=== PATIENT | female | born 1945 | race Caucasian/White ===

== ENCOUNTER 2019-06-01 10:08 | Emergency (ER) | payer MEDICARE ==
[~2019-06-01] VITALS: Ht 160 cm; Wt 81.8 kg
[2019-06-01] MEDS ORDERED: DULO20CA PO (10:36)
[2019-06-01] MEDS ORDERED: ATOR20TA66 PO (10:36)
[2019-06-01] MEDS ORDERED: LISI-552 PO (10:36)
--- NOTE | 2019-06-01 10:54 | ED Lower Extremity ---
General Chief Complaint: Trauma-Non Activation Stated Complaint: FALL - L KNEE PAIN Nursing Triage Note: PT TO RM 8 BY WHEELCHAIR WITH COMPLAINT OF LEFT KNEE AND ANKLE PAIN AFTER FALL. PT STATES SHE SLIPPED ON STEPS THIS MORNING. DENIES LOC. Nursing Sepsis Screen: No Definite Risk (DENISE COPELAND MEDICAL STUDENT) Source: patient Exam Limitations: no limitations (NIDHI HULL MD) History of Present Illness Initial Comments Patient is a 74- year old female presenting via private vehicle to the ED for a left ankle injury. Patient reports that she was walking down stairs when she missed a step and rolled her ankle. She believes she inverted her ankle but is unsure of the mechanism of injury because of how quickly it happened. She did not hear a pop with the fall. She fell onto her bottom and did not hit her head. After the fall she was unable to bear weight. She has 10/10 ankle and knee pain with weight bearing. (DENISE COPELAND) Date Seen by Provider: Jun 01, 2019 Time Seen by Provider: 10:30 (NIDHI HULL MD) Allergies and Home Medications Allergies Coded Allergies: Penicillins (Verified Allergy, Unknown, 06/01/19) Home Medications Hydrocodone Bit/Acetaminophen 1 Tab Tab, 1 EACH PO Q4-6HR PRN for PAIN-MODERATE Prescribed by: NIDHI IYER on 06/01/19 1158 Lisinopril 20 Mg Tablet, Unknown Dose PO DAILY, (Reported) Patient Home Medication List Home Medication List Reviewed: Yes (NIDHI HULL MD) Review of Systems Constitutional: no symptoms reported EENTM: no symptoms reported Respiratory: no symptoms reported Cardiovascular: no symptoms reported Gastrointestinal: no symptoms reported Genitourinary: no symptoms reported : No Musculoskeletal: see HPI Skin: no symptoms reported Psychiatric/Neurological: No Symptoms Reported (NIDHI HULL MD) Past Pxskuvu-Bktcku-Mdehiv Hx Patient Social History Alcohol Use: Occasionally Uses Alcohol Beverage of Choice: Wine Recreational Drug Use: No Smoking Status: Former Smoker Type Used: Cigarettes Recent Foreign Travel: No Contact w/Someone Who Travel: No Recent Infectious Disease Expo: No Recent Hopitalizations: No (DENISE COPELAND) Immunizations Up To Date Tetanus Booster (TDap): Unknown PED Vaccines UTD: Yes (COPELAND,DENISE MEDICAL STUDENT) Seasonal Allergies Seasonal Allergies: No (DENISE COPELAND MEDICAL STUDENT) Past Medical History Surgeries: Yes (RIGHT KNEE, LEFT SHOULDER) Adenoidectomy, Appendectomy, Hysterectomy, Orthopedic, Tonsillectomy, Tubal Ligation Respiratory: Yes Asthma, COPD Cardiac: Yes High Cholesterol, Hypertension 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 oz. kg; 31.00 BMI Method: General Appearance: mild distress HEENT: normal ENT inspection, pharynx normal Cardiovascular: regular rate, rhythm, no gallop Respiratory: lungs clear, normal breath sounds Knees: left knee pain, left knee soft tissue tenderness, left knee swelling, left knee other Ankles: left ankle bone tenderness (Severely tender along both medial and lateral malleoli. Non-tender at 5th metatarsal and non-tender at mid-foot), left ankle pain, left ankle soft tissue tenderness, left ankle swelling Feet: left foot other (Posterior tibial, dorsalis pedis pulses intact ) Neurologic/Tendon: normal sensation (DENISE COPELAND MEDICAL STUDENT) Progress/Results/Core Measures Results/Orders My Orders Orders - NIDHI HULL MD Ankle, Left, 3 Views (06/01/19 10:45) Knee, Left, 3 Views (06/01/19 10:57) Crutches (06/01/19 11:42) Steplite (06/01/19 11:42) (NIDHI HULL MD) Vital Signs/I&O 06/01/19 06/01/19 10:25 12:50 Temp 36.5 36.5 Pulse 90 90 Resp 20 20 B/P (MAP) 123/84 (97) 123/84 (97) Pulse Ox 97 97 O2 Delivery Room Air (NIDHI HULL MD) Blood Pressure Mean: 97 Diagnostic Imaging Diagonstic Imaging: Xray Plain Films/CT/US/NM/MRI: knee Comments Left knee x-ray viewed by me and report reviewed. See report below: NAME: JOSE SILVA [facility] REC#: [id number] PT STATUS: [facility] ER : 1945 PHYSICIAN: NIDHI HULL MD ADMIT DATE: 06/01/19/ER Signed Date of Exam:06/01/19 KNEE, LEFT, 3 VIEWS INDICATION: Knee pain post fall TECHNIQUE: 3 views of the left knee CORRELATION STUDY: None FINDINGS: The joint spaces are maintained. The articular surfaces are smooth and preserved. There is no acute bony abnormality. Soft tissues are unremarkable. IMPRESSION: 1. Negative for acute bony abnormality of the knee. Dictated by: Dictated on workstation # [id number] Dict: 06/01/19 1121 Trans: 06/01/19 1203 DO [id number] Interpreted by: DEE MÉNDEZ DO Electronically signed by: DEE MÉNDEZ DO 06/01/19 1203 Diagonstic Imaging: Xray Plain Films/CT/US/NM/MRI: ankle Comments Left ankle x-ray viewed by me and report reviewed. See report below: NAME: JOSE SILVA [facility] REC#: [id number] PT STATUS: [facility] ER : 1945 PHYSICIAN: NIDHI HULL MD ADMIT DATE: 06/01/19/ER Signed Date of Exam:06/01/19 ANKLE, LEFT, 3 VIEWS HISTORY: Fall, left ankle pain TECHNIQUE: Three views of the left ankle. COMPARISON: None FINDINGS: There is an oblique Rowan type B fracture of the lateral malleolus which is nondisplaced, but suspicious for an acute fracture. There appears to be a small avulsion fracture at the tip of the medial malleolus. There is a well-corticated ossification distal to the lateral malleolus which is likely from remote trauma. There is a moderate left tibiotalar joint effusion. A plantar calcaneal enthesophyte is seen. IMPRESSION: 1. Nondisplaced oblique fracture of the distal left fibula, suspected to be acute. 2. Minimally displaced avulsion fracture at the tip of the medial malleolus. 3. Moderate tibiotalar joint effusion. Dictated by: Dictated on workstation # [id number] Dict: 06/01/19 1105 Trans: 06/01/19 1706 [facility] [id number] Interpreted by: SOFYA THOMPSON MD Electronically signed by: SOFYA THOMPSON MD 06/01/19 170 (NIDHI HULL MD) Departure Impression Primary Impression: Fracture of distal end of left fibula Qualified Codes: S82.832A - Other fracture of upper and lower end of left fibula, initial encounter for closed fracture Additional Impression: Avulsion fracture of medial malleolus of left tibia Qualified Codes: S82.52XA - Displaced fracture of medial malleolus of left tibia, initial encounter for closed fracture Disposition: HOME, SELF-CARE Condition: Improved Departure-Patient Inst. Decision time for Depature: 11:56 (NIDHI HULL MD) Referrals: ASHLEY STALLINGS MD (PCP/Family) Primary Care Physician CAMERON LOCK MD, MICHAEL P MD Patient Instructions: Ankle Fracture, How to Use Crutches Add. Discharge Instructions: Use crutches to ambulate. Use the boot as much as possible. You may only toe- touch weight-bear while the boot is on. Do not weight-bear without the boot. Rest, elevation, and icing in 20 minute intervals should help reduce pain and swelling. You may also use a compressive Magdy wrap. Follow-up with an orthopedist as soon as possible. Some local orthopedist are listed below. Use Tylenol (acetaminophen) for more mild pain. You may use up to 1000 mg every 6 hours. Use hydrocodone as prescribed for more severe pain Return to care if you have worsening symptoms. All discharge instructions reviewed with patient and/or family. Voiced understanding. Scripts Hydrocodone Bit/Acetaminophen (Hydrocodone/Acetaminophen 5/325mg Tablet) 1 Tab Tab 1 EACH PO Q4-6HR PRN for PAIN-MODERATE MDD 10, #10 TAB Prov: NIDHI HULL MD 06/01/19 This patient was personally interviewed and examined by me along with Denise Copeland MS4. I agree with his history, physical, and assessments, and documentation with the following additions and changes. Exam: Gen.: Alert, oriented, no acute distress HEENT: Normocephalic and atraumatic Heart: Regular rate and rhythm without murmur Lungs: Clear to auscultation bilaterally with normal effort Extremities: There is tenderness to the medial malleolus into the distal lateral left lower leg. There is some swelling along the lateral aspect as well and a small abrasion on the anterior aspect of the ankle. Foot exam is unremarkable. Neuropsych: Alert and oriented, no focal deficits. Patient was found to have ankle fracture. She was fitted with a boot and crutches. She was advised follow-up with orthopedics next week. Hydrocodone was given for pain. (NIDHI HULL MD) Copy Copies To 1: ASHLEY STALLINGS MD, ALEX MEDICAL STUDENT Jun 01, 2019 10:54 NIDHI HULL MD Jun 01, 2019 11:59
--- NOTE | 2019-06-01 11:20 | Diagnostic Imaging Report ---
HISTORY: Fall, left ankle pain TECHNIQUE: Three views of the left ankle. COMPARISON: None FINDINGS: There is an oblique Rowan type B fracture of the lateral malleolus which is nondisplaced, but suspicious for an acute fracture. There appears to be a small avulsion fracture at the tip of the medial malleolus. There is a well-corticated ossification distal to the lateral malleolus which is likely from remote trauma. There is a moderate left tibiotalar joint effusion. A plantar calcaneal enthesophyte is seen. IMPRESSION: 1. Nondisplaced oblique fracture of the distal left fibula, suspected to be acute. 2. Minimally displaced avulsion fracture at the tip of the medial malleolus. 3. Moderate tibiotalar joint effusion. Dictated by: Dictated on workstation # [id number]
--- NOTE | 2019-06-01 11:23 | Diagnostic Imaging Report ---
INDICATION: Knee pain post fall TECHNIQUE: 3 views of the left knee CORRELATION STUDY: None FINDINGS: The joint spaces are maintained. The articular surfaces are smooth and preserved. There is no acute bony abnormality. Soft tissues are unremarkable. IMPRESSION: 1. Negative for acute bony abnormality of the knee. Dictated by: Dictated on workstation # [id number]
[2019-06-01] MEDS ORDERED: ACHD5005 PO (11:58)
[2019-06-01 12:50] VITALS: BP 123/84
== END 2019-06-01 12:50 | disposition home or self-care (01) ==
LOC: ER 10:10
DX: S82.832A Other fracture of upper and lower end of left fibula, initial encounter for closed fracture (principal); S82.52XA Displaced fracture of medial malleolus of left tibia, initial encounter for closed fracture; I10 Essential (primary) hypertension; Z90.89 Acquired absence of other organs; Z90.49 Acquired absence of other specified parts of digestive tract; Z90.710 Acquired absence of both cervix and uterus; Z98.51 Tubal ligation status; Z88.0 Allergy status to penicillin; Z87.891 Personal history of nicotine dependence; W10.9XXA Fall (on) (from) unspecified stairs and steps, initial encounter
CPT/HCPCS: 73562; 73610

== ENCOUNTER → 2019-06-07 | Outpatient (CLI) | payer MEDICARE ==
[~2019-06-07] MED LIST: ACHD5005 PO; ATOR20TA66 PO; DULO20CA PO; LISI-552 PO
--- NOTE | 2019-06-07 12:07 | Diagnostic Imaging Report ---
INDICATION: Fracture, follow up. TECHNIQUE: Three views of the left ankle. CORRELATION STUDY: 06/01/2019. FINDINGS: Obliquely oriented fracture of the distal fibula is again demonstrated. There is perhaps very slight increased offset along the fracture line. No appreciable interval healing. Some bone fragmentation at the tip of the fibula, likely owing to previous fracture. Relatively stable appearance about a small avulsion fracture off the tip of the medial malleolus. Small plantar calcaneal spur. Soft tissue swelling is again demonstrated. IMPRESSION: 1. Perhaps slight increased diastasis along the main obliquely oriented fracture of the distal left fibula. Alignment is otherwise nearly anatomic. 2. Stable appearance about minimally displaced avulsion fractured tip of the medial malleolus. Dictated by: Dictated on workstation # [id number]
== END ==
LOC: ORTHO 09:41
PROVIDERS: ATTEND Orthopaedic Surgery
DX: S82.832A Other fracture of upper and lower end of left fibula, initial encounter for closed fracture (principal); S82.52XA Displaced fracture of medial malleolus of left tibia, initial encounter for closed fracture; W10.9XXA Fall (on) (from) unspecified stairs and steps, initial encounter
CPT/HCPCS: 73610; 99203

== ENCOUNTER → 2019-06-20 | Outpatient (CLI) | payer MEDICARE ==
--- NOTE | 2019-06-20 11:30 | Diagnostic Imaging Report ---
EXAMINATION: Left foot at 11:13 a.m. INDICATION: Follow-up fracture of distal fibula. Three views were obtained. COMPARISON: There are no prior studies of the foot available for comparison. FINDINGS: The prior exam of the left ankle performed on 06/07/2019 did note a slightly displaced fracture of the distal fibula and a minimally displaced avulsion fracture of the tip of the medial malleolus. On this exam, the fracture of the distal fibula is again evident and does not seem to have changed significantly. The medial malleolar fracture is difficult to appreciate. There is no fracture or acute bony abnormality of the foot itself. There is at least moderate degenerative disease of the PIP and DIP joints. There is also a small calcaneal spur. The Lisfranc joint seems well maintained. IMPRESSION: The fractures of the distal fibula and tibia seen previously are again evident. There is no acute abnormality of the foot. Dictated by: Dictated on workstation # [id number]
--- NOTE | 2019-06-20 11:33 | Diagnostic Imaging Report ---
EXAMINATION: Left ankle at 11:15 a.m. INDICATION: Follow-up fracture. Three views were obtained. The prior exam of 06/01/2019 noted a nondisplaced oblique fracture of the distal fibula as well as a minimally displaced fracture of the tip of the medial malleolus. On this study the fibular fracture line is again evident and actually seems somewhat more conspicuous than on the previous exam. There may be minimal healing callus formation present. The fracture of the medial malleolus is unchanged. No other fracture or acute bony abnormality is appreciated. The ankle mortise is not widened and the talar dome is smooth. The soft tissues are unremarkable. IMPRESSION: 1. The fractures of the distal fibula and medial malleolus seen previously are again evident and not significantly changed. No new abnormality has developed. 2. A follow-up study would be recommended for continued evaluation. Dictated by: Dictated on workstation # [id number]
== END ==
LOC: ORTHO 10:52
PROVIDERS: ATTEND Orthopaedic Surgery
DX: S82.832A Other fracture of upper and lower end of left fibula, initial encounter for closed fracture (principal); S82.52XA Displaced fracture of medial malleolus of left tibia, initial encounter for closed fracture; W10.9XXA Fall (on) (from) unspecified stairs and steps, initial encounter
CPT/HCPCS: 73610; 73630

== ENCOUNTER → 2019-07-11 | Outpatient (CLI) | payer MEDICARE ==
--- NOTE | 2019-07-11 11:42 | Diagnostic Imaging Report ---
INDICATION: Follow-up left ankle fracture. TIME OF EXAM: 10:38 a.m. COMPARISON: Correlation is made with prior radiographs from 06/20/2019. FINDINGS: The obliquely oriented fracture of the distal fibula is again noted. Fracture line does remain partly visible. There is also lucency at the tip of the medial malleolus, similar to prior exam. Fracture lines remain visible. Alignment is anatomic. Ankle mortise is well maintained. Talar dome is smooth. There is a large plantar calcaneal spur. IMPRESSION: Overall, similar appearance to left ankle fractures when compared with examination from 06/20/2019. Fracture lines remain visible. Alignment is anatomic. Dictated by: Dictated on workstation # [id number]
== END ==
LOC: ORTHO 10:19
PROVIDERS: ATTEND Orthopaedic Surgery
DX: S82.65XD Nondisplaced fracture of lateral malleolus of left fibula, subsequent encounter for closed fracture with routine healing (principal); S82.832D Other fracture of upper and lower end of left fibula, subsequent encounter for closed fracture with routine healing; S93.622A Sprain of tarsometatarsal ligament of left foot, initial encounter
CPT/HCPCS: 73610

== ENCOUNTER → 2019-07-25 | Outpatient (CLI) | payer MEDICARE ==
[~2019-07-25] MED LIST changes: +CATHETER FLUSH 10 ML SYR IV PRN; +HOLD METFORMIN - RECEIVED CONTRAST 20 ML VIAL IV SCH; +IOHEXOL 350 MG/ML 100 ML (OMNIPAQUE 350) VIAL IV ONE; +NS 100 ML (IVPB) BAG IV ONE
[2019-07-25 10:26] LABS: BUN/CREATININE RATIO 14; CREATININE SERUM 0.76 MG/DL (0.60-1.30); GFR ESTIMATED > 60
--- NOTE | 2019-07-25 11:53 | Diagnostic Imaging Report ---
EXAMINATION: CT Chest with intravenous contrast. TECHNIQUE: Multiple contiguous axial images were obtained through the chest after the uneventful administration of intravenous contrast. All CT scans use one or more of the following dose optimizing techniques: automated exposure control, MA and/or KvP adjustment based on a patient size and exam type, or iterative reconstruction. INDICATION: Cough. COMPARISON: None available. FINDINGS: There is no edema or pneumonia. No pleural effusion. No pneumothorax. There is a 5 mm average diameter right lower lobe pulmonary nodule. A similar appearing adjacent nodule is also seen. These are best seen on series 3, image 66. Heart size is normal. There are mild coronary artery calcifications. No pericardial effusion. Aorta is normal in caliber. There is no axillary or supraclavicular lymphadenopathy. There is no mediastinal lymphadenopathy. Limited views of the upper abdomen are unremarkable. There are no suspicious osseus lesions. IMPRESSION: 1. Small right lower lobe pulmonary nodules are likely benign. According to the Fleischner Society guidelines: In a low risk patient, no routine follow up is recommended. In a high risk patient, consider optional CT at 12 months. Dictated by: Dictated on workstation # [id number]
== END ==
LOC: RAD 10:00
PROVIDERS: ATTEND Nurse Practitioner Family
DX: J44.9 Chronic obstructive pulmonary disease, unspecified (principal); G47.33 Obstructive sleep apnea (adult) (pediatric); G47.36 Sleep related hypoventilation in conditions classified elsewhere; R91.8 Other nonspecific abnormal finding of lung field
CPT/HCPCS: 36415; 71260; 82565; 84520

== ENCOUNTER → 2019-07-29 | Outpatient (CLI) | payer MEDICARE ==
[~2019-07-29] MED LIST changes: -CATHETER FLUSH 10 ML SYR IV PRN; -HOLD METFORMIN - RECEIVED CONTRAST 20 ML VIAL IV SCH; -IOHEXOL 350 MG/ML 100 ML (OMNIPAQUE 350) VIAL IV ONE; -NS 100 ML (IVPB) BAG IV ONE
--- NOTE | 2019-07-29 10:44 | Diagnostic Imaging Report ---
INDICATION: Fibular fracture. TECHNIQUE: AP, oblique, and lateral views of the left ankle were obtained. COMPARISON: 06/20/2019. FINDINGS: The oblique fracture through the distal shaft of the left fibula remains visible although there has been partial obscuration and development of bridging callus. The old fibular avulsion fracture at the tip of the malleolus is stable. There is no evidence of new fracture or malalignment. IMPRESSION: Partially healed oblique fracture of the distal left fibular shaft. Dictated by: Dictated on workstation # [id number]
== END ==
LOC: ORTHO 09:59
PROVIDERS: ATTEND Orthopaedic Surgery
DX: S82.65XD Nondisplaced fracture of lateral malleolus of left fibula, subsequent encounter for closed fracture with routine healing (principal)
CPT/HCPCS: 73610

== ENCOUNTER → 2019-10-08 | Outpatient (CLI) | payer MEDICARE | LOC: ORTHO 13:29 | PROVIDERS: ATTEND Orthopaedic Surgery | DX: M17.0 Bilateral primary osteoarthritis of knee (principal) ==

== ENCOUNTER → 2019-10-09 | Outpatient (CLI) | payer MEDICARE ==
[~2019-10-09] MED LIST changes: +RT-ALBUTEROL SULF 2.5 MG/3 ML PRE-MIX VIAL INH ONE; +RT-ALBUTEROL SULF 2.5 MG/3 ML PRE-MIX VIAL ONE
== END ==
LOC: RT 14:34
PROVIDERS: ATTEND Nurse Practitioner Family
DX: J44.9 Chronic obstructive pulmonary disease, unspecified (principal); G47.33 Obstructive sleep apnea (adult) (pediatric); J45.909 Unspecified asthma, uncomplicated; G47.36 Sleep related hypoventilation in conditions classified elsewhere; R91.8 Other nonspecific abnormal finding of lung field
CPT/HCPCS: 94060; 94726; 94729

== ENCOUNTER → 2019-10-29 | Outpatient (CLI) | payer MEDICARE ==
[~2019-10-29] MED LIST changes: -RT-ALBUTEROL SULF 2.5 MG/3 ML PRE-MIX VIAL INH ONE; -RT-ALBUTEROL SULF 2.5 MG/3 ML PRE-MIX VIAL ONE
--- NOTE | 2019-10-29 18:17 | Diagnostic Imaging Report ---
EXAMINATION: Shoulder radiographs, 3 views. COMPARISON: None. HISTORY: 74-year-old female, right shoulder pain. FINDINGS: The acromioclavicular joint is normally aligned. There are mild right acromioclavicular degenerative changes without large undersurface osteophyte. The humeral head is normally positioned relative to the glenoid. There is no pronounced glenohumeral joint space loss. There is no identified acute fracture. IMPRESSION: 1. Mild right acromioclavicular degenerative changes. 2. Unremarkable appearance of the glenohumeral joint. Dictated by: Dictated on workstation # [id number]
== END ==
LOC: ORTHO 13:43
PROVIDERS: ATTEND Orthopaedic Surgery
DX: M19.011 Primary osteoarthritis, right shoulder (principal); M75.81 Other shoulder lesions, right shoulder
CPT/HCPCS: 73030; G0463

== ENCOUNTER → 2019-11-20 | Outpatient (CLI) | payer MEDICARE | LOC: CARD 10:01 | PROVIDERS: ATTEND Internal Medicine Interventional Cardiology | DX: I34.0 Nonrheumatic mitral (valve) insufficiency (principal); I10 Essential (primary) hypertension; I51.89 Other ill-defined heart diseases; R07.2 Precordial pain | CPT/HCPCS: 93306 ==

== ENCOUNTER 2019-12-05 07:16 | Emergency (ER) | payer MEDICARE ==
[~2019-12-05] VITALS: Ht 157 cm; Wt 77.1 kg
--- OUTSIDE RECORDS SUMMARY | 2019-12-05 07:22 | XMS REPORT | Continuity of Care Document ---
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 Name Role Phone Zaire Martinez PP Unavailable Payers Payer name Insurance type Covered democrat ID Authorization(s ) Unknown Problems Condition Effective Dates (start - stop) Clinical Status Spinal stenosis of unspecified region - *C hronic Knee pain, right - *Acute Lumbago - *Chronic CHRONIC PAIN NEC - *Chronic Pneumonia, organism unspecified - *Acute Acute sinusitis, unspecified - *Acute Impacted cerumen - *Acute Edema - *Acute Therapeutic Drug Monitoring - *Chronic Spinal stenosis of unspecified region - *C hronic Multiple myeloma, without mention of remission - *Chronic Multiple myeloma, without mention of remission - Chronic Hypertension, Benign - *Chronic Mixed Hyperlipidemia - *Chronic Hypertension, Benign - Chronic Mixed Hyperlipidemia - Chronic Needs flu shot - *Routine Depression - *Chronic Depression - Chronic CHRONIC PAIN NEC - *Chronic Lumbago - *Chronic NEED FOR PROPHYLACTIC VACCINATION AND INOCULATION, INFLUENZA - *Routine Lumbago - *Chronic Mixed hyperlipidemia - *Chronic Benign essential hypertension - *Chronic Edema - *Chronic Depressive disorder, not elsewhere classified - *Chronic CHRONIC PAIN NEC - *Chronic Mixed hyperlipidemia - *Chronic Edema - *Chronic CHRONIC PAIN NEC - *Chronic Shoulder pain, left - *Acute Unspecified fall - Needs flu shot - *Routine Other and unspecified noninfectious gastroenteritis and coli tis - *Acute Osteoarthrosis, generalized, involving unspecified site - *Chronic Multiple myeloma, without mention of remission - *Chronic Benign essential hypertension - *Chronic Mixed hyperlipidemia - *Chronic Pain in joint involving shoulder region - *Acute CHRONIC PAIN NEC - *Chronic Hip pain, right - *Acute Acute sinusitis, unspecified - *Acute CHRONIC PAIN NEC - *Chronic Multiple myeloma, without mention of remission - *Chronic Edema - *Chronic CHRONIC PAIN NEC - *Chronic Chronic airway obstruction, not elsewhere classified 2009 - *Chronic Multiple myeloma, without mention of remission - *Chronic Osteoarthrosis, generalized, involving unspecified site - *Chronic Other specified circulatory system disorders - *Chronic Multiple myeloma, without mention of remission - *Chronic CHRONIC PAIN SYNDROME - *Chronic Disturbance of skin sensation - *Acute Unspecified hemorrhoids without mention of complication - *Chronic Unspecified hemorrhoids without mention of complication - *Chronic Multiple myeloma, without mention of remission - *Chronic Osteoarthrosis, generalized, involving unspecified site - *Chronic Depressive disorder, not elsewhere classified - *Chronic Benign essential hypertension - *Chronic Mixed hyperlipidemia - *Chronic Myalgia and myositis, unspecified - *Chron ic Multiple myeloma, without mention of remission - *Chronic Spinal stenosis of unspecified region - *C hronic OBSTRUCTIVE CHRONIC BRONCHITIS, WITH (ACUTE) EXACERBATION De - *Chronic Osteoarthrosis, generalized, involving unspecified site - *Chronic Depressive disorder, not elsewhere classified - *Chronic Other and unspecified hyperlipidemia - *Ch ronic NEED FOR PROPHYLACTIC VACCINATION AND INOCULATION, INFLUENZA - *Routine NEED FOR PROPHYLACTIC VACCINATION AND INOCULATION, INFLUENZA - *Routine Multiple myeloma, without mention of remission - *Chronic Lumbago - *Chronic CHRONIC PAIN NEC - *Chronic Osteoarthrosis, generalized, involving unspecified site - *Chronic NEED FOR PROPHYLACTIC VACCINATION AND INOCULATION, INFLUENZA - *Routine CHRONIC PAIN SYNDROME - *Chronic Disturbance of skin sensation - *Acute Multiple myeloma, without mention of remission - *Chronic Lumbago - *Chronic Cervicalgia - *Chronic Constipation, unspecified - *Acute Blood in stool - *Acute Other malaise and fatigue - *Acute Family History Family Member Diagnosis Age At Onset Status Father (Unknown) colon Yes Mother (Unknown) Parkinson's disease Yes Sister (Unknown) colon trouble Yes Family h/o (Unknown) Diabetes Yes Brother (Unknown) Colon polyps Yes Brother (Unknown) CAD Yes Family h/o (Unknown) Cardiomyopathy Yes Father (Unknown) CVA (Stroke) Yes Social History Social History Element Description Quantity alcohol 2 beers Allergies, Adverse Reactions, Alerts Substance Reaction Severity Status PENICILLINS Unknown Medications Medication Instructions Dosage Effective Dates (start - sto p) Status potassium chloride ER 20 mEq tablet,extended release(p art/cryst) take 1 tablet (20MEQ) by ORAL route every day as needed 20 MEQ - Active Flexeril 10 mg tablet take 1 tablet (10MG) by ORA L route 3 times every day as needed - Active Orlando 7.5 mg-325 mg tablet take 1 tablet by oral route every 6 hours as needed for pain 0 - Active ADVAIR DISKUS (unknown strength) inhale 1 puff by INHA LATION route 2 times every day morning and evening - Active ProAir HFA 90 mcg/actuation aerosol inhaler inhale 2 p uff by inhalation route every 4 hours as needed 0 - Active triamcinolone acetonide 0.1 % topical cream apply by t opical route 2 times every day a thin layer to the affected area(s) 0 - Active Inderal LA 120 mg capsule,extended release take 1 caps ule (120MG) by ORAL route every day - Active Fit patient for 1 pair of stockings. - Active metolazone 5 mg tablet take 1 tablet (5MG) by oral route every day 5 MG - Active felodipine ER 5 mg tablet,extended release 24 hr take 1 tablet (5MG) by oral route every day 5 MG - Active furosemide 40 mg tablet take 1 tablet (40MG) by oral route david 40 MG - Active simvastatin 40 mg tablet take 1 tablet (40MG) by ora l route every day in the evening 40 MG - Active Mobic 15 mg tablet take 1 tablet (15MG) by oral route every da y - Active Cymbalta 60 mg capsule,delayed release take 1 capsule (60MG) by oral route every day 60 MG - Active Immunizations Vaccine Date Status Comments Fluzone completed - Completed reas on: previously given flu (split) (3 yrs or older) completed - C ompleted reason: Previously given pneumo (2 yrs or older) (PPV23) completed - Completed reason: Previously Given Fluzone completed - Completed reas on: previously given flu (split) (3 yrs or older) completed - C ompleted reason: Previously given flu (split) (3 yrs or older) completed - C ompleted reason: Previously given flu (split) (3 yrs or older) completed - C ompleted reason: Previously given Influenza, H1N1, IM completed - Completed reason: Previously Given Results Test Name Date and Time Measure Units Reference Range Abnormal F lag Comments Unknown Vital Signs Date / Time: Height Weight Pulse Rate Blood Pressure Temperat ure /11:37:00 62.00 in 180.00 lbs 72 /min 122/62 mm[Hg] 9 8.5 F Procedures Procedure Date Unknown Encounters Encounter Location Date Patient Visit [facility] Patient Visit [facility] Patient Visit [facility] Patient Visit [facility] Patient Visit [facility] Advance Directives Directive Effective Date Unknown
--- OUTSIDE RECORDS SUMMARY | 2019-12-05 07:23 | XMS REPORT | Continuity of Care Document ---
Author Organization Unknown Address Unknown Phone Unavailable Allergies Active Description Code Type Severity Reaction Onset Reported/Identified Relationship to Patient Clinical Status Yes PENICILLINS 26 Drug Class N/A Hives 10/05/2018 10/05/2018 Yes Penicillins [id number] Drug Aller gy Unknown N/A 06/01/2019 Medications Medication Packaging Start Date St op Date Route Dosage Sig trimethoprim-sulfamethoxazol e, 160-800 mg / tab, (BACTRIM DS) tablet -- Take 1 tablet by mouth two times a day for 10 days tablet 11/13/2017 11/23/2017 Oral 2 TIME S A DAY 2 TIMES A DAY TRIAMCINOLONE ACETONIDE 40 MG/ML IJ SUSP 10/05/2018 Intramuscular 40 ONCE METHYLPREDNISOLONE ACETATE 80 MG/ML IJ TEREZA P 10/05/2018 Intramuscular 80 ONCE Problems Date Dx Coded Attending Type Code Diagnosis Diagnosed By 06/01/2019 NIDHI HULL MD, Ot I10 ESSENTIAL (PRIMARY) HYPERTENSION 06/01/2019 NIDHI HULL MD, Ot M25.562 PAIN IN LEFT KNEE 06/01/2019 NIDHI HULL MD, Ot S82.52XA DISP FX OF MEDIAL MALLEOLUS OF LEFT TIBI 06/01/2019 NIDHI HULL MD, Ot S82.832A OTH FRACTURE OF UPPER AND LOWER END OF L 06/01/2019 NIDHI HULL MD, Ot W10.9XXA FALL (ON) (FROM) UNSPECIFIED STAIRS AND 06/01/2019 NIDHI HULL MD, Ot Z87.891 PERSONAL HISTORY OF NICOTINE DEPENDENCE 06/01/2019 NIDHI HULL MD, Ot Z88.0 ALLERGY STATUS TO PENICILLIN 06/01/2019 NIDHI HULL MD, Ot Z90.49 ACQUIRED ABSENCE OF OTHER SPECIFIED PART 06/01/2019 NIDHI HULL MD, Ot Z90.710 ACQUIRED ABSENCE OF BOTH CERVIX AND UTER 06/01/2019 NIDHI HULL MD Ot Z90.89 ACQUIRED ABSENCE OF OTHER ORGANS 06/01/2019 NIDHI HULL MD Ot Z98.51 TUBAL LIGATION STATUS 06/20/2019 CAMERON LOCK MD Ot S82.52XA DISP FX OF MEDIAL MALLEOLUS OF LEFT TIBI 06/20/2019 CAMERON LOCK MD Ot S82.832A OTH FRACTURE OF UPPER AND LOWER END OF L 06/20/2019 CAMERON LOCK MD Ot W10.9XXA FALL (ON) (FROM) UNSPECIFIED STAIRS AND 06/21/2019 CAMERON LOCK MD, Ot S82.52XA DISP FX OF MEDIAL MALLEOLUS OF LEFT TIBI 06/21/2019 CAMERON LOCK MD, Ot S82.832A OTH FRACTURE OF UPPER AND LOWER END OF L 06/21/2019 CAMERON LOCK MD, Ot W10.9XXA FALL (ON) (FROM) UNSPECIFIED STAIRS AND 07/01/2019 CAMERON LOCK MD Ot S82.52XA DISP FX OF MEDIAL MALLEOLUS OF LEFT TIBI 07/01/2019 CAMERON LOCK MD, Ot S82.832A OTH FRACTURE OF UPPER AND LOWER END OF L 07/01/2019 CAMERON LOCK MD, Ot W10.9XXA FALL (ON) (FROM) UNSPECIFIED STAIRS AND 07/04/2019 CAMERON LOCK MD Ot S82.52XA DISP FX OF MEDIAL MALLEOLUS OF LEFT TIBI 07/04/2019 CAMERON LOCK MD, Ot S82.832A OTH FRACTURE OF UPPER AND LOWER END OF L 07/04/2019 CAMERON LOCK MD, Ot W10.9XXA FALL (ON) (FROM) UNSPECIFIED STAIRS AND 07/05/2019 W M25.572 An kle pain, left Adilene Walker 07/05/2019 W R26.81 Gai t instability Adilene Walker 07/05/2019 W S82.52XA C losed avulsion fracture of medial malleolus of left tibia, initial encounter Adilene Walker 07/05/2019 W S82.832A C losed avulsion fracture of distal end of left fibula, initial encounter Adilene Walker 07/05/2019 W E78.2 Mixe d hyperlipidemia Sharmin Villarreal 07/05/2019 W G47.33 Obs tructive sleep apnea Sharmin Villarreal 07/05/2019 W I10 Essent ial (primary) hypertension Sharmin Villarreal 07/05/2019 W J44.9 COPD (chronic obstructive pulmonary disease) PhilMendezie 07/15/2019 CAMERON LOCK MD Ot S82.65XD NONDISP FX OF LATERAL MALLEOLUS OF L FIB 07/15/2019 CAMERON LOCK MD Ot S82.832D OTH FX UPR LOW END L FIBULA, SUBS FOR 07/15/2019 CAMERON LOCK MD Ot S93.622A SPRAIN OF TARSOMETATARSAL LIGAMENT OF LE 07/15/2019 CAMERON LOCK MD Ot S82.52XA DISP FX OF MEDIAL MALLEOLUS OF LEFT TIBI 07/15/2019 CAMERON LOCK MD Ot S82.832A OTH FRACTURE OF UPPER AND LOWER END OF L 07/15/2019 CAMERON LOCK MD Ot W10.9XXA FALL (ON) (FROM) UNSPECIFIED STAIRS AND 07/22/2019 CAMERON LOCK MD Ot S82.52XA DISP FX OF MEDIAL MALLEOLUS OF LEFT TIBI 07/22/2019 CAMERON LOCK MD Ot S82.832A OTH FRACTURE OF UPPER AND LOWER END OF L 07/22/2019 CAMERON LOCK MD Ot W10.9XXA FALL (ON) (FROM) UNSPECIFIED STAIRS AND 07/30/2019 FRANNIE STAFFORD APRN Ot G47.33 OBSTRUCTIVE SLEEP APNEA (ADULT) (PEDIATR 07/30/2019 FRANNIE STAFFORD APRN Ot G47.36 SLEEP RELATED HYPOVENTILATION IN CONDITI 07/30/2019 FRANNIE STAFFORD APRN Ot J44.9 CHRONIC OBSTRUCTIVE PULMONARY DISEASE, U 07/30/2019 FRANNIE STAFFORD APRN Ot R91.8 OTHER NONSPECIFIC ABNORMAL FINDING OF ANTONIO 07/31/2019 CAMERON LOCK MD Ot S82.65XD NONDISP FX OF LATERAL MALLEOLUS OF L FIB 07/31/2019 CAMERON LOCK MD Ot S82.832D OTH FX UPR LOW END L FIBULA, SUBS FOR 07/31/2019 CAMERON LOCK MD Ot S93.622A SPRAIN OF TARSOMETATARSAL LIGAMENT OF LE 08/04/2019 CAMERON LOCK MD Ot S82.65XD NONDISP FX OF LATERAL MALLEOLUS OF L FIB 08/15/2019 FRANNIE STAFFORD CADD OPERATOR Ot G47.33 OBSTRUCTIVE SLEEP APNEA (ADULT) (PEDIATR 08/15/2019 FRANNIE STAFFORD CADD OPERATOR Ot G47.36 SLEEP RELATED HYPOVENTILATION IN CONDITI 08/15/2019 CLEMENT STAFFORDINE E CADD OPERATOR Ot J44.9 CHRONIC OBSTRUCTIVE PULMONARY DISEASE, U 08/15/2019 FRANNIE STAFFORD CADD OPERATOR Ot R91.8 OTHER NONSPECIFIC ABNORMAL FINDING OF ANTONIO 08/21/2019 CAMERON LOCK MD Ot S82.65XD NONDISP FX OF LATERAL MALLEOLUS OF L FIB 08/22/2019 CLEMENT STAFFORDINE E CADD OPERATOR Ot G47.33 OBSTRUCTIVE SLEEP APNEA (ADULT) (PEDIATR 08/22/2019 CLEMENT STAFFORDINE E CADD OPERATOR Ot G47.36 SLEEP RELATED HYPOVENTILATION IN CONDITI 08/22/2019 CLEMENT STAFFORDINE E CADD OPERATOR Ot J44.9 CHRONIC OBSTRUCTIVE PULMONARY DISEASE, U 08/22/2019 CLEMENT STAFFORDINE E CADD OPERATOR Ot R91.8 OTHER NONSPECIFIC ABNORMAL FINDING OF ANTONIO 08/22/2019 CAMERON LOCK MD Ot S82.65XD NONDISP FX OF LATERAL MALLEOLUS OF L FIB 10/15/2019 FRANNIE STAFFORD CADD OPERATOR Ot G47.33 OBSTRUCTIVE SLEEP APNEA (ADULT) (PEDIATR 10/15/2019 CLEMENT STAFFORDINE E CADD OPERATOR Ot G47.36 SLEEP RELATED HYPOVENTILATION IN CONDITI 10/15/2019 CLEMENT STAFFORDINE E CADD OPERATOR Ot J44.9 CHRONIC OBSTRUCTIVE PULMONARY DISEASE, U 10/15/2019 FRANNIE STAFFORD CADD OPERATOR Ot J45.909 UNSPECIFIED ASTHMA, UNCOMPLICATED 10/15/2019 CLEMENT STAFFORDINE E CADD OPERATOR Ot R91.8 OTHER NONSPECIFIC ABNORMAL FINDING OF ANTONIO 10/29/2019 CAMERON LOCK MD Ot M17. 0 BILATERAL PRIMARY OSTEOARTHRITIS OF KNEE 10/30/2019 CAMERON LOCK MD Ot M17. 0 BILATERAL PRIMARY OSTEOARTHRITIS OF KNEE 10/31/2019 CAMERON LOCK MD Ot M19.011 PRIMARY OSTEOARTHRITIS, RIGHT SHOULDER 10/31/2019 CAMERON LOCK MD Ot M75. 81 OTHER SHOULDER LESIONS, RIGHT SHOULDER 11/06/2019 CAMERON LOCK MD Ot M19.011 PRIMARY OSTEOARTHRITIS, RIGHT SHOULDER 11/06/2019 CAMERON LOCK MD Ot M75. 81 OTHER SHOULDER LESIONS, RIGHT SHOULDER 11/13/2019 W I10 Essent ial (primary) hypertension Elaine Meeks 11/13/2019 W J44.1 Cell Technician marguerite obstructive pulmonary disease with acute exacerbation Elaine Meeks 11/13/2019 W M54.5 Low back pain Elaine Meeks 11/15/2019 CAMERON LOCK MD Ot M17. 0 BILATERAL PRIMARY OSTEOARTHRITIS OF KNEE 11/20/2019 W J30.89 Oth er allergic rhinitis AaronLilyie 11/20/2019 W J44.1 Cell Technician marguerite obstructive pulmonary disease with acute exacerbation Adilene Walker 11/21/2019 BILLIE DANIEL, Casey HUNT Ot I10 ESSENTIAL (PRIMARY) HYPERTENSION 11/21/2019 BILLIE DANIEL, Casey HUNT Ot I34 .0 NONRHEUMATIC MITRAL (VALVE) INSUFFICIENC 11/21/2019 Casey WISE MD Ot I51.89 OTHER ILL-DEFINED HEART DISEASES 11/21/2019 Casey WISE MD Ot R07 .2 PRECORDIAL PAIN 11/22/2019 W J30.89 Oth er allergic rhinitis Adilene Walker 11/22/2019 W J44.1 Cell Technician marguerite obstructive pulmonary disease with acute exacerbation Adilene Walker 11/25/2019 CAMERON LOCK MD Ot M19.011 PRIMARY OSTEOARTHRITIS, RIGHT SHOULDER 11/25/2019 CAMERON LOCK MD Ot M75. 81 OTHER SHOULDER LESIONS, RIGHT SHOULDER 11/26/2019 BILLIE DANIEL, M GILBERT Ot I10 ESSENTIAL (PRIMARY) HYPERTENSION 11/26/2019 BILLIE DANIEL M GILBERT Ot I34 .0 NONRHEUMATIC MITRAL (VALVE) INSUFFICIENC 11/26/2019 BILLIE DANIEL M GILBERT Ot I51.89 OTHER ILL-DEFINED HEART DISEASES 11/26/2019 Casey WISE MD Ot R07 .2 PRECORDIAL PAIN Procedures Code Description Performed By Per formed On OIV714 NEB ULIZER W/RO T MOUTHPIECE 10/05/2018 Results Test Result Range [id number] - 07/25/19 10:07 Serum or plasma urea nitrogen measurement (mass/volume ) 11 mg/dL 7-18 Serum or plasma creatinine measurement (mass/volume) 0.76 mg/dL 0.60-1.30 Serum or plasma urea nitrogen/creatinine mass ratio 14 NRG Serum or plasma creatinine measurement w ith calculation of estimated glomerular filtration rate > NRG Encounters ACCT No. Visit Date/Time Discharge Status Pt. Type Provider Facility Loc./Unit Complaint [id number] 10/05/2018 09:33:28 9 23:59:59 CLS Outpatient [facility] [id number] 08/06/2013 11:18:00 08/06/2013 23:59 :59 CLS Outpatient [id number] 05/14/2013 11:32:00 05/14/2013 23:59 :59 CLS Outpatient [id number] 11/20/2019 10:01:00 23:59:59 CLS Outpatient Casey WISE MD [facility] CARD PRECORDIAL PAIN,SOB,HYPERLIPIDEMIA,HYPERTENSION [id number] 10/29/2019 13:43:00 23:59:59 CLS Outpatient CAMERON LOCK MD [facility] ORTHO [id number] 10/09/2019 14:34:00 23:59:59 CLS Outpatient FRANNIE STAFFORD APRN [facility] RT COPD [id number] 10/08/2019 13:29:00 23:59:59 CLS Outpatient CAMERON LOCK MD [facility] ORTHO [id number] 07/29/2019 09:59:00 23:59:59 CLS Outpatient CAMERON LOCK MD [facility] ORTHO [id number] 07/25/2019 10:00:00 23:59:59 CLS Outpatient FRANNIE STAFFORD APRN [facility] RAD COPD,OBSTRUCTIV E SLEEP APNEA,ASTHMA,DYSPNEA [id number] 07/11/2019 10:19:00 23:59:59 CLS Outpatient CAMERON LOCK MD [facility] ORTHO [id number] 06/20/2019 10:52:00 23:59:59 CLS Outpatient CAMERON LOCK MD [facility] ORTHO [id number] 06/07/2019 09:41:00 23:59:59 CLS Outpatient CAMERON LOCK MD [facility] ORTHO [id number] 06/01/2019 10:10:00 12:50:00 DIS Emergency KURTIS DANIEL, NIDHI Loja [facility] ER FALL - L KNEE P AIN [id number] 12/19/2019 11:30:00 P Casey Silva MD [facility] CARD PRECORDIAL PAIN,SOB,HYPERLIPIDEMIA,HYPERTENSION [id number] 11/13/2017 12:32:41 11/13/2017 23: 59:[address] [facility] Family Medicine and [facility] 6064 05/20/2019 13:37:59 05/20/2019 23:59:5 9 CLS Outpatient
--- NOTE | 2019-12-05 07:41 | ED Lower Extremity ---
General Stated Complaint: LEFT ANKLE INJ History of Present Illness Date Seen by Provider: Dec 05, 2019 Time Seen by Provider: 07:36 Initial Comments 74-year-old female presents with right ankle injury. Patient reports that she got up around 1 AM when she stumbled and fell. She has swelling to the medial aspect of her right ankle. She has painful range of motion. She has inability to bear weight. Patient reports no other injuries. Allergies and Home Medications Allergies Coded Allergies: Penicillins (Verified Allergy, Unknown, 06/01/19) Home Medications Hydrocodone Bit/Acetaminophen 1 Tab Tab, 1 EACH PO Q4-6HR PRN for PAIN-MODERATE Prescribed by: NIDHI IYER on 06/01/19 1158 Lisinopril 20 Mg Tablet, Unknown Dose PO DAILY, (Reported) Patient Home Medication List Home Medication List Reviewed: Yes Review of Systems Constitutional: no symptoms reported EENTM: no symptoms reported Respiratory: no symptoms reported Cardiovascular: no symptoms reported Gastrointestinal: no symptoms reported Genitourinary: no symptoms reported Musculoskeletal: see HPI Skin: see HPI Past Mihrhhp-Xnugah-Bsdxns Hx Past Med/Social Hx: Reviewed Nursing Past Med/Soc Hx Patient Social History Alcohol Beverage of Choice: Wine Type Used: Cigarettes Recent Foreign Travel: No Contact w/Someone Who Travel: No Recent Hopitalizations: No Immunizations Up To Date Tetanus Booster (TDap): Unknown PED Vaccines UTD: Yes Seasonal Allergies Seasonal Allergies: No Past Medical History Surgeries: Yes (RIGHT KNEE, LEFT SHOULDER) Adenoidectomy, Appendectomy, Hysterectomy, Orthopedic, Tonsillectomy, Tubal Ligation Respiratory: Yes Asthma, COPD Cardiac: Yes High Cholesterol, Hypertension Neurological: No ALLOCATIONS CLERK History: Hysterectomy Genitourinary: No Gastrointestinal: No Musculoskeletal: No Endocrine: No HEENT: No Cancer: No Psychosocial: Yes Anxiety, Depression Blood Disorders: No Adverse Reaction/Blood Tranf: No Physical Exam Vital Signs Vital Signs - First Documented 12/05/19 07:35 Temp 37.0 Pulse 86 Resp 16 B/P (MAP) 135/84 (101) Pulse Ox 97 O2 Delivery Room Air Capillary Refill : Height, Weight, BMI Height: '" Weight: lbs. oz. kg; 31.00 BMI Method: General Appearance: no apparent distress Neck: supple, normal inspection Cardiovascular: normal peripheral pulses, regular rate, rhythm Respiratory: lungs clear, normal breath sounds Gastrointestinal: non tender, soft Hips: bilateral hip non-tender Legs: bilateral leg non-tender Knees: bilateral knee non-tender Ankles: right ankle bone tenderness, right ankle ecchymosis, right ankle limited range of motion, right ankle soft tissue tenderness, right ankle swelling Feet: bilateral foot non-tender Neurologic/Tendon: normal sensation Neurologic/Psychiatric: alert, normal mood/affect, oriented x 3 Skin: ecchymosis (medial aspect right ankle) Progress/Results/Core Measures Results/Orders My Orders Orders - JULES CERDA DO Ankle, Right, 3 Views (12/05/19 07:42) Hydrocodone/Apap 5/325 Tablet (Lortab 5 (12/05/19 08:00) Medications Given in ED Current Medications Medications Dose Ordered Sig/Perla Route Start Time Stop Time Status Last Admin Dose Admin Acetaminophen/ Hydrocodone Bitart 1 tab ONCE ONCE PO 12/05/19 08:00 12/05/19 08:01 DC 12/05/19 08:04 1 TAB Vital Signs/I&O 12/05/19 07:35 Temp 37.0 Pulse 86 Resp 16 B/P (MAP) 135/84 (101) Pulse Ox 97 O2 Delivery Room Air Diagnostic Imaging Diagonstic Imaging: Xray Plain Films/CT/US/NM/MRI: ankle Comments [facility] [place] NAME: JOHN MARTINAJOSE Micah [facility] REC#: [id number] PT STATUS: REG ER : 1945 PHYSICIAN: JULES CERDA DO ADMIT DATE: 12/05/19/ER Draft Date of Exam:12/05/19 ANKLE, RIGHT, 3 VIEWS EXAMINATION: Right ankle 3 views HISTORY: ankle pain COMPARISON: None available. FINDINGS: There is a right distal fibular fracture extending to the ankle mortise in an oblique fashion. There is marked obstruction of the mortise with significant widening of the medial clear space. There is a malleolus tertius fracture. Small heel spur is present. There is severe ankle swelling. IMPRESSION: 1. Oblique distal fibular fracture extending into the ankle mortise combined with a malleus tertius fracture and marked widening of the medial clear space consistent with medial ankle ligamentous injury and complete disruption of the ankle mortise Reviewed: Reviewed by Me, Reviewed/Discussed Departure Impression Primary Impression: Bimalleolar fracture of right ankle Qualified Codes: S82.841A - Displaced bimalleolar fracture of right lower leg, initial encounter for closed fracture Disposition: HOME, SELF-CARE Condition: Stable Departure-Patient Inst. Referrals: ASHLEY STALLINGS MD (PCP/Family) Primary Care Physician AKILAH DOWNING Patient Instructions: Going Up and Down Curbs or Stairs With a Walker or Crutches, Ankle Fracture Add. Discharge Instructions: Called Dr. Amador's office for an appointment time for reevaluation and to schedule surgery Keep elevated Do not bear weight on right foot/leg Scripts Hydrocodone/Acetaminophen (Hydrocodone-Acetamin 5-325 mg) 1 Each Tablet 1 EACH PO Q8H, #20 TAB Prov: JULES CERDA DO 12/05/19 JULES CERDA DO Dec 05, 2019 07:41
--- NOTE | 2019-12-05 07:58 | NUR ---
PT REQUEST SOMETHING FOR PAIN. DR CERDA NOTIFIED.
[2019-12-05] MEDS ORDERED: HYDROcodone/APAP 5 MG/325 MG (LORTAB) TAB PO ONE (08:00)
--- NOTE | 2019-12-05 08:28 | Diagnostic Imaging Report ---
EXAMINATION: Right ankle 3 views HISTORY: ankle pain COMPARISON: None available. FINDINGS: There is a right distal fibular fracture extending to the ankle mortise in an oblique fashion. There is marked obstruction of the mortise with significant widening of the medial clear space. There is a malleolus tertius fracture. Small heel spur is present. There is severe ankle swelling. IMPRESSION: 1. Oblique distal fibular fracture extending into the ankle mortise combined with a malleus tertius fracture and marked widening of the medial clear space consistent with medial ankle ligamentous injury and complete disruption of the ankle mortise. Dictated by: Dictated on workstation # [id number]
--- NOTE | 2019-12-05 08:36 | NUR ---
IN TALKING TO THE PT AT THIS TIME.
[2019-12-05] MEDS ORDERED: HYDR-3812 PO (08:58)
--- NOTE | 2019-12-05 08:58 | NUR ---
SPLINT APPLIED. CMS CHECK WNL. DR CERDA IN ROOM ASSESSING SPLINT AT THIS TIME.
[2019-12-05 09:12] VITALS: BP 135/84
== END 2019-12-05 09:12 | disposition home or self-care (01) ==
LOC: EDUNIT# 07:16 → ER 07:17
DX: S82.841A Displaced bimalleolar fracture of right lower leg, initial encounter for closed fracture (principal); I10 Essential (primary) hypertension; Z88.0 Allergy status to penicillin; W01.0XXA Fall on same level from slipping, tripping and stumbling without subsequent striking against object, initial encounter
CPT/HCPCS: 29515; 73610

== ENCOUNTER 2019-12-20 09:30 | Inpatient (IN) | payer MEDICARE ==
[~2019-12-20] VITALS: Ht 160 cm; Wt 75.8 kg
[~2019-12-20 09:30] MED LIST changes: +HYDR-3812 PO
[2019-12-20] MEDS ORDERED: MELATONIN 3 MG TABLET PO PRN (10:15)
[2019-12-20] MEDS ORDERED: LOPERAMIDE 2 MG (IMODIUM) TABLET PO PRN (10:15)
[2019-12-20] MEDS ORDERED: ACETAMINOPHEN 500 MG TAB (TYLENOL) PO PRN ×2 (10:15→15:00)
[2019-12-20] MEDS ORDERED: DOCUSATE SODIUM 100 MG (COLACE) CAP PO PRN (10:15)
[2019-12-20] MEDS ORDERED: guaiFENesin/CODEINE (ROBITUSSIN AC) 10ML UDC PO PRN (10:15)
[2019-12-20] MEDS ORDERED: LACTULOSE SYRUP 10GM/15ML (ENULOSE) 30ML UDC PO PRN (10:15)
[2019-12-20] MEDS ORDERED: ALPRAZolam 0.25 MG (XANAX) TAB PO PRN (10:15)
[2019-12-20] MEDS ORDERED: diphenhydrAMINE 25 MG TAB (BENADRYL) PO PRN (10:15)
[2019-12-20] MEDS ORDERED: ONDANSETRON 4 MG (ZOFRAN) ORAL DISSOLVE TAB PO PRN (10:15)
[2019-12-20] MEDS ORDERED: BISACODYL 10 MG SUPP (DULCOLAX) PR PRN (10:15)
[2019-12-20] MEDS ORDERED: CALCIUM CARBONATE 500 MG (TUMS) TAB.CHEW PO PRN (10:15)
[2019-12-20] MEDS ORDERED: FLEET ENEMA ADULT 1 EA BTL PR PRN (10:15)
[2019-12-20] MEDS ORDERED: DILT240C91 PO (12:03)
[2019-12-20] MEDS ORDERED: DULO60CA59 PO (12:03)
[2019-12-20] MEDS ORDERED: ASPI-999 PO (12:03)
[2019-12-20] MEDS ORDERED: TURM538C PO (12:03)
[2019-12-20] MEDS ORDERED: DOCU100T2 PO (12:03)
[2019-12-20] MEDS ORDERED: GABA300C PO (12:03)
[2019-12-20] MEDS ORDERED: DIPH25TA65 PO (12:03)
[2019-12-20] MEDS ORDERED: ACET-2267 PO (12:03)
[2019-12-20] MEDS ORDERED: GLUC-235 PO (12:03)
[2019-12-20] MEDS ORDERED: UBID300C PO (12:03)
[2019-12-20] MEDS ORDERED: MULT-968 PO (12:03)
[2019-12-20] MEDS ORDERED: CHOL200074 PO (12:03)
[2019-12-20] MEDS ORDERED: OXYC5TAB96 PO (12:03)
[2019-12-20] MEDS ORDERED: MELO15TA39 PO (12:03)
[2019-12-20] MEDS ORDERED: HYDR-3812 PO (12:06)
--- NOTE | 2019-12-20 13:45 | NUR ---
JOHNJERRY admitted to room 229-1, with an admitting diagnosis of RIGHT MARIBELL BIMALLEOLAR FRACTURE, on 12/20/19 from [place], [place] via PRIVATE VEHICLE , accompanied by GRANDDAUGHTER. JOSE SILVA introduced to surroundings, call light, bed controls, phone, TV, temperature control, lights, meal times, smoking policy, visitor policy, side rail policy, bathrooms and showers. Patient Rights given to patient in the handbook.JOSE SILVA verbalizes understanding that [facility] is not responsible for the loss or damage to any personal effects or valuables that are kept in the patients posession during their hospitalization. The following Patient Care Plans were discussed with the PATIENT: Discharge Planning, IMPAIRED MOBILITY, AND FALL RISK. JOSE SILVA verbalizes understanding of Interdisciplinary Patient Education. Patient received Patient Rights Booklet, which includes Privacy Act Statement and Data Collection Information Summary.
[2019-12-20] MEDS ORDERED: DULO30CA49 PO (14:11)
[2019-12-20] MEDS ORDERED: MONT10TA26 PO (14:11)
--- NOTE | 2019-12-20 14:14 | NUR ---
I ENTERED THE MED REC USING THE DISCHARGE ORDERS FROM [facility], AFTER MEDS ARE CONTINUED I WILL UPDATE THE MED REC/NOTES NEEDED ON THE DISCHARGE ORDERS IT SHOWS DULOXETINE 60MG A HOME MED BUT I CAN SEE ON THE EXT MED HISTORY THAT PT IS GETTING 60MG AND 30MG. THE 30MG IS NOT MENTIONED ON THE DISCHARGE ORDERS EITHER TO CONTINUE OR A DISCONTINUED MED. I PUT BOTH STRENGTHS ON THE MED REC SHE TAKES THEM Addendum: 12/24/19 at 1320 by THERESE GOLDBERG CPhT I SPOKE WITH THE PT TO COMPLETE THE MED REC MEDICATIONS THAT HAVE BEEN REMOVED DUE TO PT NOT TAKING PRIOR TO [facility]: TYLENOL 500MG OXYCODONE 5MG THERA-M VIT D DOCUSATE ASPIRIN 81 BENADRYL WAS LISTED ON THE DISCHARGE ORDER SAYING IT WAS A HOME MED TO CONTINUE HOWEVER PT SAYS SHE DOESNT USE BENADRYL-THEREFORE I REMOVED IT FROM THE MED REC GABAPENTIN 300MG WAS LAST FILLED ON 07-16-2019 #270/90DS- PT SAYS SHE STILL DOES TAKE BUT MAY FORGET TO TAKE IT- THE PAST DUE FILL DATE IS DOCUMENTED ON THE MED REC MONTELUKAST 10MG WAS LAST FILLED AT [facility] [place] ON 03-24-2019 #90/90DS- PT SAYS SHE STILL TAKES AND THOUGHT SHE HAD FILLED IT MORE RECENTLY (I VERIFIED WITH [facility] THAT THEY HAVE NOT FILLED IT)- THE PAST DUE FILL DATE IS DOCUMENTED ON THE MED REC MEDICATIONS THAT I ADDED TO THE MED REC DUE TO PT TAKING PRIOR TO [facility]: BREO ELIPITA 200/25MG LAST FILLED ON 06-24-2020 #60/30DS- I DID DOCUMENT THE FILL DATE ON THE MED REC ALBUTEROL HFA PRN ALL THE OTHER MEDICATIONS ARE LISTED ON THE EXT MED HISTORY WITH GOOD DATING I DID UPDATE THE STRENGTH ON HER OTC MEDS TO MATCH WHAT SHE TAKES AT HOME (HER HOME MEDS BOTTLE ARE WITH HER). TURMERIC- PT JUST TAKES PRN CONSTIPATION
[2019-12-20] MEDS ORDERED: ACETAMINOPHEN 325 MG TABLET PO PRN (14:15)
[2019-12-20] MEDS ORDERED: NON-FORMULARY MEDICATION 1 EA EA (Docusate Sodium 100 MG) PO PRN (15:00)
[2019-12-20] MEDS ORDERED: diphenhydrAMINE 25 MG TAB (BENADRYL) PO SCH (15:00)
[2019-12-20] MEDS: ENOXAPARIN 40 MG/0.4 ML (LOVENOX) SYR SC SCH (15:18)
[2019-12-20 15:30] VITALS: BP 113/52
--- NOTE | 2019-12-20 15:33 | Occupational Therapy Eval ---
OT Evaluation-General/PLF Medical Diagnosis Admission Date Dec 20, 2019 at 13:45 Medical Diagnosis: R Bimalleolar fx Onset Date: Dec 20, 2019 Therapy Diagnosis Therapy Diagnosis: Decreased ADL abilities Precautions Precautions/Isolations: Standard Precautions Weight Bear Status Weight Bearing Restriction: Non Weight Bearing Location Restriction: R LE Referral Physician: Mikki Referral Reason: Activity Tolerance, Self Care, Evaluation/Treatment, Strengthening/ROM Medical History Additional Medical History See nursing. Current History Pt tripped in bathroom at night, resulting in fall and fx of RLE ankle Pt states fx of L ankle in May when slipped on ice. Reviewed History: Yes Social History Home: Apartment Current Living Status: Alone Entry Into Home: Ramp ADL-Prior Level of Function SCALE: Activities may be completed with or without assistive devices. 4-Msdphigkmg-cblkrpd completes the activity by him/herself with no assistance from a helper. 5-Set-up or Clean-up Assistance-helper sets up or cleans up; patient completes activity. [place] assists only prior to or following the activity. 4-Supervision or Touching Assistance-helper provides verbal cues and/or touching/steadying and/or contact guard assistance as patient completes activity. Assistance may be provided throughout the activity or intermittently. 3-Partial/Moderate Assistance-helper does LESS THAN HALF the effort. [place] lifts, holds or supports trunk or limbs, but provides less than half the effort. 2-Substantial/Maximal Assistance-helper does MORE THAN HALF the effort. [place] lifts or holds trunk or limbs and provides more than half the effort. 1-Ykasyrubw-jdgyci does ALL the effort. Patient does none of the effort to complete the activity. Or, the assistance of 2 or more helpers is required for the patient to complete the activity. If activity was not attempted, code reason: 7-Patient Refused. 9-Not Applicable-not attempted and the patient did not perform the activity before the current illness, exacerbation or injury. 10-Not Attempted due to Environmental Limitations-(lack of equipment, weather restraints, etc.). 88-Not Attempted due to Medical Conditions or Safety Concerns. ADL PLOF Comments Pt was IND with all ADLs, requires assist with grocery shopping/ cooking from granddaughters who live in [facility]. Self Care: Independent DME/Equipment: Bath Chair, Grab Bars, Tub/Shower DME/Equipment Comments GB in shower, sc, standard toilet, walker Occupation: retired [employer] Self: Yes OT Current Status Subjective Pt seen in gym. Pt alert/ oriented. Pt states 3/10 pain to begin, states increases with standing/ activity. Pt able to state precautions (NWB RLE) though requires cues for NWB during session. Pt agrees to OT tx session. OT eval: [id number] (10) OT/PT co-treat: [id number] (65) [place] with PT, OT addresses ADLs, balance during these tasks, UE movement and attention to task as PT addresses functional mobility, transfers, LE movement and balance. Mental Status/Objective Patient Orientation: Person, Place, Time, Situation Current Glasses/Contacts: Yes Hearing Aids: No Dentures/Partials: Yes Hand Dominance: Right Upper Extremity ROM WFL BUE Upper Extremity Coordination WFL BUE Upper Extremity Sensation WFL BUE Upper Extremity Strength WFL BUE (4+/5) ADL-Treatment Eating (QC): 6 Oral Hygiene (QC): 6 (Pt denies, though would be able to complete in sit with IND based on clinical judgment.) Shower/Bathe Self (QC): 4 (CGA in stance during bottom hygiene. Pt able to reach LLE and foot EOBPt cannot get cast wet.) Upper Body Dressing (QC): 5 (s/u) Lower Body Dressing (QC): 4 (CGA in stance, SBA in sit EOB. Pt completes threading BLE without cues for sequencing.) On/Off Footwear (QC): 6 (Completes with IND EOB - L sock) Toileting Hygiene (QC): 4 (CGA in stance post urination) Other Treatments Pt educated on OT purpose, propels self to room in w/c with min cues for environmental hazards. Pt sit to stand with min cues for hand placement and SBA to walker level, ambulates with CGA to bed. Sits EOB for all ADL tasks, sit to stand and transfer to BSC with CGA. Completes toileting with SUP and CGA in stance. Pt propels back to gym, completing high level balance tasks with cues for precaution management to RLE. Pt stands and is able to complete unilateral, then bimanual task while maintaining precautions. Pt completes torso twists with BUE off walker with CGA and cues for precautions. Pt returns to sit, completing UE 3# bar exercises. Pt given HEP and yellow theraband for weekend strength training with education on completion and cues for positioning. Pt returns to room, all needs met. Pt sits EOB and pain 7/10 in RLE, nursing notified. Pt's RLE elevated for edema and pain management. Pt sits EOB for feeding task. Education OT Patient Education: Correct positioning, Exercise program, Home exercise program, Modified ADL techniques, Progress toward Goal/Update tx plan, Purpose of tx/functional activities, Reviewed precautions, Rehab process, Safety issues, Transfer techniques, W/C management Teaching Recipient: Patient Teaching Methods: Demonstration, Discussion Response to Teaching: Verbalize Understanding, Return Demonstration OT As400 Programmer Analyst Goals Prison Goals Time Frame: Jan 03, 2020 Eating (QC): 6 Oral Hygiene (QC): 6 Toileting Hygiene (QC): 6 Shower/Bathe Self (QC): 6 Upper Body Dressing (QC): 6 Lower Body Dressing (QC): 6 On/Off Footwear (QC): 6 Additional Goals: 1-Demonstrate ADL Tasks, 2-Verbalize Understanding, 3- ImproveStrength/Anthony 1=Demonstrate adherence to instructed precautions during ADL tasks. 2=Patient will verbalize/demonstrate understanding of assistive devices/modifications for ADL. 3=Patient will improve strength/tolerance for activity to enable patient to perform ADL's. OT Education/Plan Problem List/Assessment Assessment: Decreased Activ Tolerance, Dependent Transfers, Impaired Funct Balance, Impaired I ADL's, Impaired Self-Care Skills Discharge Recommendations Plan/Recommendations: Continue POC Therapy Discharge Recommendati: Intermittent Supervision, Home & Family Equpiment Recommendations-D/C: Extended Bath Bench, Viscosity Inspector, Rails on Toilet Treatment Plan/Plan of Care Treatment,Training & Education: Yes Patient would benefit from OT for education, treatment and training to promote independence in ADL's, mobility, safety and/or upper extremity function for ADL's. Plan of Care: ADL Retraining, Caregiver Training, Functional Mobility, Group Exercise/Act as Ind, UE Funct Exercise/Act, W/C Management Training Treatment Duration: Jan 03, 2020 Frequency: At least 5 of 7 days/Wk (IRF) Estimated Hrs Per Day: .25 hour per day Agreement: Yes Rehab Potential: Good Time/GCodes Start Time: 14:00 Stop Time: 15:25 Total Time Billed (hr/min): 85 Billed Treatment Time OT eval: [id number] (10) OT/PT co-treat: [id number] (75) [place] with PT, OT addresses ADLs, balance during these tasks, UE movement and attention to task as PT addresses functional mobility, transfers, LE movement and balance. 1, EVL, ADL 2, EX 2 (85) DEREK SHIPMAN OTR Dec 20, 2019 15:33
--- OUTSIDE RECORDS SUMMARY | 2019-12-20 15:51 | XMS REPORT | Continuity of Care Document ---
Author Organization Unknown Address Unknown Phone Unavailable Allergies Active Description Code Type Severity Reaction Onset Reported/Identified Relationship to Patient Clinical Status Yes PENICILLINS 26 Drug Class N/A Hives 10/05/2018 10/05/2018 Yes Penicillins [id number] Drug Aller gy Unknown N/A 06/01/2019 Medications [...] MALLEOLUS OF L FIB 08/15/2019 FRANNIE STAFFORD HAND WOVEN CARPET AND RUG MENDER Ot G47.33 OBSTRUCTIVE SLEEP APNEA (ADULT) (PEDIATR 08/15/2019 FRANNIE STAFFORD HAND WOVEN CARPET AND [employer]UG MENDER Ot G47.36 SLEEP RELATED HYPOVENTILATION IN CONDITI 08/15/2019 CLEMENT STAFFORDINE E HAND WOVEN [employer] MENDER Ot J44.9 CHRONIC OBSTRUCTIVE PULMONARY DISEASE, U 08/15/2019 FRANNIE STAFFORD HAND WOVEN [employer]PET AND [employer] MENDER Ot R91.8 OTHER NONSPECIFIC ABNORMAL FINDING OF ANTONIO 08/21/2019 CAMERON LOCK MD Ot S82.65XD NONDISP FX OF LATERAL MALLEOLUS OF L FIB 08/22/2019 CLEMENT STAFFORDINE E HAND WOVEN [employer] MENDER Ot G47.33 OBSTRUCTIVE SLEEP APNEA (ADULT) (PEDIATR 08/22/2019 CLEMENT STAFFORDINE E HAND WOVEN CARPET AND RUG MENDER Ot G47.36 SLEEP RELATED HYPOVENTILATION IN CONDITI 08/22/2019 CLEMENT STAFFORDINE E HAND WOVEN [employer]PET AND RUG MENDER Ot J44.9 CHRONIC OBSTRUCTIVE PULMONARY DISEASE, U 08/22/2019 CLEMENT STAFFORDINE E HAND WOVEN [employer] MENDER Ot R91.8 OTHER NONSPECIFIC ABNORMAL FINDING OF ANTONIO 08/22/2019 CAMERON LOCK MD Ot S82.65XD NONDISP FX OF LATERAL MALLEOLUS OF L FIB 10/15/2019 FRANNIE STAFFORD HAND WOVEN [employer] MENDER Ot G47.33 OBSTRUCTIVE SLEEP APNEA (ADULT) (PEDIATR 10/15/2019 CLEMENT STAFFORDINE E HAND WOVEN [employer] MENDER Ot G47.36 SLEEP RELATED HYPOVENTILATION IN CONDITI 10/15/2019 CLEMENT STAFFORDINE E HAND WOVEN [employer] RUG MENDER Ot J44.9 CHRONIC OBSTRUCTIVE PULMONARY DISEASE, U 10/15/2019 FRANNIE STAFFORD HAND WOVEN [employer]UG MENDER Ot J45.909 UNSPECIFIED ASTHMA, UNCOMPLICATED 10/15/2019 CLEMENT STAFFORDINE E HAND W[employer]EN [employer] MENDER Ot R91.8 OTHER NONSPECIFIC ABNORMAL FINDING OF [...] (primary) hypertension Elaine Meeks 11/13/2019 W J44.1 Capture Manager marguerite obstructive pulmonary disease with acute exacerbation Elaine Meeks 11/13/2019 W M54.5 Low back pain Elaine Meeks 11/15/2019 CAMERON LOCK MD Ot M17. 0 BILATERAL PRIMARY OSTEOARTHRITIS OF KNEE 11/20/2019 W J30.89 Oth er allergic rhinitis AaronLilyie 11/20/2019 W J44.1 Capture Manager marguerite obstructive pulmonary disease with acute exacerbation Adilene Walker 11/21/2019 BILLIE DANIEL, Casey HUNT Ot I10 ESSENTIAL (PRIMARY) HYPERTENSION 11/21/2019 BILLIE DANIEL, Casey HUNT Ot I34 .0 NONRHEUMATIC MITRAL (VALVE) INSUFFICIENC 11/21/2019 Casey WISE MD Ot I51.89 OTHER ILL-DEFINED HEART DISEASES 11/21/2019 Casey WISE MD Ot R07 .2 PRECORDIAL PAIN 11/22/2019 W J30.89 Oth er allergic rhinitis Adilene Walker 11/22/2019 W J44.1 Capture Manager marguerite obstructive pulmonary disease with acute exacerbation [...] WISE MD Ot R07 .2 PRECORDIAL PAIN 12/06/2019 W M79.604 Ri ght leg pain Adilene Walker 12/06/2019 W S82.91XA F racture of right lower leg Adilene Walker 12/06/2019 ZAIDA MANCIA, JULES L Ot I10 ESSENTIAL (PRIMARY) HYPERTENSION 12/06/2019 CERDA DO, JULES L Ot M25.5 71 PAIN IN RIGHT ANKLE AND JOINTS OF RIGHT 12/06/2019 CERDA DO, JULES L Ot S82.841A DISPLACED BIMALLEOLAR FRACTURE OF RIGHT 12/06/2019 CERDA DO, JULES L Ot W01.0XXA FALL SAME LEV FROM SLIP/TRIP W/O STRIKE 12/06/2019 ZAIDA MANCIA, JULES L Ot Z88.0 ALLERGY STATUS TO PENICILLIN 12/09/2019 W M79.604 Ri ght leg pain Adilene Walker 12/09/2019 W S82.91XA F racture of right lower leg Adilene Walker Procedures Code Description Performed By Per danna On FDR087 NEB ULIZER W/RO T MOUTHPIECE 10/05/2018 Results Test Result Range [id number] - 07/25/19 10:07 Serum or plasma urea nitrogen measurement (mass/volume ) 11 mg/dL 7-18 Serum or plasma creatinine measurement (mass/volume) 0.76 mg/dL 0.60-1.30 Serum or plasma urea nitrogen/creatinine mass ratio 14 NRG Serum or plasma creatinine measurement w ith calculation of estimated glomerular filtration rate > NRG Encounters ACCT No. Visit Date/Time Discharge Status Pt. Type Provider Facility Loc./Unit Complaint [id number] 10/05/2018 09:33:28 9 23:59:59 [facility] Outpatient [facility] [id number] 08/06/2013 11:18:00 08/06/2013 23:59 :59 CLS Outpatient [id number] 05/14/2013 11:32:00 05/14/2013 23:59 :59 CLS Outpatient [id number] 12/05/2019 07:17:00 020 09:12:00 DIS Outpatient ROMY CERDA DOVOR L [facility] ER LEFT ANKLE INJ [id number] 11/20/2019 10:01:00 23:59:59 CLS Outpatient Casey WISE MD [facility] CARD PRECORDIAL PAIN,SOB,HYPERLIPIDEMIA,HYPERTENSION [id number] 10/29/2019 13:43:00 23:59:59 CLS Outpatient CAMERON LOCK MD [facility] ORTHO [id number] 10/09/2019 14:34:00 23:59:59 CLS Outpatient FRANNIE STAFFORD APRN [facility] RT COPD [id number] 10/08/2019 13:29:00 23:59:59 CLS Outpatient CAMERON LOCK MD [facility] ORTHO [id number] 07/29/2019 09:59:00 23:59:59 CLS Outpatient CAMERON LOCK MD [facility] ORTHO [id number] 07/25/2019 10:00:00 23:59:59 CLS Outpatient FRANNIE STAFFORD APRN [facility] RAD COPD,OBSTRUCTIV E SLEEP APNEA,ASTHMA,DYSPNEA [id number] 07/11/2019 10:19:00 23:59:59 CLS Outpatient CAMERON LOCK MD [facility] ORTHO [id number] 06/20/2019 10:52:00 23:59:59 CLS Outpatient CAMERON LOCK MD [facility] ORTHO [id number] 06/07/2019 09:41:00 23:59:59 CLS Outpatient CAMERON LOCK MD [facility] ORTHO [id number] 06/01/2019 10:10:00 12:50:00 DIS NIDHI Amador MD [facility] ER FALL - L KNEE P AIN [id number] 12/19/2019 11:30:00 P EN Preadmit Casey WISE MD [facility] CARD PRECORDIAL PAIN,SOB,HYPERLIPIDEMIA,HYPERTENSION [id number] 12/18/2019 11:30:00 P EN Isabella CHILDRESS MD, LAURA Joyce [facility] RIGHT ANKLE FRACTURE [id number] 11/13/2017 12:32:41 11/13/2017 23: 59:59 CLS Outpatient [facility] 6064 05/20/2019 13:37:59 05/20/2019 23:59:5 9 CLS Outpatient
--- NOTE | 2019-12-20 15:57 | ST Cognitive Linguistic Eval ---
Speech Evaluation-General Medical Diagnosis R Bimalleolar fx Onset Date: Dec 20, 2019 Therapy Diagnosis Therapy Diagnosis: Cognitive-communication Referral Referring Physician: Dr. Kaye Medical History Reviewed History: Yes Social History Current Living Status: Alone Speech PLF-Current Status Prior Level of Function Patient lives in an apartment where she is independent for her daily needs. She has a very supportive family who live near by. Subjective Patient was pleasant and cooperative with the cognitive assessment. Language Eval: Auditory Comprehends Simple Yes/No Ques: Functional Indent/Objects Multiple Garcia: Functional Ident/Pics in Multiple Garcia: Functional Follows 1-Step Commands: Functional Follows Complex Directions: Functional Follows General Conversations: Functional Language Eval: Verbal Language Completes Spontaneous Greeting: Functional Produces Auto, Serial Info: Functional Imitates Simple Words/Phrases: Functional Word Finding: Functional Requests Basic Needs: Functional States Basic Personal Info: Functional Expresses Complex Ideas: Functional Objective Cognitive Domain Attention: WNL Memory: WNL Problem Solving: Functional Executive Functions: WNL Visuospatial Skills: WNL Composite Severity Rating: WNL Clock Drawing Severity Rating: WNL Objective Formal/Standardized Tests [facility] Mental Status ([facility]) Results 28/30, within normal limits of function Oral Motor/Speech Production Within Normal Limits Impression Patient is a pleasant 74 y/o female who was admitted to the ARU s/p fractured leg and surgery. Patient was given the SLUMS with a score of 28/30 obtained. The patient's score is within the normal limits of function. Patient does not require further ST services at this time. Speech Patient Assess Expression of Ideas/Wants: Expression (4) Understanding Verbal Content: Understands (4) Brief Interview-Mental Status: Yes Repetition of Three Words: Three (3) Temporal Orientation: Year: Correct (3) Temporal Orientation: Month: Accurate within 5 days(2) Temporal Orientation: Day: Correct (1) Recall : Wear to say "Sock": Yes, no cue required (2) Recall : Color: Yes, no cue required (2) Recall : Bed: Yes, no cue required (2) Memory/Recall Ability: Current season, That he or she is in a hsp/hsp unit Speech-Plan Patient/Family Goals Patient/Family Goals: Patient plans on returning to her apartment with family support upon rehab discharge. Treatment Plan Speech Therapy Treatment Plan: Discontinue ST Treatment Duration: Dec 20, 2019 Frequency: 1 time per week Estimated Hrs Per Day: .25 hour per day Rehab Potential: Good Barriers to Learning: None identified Pt/Family Agrees to Plan: Yes Safety Risks/Education Teaching Recipient: Patient, Family Teaching Methods: Discussion Response to Teaching: Verbalize Understanding Education Topics Provided: Safety within her room and communication of wants/needs Time Speech Therapy Time In: 15:30 Speech Therapy Time Out: 15:55 Total Billed Time: 25 Billed Treatment Time 1, RAYP DARCIE Anderson Dec 20, 2019 15:57
--- NOTE | 2019-12-20 16:06 | Physical Therapy Evaluation ---
PT Evaluation-General Medical Diagnosis Admission Date Dec 20, 2019 at 13:45 Medical Diagnosis: R Bimalleolar fx Onset Date: Dec 20, 2019 Therapy Diagnosis Therapy Diagnosis: impaired mobility, strength, endurance, balance Precautions Precautions/Isolations: Standard Precautions Weight Bear Status Right Lower Extremity: Right Non Weight Bearing Referral Physician: Mikki Reason for Referral: Evaluation/Treatment Medical History Reviewed History: Yes Social History Home: Apartment Current Living Status: Alone Entry Into Home: Ramp Prior Prior Level of Function SCALE: Activities may be completed with or without assistive devices. 0-Lqasylsqyh-yjfqphk completes the activity by him/herself with no assistance from a helper. 5-Set-up or Clean-up Assistance-helper sets up or cleans up; patient completes activity. [place] assists only prior to or following the activity. 4-Supervision or Touching Assistance-helper provides verbal cues and/or touching/steadying and/or contact guard assistance as patient completes activity. Assistance may be provided throughout the activity or intermittently. 3-Partial/Moderate Assistance-helper does LESS THAN HALF the effort. [place] lifts, holds or supports trunk or limbs, but provides less than half the effort. 2-Substantial/Maximal Assistance-helper does MORE THAN HALF the effort. [place] lifts or holds trunk or limbs and provides more than half the effort. 8-Fauvlkdlr-tofpns does ALL the effort. Patient does none of the effort to complete the activity. Or, the assistance of 2 or more helpers is required for the patient to complete the activity. If activity was not attempted, code reason: 7-Patient Refused. 9-Not Applicable-not attempted and the patient did not perform the activity before the current illness, exacerbation or injury. 10-Not Attempted due to Environmental Limitations-(lack of equipment, weather restraints, etc.). 88-Not Attempted due to Medical Conditions or Safety Concerns. Bed Mobility: 6 Transfers (B,C,W/C): 6 Gait: 6 Stairs: 6 Indoor Mobility (Ambulation): Independent Stairs: Independent PT Evaluation-Current Subjective Patient in WC pre tx, agrees to PT, has 7/10 pain in right leg. Will be co- treating partly with OT due to pain, poor functional mobility, endurance, balance, the need to coordinate UE and LE during activity. Pt/Family Goals to be independent at home Objective Patient Orientation: Person, Place, Situation cast right ankle ROM/Strength ROM Lower Extremities WNL except for right ankle Strength Lower Extremities 5/5 gross BLE except for hip flexion which is 3+/5 bilaterally Sensory Hearing: Functional Hand Dominance: Right Sensation Right Lower Extremit: Intact Sensation Left Lower Extremity: Intact Transfers Roll Left to Right (QC): 6 Sit to Lying (QC): 6 Lying to Sitting/Side of Bed(Q: 6 Sit to Stand (QC): 4 Chair/Dzd-ck-Xihhq Xfer(QC): 4 Toilet Transfer (QC): 4 Car Transfer (QC): 4 Patient performs bed mobility and supine <-> sit with independence, sit <-> stand and transfers with CGA, car transfer CGA. Patient has some difficulty getting her right leg back into bed but can do it herself. Patient needs frequent cues for hand placement and safety when sitting or standing. Gait Does the Patient Walk?: Yes Mode of Locomotion: Walk Anticipated Mode of Locomotion: Walk Walk 10 feet (QC): 88 Walk 50 ft with 2 Turns(QC): 88 Walk 150 ft (QC): 88 Walking 10ft/uneven surface-QC: 88 Distance: 5' Gait Assistive Device: FWW Comments/Gait Description Patient can ambulate 5' with a rolling walker with CGA. Patient's left foot john p is only inches at a time, doesn't really clear the floor, patient needs cues to remind her about her weight bearing status. Wheelchair Training Does the Pt Use a Wheelchair?: Yes Distance: 150'x2 Wheel 50 ft with 2 turns (QC): 4 Wheel 150 ft (QC): 4 Type of Wheelchair: Manual SBA, very slow, needs rest breaks Stairs 1 Step (curb) (QC): 88 4 Steps (QC): 88 12 Steps (QC): 88 Balance Sitting Static: Normal Sitting Dynamic: Normal Standing Static: Fair Standing Dynamic: Fair Picking up an Object (QC): 88 Treatment bathing, dressing, balance activity reaching and hitting balloon. When co- treating PT performed bed mobility and transfers, ambulation, balance training, WC mobility, assisted with balance during dressing and bathing, OT worked on dressing, bathing, balance training. Assessment/Needs Patient has impaired mobility, strength, endurance, balance. She needs frequent cues for safety and hand placement, can only ambulate a few feet at this time. Rehab Potential: Fair PT Short Term Goals Short Term Goals Time Frame: Dec 27, 2019 Roll Left & Right: 6 Sit to lyin Lying to sitting on side of be: 6 Sit to stand: 4 Chair/xmd-gv-oshfr transfer: 4 Walk 10 feet: 4 PT Systems Spec Goals Systems Spec Goals PT Snf Goals Time Frame: Jan 10, 2020 Roll Left & Right (QC): 6 Sit to Lying (QC): 6 Lying-Sitting on Side/Bed(QC): 6 Sit to Stand (QC): 5 Chair/Lln-qq-Lmcfn Xfer(QC): 5 Toilet Transfer (QC): 5 Car Transfer (QC): 5 Does the Patient Walk: Yes Walk 10 feet (QC): 4 Walk 50ft with 2 Turns (QC): 4 Walk 150 ft (QC): 88 Walking 10ft on Uneven Surface: 4 1 Step (curb) (QC): 4 4 Steps (QC): 88 12 Steps (QC): 88 Picking up an Object (QC): 88 Wheel 50 feet with 2 turns (QC: 6 Wheel 150 feet: 6 PT Plan Problem List Problem List: Activity Tolerance, Functional Strength, Safety, Balance, Gait, Transfer, Bed Mobility, ROM Treatment/Plan Treatment Plan: Continue Plan of Care Treatment Plan: Bed Mobility, Education, Functional Activity Anthony, Functional Strength, Group Therapy, Gait, Safety, Therapeutic Exercise, Transfers Treatment Duration: Jan 10, 2020 Frequency: At least 5 of 7 days/Wk (IRF) Estimated Hrs Per Day: 1.5 hours per day Patient and/or Family Agrees t: Yes Safety Risks/Education Patient Education: Gait Training, Transfer Techniques, Correct Positioning, W/C Management, Safety Issues Teaching Recipient: Patient Teaching Methods: Demonstration, Discussion Response to Teaching: Reinforcement Needed Discharge Recommendations Plan Patient will perform bed mobility and transfer training, balance and endurance training, functional strengthening, stair training, gait trainin, and education, to improve functional mobility and independence at home. Therapy Discharge Recommendati: Home & Family Time/GCodes Time In: 1340 Time Out: 1525 Total Billed Treatment Time: 95 Total Billed Treatment EVM 20' FA 75' PT eval from [id number], OT eval from [id number], co-treat from [id number]. ARNAV MELVIN PT Dec 20, 2019 16:05
[2019-12-20] MEDS: HYDROcodone/APAP 5 MG/325 MG (LORTAB) TAB PO PRN ×2 (16:31→21:51)
[2019-12-20 18:12] VITALS: BP 113/52
[2019-12-20] MEDS: ASPIRIN 81 MG CHEW (CHILDREN'S ASA) PO SCH (18:22)
--- NOTE | 2019-12-20 19:25 | NUR ---
bedside report received from PRABHA MONTAGUE, assume care of pt
--- NOTE | 2019-12-20 21:16 | PM&R Post Admission Assessment ---
PM&R HP Date of Visit: Dec 20, 2019 Time of Visit: 18:00 History of Present Illness CC: Right ankle fracture HPI: This is a 74yoWF clinic patient of Dr Meeks who just moved into town from [place] after living there since 2002 who presents from [facility] after 1 week hospital stay after a right ankle fracture repaired by Dr Dao. She had suffered a fall when getting up to the bathroom at night last week when she suffered the fall. She lives alone, in 2017 after her suffered from severe vascular dementia after an aneurysm in 2000 but remained in a senior care for 17 years. She has 2 grown children and grandchildren and will stay with them. 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 PLOF was independent. Past Rdpmipf-Pkugqc-Equlum Hx Past Med/Social Hx: Reviewed Nursing Past Med/Soc Hx, Reviewed and Corrections made Patient Social History Marrital Status: Employed/Student: retired Alcohol Use: Denies Use Alcohol Beverage of Choice: Wine Smoking Status: Former Smoker (quit 22 years ago) Type Used: Cigarettes Recent Foreign Travel: No Contact w/other who traveled: No Recent Hopitalizations: No Recent Infectious Disease Expo: No Immunizations Up To Date Tetanus Booster (TDap): Unknown Pediatric: Yes Seasonal Allergies Seasonal Allergies: No Past Medical History Surgeries: Adenoidectomy, Appendectomy, Hysterectomy, Orthopedic, Tonsillectomy, Tubal Ligation Cardiac: High Cholesterol, Hypertension Hysterectomy Psychosocial: Anxiety, Depression History of Blood Disorders: No Adverse Reaction to Blood Najera: No Family History Alzheimer's disease 19 FATHER Cardiovascular disease 19 MOTHER G8 SISTER Prior Level of Function Bed Mobility: 6 Transfers: 6 Gait: 6 Stairs: 6 Indoor Mobility (Ambulation): Independent Stairs: Independent Self Care: Independent Occupation: retired [address] Self: Yes Current Level of Fuctioning Roll Left to Right: 6 Sit to Lyin Lying to Sitting/Side of Bed: 6 Sit to Stand: 4 Chair/Okh-kp-Bwqiw Xfer: 4 Car Transfer: 4 Does the Patient Walk: Yes Mode of Locomotion: Walk Anticipated Mode of Locomotion: Walk Walk 10 feet: 88 Walk 50 ft with 2 Turns: 88 Walk 150 ft: 88 Walking 10ft on uneven surface: 88 Gait Assistive Device: FWW Does the Pt Use a Wheelchair: Yes Wheelchair Distance: 150'x2 Wheel 50 ft with 2 turns: 4 Wheel 150 ft: 4 Type of Wheelchair: Manual 1 Step (curb): 88 4 Steps: 88 12 Steps: 88 Picking up an Object: 88 Eatin Oral Hygiene: 6 (Pt denies, though would be able to complete in sit with IND based on clinical judgment.) Shower/Bathe Self: 4 (CGA in stance during bottom hygiene. Pt able to reach LLE and foot EOBPt cannot get cast wet.) Upper Body Dressin (s/u) Lower Body Dressin (CGA in stance, SBA in sit EOB. Pt completes threading BLE without cues for sequencing.) On/Off Footwear: 6 (Completes with IND EOB - L sock) Toileting Hygiene: 4 (CGA in stance post urination) PM&R Allergy/Meds/Data Review Allergies Coded Allergies: Penicillins (Verified Allergy, Unknown, 06/01/19) Home Medications Scheduled Aspirin (Aspirin), 81 MG PO BID WITH MEALS, (Reported) Atorvastatin Calcium (Atorvastatin Calcium), 20 MG PO DAILY, (Reported) Cholecalciferol (Vitamin D3) (Vitamin D3), 50 MCG PO DAILY, (Reported) Diltiazem HCl (Diltiazem 24Hr ER), 240 MG PO DAILY, (Reported) Diphenhydramine HCl (Benadryl Allergy), 25 MG PO UD, (Reported) Duloxetine HCl (Duloxetine HCl), 60 MG PO DAILY, (Reported) Duloxetine HCl (Duloxetine HCl), 30 MG PO HS, (Reported) Gabapentin (Neurontin), 300 MG PO TID, (Reported) Glucos Sul 2Kcl/MSM/Chond/C/Mn (Glucosamine Chondroitin Cap), 1 EACH PO DAILY, (Reported) Lisinopril (Lisinopril), 20 MG PO DAILY, (Reported) Meloxicam (Meloxicam), 15 MG PO DAILY, (Reported) Montelukast Sodium (Montelukast Sodium), 10 MG PO DAILY, (Reported) Multivits,Ca,Minerals/Iron/FA (Thera-Tabs M Caplet), 1 EACH PO DAILY, (Reported) Turmeric Root Extract (Turmeric), 538 MG PO DAILY, (Reported) Ubidecarenone (Co Q-10), 300 MG PO DAILY, (Reported) Scheduled PRN Acetaminophen (Tylenol Extra Strength), 500-1,000 MG PO Q6H PRN for PAIN-MILD (1-4), (Reported) Docusate Sodium (Docusate Sodium), 100 MG PO BID PRN for CONSTIPATION-1ST LINE, (Reported) Hydrocodone/Acetaminophen (Hydrocodone-Acetamin 5-325 mg), 1 EACH PO Q4 -6 H PRN for PAIN-MODERATE (5-7), (Reported) Oxycodone HCl (Oxycodone IR), 5 MG PO Q6H PRN for PAIN-SEVERE (8-10), (Reported) Discontinued Medications Duloxetine HCl (Cymbalta), Unknown Dose PO, (Reported) Discontinued Reason: No Longer Taking Hydrocodone Bit/Acetaminophen (Lortab 5 Mg Tablet), 1 EACH PO Q4-6HR PRN for PAIN-MODERATE Discontinued Reason: Duplicate Order Hydrocodone/Acetaminophen (Hydrocodone-Acetamin 5-325 mg), 1 EACH PO Q8H Discontinued Reason: No Longer Taking Current Medications Current Medications Reviewed Review of Systems Constitutional: see HPI, malaise, weakness Musculoskeletal: other (right ankle pain) Physical Exam Physical Exam Vital Signs Vital Signs - First Documented 12/20/19 15:30 Temp 36.2 Pulse 94 Resp 16 B/P (MAP) 113/52 Pulse Ox 95 O2 Delivery Room Air Capillary Refill : Less Than 3 SecondsLess Than 3 Seconds Height, Weight, BMI Height: '" Weight: lbs. oz. kg; 33.20 BMI Method: General Appearance: No Apparent Distress, WD/WN, Chronically ill Eyes: Bilateral Eye Normal Inspection, Bilateral Eye PERRL HEENT: PERRL/EOMI, Normal ENT Inspection, Pharynx Normal Neck: Full Range of Motion, Normal Inspection, Non Tender, Supple, Carotid Bruit Respiratory: Chest Non Tender, Lungs Clear, Normal Breath Sounds, No Accessory Muscle Use, No Respiratory Distress Cardiovascular: Regular Rate, Rhythm, No Edema, No Gallop, No JVD, No Murmur, Normal Peripheral Pulses Gastrointestinal: Normal Bowel Sounds, No Organomegaly, No Pulsatile Mass, Non Tender, Soft Back: Normal Inspection, No CVA Tenderness, No Vertebral Tenderness Extremity: Normal Capillary Refill, Normal Inspection, Normal Range of Motion, Non Tender, No Calf Tenderness, No Pedal Edema, Other (right ankle cast in place) Neurologic/Psychiatric: Alert, Oriented x3, No Motor/Sensory Deficits, Normal Mood/Affect, dry end operator II-XII Norm as Tested, Abnormal Gait (non-weight bearing) Skin: Normal Color, Warm/Dry Lymphatic: No Adenopathy PM&R Medical Assessment & Plan REHAB/MEDICAL ASSESSMENT AND PLAN: REHAB IMPAIRMENT GROUP: Right ankle fracture ETIOLOGIC DIAGNOSIS: Right ankle fracture The comorbidities that impact the patients function and/or functional outcome by: advanced age, fall risk, prior left ankle fracture 05/2019 REHAB PLAN: The patient is being admitted to our comprehensive inpatient rehabilitation facility and can tolerate the intensity of service consisting of at least: 180 minutes of therapy a day, 5 out of 7 days a week Rehab treatment will consist of: PT OT will focus on regaining strength and teach how to navigate with right non-weight bearing status and increase ADL independence. The patient/family has a good understanding of our discharge process and will benefit from an interdisciplinary inpatient rehabilitation program. The patient has potential to make improvement and is in need of at least two of the following multidisciplinary therapies including but not limited to physical, occupational, speech, and prosthetics and orthotics. Additionally the patient will need services from respiratory, nutritional services, wound care, psychology, etc. (Customize this to each patient). Given the patients complex condition and risk of further medical complications, rehabilitation services cannot be safely or effectively provided at a lower level of care such as a group home facility. BARRIERS TO DISCHARGE: Non-weight bearing right leg ESTIMATED LOS: 7 days DISPOSITION: Home RELEVANT CHANGES SINCE PREADMISSION SCREENING: I have compared the patients medical and functional status at the time of the preadmission screening and there are: no changes PROGNOSIS: Good REHABILITATION GOALS: 1. PT OT will focus on regaining strength and teach how to navigate with right non-weight bearing status and increase ADL independence. All the above goals were reviewed with the patient and he/she is in agreement. By signing this document, I acknowledge that I have personally performed a full physical examination on this patient within 24 hours of admission to this inpatient rehabilitation facility and have determined the patient to be able to tolerate the above course of treatment at an intensive level for a reasonable period of time. I will be completing a detailed individualized Plan of Care for this patient by day #4 of the patients stay based upon the Preadmission Screen, the Post-Admission Evaluation, and the therapy evaluations. Admission Dx/Comorbidities: (1) Bimalleolar fracture of right ankle Status: Acute ICD Codes: S82.841A - Displaced bimalleolar fracture of right lower leg, initial encounter for closed fracture (2) Hypertension ICD Codes: I10 - Essential (primary) hypertension (3) Hyperlipidemia ICD Codes: E78.5 - Hyperlipidemia, unspecified (4) Ankle fracture ICD Codes: S82.899A - Other fracture of unspecified lower leg, initial encounter for closed fracture RADHA NEWMAN DO Dec 20, 2019 21:16
[2019-12-20] MEDS: DULoxetine 30 MG (CYMBALTA) CAP PO SCH (21:50)
[2019-12-20] MEDS: SENNA W/DOCUSATE (SENOKOT S) TABLET PO SCH (21:50)
[2019-12-20] MEDS: GABAPENTIN 300 MG (NEURONTIN) CAP PO SCH (21:50)
[2019-12-20] MEDS: DOCUSATE SODIUM 100 MG (COLACE) CAP PO SCH (21:51)
--- NOTE | 2019-12-20 21:51 | NUR ---
pt took Colace & Senokot refused miralax, c/o pain level 7/10 on numeric scale, Lortab 5 1 tab given
[2019-12-20] MEDS: polyethylene glycoL POWDER 17 GM (MIRALAX) PACK PO SCH (21:52)
--- NOTE | 2019-12-20 22:45 | NUR ---
resting quietly in bed, pain level 0/10 on CNPI SCALE
--- NOTE | 2019-12-21 00:24 | NUR ---
asked did pt want to use her cpap, pt refused, 02 sat 98% on room air, c/o rt ankle pain level 7/10 on numeric scale, oxyir 5mg given
--- NOTE | 2019-12-21 01:10 | NUR ---
resting quietly in bed, pain level 0/10 on CNPI SCALE
[2019-12-21 05:25] LABS: BASOPHILS % (AUTO) 0 % (0-10); EOSINOPHILS # (AUTO) 0.1 10^3/uL (0.0-0.3); EOSINOPHILS % (AUTO) 2 % (0-10); HEMATOCRIT 34 % (35-52); HEMOGLOBIN 10.9 G/DL (11.5-16.0); LYMPHOCYTES # (AUTO) 1.5 X 10^3 (1.0-4.0); LYMPHOCYTES % (AUTO) 26 % (12-44); MEAN CORPUSCULAR HEMOGLOBIN 33 PG (25-34); MEAN CORPUSCULAR HGB CONC 32 G/DL (32-36); MEAN CORPUSCULAR VOLUME 104 FL (80-99); MONOCYTES # (AUTO) 0.6 X 10^3 (0.0-1.0); MONOCYTES % (AUTO) 10 % (0-12); NEUTROPHILS # (AUTO) 3.5 X 10^3 (1.8-7.8); NEUTROPHILS % (AUTO) 62 % (42-75); PLATELET COUNT 189 10^3/uL (130-400); RED CELL DISTRIBUTION WIDTH 14.2 % (10.0-14.5); WHITE BLOOD COUNT 5.6 10^3/uL (4.3-11.0)
[2019-12-21 05:55] LABS: ALBUMIN 3.2 GM/DL (3.2-4.5); CHLORIDE 105 MMOL/L (98-107); POTASSIUM 4.5 MMOL/L (3.6-5.0); SODIUM 139 MMOL/L (135-145)
[2019-12-21 05:56] LABS: CALCIUM 8.6 MG/DL (8.5-10.1)
[2019-12-21 05:57] LABS: GLUCOSE 94 MG/DL (70-105)
[2019-12-21 05:59] LABS: BILIRUBIN,TOTAL 0.3 MG/DL (0.1-1.0); CARBON DIOXIDE 27 MMOL/L (21-32)
[2019-12-21 06:00] VITALS: BP 137/70
[2019-12-21 06:01] LABS: ALKALINE PHOSPHATASE 47 U/L (40-136); CREATININE SERUM 0.76 MG/DL (0.60-1.30); GFR ESTIMATED > 60
[2019-12-21 06:02] LABS: BUN/CREATININE RATIO 21
[2019-12-21 06:04] LABS: ALANINE AMINOTRANSFERASE 19 U/L (0-55)
--- NOTE | 2019-12-21 06:24 | NUR ---
c/o rt ankle pain level 7/10 on numeric scale, Lortab 5 1 tab given
--- NOTE | 2019-12-21 06:51 | PM&R Progress Note ---
Subjective HPI/CC On Admission Date Seen by Provider: Dec 21, 2019 Time Seen by Provider: 12:30 Subjective/Events-last exam Pain 5/10 CPAP at home but does not wear it here Refused O2 last night too BM today Splint will be in place on right ankle for [address] Zuleta Incontinent at night Checked meds and labs Conferred with RN Reviewed therapy notes Review of Systems General: Fatigue, Malaise Musculoskeletal: leg pain, foot pain Neurological: Weakness, Incoordination Objective Exam Vital Signs Vital Signs Date Time Temp Pulse Resp B/P (MAP) Pulse Ox O2 Delivery O2 Flow Rate FiO2 12/21/19 18:27 Room Air 12/21/19 16:30 36.2 89 16 135/65 (88) 94 Capillary Refill : Less Than 3 SecondsLess Than 3 Seconds General Appearance: No Apparent Distress, WD/WN, Chronically ill HEENT: PERRL/EOMI, Normal ENT Inspection, Pharynx Normal Neck: Full Range of Motion, Normal Inspection, Non Tender, Supple, Carotid Bruit Respiratory: Chest Non Tender, Lungs Clear, Normal Breath Sounds, No Accessory Muscle Use, No Respiratory Distress Cardiovascular: Regular Rate, Rhythm, No Edema, No Gallop, No JVD, No Murmur, Normal Peripheral Pulses Gastrointestinal: Normal Bowel Sounds, No Organomegaly, No Pulsatile Mass, Non Tender, Soft Back: Normal Inspection, No CVA Tenderness, No Vertebral Tenderness Extremity: Normal Capillary Refill, Normal Inspection, Normal Range of Motion, Non Tender, No Calf Tenderness, No Pedal Edema, Other (right ankle cast in place) Neurologic/Psychiatric: Alert, Oriented x3, No Motor/Sensory Deficits, Normal Mood/Affect, white spooler II-XII Norm as Tested, Abnormal Gait (non-weight bearing) Skin: Normal Color, Warm/Dry Lymphatic: No Adenopathy Results/Procedures Lab Laboratory Tests 12/21/19 04:51 Patient resulted labs reviewed. FIM Transfers Therapy Code Descriptions/Definitions Functional [place] Measure: 0=Not Assessed/NA 4=Minimal Assistance 1=Total Assistance 5=Supervision or Setup 2=Maximal Assistance 6=Modified [place] 3=Moderate Assistance 7=Complete IndependenceSCALE: Activities may be completed with or without assistive devices. 7-Uitfvlhyus-azuesxs completes the activity by him/herself with no assistance from a helper. 5-Set-up or Clean-up Assistance-helper sets up or cleans up; patient completes activity. [place] assists only prior to or following the activity. 4-Supervision or Touching Assistance-helper provides verbal cues and/or touching/steadying and/or contact guard assistance as patient completes activity. Assistance may be provided throughout the activity or intermittently. 3-Partial/Moderate Assistance-helper does LESS THAN HALF the effort. [place] lifts, holds or supports trunk or limbs, but provides less than half the effort. 2-Substantial/Maximal Assistance-helper does MORE THAN HALF the effort. [place] lifts or holds trunk or limbs and provides more than half the effort. 1-Zryxokyrd-aktqar does ALL the effort. Patient does none of the effort to complete the activity. Or, the assistance of 2 or more helpers is required for the patient to complete the activity. If activity was not attempted, code reason: 7-Patient Refused. 9-Not Applicable-not attempted and the patient did not perform the activity before the current illness, exacerbation or injury. 10-Not Attempted due to Environmental Limitations-(lack of equipment, weather restraints, etc.). 88-Not Attempted due to Medical Conditions or Safety Concerns. Roll Left to Right (QC): 6 Sit to Lying (QC): 6 Sit to Stand (QC): 4 Chair/Qte-ol-Nuhfr Xfer(QC): 4 Car Transfer (QC): 4 Gait Training Does the Patient Walk?: Yes Walk 10 feet (QC): 88 Walk 50 ft with 2 Turns(QC): 88 Walk 150 ft (QC): 88 Walking 10ft/uneven surface-QC: 88 Gait Assistive Device: FWW Wheelchair Training Does the Pt Use a Wheelchair?: Yes Distance: 150'x2 Wheel 50 ft with 2 turns (QC): 4 Wheel 150 ft (QC): 4 Type of Wheelchair: Manual Stair Training 1 Step (curb) (QC): 88 4 Steps (QC): 88 12 Steps (QC): 88 Balance Picking up an Object (QC): 88 ADL-Treatment Eating (QC): 6 Oral Hygiene (QC): 6 (Pt denies, though would be able to complete in sit with IND based on clinical judgment.) Shower/Bathe Self (QC): 4 (CGA in stance during bottom hygiene. Pt able to reach LLE and foot EOBPt cannot get cast wet.) Upper Body Dressing (QC): 5 (s/u) Lower Body Dressing (QC): 4 (CGA in stance, SBA in sit EOB. Pt completes th reading BLE without cues for sequencing.) On/Off Footwear (QC): 6 (Completes with IND EOB - L sock) Toileting Hygiene (QC): 4 (CGA in stance post urination) Assessment/Plan Assessment and Plan Assess & Plan/Chief Complaint Assessment: Left ankle fracture STEVEN non-compliant with CPAP Former smoker COPD HTN CAD Plan: Monitor pain IRF protocol IS DVT PPx (1) Bimalleolar fracture of right ankle Status: Acute (2) Hypertension (3) Hyperlipidemia (4) Ankle fracture RADHA NEWMAN DO Dec 21, 2019 06:51
--- NOTE | 2019-12-21 06:52 | Individualized Plan of Care ---
Individualized Plan of Care Rehab Nursing IPOC Order Admission Date Dec 20, 2019 at 13:45 Current Orders Orders Admission Order(Inpt,Obs,Sdc) (12/20/19 10:04) Vital Signs: Per Unit Policy ( 08,16,00 (12/20/19 10:04) Paco Figueredo 09,21 (12/20/19 10:04) Sequential Compression Device Q4H (12/20/19 10:04) Cardiac Catheterization Technologist-Inpt Rehab Con (12/20/19 10:04) Rehab Nursing Orders-Ipoc (12/20/19 10:04) Physical Therapy Rehab Orders (12/20/19 10:04) Occupational Therapy Rehab Ord (12/20/19 10:04) Speech Therapy Rehab Orders (12/20/19 10:04) Cbc With Automated Diff (12/21/19 06:00) Comprehensive Metabolic Panel (12/21/19 06:00) General/Regular (12/20/19 Lunch) Intake & Output ,14, (12/20/19 10:04) Precautions (Aru) (12/20/19 10:04) Rehab-Intensity Of Therapy (12/20/19 10:04) Initiate Admission Nursing Pro .admission (12/20/19 10:04) Acetaminophen Tablet (Tylenol Tablet) (12/20/19 10:15) Alprazolam Tablet (Xanax Tablet) (12/20/19 10:15) Calcium Carbonate Chew Tablet (Antacid C (12/20/19 10:15) Diphenhydramine Tablet (Benadryl Tablet) (12/20/19 10:15) Docusate Sodium Capsule (Colace Capsule) (12/20/19 21:00) Docusate Sodium Capsule (Colace Capsule) (12/20/19 10:15) Bisacodyl Suppository (Dulcolax Supposit (12/20/19 10:15) Lactulose Oral Solution (Enulose Oral So (12/20/19 10:15) Na Phos/Na Biphos Enema (Fleet Enema Robi (12/20/19 10:15) Guaifenesin/Codeine Syrup (Robitussin Ac (12/20/19 10:15) Loperamide Tablet (Imodium Tablet) (12/20/19 10:15) Enoxaparin Injection (Lovenox Injection) (12/20/19 15:00) Melatonin Tablet (Melatonin Tablet) (12/20/19 10:15) Polyethylene Glycol Powder Pkt (Miralax (12/20/19 21:00) Ondansetron Oral Dissolve Tab (Zofran (12/20/19 10:15) Senna S Tablet (Senokot S Tablet) (12/20/19 21:00) Initiate Admission Nursing Pro .admission (12/20/19 10:04) Oxycodone Immediate Rel Tablet (Oxyir Ta (12/20/19 12:15) Admission Arrival Bed Request (12/20/19 13:53) Acetaminophen Tablet/Caplet (Tylenol T (12/20/19 14:15) Acetaminophen Tablet (Tylenol Tablet) (12/20/19 15:00) Aspirin Chewable Tablet (Baby Aspirin Ch (12/20/19 18:00) Atorvastatin Tablet (Lipitor Tablet) (12/21/19 09:00) Diltiazem Cd 24 Hr Capsule (Cardizem Cd (12/21/19 09:00) Diphenhydramine Tablet (Benadryl Tablet) (12/20/19 15:00) Duloxetine Capsule (Cymbalta Capsule) (12/20/19 21:00) Gabapentin Capsule/Tablet (Neurontin Cap (12/20/19 21:00) Hydrocodone/Apap 5/325 Tablet (Lortab 5 (12/20/19 15:00) Lisinopril Tablet (Zestril Tablet) (12/21/19 09:00) Montelukast Tablet (Singulair Tablet) (12/21/19 09:00) Oxycodone Immediate Rel Tablet (Oxyir Ta (12/20/19 15:00) (Nf) Cholecalciferol (Vitamin D3) (Vitam (12/21/19 09:00) (Nf) Docusate Sodium (12/20/19 15:00) (Nf) Duloxetine Hcl (12/21/19 09:00) (Nf) Glucos Sul 2kcl/Msm/Chond/C/Mn (Glu (12/21/19 09:00) (Nf) Meloxicam (12/21/19 09:00) (Nf) Multivits,Ca,Minerals/Iron/Fa (Ther (12/21/19 09:00) (Nf) Turmeric Root Extract (Turmeric) (12/21/19 09:00) (Nf) Ubidecarenone (Co Q-10) (12/21/19 09:00) Therapeutic Multivitamin Tab (Vitamins, (12/21/19 07:00) Duloxetine Capsule (Cymbalta Capsule) (12/21/19 09:00) Meloxicam Tablet (Mobic Tablet) (12/21/19 09:00) Cholecalciferol Capsule/Tablet (Vitamin (12/21/19 09:00) Patient Visit (12/20/19 ) Speech Sound Lang Comp (12/20/19 ) Patient Visit (12/20/19 ) Pt Eval Moderate Complexity (12/20/19 ) Functional Activities, Ea 15 (12/20/19 ) Ambulate 08,12,20 (12/20/19 16:42) Sequential Compression Device Q4H (12/20/19 16:42) Dvt/Vte Risk - Notifiy Physici Q4H (12/20/19 16:42) Patient Visit (12/21/19 ) Exercise Therap, Ea 15 Min (12/21/19 ) Consult Cardiology (12/21/19 12:49) Rehab Nursing Orders: Ongoing Assess. of Cognitive Status, Ongoing Assess. of Function Status, Bladder Management, Bladder Scan, Bladder Training, Bowel Management, Bowel Training, Disease Management & Educaiton, DVT Prophylaxis, Fall Prevention, Fluid/Electrolyte/Nutrition Mgmt, Infection Prevention, Medication Management & Education, Management of Risks & Complications, Management of Skin Intergrity, Nutrition Management, Pain Management, Patient/Family Support, Safety Management Intensity of Therapy to be met Patient to be seen: Min.3h per day/5 of 7d PT IPOC Problem List: Activity Tolerance, Functional Strength, Safety, Balance, Gait, Transfer, Bed Mobility, ROM Treatment Plan: Continue Plan of Care Bed Mobility, Education, Functional Activity Anthony, Functional Strength, Group T herapy, Gait, Safety, Therapeutic Exercise, Transfers Treatment Duration: Jan 10, 2020 Frequency: At least 5 of 7 days/Wk (IRF) Estimated Hrs Per Day: 1.5 hours per day OT IPOC Problems: Decreased Activ Tolerance, Dependent Transfers, Impaired Funct Balance, Impaired I ADL's, Impaired Self-Care Skills OT Treatment, Training and Edu: Yes Plan of Care: ADL Retraining, Caregiver Training, Functional Mobility, Group Exercise/Act as Ind, UE Funct Exercise/Act, W/C Management Training Treatment Duration: Jan 03, 2020 Frequency: At least 5 of 7 days/Wk (IRF) Estimated Hrs Per Day: .[address] IPOC Speech Therapy Treatment Plan: Discontinue ST Treatment Duration: Dec 20, 2019 Frequency: 1 time per week Estimated Hrs Per Day: .25 hour per day Cardiac Catheterization Technologist/Case Mgmt Cardiac Catheterization Technologist/Case Managemen: Discharge Planning Dietitian/Architect In Training Dietitian/Architect In Training to monitor nutritional status and make changes and/or recommendations as needed and work with speech pathology on dietary upgrades as the occur. Physician IPOC Medical Issues being managed closely and that require the 24 hour availability of a physician: Recent severe ankle fracture with high risk for decompensation including STEVEN non-compliant with CPAP. Medical Issues: Bowel/Bladder Function, DVT Prophylaxis, Falls Precautions, Fluid/Electrolyte/Nutrition Balance, Infection Protection, Pain Management Brief Synthesis of Preadmission Screen, Post-Admission Evaluation, and Therapy Evaluations: PT OT will help patient regain independence in ADL's while non-weight bearing on right leg. Medical Prognosis: Good Anticipated Length of Stay: 7 days RADHA NEWMAN DO Dec 21, 2019 06:52
[2019-12-21] MEDS: HYDROcodone/APAP 5 MG/325 MG (LORTAB) TAB PO PRN ×2 (06:54→19:36)
[2019-12-21] MEDS: MULTIVIT W/MINERALS TAB (THERAGRAN M) PO SCH (06:56)
--- NOTE | 2019-12-21 07:30 | NUR ---
rates pain level 4/10 on numeric scale
[2019-12-21 08:00] VITALS: BP 128/60
[2019-12-21] MEDS ORDERED: NON-FORMULARY MEDICATION 1 EA EA (Turmeric Root Extract (Turmeric) 538 MG) PO SCH (09:00)
[2019-12-21] MEDS ORDERED: IRON PO SCH (09:00)
[2019-12-21] MEDS ORDERED: NON-FORMULARY MEDICATION 1 EA EA (Meloxicam 15 MG) PO SCH (09:00)
[2019-12-21] MEDS ORDERED: MULTIVITS CA MINERALS PO SCH (09:00)
[2019-12-21] MEDS ORDERED: NON-FORMULARY MEDICATION 1 EA EA (Duloxetine HCl 60 MG) PO SCH (09:00)
[2019-12-21] MEDS ORDERED: NON-FORMULARY MEDICATION 1 EA EA (Cholecalciferol (Vitamin D3) (Vitamin D3) 50 MCG) PO SCH (09:00)
[2019-12-21] MEDS ORDERED: [UNRECOGNIZED DRUG - OTHER] PO SCH (09:00)
[2019-12-21] MEDS: VITAMIN D3 25 MCG (1,000 UNITS) TABLET PO SCH (09:54)
[2019-12-21] MEDS: lisINopril 20 MG (PRINIVIL) TABLET PO SCH (09:54)
[2019-12-21] MEDS: MELOXICAM 7.5 MG (MOBIC) TABLET PO SCH (09:55)
[2019-12-21] MEDS: ASPIRIN 81 MG CHEW (CHILDREN'S ASA) PO SCH ×2 (09:55→17:19)
[2019-12-21] MEDS: DOCUSATE SODIUM 100 MG (COLACE) CAP PO SCH ×2 (09:55→20:30)
[2019-12-21] MEDS: polyethylene glycoL POWDER 17 GM (MIRALAX) PACK PO SCH ×2 (09:55→20:31)
[2019-12-21] MEDS: GABAPENTIN 300 MG (NEURONTIN) CAP PO SCH ×3 (09:55→20:29)
[2019-12-21] MEDS: MONTELUKAST 10 MG (SINGULAIR) TAB PO SCH (09:55)
[2019-12-21] MEDS: DULoxetine 30 MG (CYMBALTA) CAP PO SCH ×2 (09:55→20:30)
[2019-12-21] MEDS: SENNA W/DOCUSATE (SENOKOT S) TABLET PO SCH ×2 (09:55→20:29)
--- NOTE | 2019-12-21 11:00 | NUR ---
DR. WISE NOTIFIED OF CONSULT. TAKING LORTAB AND OXYCONTIN FOR RIGHT LEG PAIN. STATES AT REST PAIN IS A "5". STATES WAS TOLD BY SURGEON THAT HER LEG SPLINT WILL BE ON FOR 10 DAYS. HAS F/U APPT. WITH HIM ON 12-30-19.
--- NOTE | 2019-12-21 11:03 | Physical Therapy Daily Note ---
PT Daily Note-Current Subjective Pt laying Supine in bed upon arrival. Pt agrees to PT. Pain Numeric Pain Scale: 7 Location: Right Location Body Site: Ankle Pain Description: Ache Mental Status Patient Orientation: Person, Place, Situation Transfers SCALE: Activities may be completed with or without assistive devices. 1-Ownvkdkcnu-omvnhnd completes the activity by him/herself with no assistance from a helper. 5-Set-up or Clean-up Assistance-helper sets up or cleans up; patient completes activity. [place] assists only prior to or following the activity. 4-Supervision or Touching Assistance-helper provides verbal cues and/or touching/steadying and/or contact guard assistance as patient completes activity. Assistance may be provided throughout the activity or intermittently. 3-Partial/Moderate Assistance-helper does LESS THAN HALF the effort. [place] lifts, holds or supports trunk or limbs, but provides less than half the effort. 2-Substantial/Maximal Assistance-helper does MORE THAN HALF the effort. [place] lifts or holds trunk or limbs and provides more than half the effort. 1-Mpwwnchld-kpwzsk does ALL the effort. Patient does none of the effort to complete the activity. Or, the assistance of 2 or more helpers is required for the patient to complete the activity. If activity was not attempted, code reason: 7-Patient Refused. 9-Not Applicable-not attempted and the patient did not perform the activity b efore the current illness, exacerbation or injury. 10-Not Attempted due to Environmental Limitations-(lack of equipment, weather restraints, etc.). 88-Not Attempted due to Medical Conditions or Safety Concerns. Weight Bearing Right Lower Extremity: Right Non Weight Bearing Exercises Supine Ex: Ankle pumps, Quad Set, Glut sets, Heel Slides, Scooting, Straight leg raise, Hip abd/add Supine Reps: 20 Treatments Pt completes Supine Ex with CON[employer] ASS[employer] MANAGER assisting as needed with R FLOR. Pt resting in bed at end of tx with all needs met, call light in hand. Assessment Current Status: Fair Progress Pt tolerates tx well but needs occasional assist due to fatigue and weakness. 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 Operator Goals PT Candy Depositing Machine Operator Goals Time Frame: Jan 10, 2020 Roll Left & Right (QC): 6 Sit to Lying (QC): 6 Lying-Sitting on Side/Bed(QC): 6 Sit to Stand (QC): 5 Chair/Xeu-ab-Fiyri Xfer(QC): 5 Toilet Transfer (QC): 5 Car Transfer (QC): 5 Does the Patient Walk: Yes Walk 10 feet (QC): 4 Walk 50ft with 2 Turns (QC): 4 Walk 150 ft (QC): 88 Walking 10ft on Uneven Surface: 4 1 Step (curb) (QC): 4 4 Steps (QC): 88 12 Steps (QC): 88 Picking up an Object (QC): 88 Wheel 50 feet with 2 turns (QC: 6 Wheel 150 feet: 6 PT Plan Problem List Problem List: Activity Tolerance, Functional Strength Treatment/Plan Treatment Plan: Continue Plan of Care Treatment Plan: Bed Mobility, Education, Functional Activity Anthony, Functional Strength, Group Therapy, Gait, Safety, Therapeutic Exercise, Transfers Treatment Duration: Jan 10, 2020 Frequency: At least 5 of 7 days/Wk (IRF) Estimated Hrs Per Day: 1.5 hours per day Patient and/or Family Agrees t: Yes Safety Risks/Education Patient Education: Correct Positioning, Safety Issues Teaching Recipient: Patient Teaching Methods: Discussion Response to Teaching: Verbalize Understanding Time/GCodes Time In: 1030 Time Out: 1053 Total Billed Treatment Time: 23 Total Billed Treatment 1, EX x2 (23m) SOILA BROWN CON[employer] ASS[employer]IATION MANAGER Dec 21, 2019 11:03
--- NOTE | 2019-12-21 13:00 | NUR ---
DR. WISE HERE TO SEE PATIENT. NO NEW ORDERS.
--- NOTE | 2019-12-21 13:12 | Consultation-Cardiology ---
HPI-Cardiology Cardiology Consultation: Date of Consultation 12/21/19 Date of Admission Attending Physician Mayra Kaye DO Admitting Physician Elaine Meeks MD Consulting Physician Casey GAFFNEY MD HPI: Time Seen by a Provider: 13:12 Chief Complaint: Mechanical fall, post orthopedic surgery This is a 74-year-old lady who had a mechanical fall resulting in right ankle fracture requiring surgery. She is here for inpatient rehabilitation. She does not have any significant cardiac complaints. She denies active smoking. Pertinent family history is negative. Review of Systems-Cardiology Review of Systems Constitutional: As described under HPI; No As described under HPI, No no symptoms reported, No chills, No fever, No lightheadedness Eyes: No As described under HPI, No no symptoms reported, No blindness, No blurred vision, No contact lenses, No drainage, No decreased acuity, No foreign body sensation, No pain, No vision change Ears/Nose/Throat: No As described under HPI, No no symptoms reported, No chronic hearing loss, No ear discharge, No ear pain, No nasal drainage, No ulcerations Respiratory: No no symptoms reported; As described under HPI; No As described under HPI, No cough, No orthopnea, No shortness of breath, No SOB with excertion Cardiovascular: No no symptoms reported; As described under HPI; No As described under HPI, No chest pain, No edema, No irregular heart rate, No lightheadedness, No palpitations Gastrointestinal: No no symptoms reported, No As described under HPI, No abdomen distended, No abdominal pain, No blood streaked bowels, No constipation, No diarrhea, No nausea, No vomiting, No stool coloration changes Genitourinary: No As described under HPI, No burning, No dysuria, No discharge, No frequency, No flank pain, No hematuria, No urgency : Yes : No Skin: No rash, No skin related problems, No ulcerations Psychiatric/Neurological: No anxiety, No depression, No seizure, No focal weakness, No syncope Hematologic: No bleeding abnormalities OOF-[place]-Rndynt Hx Patient Social History Marrital Status: Employed/Student: retired Alcohol Use: Denies Use Smoking Status: Former Smoker (quit 22 years ago) Type Used: Cigarettes Recent Foreign Travel: No Recent Infectious Disease Expo: No Immunizations Up To Date Tetanus Booster (TDap): Unknown Past Medical History PMH As described under Assessment. Family Medical History Family History: Alzheimer's disease 19 FATHER Cardiovascular disease 19 MOTHER G8 SISTER Allergies and Home Medications Allergies Coded Allergies: Penicillins (Verified Allergy, Unknown, 06/01/19) Home Medications Acetaminophen 500 Mg Tablet, 500-1,000 MG PO Q6H PRN for PAIN-MILD (1-4), (Reported) Aspirin 81 Mg Tab.chew, 81 MG PO BID WITH MEALS, (Reported) USE FOR 4-6 WEEKS Atorvastatin Calcium 20 Mg Tablet, 20 MG PO DAILY, (Reported) Cholecalciferol (Vitamin D3) 50 Mcg Capsule, 50 MCG PO DAILY, (Reported) Diltiazem HCl 240 Mg Cap.er.24h, 240 MG PO DAILY, (Reported) Diphenhydramine HCl 25 Mg Tablet, 25 MG PO UD, (Reported) Docusate Sodium 100 Mg Tablet, 100 MG PO BID PRN for CONSTIPATION-1ST LINE, (Reported) Duloxetine HCl 60 Mg Capsule.dr, 60 MG PO DAILY, (Reported) Duloxetine HCl 30 Mg Capsule.dr, 30 MG PO HS, (Reported) Gabapentin 300 Mg Capsule, 300 MG PO TID, (Reported) Glucos Sul 2Kcl/MSM/Chond/C/Mn 1 Each Capsule, 1 EACH PO DAILY, (Reported) Hydrocodone/Acetaminophen 1 Each Tablet, 1 EACH PO Q4 -6 H PRN for PAIN-MODERATE (5-7), (Reported) Lisinopril 20 Mg Tablet, 20 MG PO DAILY, (Reported) Meloxicam 15 Mg Tablet, 15 MG PO DAILY, (Reported) Montelukast Sodium 10 Mg Tablet, 10 MG PO DAILY, (Reported) Multivits,Ca,Minerals/Iron/FA 1 Each Tablet, 1 EACH PO DAILY, (Reported) Oxycodone HCl 5 Mg Tablet, 5 MG PO Q6H PRN for PAIN-SEVERE (8-10), (Reported) Turmeric Root Extract 538 Mg Capsule, 538 MG PO DAILY, (Reported) Ubidecarenone 300 Mg Capsule, 300 MG PO DAILY, (Reported) Patient Home Medication List Home Medication List Reviewed: Yes Physical Exam-Cardiology Physical Exam Vital Signs/I&O 12/21/19 12/21/19 06:00 09:00 Temp 36.2 Pulse 92 Resp 16 B/P (MAP) 137/70 (92) Pulse Ox 92 O2 Delivery Room Air Room Air 12/21/19 00:00 Intake Total 940 ml Balance 940 ml Capillary Refill : Less Than 3 SecondsLess Than 3 Seconds Constitutional: appears stated age, AAO x 3; No apparent distress; well- developed, well-nourished HEENT: PERRL; No discharge; hearing is well preserved, oral hygience is good; No ulceration, No xanthelasmas are seen Neck: No carotid bruit; carotid pulses are 2 + bilaterally Respiratory: chest is bilaterally symmetric, lungs clear to auscultation Cardiovascular: regular rate-rhythm Gastrointestinal: soft, audible bowel sounds; No spleenomegaly Rectal: deferred Extremities: other (right lower limb is in a cast.); No clubbing, No cyanosis, No significant edema Neurologic/Psychiatric: no motor/sensory deficits, alert, normal mood/affect, oriented x 3, power is 5/5 both on sides Skin: normal color; No rash, No ulcerations Data Review Labs Laboratory Tests 12/21/19 04:51: White Blood Count 5.6, Red Blood Count 3.26L, Hemoglobin 10.9L, Hematocrit 34L, Mean Corpuscular Volume 104H, Mean Corpuscular Hemoglobin 33, Mean Corpuscular Hemoglobin Concent 32, Red Cell Distribution Width 14.2, Platelet Count 189, Mean Platelet Volume 11.0H, Neutrophils (%) (Auto) 62, Lymphocytes (%) (Auto) 26, Monocytes (%) (Auto) 10, Eosinophils (%) (Auto) 2, Basophils (%) (Auto) 0, Neutrophils # (Auto) 3.5, Lymphocytes # (Auto) 1.5, Monocytes # (Auto) 0.6, Eosinophils # (Auto) 0.1, Basophils # (Auto) 0.0, Sodium Level 139, Potassium Level 4.5, Chloride Level 105, Carbon Dioxide Level 27, Anion Gap 7, Blood Urea Nitrogen 16, Creatinine 0.76, Estimat Glomerular Filtration Rate > 60, BUN/Creatinine Ratio 21, Glucose Level 94, Calcium Level 8.6, Corrected Calcium 9.2, Total Bilirubin 0.3, Aspartate Amino Transf (AST/SGOT) 24, Alanine Aminotransferase (ALT/SGPT) 19, Alkaline Phosphatase 47, Total Protein 6.0L, Albumin 3.2 A/P-Cardiology Assessment/Admission Diagnosis Mechanical fall, Right ankle fracture, orthopedic procedure for inpatient rehabilitation, Hypertension, Hyperlipidemia, Mild diastolic dysfunction, Mild valvular heart disease, Obstructive sleep apnea Plan Mechanical fall, Right ankle fracture, orthopedic procedure for inpatient rehabilitation, Hypertension, on diltiazem and lisinopril as an outpatient. Hyperlipidemia, atorvastatin. Mild diastolic dysfunction, not in florid congestive heart failure. Mild valvular heart disease, mild mitral regurgitation and tricuspid regurgitation. No clinical concerns at this point in time. Obstructive sleep apnea echocardiogram on 11/10/2017 which showed an LVEF of 70 percent with mild diastolic dysfunction. Mild LVH. Mild mitral regurgitation/mild tricuspid regurgitation. EKG done in November 2018 which showed normal sinus rhythm. MPI done on 08/31/2015 which was negative. blood work done on 04/26/2018 which showed total cholesterol of 280, LDL 143, HDL 62, triglyceride 124. Thank you for your consultation. Please call me if you have any questions. Lida Gaffney MD, FACP, FACC, FSCAI, FHRS, CCDS Interventional Cardiology Cardiac Electrophysiology Vascular Medicine and Endovascular Interventions Clinical Quality Measures DVT/VTE Risk/Contraindication: Risk Factor Score Per Nursin RFS Level Per Nursing on Admit: 4+=Very High Casey GAFFNEY MD Dec 21, 2019 13:12
[2019-12-21] MEDS: ENOXAPARIN 40 MG/0.4 ML (LOVENOX) SYR SC SCH (16:19)
[2019-12-21 16:30] VITALS: BP 135/65
--- NOTE | 2019-12-21 19:07 | NUR ---
bedside report received from FILOMENA MONTAGUE, assume care of pt
--- NOTE | 2019-12-21 19:36 | NUR ---
C/O pain rt ankle, pain level 7/10 on numeric scale, Lortab 5 1 tab given
--- NOTE | 2019-12-21 20:25 | NUR ---
rates pain level 4/10 on numeric scale
--- NOTE | 2019-12-21 20:30 | NUR ---
pt took Colace & Rajendra refused miralax
--- NOTE | 2019-12-22 02:56 | NUR ---
c/o rt ankle pain level 6/10 on numeric scale, oxyir 5mg given
--- NOTE | 2019-12-22 03:39 | NUR ---
resting quietly in bed, pain level 0/10 on CNPI SCALE
[2019-12-22 05:45] VITALS: BP 139/64
--- NOTE | 2019-12-22 06:58 | NUR ---
c/o rt ankle pain level 7/10 on numeric scale, Lortab 5 1 tab given
[2019-12-22] MEDS: MULTIVIT W/MINERALS TAB (THERAGRAN M) PO SCH (06:59)
[2019-12-22] MEDS: HYDROcodone/APAP 5 MG/325 MG (LORTAB) TAB PO PRN ×2 (06:59→16:48)
--- NOTE | 2019-12-22 07:35 | NUR ---
rates pain level 4/10 on numeric scale
[2019-12-22] MEDS: SENNA W/DOCUSATE (SENOKOT S) TABLET PO SCH ×2 (09:32→20:27)
[2019-12-22] MEDS: DULoxetine 30 MG (CYMBALTA) CAP PO SCH ×2 (09:32→20:45)
[2019-12-22] MEDS: VITAMIN D3 25 MCG (1,000 UNITS) TABLET PO SCH (09:32)
[2019-12-22] MEDS: GABAPENTIN 300 MG (NEURONTIN) CAP PO SCH ×3 (09:33→20:45)
[2019-12-22] MEDS: DOCUSATE SODIUM 100 MG (COLACE) CAP PO SCH ×2 (09:33→20:26)
[2019-12-22] MEDS: lisINopril 20 MG (PRINIVIL) TABLET PO SCH (09:33)
[2019-12-22] MEDS: MELOXICAM 7.5 MG (MOBIC) TABLET PO SCH (09:33)
[2019-12-22] MEDS: polyethylene glycoL POWDER 17 GM (MIRALAX) PACK PO SCH ×2 (09:34→20:27)
[2019-12-22] MEDS: MONTELUKAST 10 MG (SINGULAIR) TAB PO SCH (09:34)
[2019-12-22] MEDS: ASPIRIN 81 MG CHEW (CHILDREN'S ASA) PO SCH ×2 (09:41→17:33)
--- NOTE | 2019-12-22 10:00 | NUR ---
AMBULATED FROM BATHROOM BACK TO BED ON OWN. INFORMED TO PLEASE CALL FOR HELP WHEN GETTING UP AND VOICED UNDERSTANDING. STATES RIGHT LEG PAIN BETTER TODAY AND MOBILITY IMPROVED.
--- NOTE | 2019-12-22 11:23 | PM&R Progress Note ---
Subjective HPI/CC On Admission Date Seen by Provider: Dec 22, 2019 Time Seen by Provider: 12:15 Subjective/Events-last exam 12/22/19: Patient feels better Less pain meds take Got out of bed on her own last night and nurses counseled her CPAP used last night 12/21/19: Pain 5/10 CPAP at home but does not wear it here Refused O2 last night too BM today Splint will be in place on right ankle for [address] Zuleta Incontinent at night Checked meds and labs Conferred with RN Reviewed therapy notes Review of Systems General: Fatigue, Malaise Musculoskeletal: leg pain, foot pain Objective Exam Vital Signs Vital Signs Date Time Temp Pulse Resp B/P (MAP) Pulse Ox O2 Delivery O2 Flow Rate FiO2 12/22/19 17:51 36.1 89 16 134/63 (86) 93 Room Air 12/22/19 05:45 2.00 Capillary Refill : Less Than 3 SecondsLess Than 3 Seconds General Appearance: No Apparent Distress, WD/WN, Chronically ill HEENT: PERRL/EOMI, Normal ENT Inspection, Pharynx Normal Neck: Full Range of Motion, Normal Inspection, Non Tender, Supple, Carotid Bruit Respiratory: Chest Non Tender, Lungs Clear, Normal Breath Sounds, No Accessory Muscle Use, No Respiratory Distress Cardiovascular: Regular Rate, Rhythm, No Edema, No Gallop, No JVD, No Murmur, Normal Peripheral Pulses Gastrointestinal: Normal Bowel Sounds, No Organomegaly, No Pulsatile Mass, Non Tender, Soft Back: Normal Inspection, No CVA Tenderness, No Vertebral Tenderness Extremity: Normal Capillary Refill, Normal Inspection, Normal Range of Motion, Non Tender, No Calf Tenderness, No Pedal Edema, Other (right ankle cast in place) Neurologic/Psychiatric: Alert, Oriented x3, No Motor/Sensory Deficits, Normal Mood/Affect, insurance broker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 FIM Transfers Therapy Code Descriptions/Definitions Functional [place] Measure: 0=Not Assessed/NA 4=Minimal Assistance 1=Total Assistance 5=Supervision or Setup 2=Maximal Assistance 6=Modified [place] 3=Moderate Assistance 7=Complete IndependenceSCALE: Activities may be completed with or without assistive devices. 9-Solwqrsazo-lwaugao completes the activity by him/herself with no assistance from a helper. 5-Set-up or Clean-up Assistance-helper sets up or cleans up; patient completes activity. [place] assists only prior to or following the activity. 4-Supervision or Touching Assistance-helper provides verbal cues and/or touching/steadying and/or contact guard assistance as patient completes activity. Assistance may be provided throughout the activity or intermittently. 3-Partial/Moderate Assistance-helper does LESS THAN HALF the effort. [place] lifts, holds or supports trunk or limbs, but provides less than half the effort. 2-Substantial/Maximal Assistance-helper does MORE THAN HALF the effort. [place] lifts or holds trunk or limbs and provides more than half the effort. 1-Jtypmxdgk-xahmnh does ALL the effort. Patient does none of the effort to complete the activity. Or, the assistance of 2 or more helpers is required for the patient to complete the activity. If activity was not attempted, code reason: 7-Patient Refused. 9-Not Applicable-not attempted and the patient did not perform the activity before the current illness, exacerbation or injury. 10-Not Attempted due to Environmental Limitations-(lack of equipment, weather restraints, etc.). 88-Not Attempted due to Medical Conditions or Safety Concerns. Roll Left to Right (QC): 6 Sit to Lying (QC): 6 Sit to Stand (QC): 4 Chair/Psq-bz-Nicbg Xfer(QC): 4 Car Transfer (QC): 4 Gait Training Does the Patient Walk?: Yes Walk 10 feet (QC): 88 Walk 50 ft with 2 Turns(QC): 88 Walk 150 ft (QC): 88 Walking 10ft/uneven surface-QC: 88 Gait Assistive Device: FWW Wheelchair Training Does the Pt Use a Wheelchair?: Yes Distance: 150'x2 Wheel 50 ft with 2 turns (QC): 4 Wheel 150 ft (QC): 4 Type of Wheelchair: Manual Stair Training 1 Step (curb) (QC): 88 4 Steps (QC): 88 12 Steps (QC): 88 Balance Picking up an Object (QC): 88 ADL-Treatment Eating (QC): 6 Oral Hygiene (QC): 6 (Pt denies, though would be able to complete in sit with IND based on clinical judgment.) Shower/Bathe Self (QC): 4 (CGA in stance during bottom hygiene. Pt able to reach LLE and foot EOBPt cannot get cast wet.) Upper Body Dressing (QC): 5 (s/u) Lower Body Dressing (QC): 4 (CGA in stance, SBA in sit EOB. Pt completes threading BLE without cues for sequencing.) On/Off Footwear (QC): 6 (Completes with IND EOB - L sock) Toileting Hygiene (QC): 4 (CGA in stance post urination) Assessment/Plan Assessment and Plan Assess & Plan/Chief Complaint Assessment: Left ankle fracture STEVEN non-compliant with CPAP Former smoker COPD HTN CAD Plan: Monitor pain IRF protocol IS DVT PPx 12/22/19: Pain control BM regimen Monitor for falls BP management (1) Bimalleolar fracture of right ankle Status: Acute (2) Hypertension (3) Hyperlipidemia (4) Ankle fracture RADHA NEWMAN DO Dec 22, 2019 11:23
--- NOTE | 2019-12-22 13:00 | NUR ---
STATES WILL HAVE GRANDDAUGHTER BRING IN GLUCOSAMINE, COQ10 AND TUMERIC TOMORROW.
--- NOTE | 2019-12-22 14:50 | Cardiology Progress Note ---
Cardiology SOAP Progress Note Subjective: No cardiac complaints. Objective: I&O/Vital Signs 12/22/19 12/22/19 05:45 09:00 Temp 36.3 Pulse 84 Resp 21 B/P (MAP) 139/64 (89) Pulse Ox 97 O2 Delivery NIV CPAP Room Air O2 Flow Rate 2.00 12/22/19 00:00 Intake Total 1020 ml Balance 1020 ml Constitutional: appears stated age, AAO x 3; No apparent distress; well- developed, well-nourished Respiratory: chest is bilaterally symmetric, lungs clear to auscultation Cardiovascular: regular rate-rhythm Gastrointestional: soft, audible bowel sounds; No spleenomegaly Extremities: other (right lower limb is in a cast.); No clubbing, No cyanosis, No significant edema Neurologic/Psychiatric: no motor/sensory deficits, alert, normal mood/affect, oriented x 3, power is 5/5 both on sides Skin: normal color; No rash, No ulcerations A/P: Assessment/Dx: Mechanical fall, Right ankle fracture, orthopedic procedure for inpatient rehabilitation, Hypertension, Hyperlipidemia, Mild diastolic dysfunction, Mild valvular heart disease, Obstructive sleep apnea Plan: Mechanical fall, Right ankle fracture, orthopedic procedure for inpatient rehabilitation, Hypertension, on diltiazem and lisinopril as an outpatient. Hyperlipidemia, atorvastatin. Mild diastolic dysfunction, not in florid congestive heart failure. Mild valvular heart disease, mild mitral regurgitation and tricuspid regurgitation. No clinical concerns at this point in time. Obstructive sleep apnea echocardiogram on 11/10/2017 which showed an LVEF of 70 percent with mild diastolic dysfunction. Mild LVH. Mild mitral regurgitation/mild tricuspid regurgitation. EKG done in November 2018 which showed normal sinus rhythm. MPI done on 08/31/2015 which was negative. blood work done on 04/26/2018 which showed total cholesterol of 280, LDL 143, HDL 62, triglyceride 124. Thank you for your consultation. Please call me if you have any questions. Lida Gaffney MD, FACP, FACC, FSCAI, FHRS, CCDS Interventional Cardiology Cardiac Electrophysiology Vascular Medicine and Endovascular Interventions Casey GAFFNEY MD Dec 22, 2019 14:50
[2019-12-22] MEDS: ENOXAPARIN 40 MG/0.4 ML (LOVENOX) SYR SC SCH (15:27)
[2019-12-22 17:51] VITALS: BP 134/63
[2019-12-23 05:00] VITALS: BP 126/60
[2019-12-23 06:02] LABS: BASOPHILS % (AUTO) 0 % (0-10); EOSINOPHILS # (AUTO) 0.1 10^3/uL (0.0-0.3); EOSINOPHILS % (AUTO) 1 % (0-10); HEMATOCRIT 35 % (35-52); HEMOGLOBIN 11.3 G/DL (11.5-16.0); LYMPHOCYTES # (AUTO) 1.3 X 10^3 (1.0-4.0); LYMPHOCYTES % (AUTO) 26 % (12-44); MEAN CORPUSCULAR HEMOGLOBIN 33 PG (25-34); MEAN CORPUSCULAR HGB CONC 32 G/DL (32-36); MEAN CORPUSCULAR VOLUME 103 FL (80-99); MEAN PLATELET VOLUME 10.7 FL (7.4-10.4); MONOCYTES # (AUTO) 0.6 X 10^3 (0.0-1.0); MONOCYTES % (AUTO) 12 % (0-12); NEUTROPHILS # (AUTO) 3.2 X 10^3 (1.8-7.8); NEUTROPHILS % (AUTO) 62 % (42-75); PLATELET COUNT 210 10^3/uL (130-400); RED CELL DISTRIBUTION WIDTH 13.8 % (10.0-14.5); WHITE BLOOD COUNT 5.2 10^3/uL (4.3-11.0)
[2019-12-23] MEDS: MULTIVIT W/MINERALS TAB (THERAGRAN M) PO SCH (06:03)
[2019-12-23 06:20] LABS: ALANINE AMINOTRANSFERASE 23 U/L (0-55); ALBUMIN 3.3 GM/DL (3.2-4.5); ALKALINE PHOSPHATASE 44 U/L (40-136); BILIRUBIN,TOTAL 0.4 MG/DL (0.1-1.0); BUN/CREATININE RATIO 19; CARBON DIOXIDE 28 MMOL/L (21-32); CHLORIDE 105 MMOL/L (98-107); CREATININE SERUM 0.73 MG/DL (0.60-1.30); GFR ESTIMATED > 60; GLUCOSE 97 MG/DL (70-105); POTASSIUM 4.1 MMOL/L (3.6-5.0); SODIUM 140 MMOL/L (135-145); TOTAL PROTEIN 6.1 GM/DL (6.4-8.2)
[2019-12-23] MEDS: VITAMIN D3 25 MCG (1,000 UNITS) TABLET PO SCH (08:13)
[2019-12-23] MEDS: DULoxetine 30 MG (CYMBALTA) CAP PO SCH ×2 (08:13→20:38)
[2019-12-23] MEDS: SENNA W/DOCUSATE (SENOKOT S) TABLET PO SCH ×2 (08:13→20:37)
[2019-12-23] MEDS: MELOXICAM 7.5 MG (MOBIC) TABLET PO SCH (08:14)
[2019-12-23] MEDS: lisINopril 20 MG (PRINIVIL) TABLET PO SCH (08:14)
[2019-12-23] MEDS: GABAPENTIN 300 MG (NEURONTIN) CAP PO SCH ×3 (08:14→20:38)
[2019-12-23] MEDS: DOCUSATE SODIUM 100 MG (COLACE) CAP PO SCH ×2 (08:14→20:37)
[2019-12-23] MEDS: MONTELUKAST 10 MG (SINGULAIR) TAB PO SCH (08:14)
[2019-12-23] MEDS: ASPIRIN 81 MG CHEW (CHILDREN'S ASA) PO SCH ×2 (08:15→18:02)
[2019-12-23] MEDS: polyethylene glycoL POWDER 17 GM (MIRALAX) PACK PO SCH ×2 (09:49→20:37)
--- NOTE | 2019-12-23 10:47 | Progress Note ---
JOSEFINA [employer]CHOFIELD MED STUDENT 12/23/19 1047: Progress Note 74 yo F presents to rehabilitation unit after R distal fibular fracture. Therapy Progression pt stated complaints about the lack of therapy. pt stated that only therapy session was Monday morning Goals pt would like to be able to walk independently pt stated that she does not want to have to go home with the use of a walker MAYRA KAYE DO 12/23/192030: Supervisory-Addendum Brief Verification & Attestation Participated in pt care: history, MDM, physical Personally performed: exam, history, MDM, supervision of care Care discussed with: Medical Student Procedures: n/a Results interpretation: Verified all documentation Verification and Attestation of Medical Student E/M Service A medical student performed and documented this service in my presence. I reviewed and verified all information documented by the medical student and made modifications to such information, when appropriate. I personally performed the physical exam and medical decision making. Mayra Kaye, Dec 23, 2019,20:31 JOSEFINA SCHOFIELD MED STUDENT Dec 23, 2019 10:47 MAYRA KAYE DO Dec 23, 2019 20:31
[2019-12-23] MEDS ORDERED: PATIENT MAY USE OWN MED,SINGLE MED PO PRN (11:00)
--- NOTE | 2019-12-23 11:06 | Occupational Ther Daily Note ---
OT Current Status-Daily Note Subjective Pt seen in bed, awake but supine. Pt alert/ oriented. Pt states pain in RLE and has somewhat relieved with medication. Pt agrees to sponge bath. Pt up in recliner upon OT entry. Pt agreeable to OT tx. Pt states dizziness upon standing, nursing present. Pt's vitals assessed: 137/54 in sit; 117/39 in stance with no c/o pain during stance. Pt completes tx session and BP assessed once more in sit: 114/56. Pt had no additional c/o dizziness. Mental Status/Objective Patient Orientation: Normal For Age ADL-Treatment Therapy Code Descriptions/Definitions Functional [place] Measure: 0=Not Assessed/NA 4=Minimal Assistance 1=Total Assistance 5=Supervision or Setup 2=Maximal Assistance 6=Modified [place] 3=Moderate Assistance 7=Complete IndependenceSCALE: Activities may be completed with or without assistive devices. 3-Ahrniochse-rffnhjz completes the activity by him/herself with no assistance from a helper. 5-Set-up or Clean-up Assistance-helper sets up or cleans up; patient completes activity. [place] assists only prior to or following the activity. 4-Supervision or Touching Assistance-helper provides verbal cues and/or touching/steadying and/or contact guard assistance as patient completes activity. Assistance may be provided throughout the activity or intermittently. 3-Partial/Moderate Assistance-helper does LESS THAN HALF the effort. [place] lifts, holds or supports trunk or limbs, but provides less than half the effort. 2-Substantial/Maximal Assistance-helper does MORE THAN HALF the effort. [place] lifts or holds trunk or limbs and provides more than half the effort. 0-Jzsmvsnvo-pzatxg does ALL the effort. Patient does none of the effort to complete the activity. Or, the assistance of 2 or more helpers is required for the patient to complete the activity. If activity was not attempted, code reason: 7-Patient Refused. 9-Not Applicable-not attempted and the patient did not perform the activity before the current illness, exacerbation or injury. 10-Not Attempted due to Environmental Limitations-(lack of equipment, weather restraints, etc.). 88-Not Attempted due to Medical Conditions or Safety Concerns. Eating (QC): 6 Oral Hygiene (QC): 4 (SBA and cues for RLE WB status during stance.) Shower/Bathe Self (QC): 4 (Completes with SBA in stance) Upper Body Dressing (QC): 5 Lower Body Dressing (QC): 4 On/Off Footwear: 6 Toileting Hygiene (QC): 4 Toilet Transfer (QC): 4 Other Treatment Completes supine to sit with SBA. Sit to stand SBA. Pt ambulate to chair to complete sponge bath. Then completes toileting with SUP, SBA in stance. Skilled cues for WB and initiation of utilizing torso for balance during bottom hygiene/ pant hike. Return demonstrates while maintaining WB RLE. Pt stands at mirror- cues for WB RLE. Pt returns to recliner, completing 5 reps bilaterally of ther ex with handout and demonstrates. Skilled cues for purpose and tension/ correct positioning. All needs met, call light in reach. Pt sit to stand with SBA, ambulates to bathroom for toileting with SBA transfers and SUP toileting. Pt self propels to therapy gym, completing 13 min arm bike with mod resistance for higher fx endurance training and 2 min strength training with max tension applied to arm bike. Pt at table top to complete kitchen management task- completes side steps with skilled cues for walker/ arm use during walker positioning. Pt completes with mod-min cues throughout- ambulating ~10 steps to L and 10 to R side. Pt returns to room, nursing present once more for return vitals WNL. Pt returns to bed with CGA. All needs met, call light in reach, nursing present. Education OT Patient Education: Correct positioning, Energy conservation, Exercise program, Home exercise program, Modified ADL techniques, Progress toward Goal/Update tx plan, Purpose of tx/functional activities, Reviewed precautions, Safety issues, Transfer techniques, W/C management Teaching Recipient: Patient Teaching Methods: Demonstration, Handout, Discussion Response to Teaching: Verbalize Understanding, Return Demonstration OT [facility] Goals Field Service Coordinator Goals Time Frame: Jan 03, 2020 Eating (QC): 6 Oral Hygiene (QC): 6 Toileting Hygiene (QC): 6 Shower/Bathe Self (QC): 6 Upper Body Dressing (QC): 6 Lower Body Dressing (QC): 6 On/Off Footwear (QC): 6 Additional Goals: 1-Demonstrate ADL Tasks, 2-Verbalize Understanding, 3- ImproveStrength/Anthony 1=Demonstrate adherence to instructed precautions during ADL tasks. 2=Patient will verbalize/demonstrate understanding of assistive devices/modifications for ADL. 3=Patient will improve strength/tolerance for activity to enable patient to perform ADL's. OT Education/Plan Problem List/Assessment Assessment: Decreased Activ Tolerance, Decreased UE Strength, Dependent Transfers, Impaired Funct Balance, Impaired I ADL's, Impaired Self-Care Skills Discharge Recommendations Plan/Recommendations: Continue POC Therapy Discharge Recommendati: Home & Family Treatment Plan/Plan of Care Treatment,Training & Education: Yes Patient would benefit from OT for education, treatment and training to promote independence in ADL's, mobility, safety and/or upper extremity function for ADL's. Plan of Care: ADL Retraining, Caregiver Training, Functional Mobility, Group Exercise/Act as Ind, UE Funct Exercise/Act, W/C Management Training Treatment Duration: Jan 03, 2020 Frequency: At least 5 of 7 days/Wk (IRF) Estimated Hrs Per Day: .25 hour per day Agreement: Yes Rehab Potential: Fair Time/GCodes Start Time: 10:15 (1300) Stop Time: 11:00 (1345) Total Time Billed (hr/min): 90 Billed Treatment Time 1, ADL 2, EX (45) 1, ADL, EX, FA (45) DEREK SHIPMAN OTR Dec 23, 2019 11:06
--- NOTE | 2019-12-23 11:28 | PM&R Progress Note ---
Subjective HPI/CC On Admission Date Seen by Provider: Dec 23, 2019 Time Seen by Provider: 10:00 Subjective/Events-last exam 12/23/19: Bowels last moved yesterday Labs are okay Ankle ulcer before cast was placed so will monitor that when cast is removed Fall risk remains 12/22/19: Patient feels better Less pain meds take Got out of bed on her own last night and nurses counseled her CPAP used last night 12/21/19: Pain 5/10 CPAP at home but does not wear it here Refused O2 last night too BM today Splint will be in place on right ankle for [address] Zuleta Incontinent at night Checked meds and labs Conferred with RN Reviewed therapy notes Review of Systems General: Fatigue, Malaise Neurological: Weakness Objective Exam Vital Signs Vital Signs Date Time Temp Pulse Resp B/P (MAP) Pulse Ox O2 Delivery O2 Flow Rate FiO2 12/23/19 17:49 36.7 78 18 132/62 (85) 95 Room Air 12/23/19 05:00 2.00 Capillary Refill : Less Than 3 SecondsLess Than 3 Seconds General Appearance: No Apparent Distress, WD/WN, Chronically ill HEENT: PERRL/EOMI, Normal ENT Inspection, Pharynx Normal Neck: Full Range of Motion, Normal Inspection, Non Tender, Supple, Carotid Bruit Respiratory: Chest Non Tender, Lungs Clear, Normal Breath Sounds, No Accessory Muscle Use, No Respiratory Distress Cardiovascular: Regular Rate, Rhythm, No Edema, No Gallop, No JVD, No Murmur, Normal Peripheral Pulses Gastrointestinal: Normal Bowel Sounds, No Organomegaly, No Pulsatile Mass, Non Tender, Soft Back: Normal Inspection, No CVA Tenderness, No Vertebral Tenderness Extremity: Normal Capillary Refill, Normal Inspection, Normal Range of Motion, Non Tender, No Calf Tenderness, No Pedal Edema, Other (right ankle cast in place ) Neurologic/Psychiatric: Alert, Oriented x3, No Motor/Sensory Deficits, Normal Mood/Affect, scientific artist II-XII Norm as Tested, Abnormal Gait (non-weight bearing) Skin: Normal Color, Warm/Dry Lymphatic: No Adenopathy Results/Procedures Lab Laboratory Tests 12/23/19 05:38 Patient resulted labs reviewed. FIM Transfers Therapy Code Descriptions/Definitions Functional [place] Measure: 0=Not Assessed/NA 4=Minimal Assistance 1=Total Assistance 5=Supervision or Setup 2=Maximal Assistance 6=Modified [place] 3=Moderate Assistance 7=Complete IndependenceSCALE: Activities may be completed with or without assistive devices. 6-Netkvnecuv-ttmawhj completes the activity by him/herself with no assistance from a helper. 5-Set-up or Clean-up Assistance-helper sets up or cleans up; patient completes activity. [place] assists only prior to or following the activity. 4-Supervision or Touching Assistance-helper provides verbal cues and/or touching/steadying and/or contact guard assistance as patient completes activity. Assistance may be provided throughout the activity or intermittently. 3-Partial/Moderate Assistance-helper does LESS THAN HALF the effort. [place] l ifts, holds or supports trunk or limbs, but provides less than half the effort. 2-Substantial/Maximal Assistance-helper does MORE THAN HALF the effort. [place] lifts or holds trunk or limbs and provides more than half the effort. 2-Rsvkggkis-hwydqa does ALL the effort. Patient does none of the effort to complete the activity. Or, the assistance of 2 or more helpers is required for the patient to complete the activity. If activity was not attempted, code reason: 7-Patient Refused. 9-Not Applicable-not attempted and the patient did not perform the activity before the current illness, exacerbation or injury. 10-Not Attempted due to Environmental Limitations-(lack of equipment, weather restraints, etc.). 88-Not Attempted due to Medical Conditions or Safety Concerns. Roll Left to Right (QC): 6 Sit to Lying (QC): 6 Sit to Stand (QC): 4 Chair/Rgm-ux-Bljha Xfer(QC): 4 Car Transfer (QC): 4 Gait Training Does the Patient Walk?: Yes Walk 10 feet (QC): 88 Walk 50 ft with 2 Turns(QC): 88 Walk 150 ft (QC): 88 Walking 10ft/uneven surface-QC: 88 Gait Assistive Device: FWW Wheelchair Training Does the Pt Use a Wheelchair?: Yes Distance: 150'x2 Wheel 50 ft with 2 turns (QC): 4 Wheel 150 ft (QC): 4 Type of Wheelchair: Manual Stair Training 1 Step (curb) (QC): 88 4 Steps (QC): 88 12 Steps (QC): 88 Balance Picking up an Object (QC): 88 ADL-Treatment Eating (QC): 6 Oral Hygiene (QC): 4 (SBA and cues for RLE WB status during stance.) Shower/Bathe Self (QC): 4 (Completes with SBA in stance) Upper Body Dressing (QC): 5 Lower Body Dressing (QC): 4 On/Off Footwear (QC): 6 Toileting Hygiene (QC): 4 Toilet Transfer (QC): 4 Assessment/Plan Assessment and Plan Assess & Plan/Chief Complaint Assessment: Left ankle fracture STEVEN non-compliant with CPAP Former smoker COPD HTN CAD Plan: Monitor pain IRF protocol IS DVT PPx 12/22/19: Pain control BM regimen Monitor for falls BP management 12/23/19: Continue bowel regimen Continue pain medication Monitor ankle ulcer once cast is removed Labs are stable (1) Bimalleolar fracture of right ankle Status: Acute (2) Hypertension (3) Hyperlipidemia (4) Ankle fracture RADHA NEWMAN DO Dec 23, 2019 11:28
--- NOTE | 2019-12-23 12:09 | Physical Therapy Daily Note ---
PT Daily Note-Current Subjective Pt. up in chair with LEs elevated. Pt. c/o R LE with pain traveling buttock to foot and states she has had sciatica in the past. Pt. agrees to Rx. Pain Numeric Pain Scale: 5-Moderate Pain Location: Right Location Body Site: Hip (to knee) Pain Description: Sharp Mental Status Patient Orientation: Normal For Age Attachments: Other-See Comments (cast R foot) Transfers SCALE: Activities may be completed with or without assistive devices. 7-Kzexepqbdv-yhnpcjq completes the activity by him/herself with no assistance from a helper. 5-Set-up or Clean-up Assistance-helper sets up or cleans up; patient completes activity. [place] assists only prior to or following the activity. 4-Supervision or Touching Assistance-helper provides verbal cues and/or touching/steadying and/or contact guard assistance as patient completes activity. Assistance may be provided throughout the activity or intermittently. 3-Partial/Moderate Assistance-helper does LESS THAN HALF the effort. [place] lifts, holds or supports trunk or limbs, but provides less than half the effort. 2-Substantial/Maximal Assistance-helper does MORE THAN HALF the effort. [place] lifts or holds trunk or limbs and provides more than half the effort. 5-Ncrfcitbg-goqrty does ALL the effort. Patient does none of the effort to complete the activity. Or, the assistance of 2 or more helpers is required for the patient to complete the activity. If activity was not attempted, code reason: 7-Patient Refused. 9-Not Applicable-not attempted and the patient did not perform the activity before the current illness, exacerbation or injury. 10-Not Attempted due to Environmental Limitations-(lack of equipment, weather restraints, etc.). 88-Not Attempted due to Medical Conditions or Safety Concerns. Sit to Stand (QC): 5 Chair/Nsh-ad-Oomsm Xfer(QC): 4 sit to stand and SPT recliner to w/c and back CGA using FWW. Pt. has some difficulty maintaining NWBing RLE for gait and TRFs Weight Bearing Right Lower Extremity: Right Non Weight Bearing Gait Training Does the Patient Walk?: Yes Walk 10 feet (QC): 4 Gait Persons Needed: 1 Gait Assistive Device: FWW w/c to f/u as pt. has difficulty maintaining NWBing and is likely TTWB to min wt bearing RLE Wheelchair Training Does the Pt Use a Wheelchair?: Yes Wheel 50 ft with 2 turns (QC): 3 Type of Wheelchair: Manual Pt. needs instruction for all ie braking, turns and manuevering in small areas. Exercises Supine Ex: Ankle pumps, Quad Set, Glut sets, Heel Slides, Short Arc Quads, Scooting, Straight leg raise, Hip abd/add Supine Reps: 15 Seated Therapy Exercises: Ankle pumps, Sit to stand, Long arc quads, Hip flexion, Hip abd/add Seated Reps: 15 Assessment Current Status: Fair Progress pt. not maintaining NWB R 75% of time and needs cues and rest breaks, plan to w/ c train pt. in case she cannot safely learn to maintainNWB PT Short Term Goals Short Term Goals Time Frame: Dec 27, 2019 Roll Left & Right: 6 Sit to lyin Lying to sitting on side of be: 6 Sit to stand: 4 Chair/ccb-dc-dueqs transfer: 4 Walk 10 feet: 4 PT Usp Goals Cook Night Goals PT Cook Night Goals Time Frame: Jan 10, 2020 Roll Left & Right (QC): 6 Sit to Lying (QC): 6 Lying-Sitting on Side/Bed(QC): 6 Sit to Stand (QC): 5 Chair/Zou-ea-Aihly Xfer(QC): 5 Toilet Transfer (QC): 5 Car Transfer (QC): 5 Does the Patient Walk: Yes Walk 10 feet (QC): 4 Walk 50ft with 2 Turns (QC): 4 Walk 150 ft (QC): 88 Walking 10ft on Uneven Surface: 4 1 Step (curb) (QC): 4 4 Steps (QC): 88 12 Steps (QC): 88 Picking up an Object (QC): 88 Wheel 50 feet with 2 turns (QC: 6 Wheel 150 feet: 6 PT Plan Treatment/Plan Treatment Plan: Continue Plan of Care Treatment Plan: Bed Mobility, Education, Functional Activity Anthony, Functional Strength, Group Therapy, Gait, Safety, Therapeutic Exercise, Transfers Treatment Duration: Jan 10, 2020 Frequency: At least 5 of 7 days/Wk (IRF) Estimated Hrs Per Day: 1.5 hours per day Patient and/or Family Agrees t: Yes Safety Risks/Education Patient Education: Gait Training, Transfer Techniques, Correct Positioning, W/C Management, Disease Process, Safety Issues Teaching Recipient: Patient Teaching Methods: Demonstration, Discussion Response to Teaching: Verbalize Understanding, Return Demonstration, Reinforcement Needed Time/GCodes Time In: 1100 Time Out: 1200 Total Billed Treatment Time: 60 Total Billed Treatment 1,EX15m,WC15m,GT15m,FA15m PIERRE STEWART TONGUE BINDER Dec 23, 2019 12:09
[2019-12-23] MEDS: CO Q10 200 MG PO SCH (12:19)
[2019-12-23] MEDS: [UNRECOGNIZED DRUG - OTHER] PO SCH (12:19)
[2019-12-23] MEDS: HYDROcodone/APAP 5 MG/325 MG (LORTAB) TAB PO PRN ×2 (12:20→18:02)
[2019-12-23] MEDS: TURMERIC CURCUMIN 500 MG PO PRN (12:21)
[2019-12-23] MEDS: ENOXAPARIN 40 MG/0.4 ML (LOVENOX) SYR SC SCH (14:53)
--- NOTE | 2019-12-23 15:11 | Physical Therapy Daily Note ---
PT Daily Note-Current Subjective Pt. in supine with LEs elevated and states this has helped alleviate some discomfort in RLE. Pt. comments that she is fatigued and prefers to stay in bed for therex. "will I be finished with my 3 hours then?" Pain Location: No Pain Reported Mental Status Patient Orientation: Normal For Age Attachments: Other-See Comments (cast R foot) Transfers SCALE: Activities may be completed with or without assistive devices. 4-Kocvukgwur-atvpbeg completes the activity by him/herself with no assistance from a helper. 5-Set-up or Clean-up Assistance-helper sets up or cleans up; patient completes activity. [place] assists only prior to or following the activity. 4-Supervision or Touching Assistance-helper provides verbal cues and/or touching/steadying and/or contact guard assistance as patient completes activity. Assistance may be provided throughout the activity or intermittently. 3-Partial/Moderate Assistance-helper does LESS THAN HALF the effort. [place] lifts, holds or supports trunk or limbs, but provides less than half the effort. 2-Substantial/Maximal Assistance-helper does MORE THAN HALF the effort. [place] lifts or holds trunk or limbs and provides more than half the effort. 1-Myefotrlu-mgpfyw does ALL the effort. Patient does none of the effort to complete the activity. Or, the assistance of 2 or more helpers is required for the patient to complete the activity. If activity was not attempted, code reason: 7-Patient Refused. 9-Not Applicable-not attempted and the patient did not perform the activity before the current illness, exacerbation or injury. 10-Not Attempted due to Environmental Limitations-(lack of equipment, weather restraints, etc.). 88-Not Attempted due to Medical Conditions or Safety Concerns. Roll Left & Right (QC): 6 pulls self up in bed pushing with LLE and pulling with UEs on bed rails Weight Bearing Right Lower Extremity: Right Non Weight Bearing Exercises Supine Ex: Bridging (using LLE only), Ankle pumps (LLE only), Quad Set, Rolling, Glut sets, Lower trunk rotation, Heel Slides, Short Arc Quads, Scooting, Straight leg raise (indep RLE), Hip abd/add Treatments bilat LE therex , pt. left with bilat LEs elevated in bed, call brown at hand Assessment Current Status: Good Progress c/o fatigue but cooperative for LE therex in bed PT Short Term Goals Short Term Goals Time Frame: Dec 27, 2019 Roll Left & Right: 6 Sit to lyin Lying to sitting on side of be: 6 Sit to stand: 4 Chair/iiv-ba-pfcmc transfer: 4 Walk 10 feet: 4 PT Farm Labor Contractor Goals Snf Goals PT Snf Goals Time Frame: Jan 10, 2020 Roll Left & Right (QC): 6 Sit to Lying (QC): 6 Lying-Sitting on Side/Bed(QC): 6 Sit to Stand (QC): 5 Chair/Zqn-xs-Birjn Xfer(QC): 5 Toilet Transfer (QC): 5 Car Transfer (QC): 5 Does the Patient Walk: Yes Walk 10 feet (QC): 4 Walk 50ft with 2 Turns (QC): 4 Walk 150 ft (QC): 88 Walking 10ft on Uneven Surface: 4 1 Step (curb) (QC): 4 4 Steps (QC): 88 12 Steps (QC): 88 Picking up an Object (QC): 88 Wheel 50 feet with 2 turns (QC: 6 Wheel 150 feet: 6 PT Plan Treatment/Plan Treatment Plan: Continue Plan of Care Treatment Plan: Bed Mobility, Education, Functional Activity Anthony, Functional Strength, Group Therapy, Gait, Safety, Therapeutic Exercise, Transfers Treatment Duration: Jan 10, 2020 Frequency: At least 5 of 7 days/Wk (IRF) Estimated Hrs Per Day: 1.5 hours per day Patient and/or Family Agrees t: Yes Safety Risks/Education Patient Education: Correct Positioning, Disease Process, Safety Issues Teaching Recipient: Patient Teaching Methods: Demonstration, Discussion Response to Teaching: Verbalize Understanding, Return Demonstration, Reinforcement Needed Time/GCodes Time In: 1445 Time Out: 1515 Total Billed Treatment Time: 30 Total Billed Treatment 1,EX30m PIERRE STEWART DIRECTOR MARKET INTELLIGENCE Dec 23, 2019 15:11
--- NOTE | 2019-12-23 15:36 | NUR ---
"RD ASSESSMENT PMHx: hypercholesterolemia; HTN; Current - R ankle fracture PT INTERACTION: Pt was awake and pleasant during nutrition assessment. Pt states current appetite is good. Note avg PO intake 50-75% x2d, per chart review. Pt states following a regular diet at home, and has no issues with chewing/swallowing food. Pt states recent issues with constipation. Note last BM was 12/21, and pt currently on bowel regimen of colace BID; senna BID; and miralax BID, per chart review. Pt states no recent wt changes. Note recent 16# wt gain x3w, per chart review. ABNORMAL NUTRITION-RELATED LAB VALUES LOW: Pro 6.1 HIGH: Est. kcal needs: 1275 kcal | 15 kcal/kg Est. Pro needs: 67 g Pro | 0.8 g Pro/kg PES STATEMENT: Inadequate oral intake (NI-2.1) related to constipation as evidenced by pt interview | avg PO intake 50-75% x2d INTERVENTION: Continue with current diet order of Regular diet. Pt may benefit from nutrition supplementation if PO intake declines. Will continue to follow and reassess as pt needs, intake, and status change. MONITOR/EVALUATE: PO Intake; Plan of Care; Hydration Status; Weight Status; Lab Values Natali Quigley, MS, RD, LD"
--- NOTE | 2019-12-23 16:00 | NUR ---
CM/SS ADMISSION Patient was admitted to ARU 12/20/19 from [facility] after right ankle bimalleolar fracture and repair. Patient reported she got up in the night to the bathroom and fell sustaining the fracture. Patient moved to [place] from [place] 04/2019 and lives in an apartment complex on the ground floor. She intends to return there upon discharge. She actually fractured her left ankle 06/01/19 and recuperated with a boot and use of crutches. Patient shared that her was a "great man" and that he would ask her to take off several days from work and then plan a surprise vacation for them. In 2000 he had an aneurysm which lead to severe vascular dementia and overall disability. Patient tried to care for him at home and quit her job to do so, but records reflect he was in a community facility 17 years prior to his . PCP: Dr. Elaine Meeks MD PHARMACY: [facility] INSURANCE: Medicare, [employer] [facility] Supplement DME: Has FWW, CPAP, grab bar into shower, and an old wheelchair she has been using at times in the apartment. BARRIERS TO DISCHARGE PLANNING: Resides alone, non weight bearing status for several weeks anticipated. CONTACTS: Patient has two children, her daughter Pooja who is an RN in [place], and son Mk Llamas who resides in [place]. Granddaughters and their families reside here in [place] and patient describes them as very attentive and supportive, doing errands, groceries, bringing in meals. Rosalinda MitchellAbelJoanne Dann, Granddaughter [address] [place] [address] Shayy Styles, Granddaughter [address] [place] [address] Patient understands the purpose and process for the weekly patient care conference team meeting, and that her first review will be Wednesday, December 25, 2019.
--- NOTE | 2019-12-23 16:13 | Cardiology Progress Note ---
Cardiology SOAP Progress Note Subjective: No cardiac complaints. Objective: I&O/Vital Signs 12/23/19 12/23/19 05:00 09:00 Temp 36.2 Pulse 88 Resp 18 B/P (MAP) 126/60 (82) Pulse Ox 98 99 O2 Delivery NIV CPAP Room Air O2 Flow Rate 2.00 12/23/19 00:00 Intake Total 1060 ml Balance 1060 ml Constitutional: appears stated age, AAO x 3; No apparent distress; well- developed, well-nourished Respiratory: chest is bilaterally symmetric, lungs clear to auscultation Cardiovascular: regular rate-rhythm Gastrointestional: soft, audible bowel sounds; No spleenomegaly Extremities: other (right lower limb is in a cast.); No clubbing, No cyanosis, No significant edema Neurologic/Psychiatric: no motor/sensory deficits, alert, normal mood/affect, oriented x 3, power is 5/5 both on sides Skin: normal color; No rash, No ulcerations Results/Procedures: Labs Laboratory Tests 12/23/19 05:38: White Blood Count 5.2, Red Blood Count 3.41L, Hemoglobin 11.3L, Hematocrit 35, Mean Corpuscular Volume 103H, Mean Corpuscular Hemoglobin 33, Mean Corpuscular Hemoglobin Concent 32, Red Cell Distribution Width 13.8, Platelet Count 210, Mean Platelet Volume 10.7H, Neutrophils (%) (Auto) 62, Lymphocytes (%) (Auto) 26, Monocytes (%) (Auto) 12, Eosinophils (%) (Auto) 1, Basophils (%) (Auto) 0, Neutrophils # (Auto) 3.2, Lymphocytes # (Auto) 1.3, Monocytes # (Auto) 0.6, Eosinophils # (Auto) 0.1, Basophils # (Auto) 0.0, Sodium Level 140, Potassium Level 4.1, Chloride Level 105, Carbon Dioxide Level 28, Anion Gap 7, Blood Urea Nitrogen 14, Creatinine 0.73, Estimat Glomerular Filtration Rate > 60, BUN/Creatinine Ratio 19, Glucose Level 97, Calcium Level 9.0, Corrected Calcium 9.6, Total Bilirubin 0.4, Aspartate Amino Transf (AST/SGOT) 25, Alanine Aminotransferase (ALT/SGPT) 23, Alkaline Phosphatase 44, Total Protein 6.1L, Albumin 3.3 A/P: Assessment/Dx: Mechanical fall, Right ankle fracture, orthopedic procedure for inpatient rehabilitation, Hypertension, Hyperlipidemia, Mild diastolic dysfunction, Mild valvular heart disease, Obstructive sleep apnea Plan: Mechanical fall, Right ankle fracture, orthopedic procedure for inpatient rehabilitation, Hypertension, on diltiazem and lisinopril as an outpatient. Hyperlipidemia, atorvastatin. Mild diastolic dysfunction, not in florid congestive heart failure. Mild valvular heart disease, mild mitral regurgitation and tricuspid regurgit ation. No clinical concerns at this point in time. Obstructive sleep apnea echocardiogram on 11/10/2017 which showed an LVEF of 70 percent with mild diastolic dysfunction. Mild LVH. Mild mitral regurgitation/mild tricuspid regurgitation. EKG done in November 2018 which showed normal sinus rhythm. MPI done on 08/31/2015 which was negative. blood work done on 04/26/2018 which showed total cholesterol of 280, LDL 143, HDL 62, triglyceride 124. Thank you for your consultation. Please call me if you have any questions. Lida Gaffney MD, FACP, FACC, FSCAI, FHRS, CCDS Interventional Cardiology Cardiac Electrophysiology Vascular Medicine and Endovascular Interventions Casey GAFFNEY MD Dec 23, 2019 16:13
[2019-12-23 17:49] VITALS: BP 132/62
[2019-12-24 05:41] VITALS: BP 139/65
[2019-12-24] MEDS: MULTIVIT W/MINERALS TAB (THERAGRAN M) PO SCH (06:19)
[2019-12-24] MEDS: VITAMIN D3 25 MCG (1,000 UNITS) TABLET PO SCH (08:04)
[2019-12-24] MEDS: DULoxetine 30 MG (CYMBALTA) CAP PO SCH ×2 (08:04→20:17)
[2019-12-24] MEDS: MELOXICAM 7.5 MG (MOBIC) TABLET PO SCH (08:04)
[2019-12-24] MEDS: GABAPENTIN 300 MG (NEURONTIN) CAP PO SCH ×3 (08:04→20:17)
[2019-12-24] MEDS: MONTELUKAST 10 MG (SINGULAIR) TAB PO SCH (08:04)
[2019-12-24] MEDS: DOCUSATE SODIUM 100 MG (COLACE) CAP PO SCH ×2 (08:05→20:20)
[2019-12-24] MEDS: ASPIRIN 81 MG CHEW (CHILDREN'S ASA) PO SCH ×2 (08:05→17:11)
[2019-12-24] MEDS: polyethylene glycoL POWDER 17 GM (MIRALAX) PACK PO SCH ×2 (08:05→20:20)
[2019-12-24] MEDS: lisINopril 20 MG (PRINIVIL) TABLET PO SCH (08:05)
[2019-12-24] MEDS: [UNRECOGNIZED DRUG - OTHER] PO SCH (08:06)
[2019-12-24] MEDS: CO Q10 200 MG PO SCH (08:07)
[2019-12-24] MEDS: SENNA W/DOCUSATE (SENOKOT S) TABLET PO SCH ×2 (08:07→20:20)
[2019-12-24 08:09] VITALS: BP 125/63
[2019-12-24] MEDS ORDERED: PATIENT MAY USE OWN MED,SINGLE MED PO SCH ×2 (09:00)
[2019-12-24] MEDS: HYDROcodone/APAP 5 MG/325 MG (LORTAB) TAB PO PRN ×2 (10:01→18:38)
--- NOTE | 2019-12-24 10:16 | Occupational Ther Daily Note ---
OT Current Status-Daily Note Subjective Pt seen in bed asleep this am. Pt requires verbal cues for rising. pt alert/ oriented upon tx start. Pt states min pain, agrees to therapy. Pt in recliner. Pt alert/ oriented, agrees to therapy. No c/o pain. Mental Status/Objective Patient Orientation: Normal For Age ADL-Treatment Therapy Code Descriptions/Definitions Functional [place] Measure: 0=Not Assessed/NA 4=Minimal Assistance 1=Total Assistance 5=Supervision or Setup 2=Maximal Assistance 6=Modified [place] 3=Moderate Assistance 7=Complete IndependenceSCALE: Activities may be completed with or without assistive devices. 1-Wsxihpixjg-lvtlecn completes the activity by him/herself with no assistance from a helper. 5-Set-up or Clean-up Assistance-helper sets up or cleans up; patient completes activity. [place] assists only prior to or following the activity. 4-Supervision or Touching Assistance-helper provides verbal cues and/or touching/steadying and/or contact guard assistance as patient completes activity. Assistance may be provided throughout the activity or intermittently. 3-Partial/Moderate Assistance-helper does LESS THAN HALF the effort. [place] lifts, holds or supports trunk or limbs, but provides less than half the effort. 2-Substantial/Maximal Assistance-helper does MORE THAN HALF the effort. [place] lifts or holds trunk or limbs and provides more than half the effort. 7-Mqfcxhlux-hdhbye does ALL the effort. Patient does none of the effort to complete the activity. Or, the assistance of 2 or more helpers is required for the patient to complete the activity. If activity was not attempted, code reason: 7-Patient Refused. 9-Not Applicable-not attempted and the patient did not perform the activity before the current illness, exacerbation or injury. 10-Not Attempted due to Environmental Limitations-(lack of equipment, weather restraints, etc.). 88-Not Attempted due to Medical Conditions or Safety Concerns. Eating (QC): 6 Oral Hygiene (QC): 6 (completed prior to OT entry.) Shower/Bathe Self (QC): 7 (denies this date) Upper Body Dressing (QC): 7 (denies this date) Lower Body Dressing (QC): 7 (denies this date) On/Off Footwear: 6 (completes sock and shoe donning to LLE) Other Treatment Pt completes bed mob with SBA. Pt sit to stand with walker with CGA and ambulates to w/c with minimal cues for NWB status to RLE. Pt unable to continue NWB through ambulation to w/c. Pt educated on this and educated on mm group to continue strengthening. Pt's nurse agrees to pt outdoor activities. Pt pushed in w/c to 1st floor, completes ambulation across multiple surface areas with continued cues for NWB. Pt able to complete with increased success though not able to maintain over ~20 feet. Pt pushed in w/c to outside, completes UE theraband ex in sit due to pt's increased pain in RLE. Pt completes additional tricep/ back ex for increased strength and success in ambulation and NWB maintenance. Pt returns to room, stands in front of recliner to complete UE movement while maintaining weight on LLE only- balance task initiated for increased safety during fx tasks with CGA-min A for righting intermittently. Pt returns to sit, states pain in RLE, elevated LEs and nursing notified for medication management. Pt sit to stand with SBA, completes toileting with SUP. Pt in w/c, pushed to therapy gym. Pt stands at tabletop level to complete arm arc/ bimanual tasks with skilled cues for use of abdomen for added support during task. pt requires cues intermittently for NWB on RLE. Pt able to reach overhead and with BUE forward flexion with 1 instance of LOB (CGA throughout) and 2 rest breaks for total of 20 min standing. Pt returns to room, LEs elevated in recliner with all needs met. Education OT Patient Education: Correct positioning, Exercise program, Home exercise program, Progress toward Goal/Update tx plan, Purpose of tx/functional activities, Reviewed precautions, Safety issues, Transfer techniques Teaching Recipient: Patient Teaching Methods: Demonstration, Discussion Response to Teaching: Verbalize Understanding, Return Demonstration, Reinforcement Needed OT Laundry Housekeeping Aide Goals Laundry Housekeeping Aide Goals Time Frame: Jan 03, 2020 Eating (QC): 6 Oral Hygiene (QC): 6 Toileting Hygiene (QC): 6 Shower/Bathe Self (QC): 6 Upper Body Dressing (QC): 6 Lower Body Dressing (QC): 6 On/Off Footwear (QC): 6 Additional Goals: 1-Demonstrate ADL Tasks, 2-Verbalize Understanding, 3- ImproveStrength/Anthony 1=Demonstrate adherence to instructed precautions during ADL tasks. 2=Patient will verbalize/demonstrate understanding of assistive devices /modifications for ADL. 3=Patient will improve strength/tolerance for activity to enable patient to perform ADL's. OT Education/Plan Problem List/Assessment Assessment: Decreased Activ Tolerance, Decreased UE Strength, Dependent Transfers, Impaired Funct Balance, Impaired I ADL's, Impaired Self-Care Skills Discharge Recommendations Plan/Recommendations: Continue POC Therapy Discharge Recommendati: Intermittent Supervision, Home & Family Treatment Plan/Plan of Care Treatment,Training & Education: Yes Patient would benefit from OT for education, treatment and training to promote independence in ADL's, mobility, safety and/or upper extremity function for ADL's. Plan of Care: ADL Retraining, Caregiver Training, Functional Mobility, Group Exercise/Act as Ind, UE Funct Exercise/Act, W/C Management Training Treatment Duration: Jan 03, 2020 Frequency: At least 5 of 7 days/Wk (IRF) Estimated Hrs Per Day: .25 hour per day Agreement: Yes Rehab Potential: Fair Time/GCodes Start Time: 09:15 (1130) Stop Time: 10:15 (1200) Total Time Billed (hr/min): 90 Billed Treatment Time 1, EX 3 (45), FA(15)= 60 1, ADL, FA (30) DEREK SHIPMAN OTR Dec 24, 2019 10:16
--- NOTE | 2019-12-24 10:36 | PM&R Progress Note ---
Subjective HPI/CC On Admission Date Seen by Provider: Dec 24, 2019 Time Seen by Provider: 09:00 Subjective/Events-last exam 12/24/19: Bowels moved yesterday Follow-up with Dr. Zuleta on 12/29 at 1 PM Dressing will be changed by the surgeon Overall complains about therapy not working with her but then complains she is too tired to participate in therapy 12/23/19: Bowels last moved yesterday Labs are okay Ankle ulcer before cast was placed so will monitor that when cast is removed Fall risk remains 12/22/19: Patient feels better Less pain meds take Got out of bed on her own last night and nurses counseled her CPAP used last night 12/21/19: Pain 5/10 CPAP at home but does not wear it here Refused O2 last night too BM today Splint will be in place on right ankle for [address] Zuleta Incontinent at night Checked meds and labs Conferred with RN Reviewed therapy notes Review of Systems General: Fatigue, Malaise Neurological: Weakness Objective Exam Vital Signs Vital Signs Date Time Temp Pulse Resp B/P (MAP) Pulse Ox O2 Delivery O2 Flow Rate FiO2 12/24/19 16:29 36.5 79 16 138/61 (86) 94 Room Air 12/23/19 05:00 2.00 Capillary Refill : Less Than 3 SecondsLess Than 3 Seconds General Appearance: No Apparent Distress, WD/WN, Chronically ill HEENT: PERRL/EOMI, Normal ENT Inspection, Pharynx Normal Neck: Full Range of Motion, Normal Inspection, Non Tender, Supple, Carotid Bruit Respiratory: Chest Non Tender, Lungs Clear, Normal Breath Sounds, No Accessory Muscle Use, No Respiratory Distress Cardiovascular: Regular Rate, Rhythm, No Edema, No Gallop, No JVD, No Murmur, Normal Peripheral Pulses Gastrointestinal: Normal Bowel Sounds, No Organomegaly, No Pulsatile Mass, Non Tender, Soft Back: Normal Inspection, No CVA Tenderness, No Vertebral Tenderness Extremity: Normal Capillary Refill, Normal Inspection, Normal Range of Motion, Non Tender, No Calf Tenderness, No Pedal Edema, Other (right ankle cast in place) Neurologic/Psychiatric: Alert, Oriented x3, No Motor/Sensory Deficits, Normal Mood/Affect, teaching supervisor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 FIM Transfers Therapy Code Descriptions/Definitions Functional [place] Measure: 0=Not Assessed/NA 4=Minimal Assistance 1=Total Assistance 5=Supervision or Setup 2=Maximal Assistance 6=Modified [place] 3=Moderate Assistance 7=Complete IndependenceSCALE: Activities may be completed with or without assistive devices. 4-Svmoiylwtd-gngamzc completes the activity by him/herself with no assistance from a helper. 5-Set-up or Clean-up Assistance-helper sets up or cleans up; patient completes activity. [place] assists only prior to or following the activity. 4-Supervision or Touching Assistance-helper provides verbal cues and/or touching/steadying and/or contact guard assistance as patient completes activity. Assistance may be provided throughout the activity or intermittently. 3-Partial/Moderate Assistance-helper does LESS THAN HALF the effort. [place] lifts, holds or supports trunk or limbs, but provides less than half the effort. 2-Substantial/Maximal Assistance-helper does MORE THAN HALF the effort. [place] lifts or holds trunk or limbs and provides more than half the effort. 3-Vgwtpsmjl-vprcxa does ALL the effort. Patient does none of the effort to complete the activity. Or, the assistance of 2 or more helpers is required for the patient to complete the activity. If activity was not attempted, code reason: 7-Patient Refused. 9-Not Applicable-not attempted and the patient did not perform the activity before the current illness, exacerbation or injury. 10-Not Attempted due to Environmental Limitations-(lack of equipment, weather restraints, etc.). 88-Not Attempted due to Medical Conditions or Safety Concerns. Roll Left to Right (QC): 6 Sit to Lying (QC): 6 Sit to Stand (QC): 5 Chair/Pnw-ps-Tskdq Xfer(QC): 4 Car Transfer (QC): 4 Gait Training Does the Patient Walk?: Yes Walk 10 feet (QC): 4 Walk 50 ft with 2 Turns(QC): 88 Walk 150 ft (QC): 88 Walking 10ft/uneven surface-QC: 88 Gait Persons Needed: 1 Gait Assistive Device: FWW Wheelchair Training Does the Pt Use a Wheelchair?: Yes Distance: 150'x2 Wheel 50 ft with 2 turns (QC): 3 Wheel 150 ft (QC): 4 Type of Wheelchair: Manual Stair Training 1 Step (curb) (QC): 88 4 Steps (QC): 88 12 Steps (QC): 88 Balance Picking up an Object (QC): 88 ADL-Treatment Eating (QC): 6 Oral Hygiene (QC): 6 (completed prior to OT entry.) Shower/Bathe Self (QC): 7 (denies this date) Upper Body Dressing (QC): 7 (denies this date) Lower Body Dressing (QC): 7 (denies this date) On/Off Footwear (QC): 6 (completes sock and shoe donning to LLE) Toileting Hygiene (QC): 4 Toilet Transfer (QC): 4 Assessment/Plan Assessment and Plan Assess & Plan/Chief Complaint Assessment: Left ankle fracture STEVEN non-compliant with CPAP Former smoker COPD HTN CAD Plan: Monitor pain IRF protocol IS DVT PPx 12/22/19: Pain control BM regimen Monitor for falls BP management 12/23/19: Continue bowel regimen Continue pain medication Monitor ankle ulcer once cast is removed Labs are stable 12/24/19: Continue bowel regimen Pain control Has an appointment on 12/30/19 for dressing change of right ankle (1) Bimalleolar fracture of right ankle Status: Acute (2) Hypertension (3) Hyperlipidemia (4) Ankle fracture RADHA NEWMAN DO Dec 24, 2019 10:36
--- NOTE | 2019-12-24 12:31 | Physical Therapy Daily Note ---
PT Daily Note-Current Subjective Pt sitting in recliner upon arrival. Pt agrees to PT. Pain Numeric Pain Scale: 7 Location: Right Location Body Site: Ankle Pain Description: Ache Comment: Pt reports 7/10 but tolerable and Nurse just gave pain med. Mental Status Patient Orientation: Person, Place, Situation Transfers SCALE: Activities may be completed with or without assistive devices. 5-Whvkjrlwfz-cogvbdr completes the activity by him/herself with no assistance from a helper. 5-Set-up or Clean-up Assistance-helper sets up or cleans up; patient completes activity. [place] assists only prior to or following the activity. 4-Supervision or Touching Assistance-helper provides verbal cues and/or touching/steadying and/or contact guard assistance as patient completes activity. Assistance may be provided throughout the activity or intermittently. 3-Partial/Moderate Assistance-helper does LESS THAN HALF the effort. [place] lifts, holds or supports trunk or limbs, but provides less than half the effort. 2-Substantial/Maximal Assistance-helper does MORE THAN HALF the effort. [place] lifts or holds trunk or limbs and provides more than half the effort. 5-Jgeigldzd-kjpbqi does ALL the effort. Patient does none of the effort to complete the activity. Or, the assistance of 2 or more helpers is required for the patient to complete the activity. If activity was not attempted, code reason: 7-Patient Refused. 9-Not Applicable-not attempted and the patient did not perform the activity before the current illness, exacerbation or injury. 10-Not Attempted due to Environmental Limitations-(lack of equipment, weather restraints, etc.). 88-Not Attempted due to Medical Conditions or Safety Concerns. Sit to Stand (QC): 5 Weight Bearing Right Lower Extremity: Right Non Weight Bearing Gait Training Does the Patient Walk?: Yes Distance: 150' Walk 10 feet (QC): 5 Walk 50 ft with 2 Turns(QC): 5 Walk 150 ft (QC): 5 Gait Persons Needed: 1 Gait Assistive Device: FWW Pt does not abide by WB status, more of TTWB Wheelchair Training Does the Pt Use a Wheelchair?: Yes Wheel 50 ft with 2 turns (QC): 5 Wheel 150 ft (QC): 5 Type of Wheelchair: Manual Exercises Seated Therapy Exercises: Ankle pumps (L side ), Long arc quads, Hip flexion, Kicking activity, Hip abd/add, Glut set Seated Reps: 20 Treatments Pt transfers to standing then amb. in hallway. Pt completes Seated Ex before propelling WCH in hallway back to room. Pt transfers back to recliner to rest with all needs met, call light in hand. Assessment Current Status: Good Progress Pt doesn't abide by WB status. PT Short Term Goals Short Term Goals Time Frame: Dec 27, 2019 Roll Left & Right: 6 Sit to lyin Lying to sitting on side of be: 6 Sit to stand: 4 Chair/uhr-kn-eojsx transfer: 4 Walk 10 feet: 4 PT Auto Job Estimator Goals Auto Job Estimator Goals PT Auto Job Estimator Goals Time Frame: Jan 10, 2020 Roll Left & Right (QC): 6 Sit to Lying (QC): 6 Lying-Sitting on Side/Bed(QC): 6 Sit to Stand (QC): 5 Chair/Htj-th-Zpovr Xfer(QC): 5 Toilet Transfer (QC): 5 Car Transfer (QC): 5 Does the Patient Walk: Yes Walk 10 feet (QC): 4 Walk 50ft with 2 Turns (QC): 4 Walk 150 ft (QC): 88 Walking 10ft on Uneven Surface: 4 1 Step (curb) (QC): 4 4 Steps (QC): 88 12 Steps (QC): 88 Picking up an Object (QC): 88 Wheel 50 feet with 2 turns (QC: 6 Wheel 150 feet: 6 PT Plan Problem List Problem List: Activity Tolerance, Functional Strength, Safety, Gait Treatment/Plan Treatment Plan: Continue Plan of Care Treatment Plan: Bed Mobility, Education, Functional Activity Anthony, Functional Strength, Group Therapy, Gait, Safety, Therapeutic Exercise, Transfers Treatment Duration: Jan 10, 2020 Frequency: At least 5 of 7 days/Wk (IRF) Estimated Hrs Per Day: 1.5 hours per day Patient and/or Family Agrees t: Yes Safety Risks/Education Patient Education: Gait Training, Transfer Techniques, Correct Positioning, Safety Issues Teaching Recipient: Patient Teaching Methods: Discussion Response to Teaching: Reinforcement Needed Time/GCodes Time In: 1015 Time Out: 1100 Total Billed Treatment Time: 45 Total Billed Treatment 1, GT (20m), WCH (10m), EX (15m) SOILA BROWN PTA Dec 24, 2019 12:31
[2019-12-24] MEDS ORDERED: FLUT1BLS PO (13:09)
[2019-12-24] MEDS ORDERED: UBID200C16 PO (13:09)
[2019-12-24] MEDS ORDERED: TURM500C7 PO (13:09)
[2019-12-24] MEDS ORDERED: GLUC-173 PO (13:09)
[2019-12-24] MEDS ORDERED: ALBU18HF2 PO (13:09)
--- NOTE | 2019-12-24 14:55 | Cardiology Progress Note ---
Cardiology SOAP Progress Note Subjective: No cardiac complaints. Objective: I&O/Vital Signs 12/24/19 12/24/19 12/24/19 05:41 08:09 09:59 Temp 36.4 Pulse 78 73 Resp 18 B/P (MAP) 139/65 (89) 125/63 (83) Pulse Ox 93 O2 Delivery Room Air Room Air 12/24/19 00:00 Intake Total 1440 ml Balance 1440 ml Constitutional: appears stated age, AAO x 3; No apparent distress; well- developed, well-nourished Respiratory: chest is bilaterally symmetric, lungs clear to auscultation Cardiovascular: regular rate-rhythm Gastrointestional: soft, audible bowel sounds; No spleenomegaly Extremities: other (right lower limb is in a cast.); No clubbing, No cyanosis, No significant edema Neurologic/Psychiatric: no motor/sensory deficits, alert, normal mood/affect, oriented x 3, power is 5/5 both on sides Skin: normal color; No rash, No ulcerations A/P: Assessment/Dx: Mechanical fall, Right ankle fracture, orthopedic procedure for inpatient rehabilitation, Hypertension, Hyperlipidemia, Mild diastolic dysfunction, Mild valvular heart disease, Obstructive sleep apnea Plan: Mechanical fall, Right ankle fracture, orthopedic procedure for inpatient rehabilitation, Hypertension, on diltiazem and lisinopril as an outpatient. Hyperlipidemia, atorvastatin. Mild diastolic dysfunction, not in florid congestive heart failure. Mild valvular heart disease, mild mitral regurgitation and tricuspid regurgitation. No clinical concerns at this point in time. Obstructive sleep apnea echocardiogram on 11/10/2017 which showed an LVEF of 70 percent with mild diastolic dysfunction. Mild LVH. Mild mitral regurgitation/mild tricuspid regu rgitation. EKG done in November 2018 which showed normal sinus rhythm. MPI done on 08/31/2015 which was negative. blood work done on 04/26/2018 which showed total cholesterol of 280, LDL 143, HDL 62, triglyceride 124. Thank you for your consultation. Please call me if you have any questions. Lida Gaffney MD, FACP, FACC, FSCAI, FHRS, CCDS Interventional Cardiology Cardiac Electrophysiology Vascular Medicine and Endovascular Interventions Casey GAFFNEY MD Dec 24, 2019 14:54
[2019-12-24] MEDS: ENOXAPARIN 40 MG/0.4 ML (LOVENOX) SYR SC SCH (15:47)
--- NOTE | 2019-12-24 16:19 | Physical Therapy Daily Note ---
PT Daily Note-Current Subjective Pt laying in bed upon arrival. Pt agrees to PT. Pain Numeric Pain Scale: 3 Location: Right, Lateral Location Body Site: Ankle Pain Description: Ache Mental Status Patient Orientation: Person, Place, Time, Situation Transfers SCALE: Activities may be completed with or without assistive devices. 6-Qaosanbjiy-qdmoytv completes the activity by him/herself with no assistance from a helper. 5-Set-up or Clean-up Assistance-helper sets up or cleans up; patient completes activity. [place] assists only prior to or following the activity. 4-Supervision or Touching Assistance-helper provides verbal cues and/or touching/steadying and/or contact guard assistance as patient completes activity. Assistance may be provided throughout the activity or intermittently. 3-Partial/Moderate Assistance-helper does LESS THAN HALF the effort. [place] lifts, holds or supports trunk or limbs, but provides less than half the effort. 2-Substantial/Maximal Assistance-helper does MORE THAN HALF the effort. [place] lifts or holds trunk or limbs and provides more than half the effort. 3-Dylnrtfxb-mzmrrq does ALL the effort. Patient does none of the effort to complete the activity. Or, the assistance of 2 or more helpers is required for the patient to complete the activity. If activity was not attempted, code reason: 7-Patient Refused. 9-Not Applicable-not attempted and the patient did not perform the activity before the current illness, exacerbation or injury. 10-Not Attempted due to Environmental Limitations-(lack of equipment, weather restraints, etc.). 88-Not Attempted due to Medical Conditions or Safety Concerns. Lying to Sitting/Side of Bed(Q: 5 Sit to Stand (QC): 5 Toilet Transfer (QC): 5 Weight Bearing Right Lower Extremity: Right Non Weight Bearing Gait Training Does the Patient Walk?: Yes Distance: 200' Walk 10 feet (QC): 5 Walk 50 ft with 2 Turns(QC): 5 Walk 150 ft (QC): 5 Gait Persons Needed: 1 Gait Assistive Device: FWW Pt does not abide by WB status, its TTWB at best. Wheelchair Training Does the Pt Use a Wheelchair?: No Exercises Seated Therapy Exercises: Ankle pumps, Long arc quads, Hip flexion, Kicking activity, Hip abd/add, Glut set Seated Reps: 20 Treatments Pt transfers to standing before using restroom. Pt amb. in hallway. Pt completes Seated EX in chair then short RB before amb. in hallway. Pt returns to room to rest in recliner with all needs met, call light in hand. Assessment Current Status: Good Progress Pt does not abide by WB status even with VC. Pt is happy to know follow-up appt. with Dr Zuleta is Monday (12/29) at 1300. PT Short Term Goals Short Term Goals Time Frame: Dec 27, 2019 Roll Left & Right: 6 Sit to lyin Lying to sitting on side of be: 6 Sit to stand: 4 Chair/yic-el-adelr transfer: 4 Walk 10 feet: 4 PT Shelter Goals Polysomnographer Goals PT Shelter Goals Time Frame: Jan 10, 2020 Roll Left & Right (QC): 6 Sit to Lying (QC): 6 Lying-Sitting on Side/Bed(QC): 6 Sit to Stand (QC): 5 Chair/Biq-wo-Qxfzg Xfer(QC): 5 Toilet Transfer (QC): 5 Car Transfer (QC): 5 Does the Patient Walk: Yes Walk 10 feet (QC): 4 Walk 50ft with 2 Turns (QC): 4 Walk 150 ft (QC): 88 Walking 10ft on Uneven Surface: 4 1 Step (curb) (QC): 4 4 Steps (QC): 88 12 Steps (QC): 88 Picking up an Object (QC): 88 Wheel 50 feet with 2 turns (QC: 6 Wheel 150 feet: 6 PT Plan Problem List Problem List: Activity Tolerance, Functional Strength, Safety, Gait Treatment/Plan Treatment Plan: Continue Plan of Care Treatment Plan: Bed Mobility, Education, Functional Activity Anthony, Functional Strength, Group Therapy, Gait, Safety, Therapeutic Exercise, Transfers Treatment Duration: Jan 10, 2020 Frequency: At least 5 of 7 days/Wk (IRF) Estimated Hrs Per Day: 1.5 hours per day Patient and/or Family Agrees t: Yes Safety Risks/Education Patient Education: Gait Training, Transfer Techniques, Correct Positioning, Safety Issues Teaching Recipient: Patient Teaching Methods: Discussion Response to Teaching: Verbalize Understanding, Reinforcement Needed Time/GCodes Time In: 1500 Time Out: 1545 Total Billed Treatment Time: 45 Total Billed Treatment 1, GT (20m), FA (10m) & EX (15m) SOILA BROWN MACHINE WOOD SANDER Dec 24, 2019 16:19
[2019-12-24 16:29] VITALS: BP 138/61
--- NOTE | 2019-12-26 08:24 | PM&R Progress Note ---
Subjective HPI/CC On Admission Date Seen by Provider: Dec 26, 2019 Time Seen by Provider: 08:45 Subjective/Events-last exam 12/26/19: No major issues reported Pain is okay Ice pack on the right ankle maintained Bowels last moved yesterday morning Weight-bearing is difficult for her 12/25/19: Ice pack on right ankle is helping Incontinence is much improved Used her CPAP machine last night Bowels are moving well Pain is pretty well controlled Has an appointment on Monday with orthopedic surgeon to remove cast 12/24/19: Bowels moved yesterday Follow-up with Dr. Zuleta on 12/29 at 1 PM Dressing will be changed by the surgeon Overall complains about therapy not working with her but then complains she is too tired to participate in therapy 12/23/19: Bowels last moved yesterday Labs are okay Ankle ulcer before cast was placed so will monitor that when cast is removed Fall risk remains 12/22/19: Patient feels better Less pain meds take Got out of bed on her own last night and nurses counseled her CPAP used last night 12/21/19: Pain 5/10 CPAP at home but does not wear it here Refused O2 last night too BM today Splint will be in place on right ankle for [address] Zuleta Incontinent at night Checked meds and labs Conferred with RN Reviewed therapy notes Review of Systems General: Fatigue, Malaise Musculoskeletal: foot pain Neurological: Weakness Objective Exam Vital Signs Vital Signs Date Time Temp Pulse Resp B/P (MAP) Pulse Ox O2 Delivery O2 Flow Rate FiO2 12/26/19 20:00 Room Air 12/26/19 16:30 36.5 86 16 128/67 (87) 97 12/23/19 05:00 2.00 Capillary Refill : Less Than 3 SecondsLess Than 3 Seconds General Appearance: No Apparent Distress, WD/WN, Chronically ill HEENT: PERRL/EOMI, Normal ENT Inspection, Pharynx Normal Neck: Full Range of Motion, Normal Inspection, Non Tender, Supple, Carotid Bruit Respiratory: Chest Non Tender, Lungs Clear, Normal Breath Sounds, No Accessory Muscle Use, No Respiratory Distress Cardiovascular: Regular Rate, Rhythm, No Edema, No Gallop, No JVD, No Murmur, Normal Peripheral Pulses Gastrointestinal: Normal Bowel Sounds, No Organomegaly, No Pulsatile Mass, Non Tender, Soft Back: Normal Inspection, No CVA Tenderness, No Vertebral Tenderness Extremity: Normal Capillary Refill, Normal Inspection, Normal Range of Motion, Non Tender, No Calf Tenderness, No Pedal Edema, Other (right ankle cast in place) Neurologic/Psychiatric: Alert, Oriented x3, No Motor/Sensory Deficits, Normal Mood/Affect, project control officer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 FIM Transfers Therapy Code Descriptions/Definitions Functional [place] Measure: 0=Not Assessed/NA 4=Minimal Assistance 1=Total Assistance 5=Supervision or Setup 2=Maximal Assistance 6=Modified [place] 3=Moderate Assistance 7=Complete IndependenceSCALE: Activities may be completed with or without assistive devices. 3-Nqqwmvfhho-pmdbuio completes the activity by him/herself with no assistance from a helper. 5-Set-up or Clean-up Assistance-helper sets up or cleans up; patient completes activity. [place] assists only prior to or following the activity. 4-Supervision or Touching Assistance-helper provides verbal cues and/or touching/steadying and/or contact guard assistance as patient completes activity. Assistance may be provided throughout the activity or intermittently. 3-Partial/Moderate Assistance-helper does LESS THAN HALF the effort. [place] lifts, holds or supports trunk or limbs, but provides less than half the effort. 2-Substantial/Maximal Assistance-helper does MORE THAN HALF the effort. [place] lifts or holds trunk or limbs and provides more than half the effort. 1-Sxbuhrrqi-xedrfb does ALL the effort. Patient does none of the effort to complete the activity. Or, the assistance of 2 or more helpers is required for the patient to complete the activity. If activity was not attempted, code reason: 7-Patient Refused. 9-Not Applicable-not attempted and the patient did not perform the activity b efore the current illness, exacerbation or injury. 10-Not Attempted due to Environmental Limitations-(lack of equipment, weather restraints, etc.). 88-Not Attempted due to Medical Conditions or Safety Concerns. Roll Left to Right (QC): 6 Sit to Lying (QC): 6 Sit to Stand (QC): 5 Chair/Oiw-jy-Fllcp Xfer(QC): 4 Car Transfer (QC): 4 Gait Training Does the Patient Walk?: Yes Distance: 200' Walk 10 feet (QC): 5 Walk 50 ft with 2 Turns(QC): 5 Walk 150 ft (QC): 5 Walking 10ft/uneven surface-QC: 88 Gait Persons Needed: 1 Gait Assistive Device: FWW Wheelchair Training Does the Pt Use a Wheelchair?: Yes Distance: 150'x2 Wheel 50 ft with 2 turns (QC): 5 Wheel 150 ft (QC): 5 Type of Wheelchair: Manual Stair Training 1 Step (curb) (QC): 88 4 Steps (QC): 88 12 Steps (QC): 88 Balance Picking up an Object (QC): 88 ADL-Treatment Eating (QC): 6 Oral Hygiene (QC): 6 (completed prior to OT entry.) Shower/Bathe Self (QC): 7 (denies this date) Upper Body Dressing (QC): 7 (denies this date) Lower Body Dressing (QC): 7 (denies this date) On/Off Footwear (QC): 6 (completes sock and shoe donning to LLE) Toileting Hygiene (QC): 4 Toilet Transfer (QC): 4 Assessment/Plan Assessment and Plan Assess & Plan/Chief Complaint Assessment: Left ankle fracture STEVEN non-compliant with CPAP Former smoker COPD HTN CAD Plan: Monitor pain IRF protocol IS DVT PPx 12/22/19: Pain control BM regimen Monitor for falls BP management 12/23/19: Continue bowel regimen Continue pain medication Monitor ankle ulcer once cast is removed Labs are stable 12/24/19: Continue bowel regimen Pain control Has an appointment on 12/30/19 for dressing change of right ankle 12/25/19: Monitor pain BM regimen Continue aggressive therapy 12/26/19: Pain management Non-weight bearing (1) Bimalleolar fracture of right ankle Status: Acute Qualifiers: Encounter type: initial encounter Fracture type: closed Qualified Codes: S82.841A - Displaced bimalleolar fracture of right lower leg, initial encounter for closed fracture (2) Hypertension Qualifiers: Hypertension type: essential hypertension Qualified Codes: I10 - Essential (primary) hypertension (3) Hyperlipidemia Qualifiers: Hyperlipidemia type: mixed hyperlipidemia Qualified Codes: E78.2 - Mixed hyperlipidemia (4) Ankle fracture Qualifiers: Encounter type: initial encounter Fracture type: closed Laterality: right Qualified Codes: S82.891A - Other fracture of right lower leg, initial encounter for closed fracture RADHA NEWMAN DO Dec 26, 2019 08:24
--- NOTE | 2019-12-26 08:24 | PM&R Progress Note ---
Subjective HPI/CC On Admission Date Seen by Provider: Dec 25, 2019 Time Seen by Provider: 08:30 Subjective/Events-last exam 12/25/19: Ice pack on right ankle is helping Incontinence is much improved Used her CPAP machine last night Bowels are moving well Pain is pretty well controlled Has an appointment on Monday with orthopedic surgeon to remove cast 12/24/19: Bowels moved yesterday Follow-up with Dr. Zuleta on 12/29 at 1 PM Dressing will be changed by the surgeon Overall complains about therapy not working with her but then complains she is too tired to participate in therapy 12/23/19: Bowels last moved yesterday Labs are okay Ankle ulcer before cast was placed so will monitor that when cast is removed Fall risk remains 12/22/19: Patient feels better Less pain meds take Got out of bed on her own last night and nurses counseled her CPAP used last night 12/21/19: Pain 5/10 CPAP at home but does not wear it here Refused O2 last night too BM today Splint will be in place on right ankle for [address] Zuleta Incontinent at night Checked meds and labs Conferred with RN Reviewed therapy notes Review of Systems General: Fatigue, Malaise Musculoskeletal: leg pain, foot pain Objective Exam Vital Signs Vital Signs Date Time Temp Pulse Resp B/P (MAP) Pulse Ox O2 Delivery O2 Flow Rate FiO2 12/24/19 20:00 Room Air 12/24/19 16:29 36.5 79 16 138/61 (86) 94 12/23/19 05:00 2.00 Capillary Refill : Less Than 3 SecondsLess Than 3 Seconds General Appearance: No Apparent Distress, WD/WN, Chronically ill HEENT: PERRL/EOMI, Normal ENT Inspection, Pharynx Normal Neck: Full Range of Motion, Normal Inspection, Non Tender, Supple, Carotid Bruit Respiratory: Chest Non Tender, Lungs Clear, Normal Breath Sounds, No Accessory Muscle Use, No Respiratory Distress Cardiovascular: Regular Rate, Rhythm, No Edema, No Gallop, No JVD, No Murmur, Normal Peripheral Pulses Gastrointestinal: Normal Bowel Sounds, No Organomegaly, No Pulsatile Mass, Non Tender, Soft Back: Normal Inspection, No CVA Tenderness, No Vertebral Tenderness Extremity: Normal Capillary Refill, Normal Inspection, Normal Range of Motion, Non Tender, No Calf Tenderness, No Pedal Edema, Other (right ankle cast in place) Neurologic/Psychiatric: Alert, Oriented x3, No Motor/Sensory Deficits, Normal Mood/Affect, delivery 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 FIM Transfers Therapy Code Descriptions/Definitions Functional [place] Measure: 0=Not Assessed/NA 4=Minimal Assistance 1=Total Assistance 5=Supervision or Setup 2=Maximal Assistance 6=Modified [place] 3=Moderate Assistance 7=Complete IndependenceSCALE: Activities may be completed with or without assistive devices. 1-Kxzhpejzxf-dylstev completes the activity by him/herself with no assistance from a helper. 5-Set-up or Clean-up Assistance-helper sets up or cleans up; patient completes activity. [place] assists only prior to or following the activity. 4-Supervision or Touching Assistance-helper provides verbal cues and/or touching/steadying and/or contact guard assistance as patient completes activity. Assistance may be provided throughout the activity or intermittently. 3-Partial/Moderate Assistance-helper does LESS THAN HALF the effort. [place] lifts, holds or supports trunk or limbs, but provides less than half the effort. 2-Substantial/Maximal Assistance-helper does MORE THAN HALF the effort. [place] lifts or holds trunk or limbs and provides more than half the effort. 8-Mluwzukqk-hyfymg does ALL the effort. Patient does none of the effort to complete the activity. Or, the assistance of 2 or more helpers is required for the patient to complete the activity. If activity was not attempted, code reason: 7-Patient Refused. 9-Not Applicable-not attempted and the patient did not perform the activity before the current illness, exacerbation or injury. 10-Not Attempted due to Environmental Limitations-(lack of equipment, weather restraints, etc.). 88-Not Attempted due to Medical Conditions or Safety Concerns. Roll Left to Right (QC): 6 Sit to Lying (QC): 6 Sit to Stand (QC): 5 Chair/Obj-ja-Tthgv Xfer(QC): 4 Car Transfer (QC): 4 Gait Training Does the Patient Walk?: Yes Distance: 200' Walk 10 feet (QC): 5 Walk 50 ft with 2 Turns(QC): 5 Walk 150 ft (QC): 5 Walking 10ft/uneven surface-QC: 88 Gait Persons Needed: 1 Gait Assistive Device: FWW Wheelchair Training Does the Pt Use a Wheelchair?: Yes Distance: 150'x2 Wheel 50 ft with 2 turns (QC): 5 Wheel 150 ft (QC): 5 Type of Wheelchair: Manual Stair Training 1 Step (curb) (QC): 88 4 Steps (QC): 88 12 Steps (QC): 88 Balance Picking up an Object (QC): 88 ADL-Treatment Eating (QC): 6 Oral Hygiene (QC): 6 (completed prior to OT entry.) Shower/Bathe Self (QC): 7 (denies this date) Upper Body Dressing (QC): 7 (denies this date) Lower Body Dressing (QC): 7 (denies this date) On/Off Footwear (QC): 6 (completes sock and shoe donning to LLE) Toileting Hygiene (QC): 4 Toilet Transfer (QC): 4 Assessment/Plan Assessment and Plan Assess & Plan/Chief Complaint Assessment: Left ankle fracture STEVEN non-compliant with CPAP Former smoker COPD HTN CAD Plan: Monitor pain IRF protocol IS DVT PPx 12/22/19: Pain control BM regimen Monitor for falls BP management 12/23/19: Continue bowel regimen Continue pain medication Monitor ankle ulcer once cast is removed Labs are stable 12/24/19: Continue bowel regimen Pain control Has an appointment on 12/30/19 for dressing change of right ankle 12/25/19: Monitor pain BM regimen Continue aggressive therapy (1) Bimalleolar fracture of right ankle Status: Acute (2) Hypertension (3) Hyperlipidemia (4) Ankle fracture RADHA NEWMAN DO Dec 26, 2019 08:24
[2019-12-26 09:00] VITALS: BP 153/69
--- NOTE | 2019-12-26 09:25 | Consultation ---
History of Present Illness History of Present Illness Patient Consulted On(catrachita/time) 12/26/19 09:19 Date Seen by Provider: Dec 26, 2019 Time Seen by Provider: 09:00 Reason for Visit: RIGHT BIMALLEOLAR FRACTURE History of Present Illness PT IS A 74 Y/O FEMALE WHO IS KNOWN TO ME A RELATIVELY NEW PATIENT IN MY PRACTICE. SHE PRESENTED TO THE EMERGENCY DEPARTMENT ON 12/05/2019 WITH FRACTURE OF HER ANKLE. SHE WAS DISCHARGED TO HOME AND FAMILY TOOK HER TO DR. CHILDRESS FOR SURGICAL FIXATION, BUT HE WAS GOING TO BE OUT OF THE OFFICE SO THE FAMILY THEN GOT HER AN APPOINTMENT WITH [facility] WHO TOOK HER TO SURGERY ON 12/18/2019. PT WAS ADMITTED TO [facility] LAST WEEK AFTER HER ANKLE SURGERY AND SHE HAS BEEN PARTICIPATING WELL WITH THERAPIES. SHE STATES THAT SHE WAS PLANNING ON GOING HOME - BUT SHE LIVES AT HOME ALONE WITH NO HELP IN THE HOUSE OTHER THAN FAMILY INTERMITTENTLY AT HER HOME. Allergies and Home Medications Allergies Coded Allergies: Penicillins (Verified Allergy, Unknown, 06/01/19) Home Medications Albuterol Sulfate 18 Gm Hfa.aer.ad, 2 PUFF PO QID PRN for WHEEZING, (Reported) Atorvastatin Calcium 20 Mg Tablet, 20 MG PO DAILY, (Reported) Diltiazem HCl 240 Mg Cap.er.24h, 240 MG PO DAILY, (Reported) Duloxetine HCl 60 Mg Capsule.dr, 60 MG PO DAILY, (Reported) Duloxetine HCl 30 Mg Capsule.dr, 30 MG PO HS, (Reported) Fluticasone/Vilanterol 1 Each Blst.w.dev, 1 PUFF PO DAILY, (Reported) LAST FILLED 10-30-2019 #60/30 DAY SUPPLY Gabapentin 300 Mg Capsule, 300 MG PO TID, (Reported) LAST FILLED 07-16-2019 #270/90 DAY SUPPLY Glucosamine/MSM/Chondroitin A 1 Each Tablet, 1 EACH PO HS, (Reported) Hydrocodone/Acetaminophen 1 Each Tablet, 1 EACH PO Q4 -6 H PRN for PAIN-MODERATE (5-7), (Reported) Lisinopril 20 Mg Tablet, 20 MG PO DAILY, (Reported) Meloxicam 15 Mg Tablet, 15 MG PO DAILY, (Reported) Montelukast Sodium 10 Mg Tablet, 10 MG PO DAILY, (Reported) LAST FILLED 03-24-2020 #90/90 DAY SUPPLY Turmeric/Turmeric Root Extract 1 Each Capsule, 1 EACH PO DAILY PRN for CONSTIPATION, (Reported) Ubidecarenone 200 Mg Capsule, 200 MG PO HS, (Reported) Patient Home Medication List Home Medication List Reviewed: Yes Past Ygdkxjm-Stjifn-Svvtxf Hx Past Med/Social Hx: Reviewed Nursing Past Med/Soc Hx, Reviewed and Corrections made Patient Social History Alcohol Use: Denies Use Alcohol Beverage of Choice: Wine Smoking Status: Former Smoker (quit 22 years ago) Type Used: Cigarettes 2nd Hand Smoke Exposure: No Recent Foreign Travel: No Contact w/Someone Who Travel: No Recent Infectious Disease Expo: No Recent Hopitalizations: No Immunizations Up To Date Tetanus Booster (TDap): Unknown PED Vaccines UTD: Yes Seasonal Allergies Seasonal Allergies: No Past Medical History Surgeries: Yes (RIGHT KNEE, LEFT SHOULDER) Adenoidectomy, Appendectomy, Hysterectomy, Orthopedic (RIGHT ANKLE), Tonsillectomy, Tubal Ligation Respiratory: Yes Asthma, COPD Currently Using CPAP: No Currently Using BIPAP: No Cardiac: Yes High Cholesterol, Hypertension 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 Genitourinary: No Gastrointestinal: No Musculoskeletal: Yes Fractures Endocrine: No HEENT: No Cancer: No Psychosocial: Yes Anxiety, Depression Blood Disorders: No Adverse Reaction/Blood Tranf: No Family Medical History Reviewed Nursing Family Hx Alzheimer's disease 19 FATHER Cardiovascular disease 19 MOTHER G8 SISTER Heart Disease, Other Conditions/Hx (DEMENTIA) Review of Systems Review of Systems General: Fatigue, Malaise HEENT: No Head Aches, No Visual Changes Pulmonary: No Dyspnea, No Cough Cardiovascular: No: Chest Pain, Palpitations Gastrointestinal: No: Nausea, Abdominal Pain, Diarrhea, Constipation Genitourinary: No Dysuria Musculoskeletal: leg pain, foot pain Neurological: Weakness, Confusion All Other Systems Reviewed All Other Systems Reviewed: Yes Physical Exam Vital Signs Vital Signs - First Documented 12/20/19 12/22/19 15:30 05:45 Temp 36.2 Pulse 94 Resp 16 B/P (MAP) 113/52 Pulse Ox 95 O2 Delivery Room Air O2 Flow Rate 2.00 Capillary Refill : Less Than 3 SecondsLess Than 3 Seconds Height, Weight, BMI Height: '" Weight: lbs. oz. kg; 33.20 BMI Method: General Appearance: No Apparent Distress, WD/WN Eyes: Bilateral Eye Normal Inspection, Bilateral Eye PERRL, Bilateral Eye EOMI HEENT: PERRL/EOMI, Pharynx Normal Neck: Full Range of Motion, Normal Inspection, Non Tender, Supple Respiratory: Chest Non Tender, Lungs Clear, Normal Breath Sounds, No Accessory Muscle Use, No Respiratory Distress Cardiovascular: Regular Rate, Rhythm, No Edema, Normal Peripheral Pulses Gastrointestinal: Normal Bowel Sounds, No Organomegaly, No Pulsatile Mass, Non Tender, Soft Rectal: Deferred Back: Normal Inspection Extremity: Normal Capillary Refill, No Pedal Edema, Other (RIGHT LEG IN CAST FROM FOOT TO KNEE) Skin: Normal Color, Warm/Dry Lymphatic: No Adenopathy Assessment/Plan Assessment/Plan Problems: (1) Bimalleolar fracture of right ankle Qualifiers: Qualified Codes: S82.841A - Displaced bimalleolar fracture of right lower leg, initial encounter for closed fracture Assessment & Plan: PT IN CAST STATUS POST SURGICAL FIXATION NON-WEIGHT BEARING PT USING WALKER TO HOP I HAVE DISCUSSED WITH PT AND GROUND PRODUCTS DIRECTOR WELL WITH DR. 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 THEY ARE IN AGREEMENT AND WILL WORK TOWARD THE PLAN OF JOSE LIVING WITH FAMILY UNTIL SHE IS WEIGHT BEARING ON THAT LEG/FOOT. (2) Hypertension Qualifiers: Qualified Codes: I10 - Essential (primary) hypertension (3) Hyperlipidemia Qualifiers: Qualified Codes: E78.2 - Mixed hyperlipidemia Assessment & Plan: CONTINUE HOME REGIMEN - ATORVASTATIN (4) Ankle fracture Qualifiers: Qualified Codes: S82.891A - Other fracture of right lower leg, initial encounter for closed fracture Clinical Quality Measures DVT/VTE Risk/Contraindication: Risk Factor Score Per Nursin RFS Level Per Nursing on Admit: 4+=Very High ASHLEY STALLINGS MD Dec 26, 2019 09:25
--- NOTE | 2019-12-26 09:51 | Occupational Ther Daily Note ---
OT Current Status-Daily Note Subjective Pt seen in bed. Pt states 6/10 pain, states already had pain meds this am though in the night attempted to not take any and this disrupted her sleep. Pt agrees to shower. Pt seen in recliner post lunch. Pt agrees to OT tx session, denies pain. Mental Status/Objective Patient Orientation: Normal For Age ADL-Treatment Therapy Code Descriptions/Definitions Functional [place] Measure: 0=Not Assessed/NA 4=Minimal Assistance 1=Total Assistance 5=Supervision or Setup 2=Maximal Assistance 6=Modified [place] 3=Moderate Assistance 7=Complete IndependenceSCALE: Activities may be completed with or without assistive devices. 5-Inmontrzvd-npvxzrf completes the activity by him/herself with no assistance from a helper. 5-Set-up or Clean-up Assistance-helper sets up or cleans up; patient completes activity. [place] assists only prior to or following the activity. 4-Supervision or Touching Assistance-helper provides verbal cues and/or touching/steadying and/or contact guard assistance as patient completes activity. Assistance may be provided throughout the activity or intermittently. 3-Partial/Moderate Assistance-helper does LESS THAN HALF the effort. [place] lifts, holds or supports trunk or limbs, but provides less than half the effort. 2-Substantial/Maximal Assistance-helper does MORE THAN HALF the effort. [place] lifts or holds trunk or limbs and provides more than half the effort. 4-Ikkvylclo-iiixbb does ALL the effort. Patient does none of the effort to complete the activity. Or, the assistance of 2 or more helpers is required for the patient to complete the activity. If activity was not attempted, code reason: 7-Patient Refused. 9-Not Applicable-not attempted and the patient did not perform the activity before the current illness, exacerbation or injury. 10-Not Attempted due to Environmental Limitations-(lack of equipment, weather restraints, etc.). 88-Not Attempted due to Medical Conditions or Safety Concerns. Eating (QC): 6 Oral Hygiene (QC): 6 Shower/Bathe Self (QC): 5 (s/u prior to shower (RLE wrapped)) Upper Body Dressing (QC): 6 (picks items and completes with IND in w/c) Lower Body Dressing (QC): 4 (SBA during dressing- cues for RLE NWB. pt completes, does not maintain NWB through RLE. Pt educated on completing at sink level to enable pt to keep balance through torso placed on sink. Pt attempts, not able to maintain WB, is TTWB throughout. pt is encouraged to lift RLE up during task to ensure NWB, pt states casting is too heavy to do that. ) On/Off Footwear: 6 (IND sock LLE) Toileting Hygiene (QC): 4 (SUP) Toilet Transfer (QC): 4 (SBA with use of walker and gbs) Other Treatment Pt agrees to OT tx session. Pt supine to sit with SBA, sit to stand with SBA and use of walker. Pt ambulates to shower with cues for WB status. Pt toilets/ shower transfer with SBA and min cues for walker placement. Pt's RLE thoroughly wrapped for shower. Pt completes with SUP-SBA in stance. Pt dresses in w/c with min cues for sequencing for RLE completion first. Pt able to complete all hair grooming and oral care with IND. Returns to recliner with cues and demonstration prior to SPT from w/c. Pt completes CGA. All needs met, call light in reach. Pt denies pain, agrees to tx. Sit to stand with SBA and ambulates with SBA and mod cues for NWB status to RLE with use of walker. Pt unable to maintain. Pt sits EOB and completes balance/ UE reaching and cognitive task. No LOB noted. Pt able to complete modified sit ups with success and safety to address functional core strength/ balance. Pt returns to room with max cues for ambulation to maintain WB, pt unable to complete, stating she has limited strength in arms. Pt returns to recliner, all needs met, granddaughter present. Education OT Patient Education: Correct positioning, Energy conservation, Exercise program, Home exercise program, Modified ADL techniques, Progress toward Goal/Update tx plan, Purpose of tx/functional activities, Reviewed precautions, Safety issues, Transfer techniques Teaching Recipient: Patient Teaching Methods: Demonstration, Discussion Response to Teaching: Verbalize Understanding, Return Demonstration, Reinforcement Needed OT Family Medicine Physician Goals Senior Living Goals Time Frame: Jan 03, 2020 Eating (QC): 6 Oral Hygiene (QC): 6 Toileting Hygiene (QC): 6 Shower/Bathe Self (QC): 6 Upper Body Dressing (QC): 6 Lower Body Dressing (QC): 6 On/Off Footwear (QC): 6 Additional Goals: 1-Demonstrate ADL Tasks, 2-Verbalize Understanding, 3- ImproveStrength/Anthony 1=Demonstrate adherence to instructed precautions during ADL tasks. 2=Patient will verbalize/demonstrate understanding of assistive devices/modific ations for ADL. 3=Patient will improve strength/tolerance for activity to enable patient to perform ADL's. OT Education/Plan Problem List/Assessment Assessment: Decreased Activ Tolerance, Decreased UE Strength Discharge Recommendations Plan/Recommendations: Continue POC Therapy Discharge Recommendati: Home & Family Treatment Plan/Plan of Care Treatment,Training & Education: Yes Patient would benefit from OT for education, treatment and training to promote independence in ADL's, mobility, safety and/or upper extremity function for ADL's. Plan of Care: ADL Retraining, Caregiver Training, Functional Mobility, Group Exercise/Act as Ind, UE Funct Exercise/Act, W/C Management Training Treatment Duration: Jan 03, 2020 Frequency: At least 5 of 7 days/Wk (IRF) Estimated Hrs Per Day: .25 hour per day Agreement: Yes Rehab Potential: Fair Time/GCodes Start Time: 09:00 (1300) Stop Time: 10:00 (1330) Total Time Billed (hr/min): 90 Billed Treatment Time 1, ADL 4 (60) 1, EX 2 (30) DEREK SHIPMAN OTR Dec 26, 2019 09:51
--- NOTE | 2019-12-26 10:03 | NUR ---
OXY IR GIVEN FOR C/O 8/10 PAIN IN RIGHT ANKLE . ICE PACK APPLIED. CONT TO MONITOR.
[2019-12-26] MEDS: polyethylene glycoL POWDER 17 GM (MIRALAX) PACK PO SCH ×2 (11:53→21:11)
[2019-12-26] MEDS: MELOXICAM 7.5 MG (MOBIC) TABLET PO SCH (11:56)
[2019-12-26] MEDS: lisINopril 20 MG (PRINIVIL) TABLET PO SCH (11:56)
[2019-12-26] MEDS: VITAMIN D3 25 MCG (1,000 UNITS) TABLET PO SCH (11:56)
[2019-12-26] MEDS: DULoxetine 30 MG (CYMBALTA) CAP PO SCH ×2 (11:56→20:59)
[2019-12-26] MEDS: MONTELUKAST 10 MG (SINGULAIR) TAB PO SCH (11:56)
[2019-12-26] MEDS: DOCUSATE SODIUM 100 MG (COLACE) CAP PO SCH ×2 (11:56→21:11)
[2019-12-26] MEDS: SENNA W/DOCUSATE (SENOKOT S) TABLET PO SCH ×2 (11:57→21:11)
[2019-12-26] MEDS: GABAPENTIN 300 MG (NEURONTIN) CAP PO SCH ×3 (11:57→20:59)
[2019-12-26] MEDS: ASPIRIN 81 MG CHEW (CHILDREN'S ASA) PO SCH ×2 (12:02→18:13)
[2019-12-26] MEDS: CO Q10 200 MG PO SCH (12:03)
[2019-12-26] MEDS: [UNRECOGNIZED DRUG - OTHER] PO SCH (12:03)
--- NOTE | 2019-12-26 12:12 | Physical Therapy Daily Note ---
PT Daily Note-Current Subjective Pt sitting in recliner upon arrival. Pt agrees to PT. Pain Numeric Pain Scale: 5-Moderate Pain Location Body Site: Hip Pain Description: Ache Comment: Pt reports hip, low back & leg pain on L leg. Mental Status Patient Orientation: Person, Place, Situation Transfers SCALE: Activities may be completed with or without assistive devices. 5-Aptjcptykp-aesjwmg completes the activity by him/herself with no assistance from a helper. 5-Set-up or Clean-up Assistance-helper sets up or cleans up; patient completes a ctivity. [place] assists only prior to or following the activity. 4-Supervision or Touching Assistance-helper provides verbal cues and/or touching/steadying and/or contact guard assistance as patient completes activity. Assistance may be provided throughout the activity or intermittently. 3-Partial/Moderate Assistance-helper does LESS THAN HALF the effort. [place] lifts, holds or supports trunk or limbs, but provides less than half the effort. 2-Substantial/Maximal Assistance-helper does MORE THAN HALF the effort. [place] lifts or holds trunk or limbs and provides more than half the effort. 8-Ebyxbapid-ctnatk does ALL the effort. Patient does none of the effort to complete the activity. Or, the assistance of 2 or more helpers is required for the patient to complete the activity. If activity was not attempted, code reason: 7-Patient Refused. 9-Not Applicable-not attempted and the patient did not perform the activity before the current illness, exacerbation or injury. 10-Not Attempted due to Environmental Limitations-(lack of equipment, weather restraints, etc.). 88-Not Attempted due to Medical Conditions or Safety Concerns. Sit to Stand (QC): 5 Toilet Transfer (QC): 5 Weight Bearing Right Lower Extremity: Right Non Weight Bearing Gait Training Does the Patient Walk?: Yes Distance: 150'x2 Walk 10 feet (QC): 4 Walk 50 ft with 2 Turns(QC): 4 Walk 150 ft (QC): 4 Gait Persons Needed: 1 Gait Assistive Device: FWW Pt does not maintain WB status even after leaving note on white board and VC throughout amb. Wheelchair Training Does the Pt Use a Wheelchair?: No Exercises Supine Ex: Ankle pumps, Quad Set, Glut sets, Heel Slides, Short Arc Quads, Straight leg raise, Hip abd/add Supine Reps: 15 Seated Therapy Exercises: Long arc quads, Hip flexion, Kicking activity, Hip abd/add Seated Reps: 15 Treatments Pt transfers to standing and amb. in hallway. Pt completes Supine & Seated Ex including stretching R hamstring due to discomfort. Pt amb. in hallway eventually returning to room. Pt uses restroom and transfers to recliner with all needs met, call light in hand. Assessment Current Status: Fair Progress Pt does not maintain WB status (TTWB-PWB instead of NWB). PT Short Term Goals Short Term Goals Time Frame: Dec 27, 2019 Roll Left & Right: 6 Sit to lyin Lying to sitting on side of be: 6 Sit to stand: 4 Chair/uoq-px-tkjgs transfer: 4 Walk 10 feet: 4 PT Percussion Instrument Tuner Goals Percussion Instrument Tuner Goals PT Percussion Instrument Tuner Goals Time Frame: Jan 10, 2020 Roll Left & Right (QC): 6 Sit to Lying (QC): 6 Lying-Sitting on Side/Bed(QC): 6 Sit to Stand (QC): 5 Chair/Xls-di-Mvuxk Xfer(QC): 5 Toilet Transfer (QC): 5 Car Transfer (QC): 5 Does the Patient Walk: Yes Walk 10 feet (QC): 4 Walk 50ft with 2 Turns (QC): 4 Walk 150 ft (QC): 88 Walking 10ft on Uneven Surface: 4 1 Step (curb) (QC): 4 4 Steps (QC): 88 12 Steps (QC): 88 Picking up an Object (QC): 88 Wheel 50 feet with 2 turns (QC: 6 Wheel 150 feet: 6 PT Plan Problem List Problem List: Activity Tolerance, Functional Strength, Safety, Gait Treatment/Plan Treatment Plan: Continue Plan of Care Treatment Plan: Bed Mobility, Education, Functional Activity Anthony, Functional Strength, Group Therapy, Gait, Safety, Therapeutic Exercise, Transfers Treatment Duration: Jan 10, 2020 Frequency: At least 5 of 7 days/Wk (IRF) Estimated Hrs Per Day: 1.5 hours per day Patient and/or Family Agrees t: Yes Safety Risks/Education Patient Education: Gait Training, Correct Positioning, Safety Issues Teaching Recipient: Patient Teaching Methods: Discussion Response to Teaching: Reinforcement Needed Time/GCodes Time In: 1045 Time Out: 1145 Total Billed Treatment Time: 60 Total Billed Treatment 1, GT (20m), FA (10m) & EX x2 (30m) TREIBER,SOILA INSPECTORS AND REGULATORY OFFICERS Dec 26, 2019 12:12
--- NOTE | 2019-12-26 12:58 | NUR ---
[facility] DOWN TIME 12/24-12/25
--- NOTE | 2019-12-26 14:33 | NUR ---
CM/SS PATIENT CARE CONFERENCE Reviewed Summary with patient, signed, provided copy at her request. Her granddaughter Shayy Styles will be transporting her to the ortho surgeon followup 12/30/19. Pending results of that assessment and care plan update, patient will be reviewed Monday pertaining to weight bear status and advancement of therapy goals. Anticipate a tentative discharge target to result from 01/01/[address] Meeks spoke with patient during rounds this a.m. and requested she go home with one of her granddaughters until more fully recuperated. Dr. Meeks updated bond underwriter re same. Discussed with patient, she will discuss with her granddaughters and attempt to select the best fit for both them and her. Ultimately, her goal is home when able. DME: OT recommended a FWW basket so that patient can navigate ambulation and have a way to carry objects.
[2019-12-26] MEDS: HYDROcodone/APAP 5 MG/325 MG (LORTAB) TAB PO PRN (14:58)
[2019-12-26] MEDS: ENOXAPARIN 40 MG/0.4 ML (LOVENOX) SYR SC SCH (14:59)
--- NOTE | 2019-12-26 15:27 | Physical Therapy Daily Note ---
PT Daily Note-Current Subjective Pt sitting in recliner upon arrival. Pt agrees to PT. Pain Numeric Pain Scale: 3 Location: Right Location Body Site: Ankle Pain Description: Ache Mental Status Patient Orientation: Person, Place, Situation Transfers SCALE: Activities may be completed with or without assistive devices. 9-Trioinaeqh-vsiwuvf completes the activity by him/herself with no assistance from a helper. 5-Set-up or Clean-up Assistance-helper sets up or cleans up; patient completes activity. [place] assists only prior to or following the activity. 4-Supervision or Touching Assistance-helper provides verbal cues and/or touching/steadying and/or contact guard assistance as patient completes activity. Assistance may be provided throughout the activity or intermittently. 3-Partial/Moderate Assistance-helper does LESS THAN HALF the effort. [place] lifts, holds or supports trunk or limbs, but provides less than half the effort. 2-Substantial/Maximal Assistance-helper does MORE THAN HALF the effort. [place] lifts or holds trunk or limbs and provides more than half the effort. 1-Zklcuojda-miyjsz does ALL the effort. Patient does none of the effort to complete the activity. Or, the assistance of 2 or more helpers is required for the patient to complete the activity. If activity was not attempted, code reason: 7-Patient Refused. 9-Not Applicable-not attempted and the patient did not perform the activity be fore the current illness, exacerbation or injury. 10-Not Attempted due to Environmental Limitations-(lack of equipment, weather restraints, etc.). 88-Not Attempted due to Medical Conditions or Safety Concerns. Sit to Stand (QC): 4 Chair/Ism-rn-Vtjsb Xfer(QC): 4 Weight Bearing Right Lower Extremity: Right Non Weight Bearing Wheelchair Training Does the Pt Use a Wheelchair?: Yes Wheel 50 ft with 2 turns (QC): 4 Wheel 150 ft (QC): 4 Type of Wheelchair: Manual Treatments Pt transfers to standing then propels to elevator and on main floor of hospital to outside garden. Pt returns to room at end of tx with all needs met. Pt using restroom and Nursing notified, pt will pull call light when finished. Assessment Current Status: Fair Progress Pt does not maintain WB and is aware. Pt is too weak to amb. appropriately. Follow-up Surgeon appt Monday (12/29) to examine R ankle. PT Short Term Goals Short Term Goals Time Frame: Dec 27, 2019 Roll Left & Right: 6 Sit to lyin Lying to sitting on side of be: 6 Sit to stand: 4 Chair/mnh-fh-uhjff transfer: 4 Walk 10 feet: 4 PT Profile Grinder Goals Nursing Home Goals PT Profile Grinder Goals Time Frame: Jan 10, 2020 Roll Left & Right (QC): 6 Sit to Lying (QC): 6 Lying-Sitting on Side/Bed(QC): 6 Sit to Stand (QC): 5 Chair/Ere-mk-Jzkcc Xfer(QC): 5 Toilet Transfer (QC): 5 Car Transfer (QC): 5 Does the Patient Walk: Yes Walk 10 feet (QC): 4 Walk 50ft with 2 Turns (QC): 4 Walk 150 ft (QC): 88 Walking 10ft on Uneven Surface: 4 1 Step (curb) (QC): 4 4 Steps (QC): 88 12 Steps (QC): 88 Picking up an Object (QC): 88 Wheel 50 feet with 2 turns (QC: 6 Wheel 150 feet: 6 PT Plan Problem List Problem List: Activity Tolerance, Functional Strength, Safety Treatment/Plan Treatment Plan: Continue Plan of Care Treatment Plan: Bed Mobility, Education, Functional Activity Anthony, Functional Strength, Group Therapy, Gait, Safety, Therapeutic Exercise, Transfers Treatment Duration: Jan 10, 2020 Frequency: At least 5 of 7 days/Wk (IRF) Estimated Hrs Per Day: 1.5 hours per day Patient and/or Family Agrees t: Yes Safety Risks/Education Patient Education: Gait Training, Transfer Techniques, W/C Management, Safety Issues Teaching Recipient: Patient Teaching Methods: Discussion Response to Teaching: Verbalize Understanding, Reinforcement Needed Time/GCodes Time In: 1330 Time Out: 1400 Total Billed Treatment Time: 30 Total Billed Treatment 1, [facility] (20m) & FA (10m) SOILA BROWN QUALITY PROCESS AUDITOR Dec 26, 2019 15:27
[2019-12-26 16:30] VITALS: BP 128/67
--- NOTE | 2019-12-26 18:10 | Cardiology Progress Note ---
Cardiology SOAP Progress Note Subjective: No cardiac complaints. Objective: I&O/Vital Signs 12/26/19 12/26/19 09:00 10:04 Temp 36.0 Pulse 67 Resp 16 B/P (MAP) 153/69 (97) Pulse Ox 96 O2 Delivery Room Air Room Air Constitutional: appears stated age, AAO x 3, well-developed, well-nourished Respiratory: chest is bilaterally symmetric, lungs clear to auscultation Cardiovascular: regular rate-rhythm Gastrointestional: soft, audible bowel sounds Extremities: other Neurologic/Psychiatric: no motor/sensory deficits, alert, normal mood/affect, oriented x 3, power is 5/5 both on sides Skin: normal color A/P: Assessment/Dx: Mechanical fall, Right ankle fracture, orthopedic procedure for inpatient rehabilitation, Hypertension, Hyperlipidemia, Mild diastolic dysfunction, Mild valvular heart disease, Obstructive sleep apnea Plan: Mechanical fall, Right ankle fracture, orthopedic procedure for inpatient rehabilitation, Hypertension, on diltiazem and lisinopril as an outpatient. Hyperlipidemia, atorvastatin. Mild diastolic dysfunction, not in florid congestive heart failure. Mild valvular heart disease, mild mitral regurgitation and tricuspid regurgitation. No clinical concerns at this point in time. Obstructive sleep apnea echocardiogram on 11/10/2017 which showed an LVEF of 70 percent with mild diastolic dysfunction. Mild LVH. Mild mitral regurgitation/mild tricuspid regurgitation. EKG done in November 2018 which showed normal sinus rhythm. MPI done on 08/31/2015 which was negative. blood work done on 04/26/2018 which showed total cholesterol of 280, LDL 143, HDL 62, triglyceride 124. Thank you for your consultation. Please call me if you have any questions. Lida Gaffney MD, FACP, FACC, FSCAI, FHRS, CCDS Interventional Cardiology Cardiac Electrophysiology Vascular Medicine and Endovascular Interventions Casey GAFFNEY MD Dec 26, 2019 18:10
[2019-12-27 05:22] VITALS: BP 158/67
[2019-12-27] MEDS: MULTIVIT W/MINERALS TAB (THERAGRAN M) PO SCH (06:31)
[2019-12-27] MEDS: VITAMIN D3 25 MCG (1,000 UNITS) TABLET PO SCH (07:37)
[2019-12-27] MEDS: GABAPENTIN 300 MG (NEURONTIN) CAP PO SCH ×3 (07:37→20:15)
[2019-12-27] MEDS: lisINopril 20 MG (PRINIVIL) TABLET PO SCH (07:38)
[2019-12-27] MEDS: MONTELUKAST 10 MG (SINGULAIR) TAB PO SCH (07:38)
[2019-12-27] MEDS: DOCUSATE SODIUM 100 MG (COLACE) CAP PO SCH ×2 (07:38→20:15)
[2019-12-27] MEDS: DULoxetine 30 MG (CYMBALTA) CAP PO SCH ×2 (07:38→20:15)
[2019-12-27] MEDS: SENNA W/DOCUSATE (SENOKOT S) TABLET PO SCH ×2 (07:38→20:15)
[2019-12-27] MEDS: MELOXICAM 7.5 MG (MOBIC) TABLET PO SCH (07:38)
[2019-12-27] MEDS: ASPIRIN 81 MG CHEW (CHILDREN'S ASA) PO SCH ×2 (07:38→17:23)
[2019-12-27] MEDS: [UNRECOGNIZED DRUG - OTHER] PO SCH (07:42)
[2019-12-27] MEDS: polyethylene glycoL POWDER 17 GM (MIRALAX) PACK PO SCH ×2 (07:42→20:15)
[2019-12-27] MEDS: CO Q10 200 MG PO SCH (07:42)
--- NOTE | 2019-12-27 09:59 | Physical Therapy Daily Note ---
PT Daily Note-Current Subjective Pt. in bed, eyes closed. Pt. states she is having pain in RLE at 7/10 and didnt sleep last night. Pt. resists Rx. Long discussion during Rx regarding her as of yet not demonstrating NWB safely during gait and that this is likely the cause of her pain. Pt. resists walking and resists w/c mobility. This SUPERVISOR SEWING ROOM explained at length the importance of this to meet her goals for safe return to home. Pt. speaks of having fallen several times at home and previous fractures. " I guess I might have to go to a longterm" Pain Numeric Pain Scale: 7 Location: Right Location Body Site: Ankle Pain Description: Ache Mental Status Patient Orientation: Normal For Age Attachments: Other-See Comments (cast R foot) Transfers SCALE: Activities may be completed with or without assistive devices. 3-Tttwzztxwp-mddnxtr completes the activity by him/herself with no assistance from a helper. 5-Set-up or Clean-up Assistance-helper sets up or cleans up; patient completes activity. [place] assists only prior to or following the activity. 4-Supervision or Touching Assistance-helper provides verbal cues and/or touching/steadying and/or contact guard assistance as patient completes activity. Assistance may be provided throughout the activity or intermittently. 3-Partial/Moderate Assistance-helper does LESS THAN HALF the effort. [place] lifts, holds or supports trunk or limbs, but provides less than half the effort. 2-Substantial/Maximal Assistance-helper does MORE THAN HALF the effort. [place] lifts or holds trunk or limbs and provides more than half the effort. 1-Woxdafbon-qazaoh does ALL the effort. Patient does none of the effort to complete the activity. Or, the assistance of 2 or more helpers is required for the patient to complete the activity. If activity was not attempted, code reason: 7-Patient Refused. 9-Not Applicable-not attempted and the patient did not perform the activity before the current illness, exacerbation or injury. 10-Not Attempted due to Environmental Limitations-(lack of equipment, weather restraints, etc.). 88-Not Attempted due to Medical Conditions or Safety Concerns. Roll Left & Right (QC): 6 Sit to Lying (QC): 6 Lying to Sitting/Side of Bed(Q: 6 Sit to Stand (QC): 5 Chair/Eml-ql-Khvol Xfer(QC): 4 Toilet Transfer (QC): 4 instructed and demonstrated SPTs with NWBing right multiple times as well as use of FWW snd w/c. Pt. requires CGA as she still is not maintaining NWB RLE Weight Bearing Right Lower Extremity: Right Non Weight Bearing pt. instructed and was shown demo of heavy wt bearing on UEs during swing phase of left. pt. unable to replicate this Gait Training Does the Patient Walk?: Yes Walk 10 feet (QC): 4 Walk 50 ft with 2 Turns(QC): 88 Walk 150 ft (QC): 88 Gait Persons Needed: 1 Gait Assistive Device: FWW a shorter FWW was obtained to allow for better leverage for NWB gait. Pt. states this si better but still could not keep wt off. Gait was held to 2 10 ft jaunts as pt. was not maintaining wt bearing prec Wheelchair Training Does the Pt Use a Wheelchair?: Yes Wheel 50 ft with 2 turns (QC): 4 Wheel 150 ft (QC): 4 Type of Wheelchair: Manual pt. needs constant reminders and cues for effective w/c mobility ie braking, and lyndsey turning without bumping hands and knuckles on surfaces. Pt. is frustrated with this. Pt. on elevator down to 1st floor to trial ramp as she states she has ramp at home. pt. needed min assit to descend and cuing only to ascend. w/c also was switched for smaller version as pt c/o she couldnt control larger w/c. Exercises Supine Ex: Ankle pumps, Straight leg raise Supine Reps: 10 Seated Therapy Exercises: Long arc quads, Hip flexion Seated Reps: 12 Assessment Current Status: Fair Progress discussed with pt that gait is not a safe option for DC unless she either is upgraded to partial wt bearing or becomes safer/ more efficient at it. Or, safe TRFs within wt bering limits and efficient w/c skills are mastered PT Short Term Goals Short Term Goals Time Frame: Dec 27, 2019 Roll Left & Right: 6 Sit to lyin Lying to sitting on side of be: 6 Sit to stand: 4 Chair/azz-bi-ugdka transfer: 4 Walk 10 feet: 4 PT Usp Goals Kindergarten Classroom Teacher Goals PT Kindergarten Classroom Teacher Goals Time Frame: Jan 10, 2020 Roll Left & Right (QC): 6 Sit to Lying (QC): 6 Lying-Sitting on Side/Bed(QC): 6 Sit to Stand (QC): 5 Chair/Szy-so-Mlqgl Xfer(QC): 5 Toilet Transfer (QC): 5 Car Transfer (QC): 5 Does the Patient Walk: Yes Walk 10 feet (QC): 4 Walk 50ft with 2 Turns (QC): 4 Walk 150 ft (QC): 88 Walking 10ft on Uneven Surface: 4 1 Step (curb) (QC): 4 4 Steps (QC): 88 12 Steps (QC): 88 Picking up an Object (QC): 88 Wheel 50 feet with 2 turns (QC: 6 Wheel 150 feet: 6 PT Plan Treatment/Plan Treatment Plan: Continue Plan of Care Treatment Plan: Bed Mobility, Education, Functional Activity Anthony, Functional Strength, Group Therapy, Gait, Safety, Therapeutic Exercise, Transfers Treatment Duration: Jan 10, 2020 Frequency: At least 5 of 7 days/Wk (IRF) Estimated Hrs Per Day: 1.5 hours per day Patient and/or Family Agrees t: Yes Safety Risks/Education Patient Education: Gait Training, Transfer Techniques, Correct Positioning, W/C Management, Disease Process, Safety Issues Teaching Recipient: Patient, Primary Caregiver Teaching Methods: Discussion Response to Teaching: Verbalize Understanding, Return Demonstration, Reinforcement Needed Time/GCodes Time In: 900 Time Out: 1000 Total Billed Treatment Time: 60 Total Billed Treatment 1,WC 20m,FA25m,GT15m PIERRE STEWART SUPERVISOR SEWING ROOM Dec 27, 2019 09:59
--- NOTE | 2019-12-27 10:31 | PM&R Progress Note ---
Subjective HPI/CC On Admission Date Seen by Provider: Dec 27, 2019 Time Seen by Provider: 10:40 Subjective/Events-last exam 12/27/19: Patient has difficulty with non-weight bearing Ortho communication with Billy today BM+ Increased BP and Cards C/S Tearful and frightened about the next step in her care and if she can stay home 12/26/19: No major issues reported Pain is okay Ice pack on the right ankle maintained Bowels last moved yesterday morning Weight-bearing is difficult for her 12/25/19: Ice pack on right ankle is helping Incontinence is much improved Used her CPAP machine last night Bowels are moving well Pain is pretty well controlled Has an appointment on Monday with orthopedic surgeon to remove cast 12/24/19: Bowels moved yesterday Follow-up with Dr. Zuleta on 12/29 at 1 PM Dressing will be changed by the surgeon Overall complains about therapy not working with her but then complains she is too tired to participate in therapy 12/23/19: Bowels last moved yesterday Labs are okay Ankle ulcer before cast was placed so will monitor that when cast is removed Fall risk remains 12/22/19: Patient feels better Less pain meds take Got out of bed on her own last night and nurses counseled her CPAP used last night 12/21/19: Pain 5/10 CPAP at home but does not wear it here Refused O2 last night too BM today Splint will be in place on right ankle for [address] Zuleta Incontinent at night Checked meds and labs Conferred with RN Reviewed therapy notes Review of Systems General: Fatigue Musculoskeletal: leg pain Objective Exam Vital Signs Vital Signs Date Time Temp Pulse Resp B/P (MAP) Pulse Ox O2 Delivery O2 Flow Rate FiO2 12/27/19 16:30 36.1 73 14 129/59 (82) 95 Room Air 12/23/19 05:00 2.00 Capillary Refill : Less Than 3 SecondsLess Than 3 Seconds General Appearance: No Apparent Distress, WD/WN, Chronically ill HEENT: PERRL/EOMI, Normal ENT Inspection, Pharynx Normal Neck: Full Range of Motion, Normal Inspection, Non Tender, Supple, Carotid Bruit Respiratory: Chest Non Tender, Lungs Clear, Normal Breath Sounds, No Accessory Muscle Use, No Respiratory Distress Cardiovascular: Regular Rate, Rhythm, No Edema, No Gallop, No JVD, No Murmur, Normal Peripheral Pulses Gastrointestinal: Normal Bowel Sounds, No Organomegaly, No Pulsatile Mass, Non Tender, Soft Rectal: Deferred Back: Normal Inspection, No CVA Tenderness, No Vertebral Tenderness Extremity: Normal Capillary Refill, Normal Inspection, Normal Range of Motion, Non Tender, No Calf Tenderness, No Pedal Edema, Other (right ankle cast in place) Neurologic/Psychiatric: Alert, Oriented x3, No Motor/Sensory Deficits, Normal Mood/Affect, bottom cementer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 FIM Transfers Therapy Code Descriptions/Definitions Functional [place] Measure: 0=Not Assessed/NA 4=Minimal Assistance 1=Total Assistance 5=Supervision or Setup 2=Maximal Assistance 6=Modified [place] 3=Moderate Assistance 7=Complete IndependenceSCALE: Activities may be completed with or without assistive devices. 8-Sglktwdsrm-ldsddql completes the activity by him/herself with no assistance from a helper. 5-Set-up or Clean-up Assistance-helper sets up or cleans up; patient completes activity. [place] assists only prior to or following the activity. 4-Supervision or Touching Assistance-helper provides verbal cues and/or touching/steadying and/or contact guard assistance as patient completes activity. Assistance may be provided throughout the activity or intermittently. 3-Partial/Moderate Assistance-helper does LESS THAN HALF the effort. [place] lifts, holds or supports trunk or limbs, but provides less than half the effort. 2-Substantial/Maximal Assistance-helper does MORE THAN HALF the effort. [place] lifts or holds trunk or limbs and provides more than half the effort. 0-Rdwehqqsc-qcnsov does ALL the effort. Patient does none of the effort to complete the activity. Or, the assistance of 2 or more helpers is required for the patient to complete the activity. If activity was not attempted, code reason: 7-Patient Refused. 9-Not Applicable-not attempted and the patient did not perform the activity before the current illness, exacerbation or injury. 10-Not Attempted due to Environmental Limitations-(lack of equipment, weather restraints, etc.). 88-Not Attempted due to Medical Conditions or Safety Concerns. Roll Left to Right (QC): 6 Sit to Lying (QC): 6 Sit to Stand (QC): 5 Chair/Eyw-tq-Dxxuw Xfer(QC): 4 Car Transfer (QC): 4 Gait Training Does the Patient Walk?: Yes Distance: 150'x2 Walk 10 feet (QC): 4 Walk 50 ft with 2 Turns(QC): 88 Walk 150 ft (QC): 88 Walking 10ft/uneven surface-QC: 88 Gait Persons Needed: 1 Gait Assistive Device: FWW Wheelchair Training Does the Pt Use a Wheelchair?: Yes Distance: 150'x2 Wheel 50 ft with 2 turns (QC): 4 Wheel 150 ft (QC): 4 Type of Wheelchair: Manual Stair Training 1 Step (curb) (QC): 88 4 Steps (QC): 88 12 Steps (QC): 88 Balance Picking up an Object (QC): 88 ADL-Treatment Eating (QC): 6 Oral Hygiene (QC): 6 Shower/Bathe Self (QC): 5 (s/u prior to shower (RLE wrapped)) Upper Body Dressing (QC): 6 (picks items and completes with IND in w/c) Lower Body Dressing (QC): 4 (SBA during dressing- cues for RLE NWB. pt completes, does not maintain NWB through RLE. Pt educated on completing at sink level to enable pt to keep balance through torso placed on sink. Pt attempts, not able to maintain WB, is TTWB throughout. pt is encouraged to lift RLE up during task to ensure NWB, pt states casting is too heavy to do that. ) On/Off Footwear (QC): 6 (IND sock LLE) Toileting Hygiene (QC): 4 (SUP) Toilet Transfer (QC): 4 (SBA with use of walker and gbs) Assessment/Plan Assessment and Plan Assess & Plan/Chief Complaint Assessment: Left ankle fracture STEVEN non-compliant with CPAP Former smoker COPD HTN CAD Plan: Monitor pain IRF protocol IS DVT PPx 12/22/19: Pain control BM regimen Monitor for falls BP management 12/23/19: Continue bowel regimen Continue pain medication Monitor ankle ulcer once cast is removed Labs are stable 12/24/19: Continue bowel regimen Pain control Has an appointment on 12/30/19 for dressing change of right ankle 12/25/19: Monitor pain BM regimen Continue aggressive therapy 12/26/19: Pain management Non-weight bearing 12/27/19: Ortho communication Can't leave due to COVID but remains non-weight bearing whether or not she can see ortho per Dr Zuleta May need nursing facility (1) Bimalleolar fracture of right ankle Status: Acute Assessment & Plan: PT IN CAST STATUS POST SURGICAL FIXATION NON-WEIGHT BEARING PT USING WALKER TO HOP I HAVE DISCUSSED WITH PT AND [employer] WELL WITH DR. 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 THEY ARE IN AGREEMENT AND WILL WORK TOWARD THE PLAN OF JOSE LIVING WITH FAMILY UNTIL SHE IS WEIGHT BEARING ON THAT LEG/FOOT. Qualifiers: Encounter type: initial encounter Fracture type: closed Qualified Codes: S82.841A - Displaced bimalleolar fracture of right lower leg, initial encounter for closed fracture (2) Hypertension Qualifiers: Hypertension type: essential hypertension Qualified Codes: I10 - Essential (primary) hypertension (3) Hyperlipidemia Assessment & Plan: CONTINUE HOME REGIMEN - ATORVASTATIN Qualifiers: Hyperlipidemia type: mixed hyperlipidemia Qualified Codes: E78.2 - Mixed hyperlipidemia (4) Ankle fracture Qualifiers: Encounter type: initial encounter Fracture type: closed Laterality: right Qualified Codes: S82.891A - Other fracture of right lower leg, initial encounter for closed fracture RADHA NEWMAN DO Dec 27, 2019 10:31
--- NOTE | 2019-12-27 11:01 | Progress Note - Cardiology ---
Cardiology SOAP Progress Note Objective: I&O/Vital Signs 01/02/20 01/02/20 05:11 09:00 Temp 36.7 Pulse 71 Resp 16 B/P (MAP) 156/67 (96) Pulse Ox 93 O2 Delivery Room Air Room Air 01/02/20 00:00 Intake Total 950 ml Balance 950 ml Constitutional: appears stated age, AAO x 3, well-developed, well-nourished Respiratory: chest is bilaterally symmetric, lungs clear to auscultation Cardiovascular: regular rate-rhythm Gastrointestional: soft, audible bowel sounds Extremities: other (dressing in place to right leg from toes to knee) Neurologic/Psychiatric: grossly intact (moves extremities) Skin: normal color; No rash on exposed areas, No ulcerations on exposed areas A/P: Assessment: Mechanical fall (non-syncopal) Right ankle fracture, post repair Hypertension Hyperlipidemia - statin tx Obstructive sleep apnea Echocardiogram of November 20, [address] Gaffney showed LVEF 55-65%. Grade 2 diastolic dysfunction. PASP 25-30mmHg. Mild MR and TR EKG done in November 2018 which showed normal sinus rhythm. MPI done on 08/31/2015 which was negative. Plan: Continue current regimen Adjust antihypertensives as indicated Monitor lab from time to time Note from Dr. Gaffney have been reviewed GEOFFREY JIMENEZ Dec 27, 2019 11:01
--- NOTE | 2019-12-27 11:32 | Occupational Ther Daily Note ---
OT Current Status-Daily Note Subjective Pt in reclining chair when OT entered room. No c/o pain. Pt became emotional about the possibility of having to go to a [facility]. She was comforted and reassured that she would still make gains while on ARU and that discharge location is not yet determined. Mental Status/Objective Patient Orientation: Person, Place, Time, Situation ADL-Treatment Therapy Code Descriptions/Definitions Functional [place] Measure: 0=Not Assessed/NA 4=Minimal Assistance 1=Total Assistance 5=Supervision or Setup 2=Maximal Assistance 6=Modified [place] 3=Moderate Assistance 7=Complete IndependenceSCALE: Activities may be completed with or without assistive devices. 5-Knqigdndda-bmeaptp completes the activity by him/herself with no assistance from a helper. 5-Set-up or Clean-up Assistance-helper sets up or cleans up; patient completes activity. [place] assists only prior to or following the activity. 4-Supervision or Touching Assistance-helper provides verbal cues and/or touching/steadying and/or contact guard assistance as patient completes activity. Assistance may be provided throughout the activity or intermittently. 3-Partial/Moderate Assistance-helper does LESS THAN HALF the effort. [place] lifts, holds or supports trunk or limbs, but provides less than half the effort. 2-Substantial/Maximal Assistance-helper does MORE THAN HALF the effort. [place] lifts or holds trunk or limbs and provides more than half the effort. 7-Mnigazxiq-fyjctu does ALL the effort. Patient does none of the effort to complete the activity. Or, the assistance of 2 or more helpers is required for the patient to complete the activity. If activity was not attempted, code reason: 7-Patient Refused. 9-Not Applicable-not attempted and the patient did not perform the activity before the current illness, exacerbation or injury. 10-Not Attempted due to Environmental Limitations-(lack of equipment, weather restraints, etc.). 88-Not Attempted due to Medical Conditions or Safety Concerns. Upper Body Dressing (QC): 5 Lower Body Dressing (QC): 4 (SBA) Pt donned shirt independently once handed to her while seated in reclining chair. She pulled shorts up to knees while seated, and required SBA and VC to stand and head well puller hips while following NWB precautions. Pt. transferred to w/c with SBA and self-propelled to bathroom sink. While at sink, pt. completed grooming tasks while practicing sit-stand while following precautions. OT provided skilled education on reinforcement and safety with transfer. Pt. then self-propelled w/c to empty hallway in ARU to practice walking with walker and following precautions. She was able to "hop" on left foot while holding right foot in air for approximately 6 steps while using walker and SBA. Pt. able to weight shift between hands to practice doff/donning pants over hips while standing at walker and sink. She required less VC throughout session and was able to self-correct. Pt. in reclining chair with call light and nursing in the room at the end of session. All needs met. Education OT Patient Education: Correct positioning, Energy conservation, Modified ADL techniques, Progress toward Goal/Update tx plan, Purpose of tx/functional activities, Reviewed precautions, Rehab process, Safety issues, Transfer techniques Teaching Recipient: Patient Teaching Methods: Demonstration, Discussion OT Long-Term Goals Long-Term Goals Time Frame: Jan 03, 2020 Eating (QC): 6 Oral Hygiene (QC): 6 Toileting Hygiene (QC): 6 Shower/Bathe Self (QC): 6 Upper Body Dressing (QC): 6 Lower Body Dressing (QC): 6 On/Off Footwear (QC): 6 Additional Goals: 1-Demonstrate ADL Tasks, 2-Verbalize Understanding, 3-ImproveStrength/Anthony 1=Demonstrate adherence to instructed precautions during ADL tasks. 2=Patient will verbalize/demonstrate understanding of assistive devices/modifications for ADL. 3=Patient will improve strength/tolerance for activity to enable patient to perform ADL's. OT Education/Plan Problem List/Assessment Assessment: Decreased Activ Tolerance, Decreased UE Strength, Dependent Transfers, Impaired Funct Balance, Impaired I ADL's, Impaired Self-Care Skills Discharge Recommendations Plan/Recommendations: Continue POC Treatment Plan/Plan of Care Treatment,Training & Education: Yes Patient would benefit from OT for education, treatment and training to promote independence in ADL's, mobility, safety and/or upper extremity function for ADL's. Plan of Care: ADL Retraining, Caregiver Training, Functional Mobility, Group Exercise/Act as Ind, UE Funct Exercise/Act, W/C Management Training Treatment Duration: Jan 03, 2020 Frequency: At least 5 of 7 days/Wk (IRF) Estimated Hrs Per Day: 1.5 hours per day Agreement: Yes Rehab Potential: Fair Time/GCodes Start Time: 10:00 Stop Time: 11:00 Total Time Billed (hr/min): 60 Billed Treatment Time 1, ADL (15 minutes), FA 3 (45 minutes) DEREK SHIPMAN OTR Dec 27, 2019 11:32
--- NOTE | 2019-12-27 13:45 | NUR ---
NOTIFIED DR LOCK'S OFFICE OF CONSULT. RELAYED PATIENT UNABLE TO F/U DR ELLIOTT D/T COVID RISKS. DR LOCK TO XRAY , ASSESS HEALING AND ALIGNMENT OF HARDWARE ADN TRANSMIT XRAY TO DR ELLIOTT. SCWAB TO REMOVE WRAP AND SPLINT, ASSESS SKIN FOR BREAKDOWN, REMOVE ANTONIA AND APPLY SHORT LEG FIBERGLASS CAST. SPOKE WITH ISRAEL WHO READ BACK INFORMATION CORRECTLY AND ACCURATELY. ISRAEL STATES SHE WILL RELAY THE MESSAGE FIRST THING MONDAY, DR LOCK IS OUT OF THE OFFICE UNTIL MONDAY. LEFT DR ELLIOTT'S OFFICE NUMBER FOR QUESTIONS:[phone]
[2019-12-27] MEDS: HYDROcodone/APAP 5 MG/325 MG (LORTAB) TAB PO PRN ×2 (14:42→20:21)
--- NOTE | 2019-12-27 14:48 | Therapy Group Daily Note ---
Therapy Daily Group Note Patient Education Topic Other List Below (preparing for independence, TRFs and mobility) Exercises LE Seated Exercise, UE Exercise Session Ratio (pt:therapist): 4:1 Goal of Session: Memory Strategies, UE/LE Strengthing, Safety with Transfers Goal Met for this Session: Yes Pt Benefit of Group: Increased Functional Safety, Increased Functional Strength, Socialization Other/Notes Pt. participated in group PT OT session . Pt. came and went ambulating to with FWW and w/c back as pt continues to have great difficlulty maintaining NWBing . Pts. reviewed the memory activity of last group session recalling 5 items, all successful. Monday therapy was explained. Bed and chair TRFs were demonstrated and explained in detail. The goal of working toward independence and home was discussed. Seated U&L extremity therex was done with pts leading and demonstrating from written illustration cards. Pt. to room after with all needs met, stephanie at hand Start Time: 13:00 Stop Time: 14:15 Total Billed Treatment Time: 75 Total Billed Treatment 1,GRP PIERRE STEWART HAM PASSER Dec 27, 2019 14:48
--- NOTE | 2019-12-27 14:51 | NUR ---
EDUCATED PATIENT REGARDING ASHVIN CONSULTATION. PATIENT IS TEARFUL AT THIS TIME BUT STATES SHE 'LOVES' DR LOCK. PATIENT IS LABILE, CRYING INTERMITTENTLY AND SPEAKING ABOUT A VARIETY OF THINGS BRINGING TEARS-HER GRAND DAUGHTER, NEIGHBOR, AND THEN REQUEST A UROLOGIST FOR A STIMULATOR SHE STATES HAS BEEN PLACED TO HELP HER VOID. WILL RELAY THIS TO DR NEWMAN IN A.M. CONTINUE TO MONITOR PATIENT. SHE IS SMILING AT THIS TIME AND TALKING ON TELEPHONE.
--- NOTE | 2019-12-27 14:59 | Progress Note - Cardiology ---
Cardiology SOAP Progress Note Subjective: No cp or palp or syncope or shortness of breath Discomfort at surgical site Gen weakness No focal weakness No n/v/d Objective: I&O/Vital Signs 12/27/19 12/27/19 05:22 07:47 Temp 36.5 Pulse 85 Resp 18 B/P (MAP) 158/67 (97) Pulse Ox 95 O2 Delivery Room Air Room Air 12/27/19 00:00 Intake Total 600 ml Balance 600 ml Constitutional: appears stated age, AAO x 3, well-developed, well-nourished Respiratory: chest is bilaterally symmetric, lungs clear to auscultation Cardiovascular: regular rate-rhythm Gastrointestional: soft, audible bowel sounds Extremities: other (dressing in place to right leg from toes to knee) Neurologic/Psychiatric: grossly intact (moves extremities) Skin: normal color; No rash on exposed areas, No ulcerations on exposed areas A/P: Assessment: Non-syncopal fall Right ankle fracture, post repair Hypertension Hyperlipidemia - statin tx Obstructive sleep apnea Echocardiogram of November 20, [address] Gaffney showed LVEF 55-65%. Grade 2 diastolic dysfunction. PASP 25-30mmHg. Mild MR and TR EKG done in November 2018 which showed normal sinus rhythm. MPI done on 08/31/2015 which was negative. Plan: We reviewed her records, and interviewed and examined her Continue current regimen Adjust antihypertensives as indicated Monitor lab from time to time SELAM WAN MD FACP [facility] Dec 27, 2019 14:59
[2019-12-27] MEDS: ENOXAPARIN 40 MG/0.4 ML (LOVENOX) SYR SC SCH (15:22)
--- NOTE | 2019-12-27 16:26 | NUR ---
CM/SS CONCURRENT DOCUMENTATION Patients will no longer be allowed to leave the unit for appointments or day passes due to the circumstances, restrictions, and hospital protocols re Covid19. Patient's followup with Dr. Ye Zuleta Monday12/30/19 at [facility] in [place] was cancelled. Funnel Coater spoke with his RN/Moni who is present during his surgeries, she outlined their care plan for Monday. Updated Dr. Kaye, ortho consult completed here, providing Dr. Zuleta's care plan and requests for in-house team: Dr. Zuleta requested an x-ray transmitted to him for review. Remove wrap and splint. Assess skin for breakdown. Remove marisel. Apply short leg fiberglass cast. Patient to remain NWB. Please call Dr. Zuleta office with questions: [phone] RN/Moni will be out, PA/Polly Cross is aware of situation and should be called if needed. The post hospital plan is not yet resolved, patient does not want to go to the home(s) of her granddaughters and vice versa. Patient shared that one granddaughter took FMLA because her daycare closed and that patient's children and in-laws are going to take turns staying to help with the kids while granddaughter works. Funnel Coater spoke with Shayy Styles and asked if someone could go stay with patient, family to discuss. Alternative is short term skilled services vs some sort of respite stay if any [facility] offer a furnished option. Exploring.
[2019-12-27 16:30] VITALS: BP 129/59
[2019-12-28] MEDS: MULTIVIT W/MINERALS TAB (THERAGRAN M) PO SCH (06:08)
[2019-12-28 06:25] VITALS: BP 158/67
[2019-12-28] MEDS: SENNA W/DOCUSATE (SENOKOT S) TABLET PO SCH ×2 (08:25→21:32)
[2019-12-28] MEDS: MELOXICAM 7.5 MG (MOBIC) TABLET PO SCH (08:25)
[2019-12-28] MEDS: lisINopril 20 MG (PRINIVIL) TABLET PO SCH (08:26)
[2019-12-28] MEDS: MONTELUKAST 10 MG (SINGULAIR) TAB PO SCH (08:26)
[2019-12-28] MEDS: DULoxetine 30 MG (CYMBALTA) CAP PO SCH ×2 (08:26→20:16)
[2019-12-28] MEDS: ASPIRIN 81 MG CHEW (CHILDREN'S ASA) PO SCH ×2 (08:26→17:45)
[2019-12-28] MEDS: GABAPENTIN 300 MG (NEURONTIN) CAP PO SCH ×3 (08:26→20:16)
[2019-12-28] MEDS: VITAMIN D3 25 MCG (1,000 UNITS) TABLET PO SCH (08:26)
[2019-12-28] MEDS: polyethylene glycoL POWDER 17 GM (MIRALAX) PACK PO SCH ×2 (08:29→21:32)
[2019-12-28] MEDS: CO Q10 200 MG PO SCH (08:29)
[2019-12-28] MEDS: [UNRECOGNIZED DRUG - OTHER] PO SCH (08:29)
[2019-12-28] MEDS: DOCUSATE SODIUM 100 MG (COLACE) CAP PO SCH ×2 (08:29→20:16)
--- NOTE | 2019-12-28 11:52 | PM&R Progress Note ---
Subjective HPI/CC On Admission Date Seen by Provider: Dec 28, 2019 Time Seen by Provider: 12:00 Subjective/Events-last exam 12/28/19: Patient doing well Less tearful today Can't leave hospital due to COVID for ortho appt Labile emotions 12/27/19: Patient has difficulty with non-weight bearing Ortho communication with Cervantes today BM+ Increased BP and Cards C/S Tearful and frightened about the next step in her care and if she can stay home 12/26/19: No major issues reported Pain is okay Ice pack on the right ankle maintained Bowels last moved yesterday morning Weight-bearing is difficult for her 12/25/19: Ice pack on right ankle is helping Incontinence is much improved Used her CPAP machine last night Bowels are moving well Pain is pretty well controlled Has an appointment on Monday with orthopedic surgeon to remove cast 12/24/19: Bowels moved yesterday Follow-up with Dr. Zuleta on 12/29 at 1 PM Dressing will be changed by the surgeon Overall complains about therapy not working with her but then complains she is too tired to participate in therapy 12/23/19: Bowels last moved yesterday Labs are okay Ankle ulcer before cast was placed so will monitor that when cast is removed Fall risk remains 12/22/19: Patient feels better Less pain meds take Got out of bed on her own last night and nurses counseled her CPAP used last night 12/21/19: Pain 5/10 CPAP at home but does not wear it here Refused O2 last night too BM today Splint will be in place on right ankle for [address] Zuleta Incontinent at night Checked meds and labs Conferred with RN Reviewed therapy notes Review of Systems General: Fatigue, Malaise Musculoskeletal: leg pain, foot pain Neurological: Weakness Objective Exam Vital Signs Vital Signs Date Time Temp Pulse Resp B/P (MAP) Pulse Ox O2 Delivery O2 Flow Rate FiO2 12/28/19 08:30 Room Air 12/28/19 06:25 36.3 74 18 158/67 (97) 94 12/23/19 05:00 2.00 Capillary Refill : Less Than 3 SecondsLess Than 3 Seconds General Appearance: No Apparent Distress, WD/WN, Chronically ill HEENT: PERRL/EOMI, Normal ENT Inspection, Pharynx Normal Neck: Full Range of Motion, Normal Inspection, Non Tender, Supple, Carotid Bruit Respiratory: Chest Non Tender, Lungs Clear, Normal Breath Sounds, No Accessory Muscle Use, No Respiratory Distress Cardiovascular: Regular Rate, Rhythm, No Edema, No Gallop, No JVD, No Murmur, Normal Peripheral Pulses Gastrointestinal: Normal Bowel Sounds, No Organomegaly, No Pulsatile Mass, Non Tender, Soft Rectal: Deferred Back: Normal Inspection, No CVA Tenderness, No Vertebral Tenderness Extremity: Normal Capillary Refill, Normal Inspection, Normal Range of Motion, Non Tender, No Calf Tenderness, No Pedal Edema, Other (right ankle cast in place) Neurologic/Psychiatric: Alert, Oriented x3, No Motor/Sensory Deficits, Normal Mood/Affect, [employer]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 FIM Transfers Therapy Code Descriptions/Definitions Functional [place] Measure: 0=Not Assessed/NA 4=Minimal Assistance 1=Total Assistance 5=Supervision or Setup 2=Maximal Assistance 6=Modified [place] 3=Moderate Assistance 7=Complete IndependenceSCALE: Activities may be completed with or without assistive devices. 2-Eyomerpsch-ikboikj completes the activity by him/herself with no assistance from a helper. 5-Set-up or Clean-up Assistance-helper sets up or cleans up; patient completes activity. [place] assists only prior to or following the activity. 4-Supervision or Touching Assistance-helper provides verbal cues and/or touching/steadying and/or contact guard assistance as patient completes activity. Assistance may be provided throughout the activity or intermittently. 3-Partial/Moderate Assistance-helper does LESS THAN HALF the effort. [place] lifts, holds or supports trunk or limbs, but provides less than half the effort. 2-Substantial/Maximal Assistance-helper does MORE THAN HALF the effort. [place] lifts or holds trunk or limbs and provides more than half the effort. 9-Wqvkieqli-yjfjuu does ALL the effort. Patient does none of the effort to complete the activity. Or, the assistance of 2 or more helpers is required for the patient to complete the activity. If activity was not attempted, code reason: 7-Patient Refused. 9-Not Applicable-not attempted and the patient did not perform the activity before the current illness, exacerbation or injury. 10-Not Attempted due to Environmental Limitations-(lack of equipment, weather restraints, etc.). 88-Not Attempted due to Medical Conditions or Safety Concerns. Roll Left to Right (QC): 6 Sit to Lying (QC): 6 Sit to Stand (QC): 5 Chair/Wjc-di-Pmqcp Xfer(QC): 4 Car Transfer (QC): 4 Gait Training Does the Patient Walk?: Yes Distance: 150'x2 Walk 10 feet (QC): 4 Walk 50 ft with 2 Turns(QC): 88 Walk 150 ft (QC): 88 Walking 10ft/uneven surface-QC: 88 Gait Persons Needed: 1 Gait Assistive Device: FWW Wheelchair Training Does the Pt Use a Wheelchair?: Yes Distance: 150'x2 Wheel 50 ft with 2 turns (QC): 4 Wheel 150 ft (QC): 4 Type of Wheelchair: Manual Stair Training 1 Step (curb) (QC): 88 4 Steps (QC): 88 12 Steps (QC): 88 Balance Picking up an Object (QC): 88 ADL-Treatment Eating (QC): 6 Oral Hygiene (QC): 6 Shower/Bathe Self (QC): 5 (s/u prior to shower (RLE wrapped)) Upper Body Dressing (QC): 5 Lower Body Dressing (QC): 4 (SBA) On/Off Footwear (QC): 6 (IND sock LLE) Toileting Hygiene (QC): 4 (SUP) Toilet Transfer (QC): 4 (SBA with use of walker and gbs) Assessment/Plan Assessment and Plan Assess & Plan/Chief Complaint Assessment: Left ankle fracture STEVEN non-compliant with CPAP Former smoker COPD HTN CAD Plan: Monitor pain IRF protocol IS DVT PPx 12/22/19: Pain control BM regimen Monitor for falls BP management 12/23/19: Continue bowel regimen Continue pain medication Monitor ankle ulcer once cast is removed Labs are stable 12/24/19: Continue bowel regimen Pain control Has an appointment on 12/30/19 for dressing change of right ankle 12/25/19: Monitor pain BM regimen Continue aggressive therapy 12/26/19: Pain management Non-weight bearing 12/27/19: Ortho communication Can't leave due to COVID but remains non-weight bearing whether or not she can see ortho per Dr Zuleta May need nursing facility 8/22/20: Labile emotions common and frequent Pain control Lovenox (1) Bimalleolar fracture of right ankle Status: Acute Assessment & Plan: PT IN CAST STATUS POST SURGICAL FIXATION NON-WEIGHT BEARING PT USING WALKER TO HOP I HAVE DISCUSSED WITH PT AND ELECTRICAL LOGGING ENGINEER WELL WITH DR. NEWMAN - INPT REHAB PHYSICIAN - JOSE SHOULD BE DISCHARGED INTO THE CARE/HOME OF HER FAMILY SI NCE SHE LIVES AT HOME ALONE AND TO HAVE HER HOPPING AROUND HER HOUSE WITHOUT ANYONE ELSE LIVING WITH HER AND AROUND HER FREQUENTLY IS NOT A GOOD PLAN FOR DISCHARGE. THEY ARE IN AGREEMENT AND WILL WORK TOWARD THE PLAN OF JOSE LIVING WITH FAMILY UNTIL SHE IS WEIGHT BEARING ON THAT LEG/FOOT. Qualifiers: Encounter type: initial encounter Fracture type: closed Qualified Codes: S82.841A - Displaced bimalleolar fracture of right lower leg, initial encounter for closed fracture (2) Hypertension Qualifiers: Hypertension type: essential hypertension Qualified Codes: I10 - Essential (primary) hypertension (3) Hyperlipidemia Assessment & Plan: CONTINUE HOME REGIMEN - ATORVASTATIN Qualifiers: Hyperlipidemia type: mixed hyperlipidemia Qualified Codes: E78.2 - Mixed hyperlipidemia (4) Ankle fracture Qualifiers: Encounter type: initial encounter Fracture type: closed Laterality: right Qualified Codes: S82.891A - Other fracture of right lower leg, initial encounter for closed fracture RADHA NEWMAN DO Dec 28, 2019 11:52
[2019-12-28] MEDS: HYDROcodone/APAP 5 MG/325 MG (LORTAB) TAB PO PRN ×2 (12:14→19:46)
--- NOTE | 2019-12-28 12:55 | Progress Note - Cardiology ---
Cardiology SOAP Progress Note Subjective: No cp or palp or syncope or shortness of breath at rest Gen weakness improving No n/v/d Objective: I&O/Vital Signs 12/28/19 12/28/19 06:25 08:30 Temp 36.3 Pulse 74 Resp 18 B/P (MAP) 158/67 (97) Pulse Ox 94 O2 Delivery Room Air Room Air 12/28/19 00:00 Intake Total 1060 ml Balance 1060 ml Constitutional: appears stated age, AAO x 3, well-developed, well-nourished Respiratory: chest is bilaterally symmetric, lungs clear to auscultation Cardiovascular: regular rate-rhythm Gastrointestional: soft, audible bowel sounds Extremities: other (dressing in place to right leg from toes to knee) Neurologic/Psychiatric: grossly intact (moves extremities) Skin: normal color; No rash on exposed areas, No ulcerations on exposed areas A/P: Assessment: Non-syncopal fall Right ankle fracture, post repair Hypertension Hyperlipidemia - statin tx Obstructive sleep apnea Echocardiogram of November 20, [address] Gaffney showed LVEF 55-65%. Grade 2 diastolic dysfunction. PASP 25-30mmHg. Mild MR and TR EKG done in November 2018 which showed normal sinus rhythm. MPI done on 08/31/2015 which was negative. Plan: Continue current regimen Adjust antihypertensives as indicated Monitor lab from time to time SELAM WAN MD FACP FAC CCDS Dec 28, 2019 12:55
--- NOTE | 2019-12-28 12:57 | Physical Therapy Daily Note ---
PT Daily Note-Current Subjective Pt agreeable. Pt denied pain. Primary complaint is incontinence during the night. Pt states "I am so embarrased. I stop drinking at 6pm and it still happens." Mental Status Patient Orientation: Person, Place, Situation Transfers SCALE: Activities may be completed with or without assistive devices. 3-Dwjhmzjvlb-vciqrpc completes the activity by him/herself with no assistance from a helper. 5-Set-up or Clean-up Assistance-helper sets up or cleans up; patient completes activity. [place] assists only prior to or following the activity. 4-Supervision or Touching Assistance-helper provides verbal cues and/or touching/steadying and/or contact guard assistance as patient completes activity. Assistance may be provided throughout the activity or intermittently. 3-Partial/Moderate Assistance-helper does LESS THAN HALF the effort. [place] lifts, holds or supports trunk or limbs, but provides less than half the effort. 2-Substantial/Maximal Assistance-helper does MORE THAN HALF the effort. [place] lifts or holds trunk or limbs and provides more than half the effort. 9-Istjwzxbh-meoccb does ALL the effort. Patient does none of the effort to complete the activity. Or, the assistance of 2 or more helpers is required for the patient to complete the activity. If activity was not attempted, code reason: 7-Patient Refused. 9-Not Applicable-not attempted and the patient did not perform the activity before the current illness, exacerbation or injury. 10-Not Attempted due to Environmental Limitations-(lack of equipment, weather restraints, etc.). 88-Not Attempted due to Medical Conditions or Safety Concerns. Weight Bearing Right Lower Extremity: Right Non Weight Bearing pt. instructed and was shown demo of heavy wt bearing on UEs during swing phase of left. pt. unable to replicate this Treatments Pt transfers mod (I). Pt amb with FWW and NWB (R) LE 1 x 10', 1 x 12', 1 x 18'. Trnsfer w/c- toilet SPT mod I. Pt on toilet per request she wanted to call nu rse when she was done. Nurse aid notified. Assessment Current Status: Good Progress Pt progressing steadily. Pt able to maintain NWB status throughout. Pt would benefit from [facility] PT consult due to complaints of incontinence during the night. PT Short Term Goals Short Term Goals Time Frame: Dec 27, 2019 Roll Left & Right: 6 Sit to lyin Lying to sitting on side of be: 6 Sit to stand: 4 Chair/ync-sf-loqhc transfer: 4 Walk 10 feet: 4 PT Snf Goals [employer] Appliance Installer Goals PT Snf Goals Time Frame: Jan 10, 2020 Roll Left & Right (QC): 6 Sit to Lying (QC): 6 Lying-Sitting on Side/Bed(QC): 6 Sit to Stand (QC): 5 Chair/Sig-gy-Itdjn Xfer(QC): 5 Toilet Transfer (QC): 5 Car Transfer (QC): 5 Does the Patient Walk: Yes Walk 10 feet (QC): 4 Walk 50ft with 2 Turns (QC): 4 Walk 150 ft (QC): 88 Walking 10ft on Uneven Surface: 4 1 Step (curb) (QC): 4 4 Steps (QC): 88 12 Steps (QC): 88 Picking up an Object (QC): 88 Wheel 50 feet with 2 turns (QC: 6 Wheel 150 feet: 6 PT Plan Treatment/Plan Treatment Plan: Continue Plan of Care Treatment Plan: Bed Mobility, Education, Functional Activity Anthony, Functional Strength, Group Therapy, Gait, Safety, Therapeutic Exercise, Transfers Treatment Duration: Jan 10, 2020 Frequency: At least 5 of 7 days/Wk (IRF) Estimated Hrs Per Day: 1.5 hours per day Patient and/or Family Agrees t: Yes Time/GCodes Time In: 850 Time Out: 925 Total Billed Treatment Time: 35 Total Billed Treatment 1, gait 20', FA 15' FRANKLIN MCGRATH CPTA Dec 28, 2019 12:57
[2019-12-28] MEDS: ENOXAPARIN 40 MG/0.4 ML (LOVENOX) SYR SC SCH (16:26)
[2019-12-28 18:00] VITALS: BP 131/68
--- NOTE | 2019-12-28 19:45 | NUR ---
MEDICATED WITH [facility] FOR COMPLAINTS OF "FEELS LIKE 2 SORES ON OUTER ASPECT OF RIGHT LEG UNDER MY SPLINT". WILL HAVE SPLINT REMOVED ON MONDAY. FEELS URINARY INCONTINENCE IS WORSE AND THINKS NEEDS TO SEE A UROLOGIST AGAIN.
--- NOTE | 2019-12-29 01:28 | NUR ---
REPORT RECEIVED FROM ALLI FOSTER RN. ASSUMED CARE OF PT AT THIS TIME. AGREED WITH PREVIOUS ASSESSMENT.
[2019-12-29 05:06] VITALS: BP 131/62
[2019-12-29] MEDS: MULTIVIT W/MINERALS TAB (THERAGRAN M) PO SCH (06:22)
[2019-12-29] MEDS: DULoxetine 30 MG (CYMBALTA) CAP PO SCH ×2 (09:35→20:31)
[2019-12-29] MEDS: MELOXICAM 7.5 MG (MOBIC) TABLET PO SCH (09:35)
[2019-12-29] MEDS: SENNA W/DOCUSATE (SENOKOT S) TABLET PO SCH ×2 (09:35→20:31)
[2019-12-29] MEDS: GABAPENTIN 300 MG (NEURONTIN) CAP PO SCH ×3 (09:35→20:31)
[2019-12-29] MEDS: lisINopril 20 MG (PRINIVIL) TABLET PO SCH (09:35)
[2019-12-29] MEDS: MONTELUKAST 10 MG (SINGULAIR) TAB PO SCH (09:35)
[2019-12-29] MEDS: ASPIRIN 81 MG CHEW (CHILDREN'S ASA) PO SCH ×2 (09:36→18:28)
[2019-12-29] MEDS: DOCUSATE SODIUM 100 MG (COLACE) CAP PO SCH ×2 (09:36→20:31)
[2019-12-29] MEDS: polyethylene glycoL POWDER 17 GM (MIRALAX) PACK PO SCH ×2 (09:36→20:23)
[2019-12-29] MEDS: HYDROcodone/APAP 5 MG/325 MG (LORTAB) TAB PO PRN (09:36)
[2019-12-29] MEDS: VITAMIN D3 25 MCG (1,000 UNITS) TABLET PO SCH (09:36)
[2019-12-29] MEDS: [UNRECOGNIZED DRUG - OTHER] PO SCH (09:39)
[2019-12-29] MEDS: CO Q10 200 MG PO SCH (09:39)
--- NOTE | 2019-12-29 10:47 | PM&R Progress Note ---
Subjective HPI/CC On Admission Date Seen by Provider: Dec 29, 2019 Time Seen by Provider: 10:45 Subjective/Events-last exam 12/29/19: Monitor BP Check labs in am No med changes 12/28/19: Patient doing well Less tearful today Can't leave hospital due to COVID for ortho appt Labile emotions 12/27/19: Patient has difficulty with non-weight bearing Ortho communication with Cervantes today BM+ Increased BP and Cards C/S Tearful and frightened about the next step in her care and if she can stay home 12/26/19: No major issues reported Pain is okay Ice pack on the right ankle maintained Bowels last moved yesterday morning Weight-bearing is difficult for her 12/25/19: Ice pack on right ankle is helping Incontinence is much improved Used her CPAP machine last night Bowels are moving well Pain is pretty well controlled Has an appointment on Monday with orthopedic surgeon to remove cast 12/24/19: Bowels moved yesterday Follow-up with Dr. Zuleta on 12/29 at 1 PM Dressing will be changed by the surgeon Overall complains about therapy not working with her but then complains she is too tired to participate in therapy 12/23/19: Bowels last moved yesterday Labs are okay Ankle ulcer before cast was placed so will monitor that when cast is removed Fall risk remains 12/22/19: Patient feels better Less pain meds take Got out of bed on her own last night and nurses counseled her CPAP used last night 12/21/19: Pain 5/10 CPAP at home but does not wear it here Refused O2 last night too BM today Splint will be in place on right ankle for [address] Zuleta Incontinent at night Checked meds and labs Conferred with RN Reviewed therapy notes Review of Systems General: Fatigue, Malaise Musculoskeletal: leg pain Objective Exam Vital Signs Vital Signs Date Time Temp Pulse Resp B/P (MAP) Pulse Ox O2 Delivery O2 Flow Rate FiO2 12/29/19 08:00 Room Air 12/29/19 05:06 36.1 82 16 131/62 (85) 94 12/23/19 05:00 2.00 Capillary Refill : Less Than 3 SecondsLess Than 3 Seconds General Appearance: No Apparent Distress, WD/WN, Chronically ill HEENT: PERRL/EOMI, Normal ENT Inspection, Pharynx Normal Neck: Full Range of Motion, Normal Inspection, Non Tender, Supple, Carotid Bruit Respiratory: Chest Non Tender, Lungs Clear, Normal Breath Sounds, No Accessory Muscle Use, No Respiratory Distress Cardiovascular: Regular Rate, Rhythm, No Edema, No Gallop, No JVD, No Murmur, Normal Peripheral Pulses Gastrointestinal: Normal Bowel Sounds, No Organomegaly, No Pulsatile Mass, Non Tender, Soft Rectal: Deferred Back: Normal Inspection, No CVA Tenderness, No Vertebral Tenderness Extremity: Normal Capillary Refill, Normal Inspection, Normal Range of Motion, Non Tender, No Calf Tenderness, No Pedal Edema, Other (right ankle cast in place) Neurologic/Psychiatric: Alert, Oriented x3, No Motor/Sensory Deficits, Normal Mood/Affect, shove up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 FIM Transfers Therapy Code Descriptions/Definitions Functional [place] Measure: 0=Not Assessed/NA 4=Minimal Assistance 1=Total Assistance 5=Supervision or Setup 2=Maximal Assistance 6=Modified [place] 3=Moderate Assistance 7=Complete IndependenceSCALE: Activities may be completed with or without assistive devices. 0-Tnqdgohrcz-zkjbzjh completes the activity by him/herself with no assistance from a helper. 5-Set-up or Clean-up Assistance-helper sets up or cleans up; patient completes activity. [place] assists only prior to or following the activity. 4-Supervision or Touching Assistance-helper provides verbal cues and/or touching/steadying and/or contact guard assistance as patient completes activity. Assistance may be provided throughout the activity or intermittently. 3-Partial/Moderate Assistance-helper does LESS THAN HALF the effort. [place] lifts, holds or supports trunk or limbs, but provides less than half the effort. 2-Substantial/Maximal Assistance-helper does MORE THAN HALF the effort. [place] lifts or holds trunk or limbs and provides more than half the effort. 3-Ujfchswlu-agwpmj does ALL the effort. Patient does none of the effort to complete the activity. Or, the assistance of 2 or more helpers is required for the patient to complete the activity. If activity was not attempted, code reason: 7-Patient Refused. 9-Not Applicable-not attempted and the patient did not perform the activity before the current illness, exacerbation or injury. 10-Not Attempted due to Environmental Limitations-(lack of equipment, weather restraints, etc.). 88-Not Attempted due to Medical Conditions or Safety Concerns. Roll Left to Right (QC): 6 Sit to Lying (QC): 6 Sit to Stand (QC): 5 Chair/Cua-pr-Hzaba Xfer(QC): 4 Car Transfer (QC): 4 Gait Training Does the Patient Walk?: Yes Distance: 150'x2 Walk 10 feet (QC): 4 Walk 50 ft with 2 Turns(QC): 88 Walk 150 ft (QC): 88 Walking 10ft/uneven surface-QC: 88 Gait Persons Needed: 1 Gait Assistive Device: FWW Wheelchair Training Does the Pt Use a Wheelchair?: Yes Distance: 150'x2 Wheel 50 ft with 2 turns (QC): 4 Wheel 150 ft (QC): 4 Type of Wheelchair: Manual Stair Training 1 Step (curb) (QC): 88 4 Steps (QC): 88 12 Steps (QC): 88 Balance Picking up an Object (QC): 88 ADL-Treatment Eating (QC): 6 Oral Hygiene (QC): 6 Shower/Bathe Self (QC): 5 (s/u prior to shower (RLE wrapped)) Upper Body Dressing (QC): 5 Lower Body Dressing (QC): 4 (SBA) On/Off Footwear (QC): 6 (IND sock LLE) Toileting Hygiene (QC): 4 (SUP) Toilet Transfer (QC): 4 (SBA with use of walker and gbs) Assessment/Plan Assessment and Plan Assess & Plan/Chief Complaint Assessment: Left ankle fracture STEVEN non-compliant with CPAP Former smoker COPD HTN CAD Plan: Monitor pain IRF protocol IS DVT PPx 12/22/19: Pain control BM regimen Monitor for falls BP management 12/23/19: Continue bowel regimen Continue pain medication Monitor ankle ulcer once cast is removed Labs are stable 12/24/19: Continue bowel regimen Pain control Has an appointment on 12/30/19 for dressing change of right ankle 12/25/19: Monitor pain BM regimen Continue aggressive therapy 12/26/19: Pain management Non-weight bearing 12/27/19: Ortho communication Can't leave due to COVID but remains non-weight bearing whether or not she can see ortho per Dr Millwood May need nursing facility 12/28/19: Labile emotions common and frequent Pain control Lovenox 12/29/19: Pain control Lovenox Check labs in am (1) Bimalleolar fracture of right ankle Status: Acute Assessment & Plan: PT IN CAST STATUS POST SURGICAL FIXATION NON-WEIGHT BEARING PT USING WALKER TO HOP I HAVE DISCUSSED WITH PT AND IMAGING SCHEDULER WELL WITH DR. 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 THEY ARE IN AGREEMENT AND WILL WORK TOWARD THE PLAN OF JOSE LIVING WITH FAMILY UNTIL SHE IS WEIGHT BEARING ON THAT LEG/FOOT. Qualifiers: Encounter type: initial encounter Fracture type: closed Qualified Codes: S82.841A - Displaced bimalleolar fracture of right lower leg, initial encounter for closed fracture (2) Hypertension Qualifiers: Hypertension type: essential hypertension Qualified Codes: I10 - Essential (primary) hypertension (3) Hyperlipidemia Assessment & Plan: CONTINUE HOME REGIMEN - ATORVASTATIN Qualifiers: Hyperlipidemia type: mixed hyperlipidemia Qualified Codes: E78.2 - Mixed hyperlipidemia (4) Ankle fracture Qualifiers: Encounter type: initial encounter Fracture type: closed Laterality: right Qualified Codes: S82.891A - Other fracture of right lower leg, initial encounter for closed fracture RADHA NEWMAN DO Dec 29, 2019 10:47
--- NOTE | 2019-12-29 14:52 | Progress Note - Cardiology ---
Cardiology SOAP Progress Note Subjective: No new symptoms Gen weakness improving No cp or palp or syncope No n/v/d Objective: I&O/Vital Signs 12/29/19 05:06 Temp 36.1 Pulse 82 Resp 16 B/P (MAP) 131/62 (85) Pulse Ox 94 O2 Delivery Room Air 12/29/19 00:00 Intake Total 1000 ml Balance 1000 ml Constitutional: appears stated age, AAO x 3, well-developed, well-nourished Respiratory: chest is bilaterally symmetric, lungs clear to auscultation Cardiovascular: regular rate-rhythm Gastrointestional: soft, audible bowel sounds Extremities: other (dressing in place to right leg from toes to knee) Neurologic/Psychiatric: grossly intact (moves extremities) Skin: normal color; No rash on exposed areas, No ulcerations on exposed areas A/P: Assessment: Non-syncopal fall Right ankle fracture, post repair Hypertension Hyperlipidemia - statin tx Obstructive sleep apnea Echocardiogram of November 20, [address] Gaffney showed LVEF 55-65%. Grade 2 diastolic dysfunction. PASP 25-30mmHg. Mild MR and TR EKG done in November 2018 which showed normal sinus rhythm. MPI done on 08/31/2015 which was negative. Plan: Continue current regimen Adjust antihypertensives as indicated Repeat labs SELAM WAN MD FACP FAC CCDS Dec 29, 2019 14:52
[2019-12-29] MEDS: ENOXAPARIN 40 MG/0.4 ML (LOVENOX) SYR SC SCH (16:11)
[2019-12-29 17:36] VITALS: BP 130/60
[2019-12-30 05:14] VITALS: BP 124/61
--- NOTE | 2019-12-30 05:34 | PM&R Progress Note ---
Subjective HPI/CC On Admission Date Seen by Provider: Dec 30, 2019 Time Seen by Provider: 08:00 Subjective/Events-last exam 12/30/19: Labs are good Wants a lipid panel added to her labs Dr. Guerin evaluated her today in his clinic and xray was taken because she couldn't leave the hospital due to covid restrictions Overall she is doing very well 12/29/19: Monitor BP Check labs in am No med changes 12/28/19: Patient doing well Less tearful today Can't leave hospital due to COVID for ortho appt Labile emotions 12/27/19: Patient has difficulty with non-weight bearing Ortho communication with [facility] today BM+ Increased BP and Cards C/S Tearful and frightened about the next step in her care and if she can stay home 12/26/19: No major issues reported Pain is okay Ice pack on the right ankle maintained Bowels last moved yesterday morning Weight-bearing is difficult for her 12/25/19: Ice pack on right ankle is helping Incontinence is much improved Used her CPAP machine last night Bowels are moving well Pain is pretty well controlled Has an appointment on Monday with orthopedic surgeon to remove cast 12/24/19: Bowels moved yesterday Follow-up with Dr. Zuleta on 12/29 at 1 PM Dressing will be changed by the surgeon Overall complains about therapy not working with her but then complains she is too tired to participate in therapy 12/23/19: Bowels last moved yesterday Labs are okay Ankle ulcer before cast was placed so will monitor that when cast is removed Fall risk remains 12/22/19: Patient feels better Less pain meds take Got out of bed on her own last night and nurses counseled her CPAP used last night 12/21/19: Pain 5/10 CPAP at home but does not wear it here Refused O2 last night too BM today Splint will be in place on right ankle for [address] Zuleta Incontinent at night Checked meds and labs Conferred with RN Reviewed therapy notes Review of Systems General: Fatigue, Malaise Neurological: Weakness Objective Exam Vital Signs Vital Signs Date Time Temp Pulse Resp B/P (MAP) Pulse Ox O2 Delivery O2 Flow Rate FiO2 12/30/19 16:52 36.3 75 16 128/59 (82) 94 Room Air Capillary Refill : Less Than 3 SecondsLess Than 3 Seconds General Appearance: No Apparent Distress, WD/WN, Chronically ill HEENT: PERRL/EOMI, Normal ENT Inspection, Pharynx Normal Neck: Full Range of Motion, Normal Inspection, Non Tender, Supple, Carotid Bruit Respiratory: Chest Non Tender, Lungs Clear, Normal Breath Sounds, No Accessory Muscle Use, No Respiratory Distress Cardiovascular: Regular Rate, Rhythm, No Edema, No Gallop, No JVD, No Murmur, Normal Peripheral Pulses Gastrointestinal: Normal Bowel Sounds, No Organomegaly, No Pulsatile Mass, Non Tender, Soft Rectal: Deferred Back: Normal Inspection, No CVA Tenderness, No Vertebral Tenderness Extremity: Normal Capillary Refill, Normal Inspection, Normal Range of Motion, Non Tender, No Calf Tenderness, No Pedal Edema, Other (right ankle cast in place) Neurologic/Psychiatric: Alert, Oriented x3, No Motor/Sensory Deficits, Normal Mood/Affect, [employer] II-XII Norm as Tested, Abnormal Gait (non-weight bearing) Skin: Normal Color, Warm/Dry Lymphatic: No Adenopathy Results/Procedures Lab Laboratory Tests 12/30/19 05:30 Patient resulted labs reviewed. FIM Transfers Therapy Code Descriptions/Definitions Functional [place] Measure: 0=Not Assessed/NA 4=Minimal Assistance 1=Total Assistance 5=Supervision or Setup 2=Maximal Assistance 6=Modified [place] 3=Moderate Assistance 7=Complete IndependenceSCALE: Activities may be completed with or without assistive devices. 7-Nqeoglkdhm-wteeyqd completes the activity by him/herself with no assistance from a helper. 5-Set-up or Clean-up Assistance-helper sets up or cleans up; patient completes activity. [place] assists only prior to or following the activity. 4-Supervision or Touching Assistance-helper provides verbal cues and/or touching/steadying and/or contact guard assistance as patient completes activity. Assistance may be provided throughout the activity or intermittently. 3-Partial/Moderate Assistance-helper does LESS THAN HALF the effort. [place] lifts, holds or supports trunk or limbs, but provides less than half the effort. 2-Substantial/Maximal Assistance-helper does MORE THAN HALF the effort. [place] lifts or holds trunk or limbs and provides more than half the effort. 9-Yczxnqreu-pxgdfw does ALL the effort. Patient does none of the effort to complete the activity. Or, the assistance of 2 or more helpers is required for the patient to complete the activity. If activity was not attempted, code reason: 7-Patient Refused. 9-Not Applicable-not attempted and the patient did not perform the activity before the current illness, exacerbation or injury. 10-Not Attempted due to Environmental Limitations-(lack of equipment, weather restraints, etc.). 88-Not Attempted due to Medical Conditions or Safety Concerns. Roll Left to Right (QC): 6 Sit to Lying (QC): 6 Sit to Stand (QC): 5 Chair/Lmh-sf-Gwqsq Xfer(QC): 4 Car Transfer (QC): 4 Gait Training Does the Patient Walk?: Yes Distance: 150'x2 Walk 10 feet (QC): 4 Walk 50 ft with 2 Turns(QC): 88 Walk 150 ft (QC): 88 Walking 10ft/uneven surface-QC: 88 Gait Persons Needed: 1 Gait Assistive Device: FWW Wheelchair Training Does the Pt Use a Wheelchair?: Yes Distance: 150'x2 Wheel 50 ft with 2 turns (QC): 4 Wheel 150 ft (QC): 4 Type of Wheelchair: Manual Stair Training 1 Step (curb) (QC): 88 4 Steps (QC): 88 12 Steps (QC): 88 Balance Picking up an Object (QC): 88 ADL-Treatment Eating (QC): 6 Oral Hygiene (QC): 6 Shower/Bathe Self (QC): 5 (s/u prior to shower (RLE wrapped)) Upper Body Dressing (QC): 5 Lower Body Dressing (QC): 4 (SBA) On/Off Footwear (QC): 6 (IND sock LLE) Toileting Hygiene (QC): 4 (SUP) Toilet Transfer (QC): 4 (SBA with use of walker and gbs) Assessment/Plan Assessment and Plan Assess & Plan/Chief Complaint Assessment: Left ankle fracture STEVEN non-compliant with CPAP Former smoker COPD HTN CAD Plan: Monitor pain IRF protocol IS DVT PPx 12/22/19: Pain control BM regimen Monitor for falls BP management 12/23/19: Continue bowel regimen Continue pain medication Monitor ankle ulcer once cast is removed Labs are stable 12/24/19: Continue bowel regimen Pain control Has an appointment on 12/30/19 for dressing change of right ankle 12/25/19: Monitor pain BM regimen Continue aggressive therapy 12/26/19: Pain management Non-weight bearing 12/27/19: Ortho communication Can't leave due to COVID but remains non-weight bearing whether or not she can see ortho per Dr Zuleta May need nursing facility 12/28/19: Labile emotions common and frequent Pain control Lovenox 12/29/19: Pain control Lovenox Check labs in am 12/30/19: Appreciate Dr. Guerin evaluation Monitor pain Add Lipid panel to am labs (1) Bimalleolar fracture of right ankle Status: Acute Assessment & Plan: PT IN CAST STATUS POST SURGICAL FIXATION NON-WEIGHT BEARING PT USING WALKER TO HOP I HAVE DISCUSSED WITH PT AND COLOR STRAINING BAG WASHER WELL WITH DR. 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 THEY ARE IN AGREEMENT AND WILL WORK TOWARD THE PLAN OF JOSE LIVING WITH FAMILY UNTIL SHE IS WEIGHT BEARING ON THAT LEG/FOOT. Qualifiers: Encounter type: initial encounter Fracture type: closed Qualified Codes: S82.841A - Displaced bimalleolar fracture of right lower leg, initial encounter for closed fracture (2) Hypertension Qualifiers: Hypertension type: essential hypertension Qualified Codes: I10 - Essential (primary) hypertension (3) Hyperlipidemia Assessment & Plan: CONTINUE HOME REGIMEN - ATORVASTATIN Qualifiers: Hyperlipidemia type: mixed hyperlipidemia Qualified Codes: E78.2 - Mixed hyperlipidemia (4) Ankle fracture Qualifiers: Encounter type: initial encounter Fracture type: closed Laterality: rig ht Qualified Codes: S82.891A - Other fracture of right lower leg, initial enc ounter for closed fracture RADHA NEWMAN DO Dec 30, 2019 05:34
[2019-12-30 05:41] LABS: BASOPHILS % (AUTO) 0 % (0-10); EOSINOPHILS # (AUTO) 0.1 10^3/uL (0.0-0.3); EOSINOPHILS % (AUTO) 2 % (0-10); HEMATOCRIT 36 % (35-52); HEMOGLOBIN 12.1 G/DL (11.5-16.0); LYMPHOCYTES # (AUTO) 1.6 X 10^3 (1.0-4.0); LYMPHOCYTES % (AUTO) 26 % (12-44); MEAN CORPUSCULAR HEMOGLOBIN 34 PG (25-34); MEAN CORPUSCULAR HGB CONC 33 G/DL (32-36); MEAN CORPUSCULAR VOLUME 102 FL (80-99); MEAN PLATELET VOLUME 10.4 FL (7.4-10.4); MONOCYTES # (AUTO) 0.6 X 10^3 (0.0-1.0); MONOCYTES % (AUTO) 10 % (0-12); NEUTROPHILS # (AUTO) 4.1 X 10^3 (1.8-7.8); NEUTROPHILS % (AUTO) 63 % (42-75); PLATELET COUNT 193 10^3/uL (130-400); RED CELL DISTRIBUTION WIDTH 13.6 % (10.0-14.5); WHITE BLOOD COUNT 6.4 10^3/uL (4.3-11.0)
[2019-12-30 06:08] LABS: BUN/CREATININE RATIO 21; CARBON DIOXIDE 23 MMOL/L (21-32); CHLORIDE 107 MMOL/L (98-107); CREATININE SERUM 0.72 MG/DL (0.60-1.30); GFR ESTIMATED > 60; GLUCOSE 95 MG/DL (70-105); MAGNESIUM 1.9 MG/DL (1.6-2.4); POTASSIUM 4.2 MMOL/L (3.6-5.0); SODIUM 140 MMOL/L (135-145)
[2019-12-30] MEDS: HYDROcodone/APAP 5 MG/325 MG (LORTAB) TAB PO PRN ×2 (06:11→18:11)
[2019-12-30] MEDS: MULTIVIT W/MINERALS TAB (THERAGRAN M) PO SCH (06:11)
[2019-12-30 08:55] LABS: CHOLESTEROL 148 MG/DL (< 200); HDL CHOLESTEROL 45 MG/DL (40-60); TRIGLYCERIDES 77 MG/DL (<150); VLDL CHOLESTEROL 15 MG/DL (5-40)
[2019-12-30] MEDS: DULoxetine 30 MG (CYMBALTA) CAP PO SCH ×2 (09:21→20:21)
[2019-12-30] MEDS: GABAPENTIN 300 MG (NEURONTIN) CAP PO SCH ×3 (09:21→20:21)
[2019-12-30] MEDS: MELOXICAM 7.5 MG (MOBIC) TABLET PO SCH (09:21)
[2019-12-30] MEDS: ASPIRIN 81 MG CHEW (CHILDREN'S ASA) PO SCH ×2 (09:21→18:11)
[2019-12-30] MEDS: MONTELUKAST 10 MG (SINGULAIR) TAB PO SCH (09:21)
[2019-12-30] MEDS: VITAMIN D3 25 MCG (1,000 UNITS) TABLET PO SCH (09:21)
[2019-12-30] MEDS: lisINopril 20 MG (PRINIVIL) TABLET PO SCH (09:21)
[2019-12-30 09:22] VITALS: BP 126/91
[2019-12-30] MEDS: SENNA W/DOCUSATE (SENOKOT S) TABLET PO SCH ×2 (09:22→20:21)
[2019-12-30] MEDS: DOCUSATE SODIUM 100 MG (COLACE) CAP PO SCH ×2 (09:22→20:21)
--- NOTE | 2019-12-30 09:46 | Occupational Ther Daily Note ---
OT Current Status-Daily Note Subjective Pt seen in bed this am. Hesitantly agreeable to OT tx session, Pt states 5/10 pain in RLE. Pt has already had pain pill this am, requests an additional one. Pt seen in recliner, hard cast on RLE at this time with maintenance of NWB status to RLE. Pt agrees to OT, states min pain. Mental Status/Objective Patient Orientation: Person, Place, Situation ADL-Treatment Therapy Code Descriptions/Definitions Functional [place] Measure: 0=Not Assessed/NA 4=Minimal Assistance 1=Total Assistance 5=Supervision or Setup 2=Maximal Assistance 6=Modified [place] 3=Moderate Assistance 7=Complete IndependenceSCALE: Activities may be completed with or without assistive devices. 7-Ldknwhvcow-xqyhsde completes the activity by him/herself with no assistance from a helper. 5-Set-up or Clean-up Assistance-helper sets up or cleans up; patient completes activity. [place] assists only prior to or following the activity. 4-Supervision or Touching Assistance-helper provides verbal cues and/or touching/steadying and/or contact guard assistance as patient completes activity. Assistance may be provided throughout the activity or intermittently. 3-Partial/Moderate Assistance-helper does LESS THAN HALF the effort. [place] lifts, holds or supports trunk or limbs, but provides less than half the effort. 2-Substantial/Maximal Assistance-helper does MORE THAN HALF the effort. [place] lifts or holds trunk or limbs and provides more than half the effort. 4-Xsmbyubrz-kqiqzq does ALL the effort. Patient does none of the effort to complete the activity. Or, the assistance of 2 or more helpers is required for the patient to complete the activity. If activity was not attempted, code reason: 7-Patient Refused. 9-Not Applicable-not attempted and the patient did not perform the activity before the current illness, exacerbation or injury. 10-Not Attempted due to Environmental Limitations-(lack of equipment, weather restraints, etc.). 88-Not Attempted due to Medical Conditions or Safety Concerns. Eating (QC): 6 Oral Hygiene (QC): 6 (completes IND with w/c. ) Shower/Bathe Self (QC): 4 (SBA sponge bath in front of sink, cues for LE WB status ) Upper Body Dressing (QC): 6 (IND) Lower Body Dressing (QC): 4 (SBA and cues for WB, pt able to maintain during ambulation, min cues for static stance and maintaining/ shifting balance min cues. ) On/Off Footwear: 6 Toileting Hygiene (QC): 4 Toilet Transfer (QC): 4 Other Treatment Pt seen in bed. Due to pain and uncertainty of ortho appt, pt hesitant to therapy. Pt agrees to sponge bath and changing clothes. Pt completes bed mob with SBA and ambulates to sink with new "momentum" use of RLE for LLE hopping. Pt able to maintain WB to RLE until sink with multiple rest breaks. Pt in stance at sink and completes sponge bath/ UB dressing with minimal cues for leaning on sink/ wall rather than use of TTWB for balance. Pt able to complete for ~2 min and requires added cues, pt unable to maintain this position and requires to sit in w/c to complete. During stands, pt able to continue sit to stands on LLE and maintain NWB on RLE. Pt pushes self to gym in w/c, completes 10 min arm bike ex with mod resistance for increased functional activity tolerance with no rest breaks. Pt returns to room, able to ambulate ~15 feet with rest break with ability to follow NWB status. Pt requires cues to maintain walker in front of pt during pivot to chair. Pt states pt's granddaughter will check on her daily at home. Pt in chair, all needs met, call light in reach. Pt sit to stand with SBA, cues for RLE placement. Pt ambulates ~5 feet and states SOB. 02 assessed with 96%. Pt wheels to kitchen area, completes kitchen mob iwth SBA and demonstration of walker placement during these tasks. Pt completes mobility with safety, though during microwave task pt stands with BLE on floor. Pt educated on TTWB vs NWB as pt states no weight is going through foot. Pt educated on placing belly on counter to assist in balance. Pt completes with increased difficulty but with SBA. Pt sits in w/c and wheels to gym., compl eting picking items up from floor at w/c level with SBA and cues for safety in stance- pt educated that it is unsafe at this time to attempt to pick items from floor in stance position due to NWB on RLE. Pt agrees, returns to room. PT in room end of session. Education OT Patient Education: Correct positioning, Energy conservation, Exercise program, Home exercise program, Modified ADL techniques, Progress toward Goal/Update tx plan, Purpose of tx/functional activities, Reviewed precautions, Safety issues, Transfer techniques, W/C management Teaching Recipient: Patient Teaching Methods: Demonstration, Discussion Response to Teaching: Verbalize Understanding, Return Demonstration, Reinforcement Needed OT Fdc Goals Fdc Goals Time Frame: Jan 03, 2020 Eating (QC): 6 Oral Hygiene (QC): 6 Toileting Hygiene (QC): 6 Shower/Bathe Self (QC): 6 Upper Body Dressing (QC): 6 Lower Body Dressing (QC): 6 On/Off Footwear (QC): 6 Additional Goals: 1-Demonstrate ADL Tasks, 2-Verbalize Understanding, 3- ImproveStrength/Anthony 1=Demonstrate adherence to instructed precautions during ADL tasks. 2=Patient will verbalize/demonstrate understanding of assistive devices/modifications for ADL. 3=Patient will improve strength/tolerance for activity to enable patient to perform ADL's. OT Education/Plan Problem List/Assessment Assessment: Decreased Activ Tolerance, Decreased UE Strength, Dependent Transfers, Impaired Funct Balance, Impaired I ADL's, Impaired Self-Care Skills Discharge Recommendations Plan/Recommendations: Continue POC Therapy Discharge Recommendati: Home & Family Treatment Plan/Plan of Care Treatment,Training & Education: Yes Patient would benefit from OT for education, treatment and training to promote independence in ADL's, mobility, safety and/or upper extremity function for ADL's. Plan of Care: ADL Retraining, Caregiver Training, Functional Mobility, Group Exercise/Act as Ind, UE Funct Exercise/Act, W/C Management Training Treatment Duration: Jan 03, 2020 Frequency: At least 5 of 7 days/Wk (IRF) Estimated Hrs Per Day: 1.5 hours per day Agreement: Yes Rehab Potential: Fair Time/GCodes Start Time: 08:00 (1300) Stop Time: 09:00 (1330) Total Time Billed (hr/min): 90 Billed Treatment Time 1, ADL 3, EX (60) 1, EX, FA (30) Total: 90 DEREK SHIPMAN OTR Dec 30, 2019 09:46
--- NOTE | 2019-12-30 10:21 | Diagnostic Imaging Report ---
INDICATION: Postop right ankle. TIME OF EXAM: 10:17 AM. TECHNIQUE: Three views of the right ankle were obtained. FINDINGS: There has been placement of a lateral plate and numerous screws transfixing the distal fibular fracture. There is also a fully threaded syndesmotic screw. The hardware is intact without fracture or loosening. The alignment is now anatomic. The ankle mortise is maintained. The talar dome is smooth. Tiny osseous densities adjacent to the tip of the medial malleolus are again noted and may represent prior avulsions. IMPRESSION: ORIF of right ankle fracture. Alignment is anatomic. Dictated by: Dictated on workstation # [id number]
--- NOTE | 2019-12-30 10:47 | Consultation - Ortho ---
Consult - Ortho Subjective Date of Exam 12/30/19 Chief Complaint 3 weeks postop open reduction internal fixation right ankle HPI/Events since last exam Mrs Tony Llamas is a 74-year-old white female who fell and sustained a fracture of her right ankle on 12/04. She was seen in the emergency room and then followed up with Dr. Amador. She was placed in a cam walker. She started developing more pain and they took the boot off and there was noted to be a wound over the medial aspect of her ankle. Her daughter called Billy and got her in with Dr. Zuleta. She was taken the operating room on 12/08 and underwent open reduction internal fixation of her right distal fibula, stabilization of the syndesmosis with a syndesmosis screw and repair of the deltoid medially. She was splinted and sent here to [facility] for rehabilitation. She was supposed to see Dr. Nichols today for removal of the splint and dressings and then casting after x-rays. Due to the COVID virus restrictions she is unable to go over to see Dr. Nichols and then come back to rehabilitation. She would have to be discharged. She's not ready for discharge. She still having difficulty ambulating nonweightbearing on the right. I was asked to see the patient to remove the splint, chains addressing, get x-rays and then cast. So she is now 21 days postop. She has not seen Dr. Nichols since discharge from the hospital. Medical, Surgical History Reviewed and no additions or changes Social History Reviewed and no additions or changes Family History Reviewed and no additions or changes Review of Systems Reviewed and no additions or changes Allergies: Coded Allergies: Penicillins (Verified Allergy, Unknown, 06/01/19) Home Meds Reported Medications Albuterol Sulfate (Ventolin Hfa) 18 Gm Hfa.aer.ad, 2 PUFF PO QID PRN for WHEEZING, EA 12/24/19 Fluticasone/Vilanterol (Breo Ellipta 200-25 Mcg INH) 1 Each Blst.w.dev, 1 PUFF PO DAILY, EA LAST FILLED 10-30-2019 #60/30 DAY SUPPLY 12/24/19 Turmeric/Turmeric Root Extract (Turmeric 450-50 mg Capsule) 1 Each Capsule, 1 EACH PO DAILY PRN for CONSTIPATION, CAP 12/24/19 Glucosamine/MSM/Chondroitin A (Glucosamine Chondroit MSM Tab) 1 Each Tablet, 1 EACH PO HS, TAB 12/24/19 Ubidecarenone (Co Q-10) 200 Mg Capsule, 200 MG PO HS, CAP 12/24/19 Montelukast Sodium (Montelukast Sodium) 10 Mg Tablet, 10 MG PO DAILY, TAB LAST FILLED 03-24-2020 #90/90 DAY SUPPLY 12/20/19 Duloxetine HCl (Duloxetine HCl) 30 Mg Capsule.dr, 30 MG PO HS, CAP 12/20/19 Hydrocodone/Acetaminophen (Hydrocodone-Acetamin 5-325 mg) 1 Each Tablet, 1 EACH PO Q4 -6 H PRN for PAIN-MODERATE (5-7), TAB 12/20/19 Meloxicam (Meloxicam) 15 Mg Tablet, 15 MG PO DAILY, TAB 12/20/19 Gabapentin (Neurontin) 300 Mg Capsule, 300 MG PO TID, CAP LAST FILLED 07-16-2019 #270/90 DAY SUPPLY 12/20/19 Duloxetine HCl (Duloxetine HCl) 60 Mg Capsule.dr, 60 MG PO DAILY, CAP 12/20/19 Diltiazem HCl (Diltiazem 24Hr ER) 240 Mg Cap.er.24h, 240 MG PO DAILY, CAP 12/20/19 Atorvastatin Calcium (Atorvastatin Calcium) 20 Mg Tablet, 20 MG PO DAILY, TAB 06/01/19 Lisinopril (Lisinopril) 20 Mg Tablet, 20 MG PO DAILY, TAB 06/01/19 Discontinued Reported Medications Turmeric Root Extract (Turmeric) 538 Mg Capsule, 538 MG PO DAILY, CAP 12/20/19 Glucos Sul 2Kcl/MSM/Chond/C/Mn (Glucosamine Chondroitin Cap) 1 Each Capsule, 1 EACH PO DAILY, CAP 12/20/19 Ubidecarenone (Co Q-10) 300 Mg Capsule, 300 MG PO DAILY, CAP 12/20/19 Objective Exam Constitutional: [] HEENT: [] Neck: [] Cardiovascular: [] Respiratory: [] Gastrointestinal: [] Genitourinary: [] Skin: [] Back/Spine: [] Extremities: [Right lower extremityher splint and dressings were removed. Her incisions look good. No redness or drainage. She stated she had a wound medially prior to surgery and this looks great without any skin changes or breakdown. She does have some calf tenderness with palpation but negative Homans. She has bruising in her foot down to her toes. She has normal sensation to the foot and toes with good cap refill and good pulses.] Neurologic: [] Psychiatric: [] Hematologic/lymphatic/immunologic: [] Vital Signs Vital Signs Date Time Temp Pulse Resp B/P (MAP) Pulse Ox O2 Delivery O2 Flow Rate FiO2 12/30/19 09:22 74 126/91 (103) 12/30/19 05:14 36.5 73 16 124/61 (82) 94 Room Air 12/29/19 20:43 Room Air 12/29/19 17:36 36.2 74 16 130/60 (83) 94 Room Air I & O 12/30/19 07:00 Intake Total 1280 ml Balance 1280 ml Lab Results Laboratory Tests 12/30/19 05:30: White Blood Count 6.4, Red Blood Count 3.58L, Hemoglobin 12.1, Hematocrit 36, Mean Corpuscular Volume 102H, Mean Corpuscular Hemoglobin 34, Mean Corpuscular Hemoglobin Concent 33, Red Cell Distribution Width 13.6, Platelet Count 193, Mean Platelet Volume 10.4, Neutrophils (%) (Auto) 63, Lymphocytes (%) (Auto) 26, Monocytes (%) (Auto) 10, Eosinophils (%) (Auto) 2, Basophils (%) (Auto) 0, Neutrophils # (Auto) 4.1, Lymphocytes # (Auto) 1.6, Monocytes # (Auto) 0.6, Eosinophils # (Auto) 0.1, Basophils # (Auto) 0.0, Sodium Level 140, Potassium Level 4.2, Chloride Level 107, Carbon Dioxide Level 23, Anion Gap 10, Blood Urea Nitrogen 15, Creatinine 0.72, Estimat Glomerular Filtration Rate > 60, BUN/Creatinine Ratio 21, Glucose Level 95, Calcium Level 9.0, Magnesium Level 1.9, Triglycerides Level 77, Cholesterol Level 148, LDL Cholesterol Direct 98, VLDL Cholesterol 15, HDL Cholesterol 45 Imaging X-rays were obtained out of splint which she has good alignment of the distal fibular fracture. The mortise is reduced and symmetrical. The syndesmosis is in good position with no widening in the syndesmosis screw is in good position. Assessment and Plan Assessment Doing well at 3 weeks postop Problem List No changes Plan Again a short-leg cast was applied. Continue nonweightbearing. Continue walker ambulation. Continue elevation as needed. I spoke with Dr. Zuleta but the wo unds as well as x-rays and he is wanting to continue with nonweightbearing after application the cast. He wants to see her back in follow-up in 3 weeks. Final Diagonsis Status post open reduction internal fixation right ankle Level of the visit: Level 3 CAMERON LOCK MD Dec 30, 2019 10:47
[2019-12-30] MEDS: CO Q10 200 MG PO SCH (11:56)
[2019-12-30] MEDS: TURMERIC CURCUMIN 500 MG PO PRN (11:56)
[2019-12-30] MEDS: [UNRECOGNIZED DRUG - OTHER] PO SCH (11:57)
[2019-12-30] MEDS: polyethylene glycoL POWDER 17 GM (MIRALAX) PACK PO SCH ×2 (11:58→20:22)
--- NOTE | 2019-12-30 13:18 | Physical Therapy Daily Note ---
PT Daily Note-Current Subjective agrees to PT. Reports she has a new cast and is to remain NWB. Mental Status Patient Orientation: Person, Place, Time, Situation Transfers SCALE: Activities may be completed with or without assistive devices. 3-Kpcjpdkbvm-xsigejs completes the activity by him/herself with no assistance from a helper. 5-Set-up or Clean-up Assistance-helper sets up or cleans up; patient completes activity. [place] assists only prior to or following the activity. 4-Supervision or Touching Assistance-helper provides verbal cues and/or touching/steadying and/or contact guard assistance as patient completes activity. Assistance may be provided throughout the activity or intermittently. 3-Partial/Moderate Assistance-helper does LESS THAN HALF the effort. [place] lifts, holds or supports trunk or limbs, but provides less than half the effort. 2-Substantial/Maximal Assistance-helper does MORE THAN HALF the effort. [place] lifts or holds trunk or limbs and provides more than half the effort. 7-Zdnqomgvj-cfwdrr does ALL the effort. Patient does none of the effort to complete the activity. Or, the assistance of 2 or more helpers is required for the patient to complete the activity. If activity was not attempted, code reason: 7-Patient Refused. 9-Not Applicable-not attempted and the patient did not perform the activity before the current illness, exacerbation or injury. 10-Not Attempted due to Environmental Limitations-(lack of equipment, weather restraints, etc.). 88-Not Attempted due to Medical Conditions or Safety Concerns. Sit to Stand (QC): 4 (CGA for safety with cues for sequencing and to maintain NWB status. ) Chair/Pxo-hs-Rutqc Xfer(QC): 4 (used fWW and NWB.) Multiple SPT performed throughout the treatment. Worked on transfer onto the knee scooter with cues and education on safe transfer technique. Weight Bearing Right Lower Extremity: Right Non Weight Bearing pt. instructed and was shown demo of heavy wt bearing on UEs during swing phase of left. pt. unable to replicate this Gait Training Gait with knee scooter with SB-CGA x 150 ft. Training and education on safety and use. Wheelchair Training Does the Pt Use a Wheelchair?: Yes Wheel 50 ft with 2 turns (QC): 6 Wheel 150 ft (QC): 6 Type of Wheelchair: Manual WC mobility training. Exercises Supine Ex: Ankle pumps, Pelvic tilt, Quad Set, Glut sets, Heel Slides, Short Arc Quads, Straight leg raise, Hip abd/add Supine Reps: 15 (Topromote LE strength for functional transfer. ) Seated Therapy Exercises: Long arc quads, Hip flexion Seated Reps: 15 Assessment Current Status: Good Progress Pt did well with maintaining NWB for stand pivot transfers. PT Short Term Goals Short Term Goals Time Frame: Dec 27, 2019 Roll Left & Right: 6 Sit to lyin Lying to sitting on side of be: 6 Sit to stand: 4 Chair/oip-an-puzhc transfer: 4 Walk 10 feet: 4 PT Retirement Goals Extension Worker Goals PT Retirement Goals Time Frame: Jan 10, 2020 Roll Left & Right (QC): 6 Sit to Lying (QC): 6 Lying-Sitting on Side/Bed(QC): 6 Sit to Stand (QC): 5 Chair/Yom-vj-Bwpdc Xfer(QC): 5 Toilet Transfer (QC): 5 Car Transfer (QC): 5 Does the Patient Walk: Yes Walk 10 feet (QC): 4 Walk 50ft with 2 Turns (QC): 4 Walk 150 ft (QC): 88 Walking 10ft on Uneven Surface: 4 1 Step (curb) (QC): 4 4 Steps (QC): 88 12 Steps (QC): 88 Picking up an Object (QC): 88 Wheel 50 feet with 2 turns (QC: 6 Wheel 150 feet: 6 PT Plan Problem List Problem List: Activity Tolerance, Functional Strength, Safety, Balance, Gait, Transfer, Bed Mobility Treatment/Plan Treatment Plan: Continue Plan of Care Treatment Plan: Bed Mobility, Education, Functional Activity Anthony, Functional Strength, Group Therapy, Gait, Safety, Therapeutic Exercise, Transfers Treatment Duration: Jan 10, 2020 Frequency: At least 5 of 7 days/Wk (IRF) Estimated Hrs Per Day: 1.5 hours per day Patient and/or Family Agrees t: Yes Safety Risks/Education Patient Education: Gait Training, Transfer Techniques Teaching Recipient: Patient Teaching Methods: Demonstration, Discussion Response to Teaching: Reinforcement Needed Time/GCodes Time In: 1045 Time Out: 1200 Total Billed Treatment Time: 75 Total Billed Treatment visit GT 30 EX 30 WC 15 FOZIA MCKEON PT Dec 30, 2019 13:18
--- NOTE | 2019-12-30 13:58 | Physical Therapy Daily Note ---
PT Daily Note-Current Subjective Agrees to PT. Reports she is tired this afternoon. Transfers SCALE: Activities may be completed with or without assistive devices. 0-Thtzaioivo-vwiicpj completes the activity by him/herself with no assistance from a helper. 5-Set-up or Clean-up Assistance-helper sets up or cleans up; patient completes activity. [place] assists only prior to or following the activity. 4-Supervision or Touching Assistance-helper provides verbal cues and/or touching/steadying and/or contact guard assistance as patient completes activity. Assistance may be provided throughout the activity or intermittently. 3-Partial/Moderate Assistance-helper does LESS THAN HALF the effort. [place] lifts, holds or supports trunk or limbs, but provides less than half the effort. 2-Substantial/Maximal Assistance-helper does MORE THAN HALF the effort. [place] lifts or holds trunk or limbs and provides more than half the effort. 0-Fdsjvqxpk-vtizyc does ALL the effort. Patient does none of the effort to complete the activity. Or, the assistance of 2 or more helpers is required for the patient to complete the activity. If activity was not attempted, code reason: 7-Patient Refused. 9-Not Applicable-not attempted and the patient did not perform the activity before the current illness, exacerbation or injury. 10-Not Attempted due to Environmental Limitations-(lack of equipment, weather restraints, etc.). 88-Not Attempted due to Medical Conditions or Safety Concerns. Weight Bearing Right Lower Extremity: Right Non Weight Bearing pt. instructed and was shown demo of heavy wt bearing on UEs during swing phase of left. pt. unable to replicate this Treatments Sit to stand 2 x 5 reps. Hopped 10 ft to toilet with FWW with CGA and skilled cues for NWB status. Toilet transfer with SBA. Toileted. Hopped 10 more ft to wc with CGA. SPT wc to bed with FWW with SBA. Sit to supine indep. In bed post treatment with needs met. Assessment Current Status: Good Progress PT Short Term Goals Short Term Goals Time Frame: Dec 27, 2019 Roll Left & Right: 6 Sit to lyin Lying to sitting on side of be: 6 Sit to stand: 4 Chair/upe-ua-qtwrs transfer: 4 Walk 10 feet: 4 PT Car Builder Goals Alf Goals PT Car Builder Goals Time Frame: Jan 10, 2020 Roll Left & Right (QC): 6 Sit to Lying (QC): 6 Lying-Sitting on Side/Bed(QC): 6 Sit to Stand (QC): 5 Chair/Oxs-qq-Pnddz Xfer(QC): 5 Toilet Transfer (QC): 5 Car Transfer (QC): 5 Does the Patient Walk: Yes Walk 10 feet (QC): 4 Walk 50ft with 2 Turns (QC): 4 Walk 150 ft (QC): 88 Walking 10ft on Uneven Surface: 4 1 Step (curb) (QC): 4 4 Steps (QC): 88 12 Steps (QC): 88 Picking up an Object (QC): 88 Wheel 50 feet with 2 turns (QC: 6 Wheel 150 feet: 6 PT Plan Problem List Problem List: Activity Tolerance, Functional Strength, Safety Treatment/Plan Treatment Plan: Continue Plan of Care Treatment Plan: Bed Mobility, Education, Functional Activity Anthony, Functional Strength, Group Therapy, Gait, Safety, Therapeutic Exercise, Transfers Treatment Duration: Jan 10, 2020 Frequency: At least 5 of 7 days/Wk (IRF) Estimated Hrs Per Day: 1.5 hours per day Patient and/or Family Agrees t: Yes Time/GCodes Time In: 1330 Time Out: 1354 Total Billed Treatment Time: 24 Total Billed Treatment visit FA 15 EX 9 FOZIA MCKEON PT Dec 30, 2019 13:58
[2019-12-30] MEDS: ENOXAPARIN 40 MG/0.4 ML (LOVENOX) SYR SC SCH (15:21)
--- NOTE | 2019-12-30 15:44 | NUR ---
"RD ASSESSMENT PMHx: HTN; hypercholesterolemia; PT INTERACTION: Pt was awake and very pleasant during nutrition assessment. Pt states she has been eating well since last assessment. Note avg PO intake >75% x4d, per chart review. Pt states some issues with constipation since last assessment. Note last BM was 12/27, and pt currently on bowel regimen of colace BID; senna BID; and miralax BID, per chart review. ABNORMAL NUTRITION-RELATED LAB VALUES Labs WNL at this time Est. kcal needs: 1275 kcal | 15 kcal/kg Est. Pro needs: 67 g Pro | 0.8 g Pro/kg PES STATEMENT: Given current PO intake, no nutrition diagnosis at this time (NO-1.1) INTERVENTION: Continue with current diet order of Regular diet. Will continue to follow and reassess as pt needs, intake, and status change. MONITOR/EVALUATE: PO Intake; Plan of Care; Hydration Status; Weight Status; Lab Values Natali Quigley, MS, RD, LD"
--- NOTE | 2019-12-30 16:02 | NUR ---
CM/SS CONCURRENT DOCUMENTATION Patient to Dr. Guerin office for coordinated post op assessment, x-ray, staple removal, application of short leg fiberglass cast. Patient very pleased to move into this next phase of her recuperation. She, per staff of Dr. Zuleta, is to remain strict NWB. Cvt Rn had followup conversation with patient this a.m. regarding the post hospital plan with her family. Patient stated she would just need to go into [facility] upon discharge under skilled status until more recuperated to be able to return home. Call from patient's daughter, Pooja, who is a hospice music therapist in [place]. She intends to come see patient this Monday. Pooja is very please that patient's plan is for short term SNF, she inferred patient is strong-willed about maintaining her independence and sometimes doesn't consider all the factors. Patient's NWB period would be very difficult to manage alone in her apartment and it doesn't seem she has family that can incorporate her into their daily life and routines. While patient appears a perfect candidate for assisted living, she does not agree to commit to the out of pocket expense at this time. Approached [facility] about their one month free Assisted Living promotion, Liaison stated patient would not be eligible for [facility] due to NWB status. Follow patient and family request for post hospital discharge plan.
[2019-12-30 16:52] VITALS: BP 128/59
--- NOTE | 2019-12-31 03:50 | NUR ---
ACCIDENT IN BED. PATIENT ABLE TO PERFORM OWN DUANE CARE AND MANEUVER CLOTHING, INCLUDING DEPENDS. TO BR SBA, GAIT BELT,FWW. PATIENT FOLLOWS PRECAUTIONS >75% O F TIME WITH LITTLE CUING NEEDED FROM THIS STAFF. PATIENT VERBALIZED SHE UNDERSTANDS HOW IMPORTANT IT IS TO MAINTAIN PRECAUTIONS. PATIENT IS PLEASANT AND ORIENTED. DENIES PAIN OR C/O AT THIS TIME.
[2019-12-31 05:49] VITALS: BP 128/58
[2019-12-31] MEDS: MULTIVIT W/MINERALS TAB (THERAGRAN M) PO SCH (06:35)
[2019-12-31 08:00] VITALS: BP 112/58
--- NOTE | 2019-12-31 08:43 | PM&R Progress Note ---
Subjective HPI/CC On Admission Date Seen by Provider: Dec 31, 2019 Time Seen by Provider: 08:00 Subjective/Events-last exam 12/31/19: Pt doing pretty well today Jad-hpikbu-kmntdrw status is difficult for her Bowels are moving Didnt have a good night last night Uses her CPAP machine most of the nights that she has been hospitalized Bowels are moving 12/30/19: Labs are good Wants a lipid panel added to her labs Dr. Guerin evaluated her today in his clinic and xray was taken because she couldn't leave the hospital due to covid restrictions Overall she is doing very well 12/29/19: Monitor BP Check labs in am No med changes 12/28/19: Patient doing well Less tearful today Can't leave hospital due to COVID for ortho appt Labile emotions 12/27/19: Patient has difficulty with non-weight bearing Ortho communication with Cervantes today BM+ Increased BP and Cards C/S Tearful and frightened about the next step in her care and if she can stay home 12/26/19: No major issues reported Pain is okay Ice pack on the right ankle maintained Bowels last moved yesterday morning Weight-bearing is difficult for her 12/25/19: Ice pack on right ankle is helping Incontinence is much improved Used her CPAP machine last night Bowels are moving well Pain is pretty well controlled Has an appointment on Monday with orthopedic surgeon to remove cast 12/24/19: Bowels moved yesterday Follow-up with Dr. Zuleta on 12/29 at 1 PM Dressing will be changed by the surgeon Overall complains about therapy not working with her but then complains she is too tired to participate in therapy 12/23/19: Bowels last moved yesterday Labs are okay Ankle ulcer before cast was placed so will monitor that when cast is removed Fall risk remains 12/22/19: Patient feels better Less pain meds take Got out of bed on her own last night and nurses counseled her CPAP used last night 12/21/19: Pain 5/10 CPAP at home but does not wear it here Refused O2 last night too BM today Splint will be in place on right ankle for [address] Zuleta Incontinent at night Checked meds and labs Conferred with RN Reviewed therapy notes Review of Systems General: Fatigue, Malaise Neurological: Weakness Objective Exam Vital Signs Vital Signs Date Time Temp Pulse Resp B/P (MAP) Pulse Ox O2 Delivery O2 Flow Rate FiO2 12/31/19 16:30 36.4 78 16 136/72 (93) 93 Room Air Capillary Refill : Less Than 3 SecondsLess Than 3 Seconds General Appearance: No Apparent Distress, WD/WN, Chronically ill HEENT: PERRL/EOMI, Normal ENT Inspection, Pharynx Normal Neck: Full Range of Motion, Normal Inspection, Non Tender, Supple, Carotid Bruit Respiratory: Chest Non Tender, Lungs Clear, Normal Breath Sounds, No Accessory Muscle Use, No Respiratory Distress Cardiovascular: Regular Rate, Rhythm, No Edema, No Gallop, No JVD, No Murmur, Normal Peripheral Pulses Gastrointestinal: Normal Bowel Sounds, No Organomegaly, No Pulsatile Mass, Non Tender, Soft Rectal: Deferred Back: Normal Inspection, No CVA Tenderness, No Vertebral Tenderness Extremity: Normal Capillary Refill, Normal Inspection, Normal Range of Motion, Non Tender, No Calf Tenderness, No Pedal Edema, Other (right ankle cast in place) Neurologic/Psychiatric: Alert, Oriented x3, No Motor/Sensory Deficits, Normal Mood/Affect, doctorate of chiropractic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 FIM Transfers Therapy Code Descriptions/Definitions Functional [place] Measure: 0=Not Assessed/NA 4=Minimal Assistance 1=Total Assistance 5=Supervision or Setup 2=Maximal Assistance 6=Modified [place] 3=Moderate Assistance 7=Complete IndependenceSCALE: Activities may be completed with or without assistive devices. 3-Hctnjkhrzl-lmrnmvf completes the activity by him/herself with no assistance from a helper. 5-Set-up or Clean-up Assistance-helper sets up or cleans up; patient completes activity. [place] assists only prior to or following the activity. 4-Supervision or Touching Assistance-helper provides verbal cues and/or touching/steadying and/or contact guard assistance as patient completes activity. Assistance may be provided throughout the activity or intermittently. 3-Partial/Moderate Assistance-helper does LESS THAN HALF the effort. [place] lifts, holds or supports trunk or limbs, but provides less than half the effort. 2-Substantial/Maximal Assistance-helper does MORE THAN HALF the effort. [place] lifts or holds trunk or limbs and provides more than half the effort. 9-Tvsodtqte-gbhuye does ALL the effort. Patient does none of the effort to complete the activity. Or, the assistance of 2 or more helpers is required for the patient to complete the activity. If activity was not attempted, code reason: 7-Patient Refused. 9-Not Applicable-not attempted and the patient did not perform the activity before the current illness, exacerbation or injury. 10-Not Attempted due to Environmental Limitations-(lack of equipment, weather restraints, etc.). 88-Not Attempted due to Medical Conditions or Safety Concerns. Roll Left to Right (QC): 6 Sit to Lying (QC): 6 Sit to Stand (QC): 4 (CGA for safety with cues for sequencing and to maintain NWB status. ) Chair/Zof-hz-Okjot Xfer(QC): 4 (used fWW and NWB.) Car Transfer (QC): 4 Gait Training Does the Patient Walk?: Yes Distance: 150'x2 Walk 10 feet (QC): 4 Walk 50 ft with 2 Turns(QC): 88 Walk 150 ft (QC): 88 Walking 10ft/uneven surface-QC: 88 Gait Persons Needed: 1 Gait Assistive Device: FWW Wheelchair Training Does the Pt Use a Wheelchair?: Yes Distance: 150'x2 Wheel 50 ft with 2 turns (QC): 6 Wheel 150 ft (QC): 6 Type of Wheelchair: Manual Stair Training 1 Step (curb) (QC): 88 4 Steps (QC): 88 12 Steps (QC): 88 Balance Picking up an Object (QC): 88 ADL-Treatment Eating (QC): 6 Oral Hygiene (QC): 6 (completes IND with w/c. ) Shower/Bathe Self (QC): 4 (SBA sponge bath in front of sink, cues for LE WB status ) Upper Body Dressing (QC): 6 (IND) Lower Body Dressing (QC): 4 (SBA and cues for WB, pt able to maintain during ambulation, min cues for static stance and maintaining/ shifting balance min cues. ) On/Off Footwear (QC): 6 Toileting Hygiene (QC): 4 Toilet Transfer (QC): 4 Assessment/Plan Assessment and Plan Assess & Plan/Chief Complaint Assessment: Left ankle fracture STEVEN non-compliant with CPAP Former smoker COPD HTN CAD Plan: Monitor pain IRF protocol IS DVT PPx 12/22/19: Pain control BM regimen Monitor for falls BP management 12/23/19: Continue bowel regimen Continue pain medication Monitor ankle ulcer once cast is removed Labs are stable 12/24/19: Continue bowel regimen Pain control Has an appointment on 12/30/19 for dressing change of right ankle 12/25/19: Monitor pain BM regimen Continue aggressive therapy 12/26/19: Pain management Non-weight bearing 12/27/19: Ortho communication Can't leave due to COVID but remains non-weight bearing whether or not she can see ortho per Dr Zuleta May need nursing facility 12/28/19: Labile emotions common and frequent Pain control Lovenox 12/29/19: Pain control Lovenox Check labs in am 12/30/19: Appreciate Dr. Guerin evaluation Monitor pain Add Lipid panel to am labs 12/31/19: Continue bowel regimen Pain control Non weight bearing (1) Bimalleolar fracture of right ankle Status: Acute Assessment & Plan: PT IN CAST STATUS POST SURGICAL FIXATION NON-WEIGHT BEARING PT USING WALKER TO HOP I HAVE DISCUSSED WITH PT AND SENIOR ESCROW OFFICER WELL WITH DR. 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 THEY ARE IN AGREEMENT AND WILL WORK TOWARD THE PLAN OF JOSE LIVING WITH FAMILY UNTIL SHE IS WEIGHT BEARING ON THAT LEG/FOOT. Qualifiers: Encounter type: initial encounter Fracture type: closed Qualified Codes: S82.841A - Displaced bimalleolar fracture of right lower leg, initial encounter for closed fracture (2) Hypertension Qualifiers: Hypertension type: essential hypertension Qualified Codes: I10 - Essential (primary) hypertension (3) Hyperlipidemia Assessment & Plan: CONTINUE HOME REGIMEN - ATORVASTATIN Qualifiers: Hyperlipidemia type: mixed hyperlipidemia Qualified Codes: E78.2 - Mixed hyperlipidemia (4) Ankle fracture Qualifiers: Encounter type: initial encounter Fracture type: closed Laterality: right Qualified Codes: S82.891A - Other fracture of right lower leg, initial encounter for closed fracture RADHA NEWMAN DO Dec 31, 2019 08:43
[2019-12-31] MEDS: HYDROcodone/APAP 5 MG/325 MG (LORTAB) TAB PO PRN ×2 (09:06→23:52)
--- NOTE | 2019-12-31 09:40 | Occupational Ther Daily Note ---
OT Current Status-Daily Note Subjective Pt seen in bed. Pt sleeping, wakes with verbal/ tactile cues to shoulder. Pt states did not get to sleep until 2am due to drinking tea in afternoon/ evening. Pt agrees to OT, originally denies pain. Later during ther ex pt states increased pain in RLE. Nursing notified and pain meds administered. Mental Status/Objective Patient Orientation: Person, Place, Situation ADL-Treatment Therapy Code Descriptions/Definitions Functional [place] Measure: 0=Not Assessed/NA 4=Minimal Assistance 1=Total Assistance 5=Supervision or Setup 2=Maximal Assistance 6=Modified [place] 3=Moderate Assistance 7=Complete IndependenceSCALE: Activities may be completed with or without assistive devices. 6-Xrdldhbpya-uwshgsj completes the activity by him/herself with no assistance from a helper. 5-Set-up or Clean-up Assistance-helper sets up or cleans up; patient completes activity. [place] assists only prior to or following the activity. 4-Supervision or Touching Assistance-helper provides verbal cues and/or touching/steadying and/or contact guard assistance as patient completes activity. Assistance may be provided throughout the activity or intermittently. 3-Partial/Moderate Assistance-helper does LESS THAN HALF the effort. [place] lifts, holds or supports trunk or limbs, but provides less than half the effort. 2-Substantial/Maximal Assistance-helper does MORE THAN HALF the effort. [place] lifts or holds trunk or limbs and provides more than half the effort. 9-Ztftlrfif-aqynuy does ALL the effort. Patient does none of the effort to complete the activity. Or, the assistance of 2 or more helpers is required for the patient to complete the activity. If activity was not attempted, code reason: 7-Patient Refused. 9-Not Applicable-not attempted and the patient did not perform the activity before the current illness, exacerbation or injury. 10-Not Attempted due to Environmental Limitations-(lack of equipment, weather restraints, etc.). 88-Not Attempted due to Medical Conditions or Safety Concerns. Eating (QC): 6 Oral Hygiene (QC): 6 (IND in w/c at sink level) Shower/Bathe Self (QC): 7 (denies this date.) Upper Body Dressing (QC): 6 (gathers and dons EOB) Lower Body Dressing (QC): 4 (SBA, EOB and in stance. Pt requires cues in stance during NWB.) On/Off Footwear: 6 (IND EOB) Other Treatment Pt completes bed mob with SUP. Sits EOB for completing dressing tasks. Pt sit to stand with walker and cues to place RLE outward/ NWB. Pt able to hop to sink (~20 feet) with one rest break. Pt states sore/ refers to latissumus dorsi region. Pt educated on continuation of fx activity tolerance for higher fx IND during mobility tasks with walker. Pt stands at sink to complete oral hygiene, completing with NWB. Sits to rest for hair grooming. With cues, pt able to sit to stand and gather coffee with NWB maintenance to RLE, no LOB with SBA. Pt sits in w/c and pushes self to gym with min cues. Pt completes 10 min arm bike ex for higher fx activity tolerance. Pt completes 10 reps of bottom raises with use of UE's on bilateral arm rests of w/c. Pt able to complete 10 without rest break, then states, "I just can't do it," pt educated on abilities and higher fx IND/ learning the past couple days. Pt states she is just feeling, "more depressed, and 'blah'" and hangs head to side. Nursing notified of statement. Pt states she it may be due to fatigue/ lack of sleep. Pt states pain in RLE, pt's RLE elevated with leg rest and ice pack applied to toes. Pt's nurse notified of pain and medications administered. Pt pushed to outdoor space and completes 10 reps of 4/4 exercises with UE theraband with min cues. Pt educated on abilities and the NWB status being the main issue needing to work on. Pt agrees, pushed back to room, all needs met, call light in reach. Pt in chair upon leaving. Education OT Patient Education: Correct positioning, Exercise program, Home exercise program, Modified ADL techniques, Progress toward Goal/Update tx plan, Purpose of tx/functional activities, Reviewed precautions, Rehab process, Safety issues, Transfer techniques, W/C management Teaching Recipient: Patient Teaching Methods: Demonstration, Discussion Response to Teaching: Verbalize Understanding, Return Demonstration, Reinforcement Needed OT Hot Dip Galvanizer Goals Hot Dip Galvanizer Goals Time Frame: Jan 03, 2020 Eating (QC): 6 Oral Hygiene (QC): 6 Toileting Hygiene (QC): 6 Shower/Bathe Self (QC): 6 Upper Body Dressing (QC): 6 Lower Body Dressing (QC): 6 On/Off Footwear (QC): 6 Additional Goals: 1-Demonstrate ADL Tasks, 2-Verbalize Understanding, 3- ImproveStrength/Anthony 1=Demonstrate adherence to instructed precautions during ADL tasks. 2=Patient will verbalize/demonstrate understanding of assistive devices/modifications for ADL. 3=Patient will improve strength/tolerance for activity to enable patient to perform ADL's. OT Education/Plan Problem List/Assessment Assessment: Decreased Activ Tolerance, Decreased UE Strength, Dependent Transfers, Impaired Funct Balance, Impaired I ADL's, Impaired Self-Care Skills Discharge Recommendations Plan/Recommendations: Continue POC Therapy Discharge Recommendati: Intermittent Supervision, Home & Family Equpiment Recommendations-D/C: Art Department Head Treatment Plan/Plan of Care Treatment,Training & Education: Yes Patient would benefit from OT for education, treatment and training to promote independence in ADL's, mobility, safety and/or upper extremity function for AD L's. Plan of Care: ADL Retraining, Caregiver Training, Functional Mobility, Group Exercise/Act as Ind, UE Funct Exercise/Act, W/C Management Training Treatment Duration: Jan 03, 2020 Frequency: At least 5 of 7 days/Wk (IRF) Estimated Hrs Per Day: 1.5 hours per day Agreement: Yes Rehab Potential: Fair Time/GCodes Start Time: 08:00 Stop Time: 09:30 Total Time Billed (hr/min): 90 Billed Treatment Time 1, ADL 2 (30), EX 3 (45), FA (15)= 90 DEREK SHIPMAN OTR Dec 31, 2019 09:40
[2019-12-31] MEDS: GABAPENTIN 300 MG (NEURONTIN) CAP PO SCH ×3 (10:17→20:48)
[2019-12-31] MEDS: MONTELUKAST 10 MG (SINGULAIR) TAB PO SCH (10:17)
[2019-12-31] MEDS: DOCUSATE SODIUM 100 MG (COLACE) CAP PO SCH ×2 (10:17→20:48)
[2019-12-31] MEDS: VITAMIN D3 25 MCG (1,000 UNITS) TABLET PO SCH (10:17)
[2019-12-31] MEDS: DULoxetine 30 MG (CYMBALTA) CAP PO SCH ×2 (10:18→20:48)
[2019-12-31] MEDS: MELOXICAM 7.5 MG (MOBIC) TABLET PO SCH (10:18)
[2019-12-31] MEDS: lisINopril 20 MG (PRINIVIL) TABLET PO SCH (10:18)
[2019-12-31] MEDS: SENNA W/DOCUSATE (SENOKOT S) TABLET PO SCH ×2 (10:18→20:48)
[2019-12-31] MEDS: ASPIRIN 81 MG CHEW (CHILDREN'S ASA) PO SCH ×2 (10:19→17:33)
[2019-12-31] MEDS: polyethylene glycoL POWDER 17 GM (MIRALAX) PACK PO SCH ×2 (10:19→19:46)
[2019-12-31] MEDS: CO Q10 200 MG PO SCH (10:25)
[2019-12-31] MEDS: [UNRECOGNIZED DRUG - OTHER] PO SCH (10:26)
--- NOTE | 2019-12-31 11:58 | Physical Therapy Daily Note ---
PT Daily Note-Current Subjective Pt sitting in recliner upon arrival. Pt agrees to PT. Pt reports Dr wanting pt to go to Granddaughter's house but pt would like to go to [facility] instead of short time until ankle is healed. Pain Numeric Pain Scale: 6 Location: Right Location Body Site: Ankle Pain Description: Ache Mental Status Patient Orientation: Person, Place, Situation Transfers SCALE: Activities may be completed with or without assistive devices. 7-Nxuibazswk-tfdtlzf completes the activity by him/herself with no assistance from a helper. 5-Set-up or Clean-up Assistance-helper sets up or cleans up; patient completes activity. [place] assists only prior to or following the activity. 4-Supervision or Touching Assistance-helper provides verbal cues and/or touching/steadying and/or contact guard assistance as patient completes activity. Assistance may be provided throughout the activity or intermittently. 3-Partial/Moderate Assistance-helper does LESS THAN HALF the effort. [place] lifts, holds or supports trunk or limbs, but provides less than half the effort. 2-Substantial/Maximal Assistance-helper does MORE THAN HALF the effort. [place] lifts or holds trunk or limbs and provides more than half the effort. 5-Ujqzjvfyd-aisnfz does ALL the effort. Patient does none of the effort to complete the activity. Or, the assistance of 2 or more helpers is required for the patient to complete the activity. If activity was not attempted, code reason: 7-Patient Refused. 9-Not Applicable-not attempted and the patient did not perform the activity before the current illness, exacerbation or injury. 10-Not Attempted due to Environmental Limitations-(lack of equipment, weather restraints, etc.). 88-Not Attempted due to Medical Conditions or Safety Concerns. Sit to Stand (QC): 5 Chair/Kia-bq-Giewi Xfer(QC): 4 Weight Bearing Right Lower Extremity: Right Non Weight Bearing pt. instructed and was shown demo of heavy wt bearing on UEs during swing phase of left. pt. unable to replicate this Gait Training Does the Patient Walk?: Yes Distance: 150' x2 Walk 10 feet (QC): 4 Walk 50 ft with 2 Turns(QC): 4 Walk 150 ft (QC): 4 Gait Persons Needed: 1 Pt amb. using knee scooter. PATIENT SERVICE REP adjusts height of knee platform & handles. Pt continues to struggle with this due to reported Sciatic pain. Exercises Supine Ex: Ankle pumps, Quad Set, Heel Slides, Short Arc Quads, Straight leg raise, Hip abd/add Supine Reps: 20 Seated Therapy Exercises: Long arc quads, Hip flexion, Kicking activity Seated Reps: 20 Treatments Pt transfers to standing. Pt amb. in hallway using knee scooter. Pt completes Supine & Seated Ex (see above). Pt amb. in hallway and returns to room to rest at end of tx in recliner. Pt has all needs met, call light in hand. Assessment Current Status: Fair Progress Pt has difficulty following directions at times and needs redirection. PT Short Term Goals Short Term Goals Time Frame: Dec 27, 2019 Roll Left & Right: 6 Sit to lyin Lying to sitting on side of be: 6 Sit to stand: 4 Chair/fuc-vk-cjwrq transfer: 4 Walk 10 feet: 4 PT Intermediate Goals Stitch Cleaner Goals PT Intermediate Goals Time Frame: Jan 10, 2020 Roll Left & Right (QC): 6 Sit to Lying (QC): 6 Lying-Sitting on Side/Bed(QC): 6 Sit to Stand (QC): 5 Chair/Alq-ja-Zoopb Xfer(QC): 5 Toilet Transfer (QC): 5 Car Transfer (QC): 5 Does the Patient Walk: Yes Walk 10 feet (QC): 4 Walk 50ft with 2 Turns (QC): 4 Walk 150 ft (QC): 88 Walking 10ft on Uneven Surface: 4 1 Step (curb) (QC): 4 4 Steps (QC): 88 12 Steps (QC): 88 Picking up an Object (QC): 88 Wheel 50 feet with 2 turns (QC: 6 Wheel 150 feet: 6 PT Plan Problem List Problem List: Activity Tolerance, Functional Strength, Safety, Gait Treatment/Plan Treatment Plan: Continue Plan of Care Treatment Plan: Bed Mobility, Education, Functional Activity Anthony, Functional Strength, Group Therapy, Gait, Safety, Therapeutic Exercise, Transfers Treatment Duration: Jan 10, 2020 Frequency: At least 5 of 7 days/Wk (IRF) Estimated Hrs Per Day: 1.5 hours per day Patient and/or Family Agrees t: Yes Safety Risks/Education Patient Education: Gait Training, Correct Positioning, Safety Issues Teaching Recipient: Patient Teaching Methods: Discussion Response to Teaching: Verbalize Understanding, Reinforcement Needed Time/GCodes Time In: 1000 Time Out: 1100 Total Billed Treatment Time: 60 Total Billed Treatment 1, GT x2 (30m) & EX x2 (30m) SOILA BROWN PATIENT SERVICE REP Dec 31, 2019 11:58
--- NOTE | 2019-12-31 15:31 | Physical Therapy Daily Note ---
PT Daily Note-Current Subjective Pt sitting in recliner visiting with Granddaughter upon arrival. Pt agrees to PT. Pain Numeric Pain Scale: 3 Location: Right Location Body Site: Ankle Pain Description: Ache Mental Status Patient Orientation: Person, Place, Situation Transfers SCALE: Activities may be completed with or without assistive devices. 9-Ksxfbsxonk-ncbkzvh completes the activity by him/herself with no assistance from a helper. 5-Set-up or Clean-up Assistance-helper sets up or cleans up; patient completes activity. [place] assists only prior to or following the activity. 4-Supervision or Touching Assistance-helper provides verbal cues and/or touching /steadying and/or contact guard assistance as patient completes activity. Assistance may be provided throughout the activity or intermittently. 3-Partial/Moderate Assistance-helper does LESS THAN HALF the effort. [place] lifts, holds or supports trunk or limbs, but provides less than half the effort. 2-Substantial/Maximal Assistance-helper does MORE THAN HALF the effort. [place] lifts or holds trunk or limbs and provides more than half the effort. 3-Khnivfeik-izvfgq does ALL the effort. Patient does none of the effort to complete the activity. Or, the assistance of 2 or more helpers is required for the patient to complete the activity. If activity was not attempted, code reason: 7-Patient Refused. 9-Not Applicable-not attempted and the patient did not perform the activity before the current illness, exacerbation or injury. 10-Not Attempted due to Environmental Limitations-(lack of equipment, weather restraints, etc.). 88-Not Attempted due to Medical Conditions or Safety Concerns. Lying to Sitting/Side of Bed(Q: 5 Sit to Stand (QC): 4 Weight Bearing Right Lower Extremity: Right Non Weight Bearing pt. instructed and was shown demo of heavy wt bearing on UEs during swing phase of left. pt. unable to replicate this Treatments FINANCIAL ENGINEER stretched Piriformis & IT Band due to Sciatic pain. Pt also asked to speak with SW regarding possible DC to SNF and what that would look like. Pt education over what equipment should be used for mobility at this time ([facility] will be used if going to SNF). Pt resting in bed at end of tx with all needs met. Assessment Current Status: Fair Progress Pt has difficulty at times retaining pt education info. PT Short Term Goals Short Term Goals Time Frame: Dec 27, 2019 Roll Left & Right: 6 Sit to lyin Lying to sitting on side of be: 6 Sit to stand: 4 Chair/lzw-ji-lwefc transfer: 4 Walk 10 feet: 4 PT Director Of Application Development Goals [facility] Goals PT Director Of Application Development Goals Time Frame: Jan 10, 2020 Roll Left & Right (QC): 6 Sit to Lying (QC): 6 Lying-Sitting on Side/Bed(QC): 6 Sit to Stand (QC): 5 Chair/Vqg-yv-Mztwn Xfer(QC): 5 Toilet Transfer (QC): 5 Car Transfer (QC): 5 Does the Patient Walk: Yes Walk 10 feet (QC): 4 Walk 50ft with 2 Turns (QC): 4 Walk 150 ft (QC): 88 Walking 10ft on Uneven Surface: 4 1 Step (curb) (QC): 4 4 Steps (QC): 88 12 Steps (QC): 88 Picking up an Object (QC): 88 Wheel 50 feet with 2 turns (QC: 6 Wheel 150 feet: 6 PT Plan Problem List Problem List: Activity Tolerance, Functional Strength, Safety Treatment/Plan Treatment Plan: Continue Plan of Care Treatment Plan: Bed Mobility, Education, Functional Activity Anthony, Functional Strength, Group Therapy, Gait, Safety, Therapeutic Exercise, Transfers Treatment Duration: Jan 10, 2020 Frequency: At least 5 of 7 days/Wk (IRF) Estimated Hrs Per Day: 1.5 hours per day Patient and/or Family Agrees t: Yes Safety Risks/Education Patient Education: Correct Positioning, Safety Issues Teaching Recipient: Patient Teaching Methods: Discussion Response to Teaching: Verbalize Understanding, Reinforcement Needed Time/GCodes Time In: 1315 Time Out: 1345 Total Billed Treatment Time: 30 Total Billed Treatment 1, FA x2 (30m) SOILA BROWN FINANCIAL ENGINEER Dec 31, 2019 15:31
--- NOTE | 2019-12-31 16:22 | NUR ---
CM/SS DISCHARGE PLANNING Referral completed with Yas Garcia at patient request after discussion with her and granddaughter Rosalinda Quigley this a.m. All questions answered to their satisfaction about Medicare benefits and skilled care. Await [facility] confirmation of acceptance. CARE Assessment process continues suspended per [facility] [place] until mid-January.
[2019-12-31 16:30] VITALS: BP 136/72
[2019-12-31] MEDS: ENOXAPARIN 40 MG/0.4 ML (LOVENOX) SYR SC SCH (17:33)
[2020-01-01 06:04] VITALS: BP 128/60
[2020-01-01] MEDS: MULTIVIT W/MINERALS TAB (THERAGRAN M) PO SCH (06:30)
[2020-01-01] MEDS: HYDROcodone/APAP 5 MG/325 MG (LORTAB) TAB PO PRN ×2 (06:36→16:42)
--- NOTE | 2020-01-01 07:59 | NUR ---
Initial Spiritual Care visit by PRN Associate Binding Cutterdenisse Dahl.
[2020-01-01 08:00] VITALS: BP 119/59
[2020-01-01] MEDS: lisINopril 20 MG (PRINIVIL) TABLET PO SCH (08:39)
[2020-01-01] MEDS: VITAMIN D3 25 MCG (1,000 UNITS) TABLET PO SCH (08:39)
[2020-01-01] MEDS: SENNA W/DOCUSATE (SENOKOT S) TABLET PO SCH ×2 (08:40→19:36)
[2020-01-01] MEDS: DOCUSATE SODIUM 100 MG (COLACE) CAP PO SCH ×2 (08:40→19:36)
[2020-01-01] MEDS: GABAPENTIN 300 MG (NEURONTIN) CAP PO SCH ×3 (08:40→19:36)
[2020-01-01] MEDS: [UNRECOGNIZED DRUG - OTHER] PO SCH (08:40)
[2020-01-01] MEDS: ASPIRIN 81 MG CHEW (CHILDREN'S ASA) PO SCH ×2 (08:40→18:58)
[2020-01-01] MEDS: MONTELUKAST 10 MG (SINGULAIR) TAB PO SCH (08:40)
[2020-01-01] MEDS: DULoxetine 30 MG (CYMBALTA) CAP PO SCH ×2 (08:40→19:36)
[2020-01-01] MEDS: polyethylene glycoL POWDER 17 GM (MIRALAX) PACK PO SCH ×2 (08:41→18:49)
[2020-01-01] MEDS: CO Q10 200 MG PO SCH (08:41)
[2020-01-01] MEDS: MELOXICAM 7.5 MG (MOBIC) TABLET PO SCH (08:45)
--- NOTE | 2020-01-01 08:56 | PM&R Progress Note ---
Subjective HPI/CC On Admission Date Seen by Provider: Jan 01, 2020 Time Seen by Provider: 08:00 Subjective/Events-last exam 01/01/20: Patient doing well Pain controlled Daughter will be here to discuss DC plans but appears VC is the plan 12/31/19: Pt doing pretty well today Dkj-dmljsr-pgapyyb status is difficult for her Bowels are moving Didnt have a good night last night Uses her CPAP machine most of the nights that she has been hospitalized Bowels are moving 12/30/19: Labs are good Wants a lipid panel added to her labs Dr. Guerin evaluated her today in his clinic and xray was taken because she couldn't leave the hospital due to covid restrictions Overall she is doing very well 12/29/19: Monitor BP Check labs in am No med changes 12/28/19: Patient doing well Less tearful today Can't leave hospital due to COVID for ortho appt Labile emotions 12/27/19: Patient has difficulty with non-weight bearing Ortho communication with [facility] today BM+ Increased BP and Cards C/S Tearful and frightened about the next step in her care and if she can stay home 12/26/19: No major issues reported Pain is okay Ice pack on the right ankle maintained Bowels last moved yesterday morning Weight-bearing is difficult for her 12/25/19: Ice pack on right ankle is helping Incontinence is much improved Used her CPAP machine last night Bowels are moving well Pain is pretty well controlled Has an appointment on Monday with orthopedic surgeon to remove cast 12/24/19: Bowels moved yesterday Follow-up with Dr. Zuleta on 12/29 at 1 PM Dressing will be changed by the surgeon Overall complains about therapy not working with her but then complains she is too tired to participate in therapy 12/23/19: Bowels last moved yesterday Labs are okay Ankle ulcer before cast was placed so will monitor that when cast is removed Fall risk remains 12/22/19: Patient feels better Less pain meds take Got out of bed on her own last night and nurses counseled her CPAP used last night 12/21/19: Pain 5/10 CPAP at home but does not wear it here Refused O2 last night too BM today Splint will be in place on right ankle for [address] Zuleta Incontinent at night Checked meds and labs Conferred with RN Reviewed therapy notes Review of Systems General: Fatigue, Malaise Neurological: Weakness Objective Exam Vital Signs Vital Signs Date Time Temp Pulse Resp B/P (MAP) Pulse Ox O2 Delivery O2 Flow Rate FiO2 01/01/20 17:30 36.2 65 18 129/58 (81) 94 Room Air Capillary Refill : Less Than 3 SecondsLess Than 3 Seconds General Appearance: No Apparent Distress, WD/WN, Chronically ill HEENT: PERRL/EOMI, Normal ENT Inspection, Pharynx Normal Neck: Full Range of Motion, Normal Inspection, Non Tender, Supple, Carotid Bruit Respiratory: Chest Non Tender, Lungs Clear, Normal Breath Sounds, No Accessory Muscle Use, No Respiratory Distress Cardiovascular: Regular Rate, Rhythm, No Edema, No Gallop, No JVD, No Murmur, Normal Peripheral Pulses Gastrointestinal: Normal Bowel Sounds, No Organomegaly, No Pulsatile Mass, Non Tender, Soft Rectal: Deferred Back: Normal Inspection, No CVA Tenderness, No Vertebral Tenderness Extremity: Normal Capillary Refill, Normal Inspection, Normal Range of Motion, Non Tender, No Calf Tenderness, No Pedal Edema, Other (right ankle cast in place) Neurologic/Psychiatric: Alert, Oriented x3, No Motor/Sensory Deficits, Normal Mood/Affect, medical care evaluation specialist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 FIM Transfers Therapy Code Descriptions/Definitions Functional [place] Measure: 0=Not Assessed/NA 4=Minimal Assistance 1=Total Assistance 5=Supervision or Setup 2=Maximal Assistance 6=Modified [place] 3=Moderate Assistance 7=Complete IndependenceSCALE: Activities may be completed with or without assistive devices. 2-Deuohqmrlp-ugoevhd completes the activity by him/herself with no assistance from a helper. 5-Set-up or Clean-up Assistance-helper sets up or cleans up; patient completes activity. [place] assists only prior to or following the activity. 4-Supervision or Touching Assistance-helper provides verbal cues and/or touching/steadying and/or contact guard assistance as patient completes activity. Assistance may be provided throughout the activity or intermittently. 3-Partial/Moderate Assistance-helper does LESS THAN HALF the effort. [place] lifts, holds or supports trunk or limbs, but provides less than half the effort. 2-Substantial/Maximal Assistance-helper does MORE THAN HALF the effort. [place] lifts or holds trunk or limbs and provides more than half the effort. 8-Ljgarefci-pubhnn does ALL the effort. Patient does none of the effort to complete the activity. Or, the assistance of 2 or more helpers is required for the patient to complete the activity. If activity was not attempted, code reason: 7-Patient Refused. 9-Not Applicable-not attempted and the patient did not perform the activity before the current illness, exacerbation or injury. 10-Not Attempted due to Environmental Limitations-(lack of equipment, weather restraints, etc.). 88-Not Attempted due to Medical Conditions or Safety Concerns. Roll Left to Right (QC): 6 Sit to Lying (QC): 6 Sit to Stand (QC): 4 Chair/Xqo-ah-Zehet Xfer(QC): 4 Car Transfer (QC): 4 Gait Training Does the Patient Walk?: Yes Distance: 150' x2 Walk 10 feet (QC): 4 Walk 50 ft with 2 Turns(QC): 4 Walk 150 ft (QC): 4 Walking 10ft/uneven surface-QC: 88 Gait Persons Needed: 1 Gait Assistive Device: FWW Wheelchair Training Does the Pt Use a Wheelchair?: Yes Distance: 150'x2 Wheel 50 ft with 2 turns (QC): 6 Wheel 150 ft (QC): 6 Type of Wheelchair: Manual Stair Training 1 Step (curb) (QC): 88 4 Steps (QC): 88 12 Steps (QC): 88 Balance Picking up an Object (QC): 88 ADL-Treatment Eating (QC): 6 Oral Hygiene (QC): 6 (IND in w/c at sink level) Shower/Bathe Self (QC): 7 (denies this date.) Upper Body Dressing (QC): 6 (gathers and dons EOB) Lower Body Dressing (QC): 4 (SBA, EOB and in stance. Pt requires cues in stance during NWB.) On/Off Footwear (QC): 6 (IND EOB) Toileting Hygiene (QC): 4 Toilet Transfer (QC): 4 Assessment/Plan Assessment and Plan Assess & Plan/Chief Complaint Assessment: Left ankle fracture STEVEN non-compliant with CPAP Former smoker COPD HTN CAD Plan: Monitor pain IRF protocol IS DVT PPx 12/22/19: Pain control BM regimen Monitor for falls BP management 12/23/19: Continue bowel regimen Continue pain medication Monitor ankle ulcer once cast is removed Labs are stable 12/24/19: Continue bowel regimen Pain control Has an appointment on 12/30/19 for dressing change of right ankle 12/25/19: Monitor pain BM regimen Continue aggressive therapy 12/26/19: Pain management Non-weight bearing 12/27/19: Ortho communication Can't leave due to COVID but remains non-weight bearing whether or not she can see ortho per Dr Zuleta May need nursing facility 12/28/19: Labile emotions common and frequent Pain control Lovenox 12/29/19: Pain control Lovenox Check labs in am 12/30/19: Appreciate Dr. Guerin evaluation Monitor pain Add Lipid panel to am labs 12/31/19: Continue bowel regimen Pain control Non weight bearing 01/01/20: Await disposition Pain control Supportive care (1) Bimalleolar fracture of right ankle Status: Acute Assessment & Plan: PT IN CAST STATUS POST SURGICAL FIXATION NON-WEIGHT BEARING PT USING WALKER TO HOP I HAVE DISCUSSED WITH PT AND PC ANALYST WELL WITH DR. 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 THEY ARE IN AGREEMENT AND WILL WORK TOWARD THE PLAN OF JOSE LIVING WITH FAMILY UNTIL SHE IS WEIGHT BEARING ON THAT LEG/FOOT. Qualifiers: Encounter type: initial encounter Fracture type: closed Qualified Codes: S82.841A - Displaced bimalleolar fracture of right lower leg, initial encounter for closed fracture (2) Hypertension Qualifiers: Hypertension type: essential hypertension Qualified Codes: I10 - Essential (primary) hypertension (3) Hyperlipidemia Assessment & Plan: CONTINUE HOME REGIMEN - ATORVASTATIN Qualifiers: Hyperlipidemia type: mixed hyperlipidemia Qualified Codes: E78.2 - Mixed hyperlipidemia (4) Ankle fracture Qualifiers: Encounter type: initial encounter Fracture type: closed Laterality: right Qualified Codes: S82.891A - Other fracture of right lower leg, initial encounter for closed fracture RADHA NEWMAN DO Jan 01, 2020 08:56
--- NOTE | 2020-01-01 10:27 | Occupational Ther Daily Note ---
OT Current Status-Daily Note Subjective Pt seen in bed this am. Agrees to OT. Pt states "minimal discomfort" in RLE. Pt agrees to shower. Mental Status/Objective Patient Orientation: Person, Place, Situation ADL-Treatment Therapy Code Descriptions/Definitions Functional [place] Measure: 0=Not Assessed/NA 4=Minimal Assistance 1=Total Assistance 5=Supervision or Setup 2=Maximal Assistance 6=Modified [place] 3=Moderate Assistance 7=Complete IndependenceSCALE: Activities may be completed with or without assistive devices. 0-Nmfpvhgevu-cfafxyj completes the activity by him/herself with no assistance from a helper. 5-Set-up or Clean-up Assistance-helper sets up or cleans up; patient completes activity. [place] assists only prior to or following the activity. 4-Supervision or Touching Assistance-helper provides verbal cues and/or touching/steadying and/or contact guard assistance as patient completes activity. Assistance may be provided throughout the activity or intermittently. 3-Partial/Moderate Assistance-helper does LESS THAN HALF the effort. [place] lifts, holds or supports trunk or limbs, but provides less than half the effort. 2-Substantial/Maximal Assistance-helper does MORE THAN HALF the effort. [place] lifts or holds trunk or limbs and provides more than half the effort. 0-Bbgjyuyyb-kuberi does ALL the effort. Patient does none of the effort to complete the activity. Or, the assistance of 2 or more helpers is required for the patient to complete the activity. If activity was not attempted, code reason: 7-Patient Refused. 9-Not Applicable-not attempted and the patient did not perform the activity before the current illness, exacerbation or injury. 10-Not Attempted due to Environmental Limitations-(lack of equipment, weather restraints, etc.). 88-Not Attempted due to Medical Conditions or Safety Concerns. Eating (QC): 6 Oral Hygiene (QC): 6 (IND in w/c.) Bathing Location: L Arm, R Arm, L Upper Leg, R Upper Leg, L Lower Leg (including foot), R Lower Leg (including foot), Chest, Abdomen, Buttocks, P erineal Area Shower/Bathe Self (QC): 4 (SBA during SPT with use of gb with success. Pt stands for bottom hygiene with SBA, requires cues for NWB. Pt unable to maintain, and requires to sit.) Upper Body Dressing (QC): 6 (IND in w/c.) Lower Body Dressing (QC): 4 (CGA and cues for continued WB status/ stance with abdomen to sink during task for increased balance. Able to maintain NWB during this task with consistent cues. Pt states, "Can't I place my toes on the ground." Pt is again educated on NWB rather than TTWB status.) On/Off Footwear: 6 Toileting Hygiene (QC): 4 (SBA during bottom hygiene and cues for NWB on RLE) Toilet Transfer (QC): 4 (SPT with use of w/c and gbs.) Other Treatment Pt completes all tasks at SBA- IND level. Pt requires consistent cues for NWB of RLE, pt requires cues to kick it out upon sit to stand and no TTWB. Pt states she does not want to go to SNF due to granddaughter's wedding shower Jan 13. Pt states if going home she will get help from granddaughters with laundry, cooking/ cleaning, and will wait for assist in shower. As pt remains NWB and unable to maintain without cues during stance/ transfers, pt likely will not maintain at home during fx transfers. Pt and OT discuss this and probable use of w/c for fx mob/ walker for transfers. Pt agrees. Completes w/c mob with SBA, returns and completes SPT to chair with CGA and continued cues for R foot placement and safety during this task. Pt left in recliner with all needs met, call light in reach. Education OT Patient Education: Correct positioning, Energy conservation, Modified ADL techniques, Progress toward Goal/Update tx plan, Purpose of tx/functional activities, Reviewed precautions, Safety issues, Transfer techniques, W/C man agement Teaching Recipient: Patient Teaching Methods: Demonstration, Discussion Response to Teaching: Verbalize Understanding, Return Demonstration, Reinforcement Needed OT [place]yer Goals [place] Goals Time Frame: Jan 03, 2020 Eating (QC): 6 Oral Hygiene (QC): 6 Toileting Hygiene (QC): 6 Shower/Bathe Self (QC): 6 Upper Body Dressing (QC): 6 Lower Body Dressing (QC): 6 On/Off Footwear (QC): 6 Additional Goals: 1-Demonstrate ADL Tasks, 2-Verbalize Understanding, 3-ImproveStrength/Anthony 1=Demonstrate adherence to instructed precautions during ADL tasks. 2=Patient will verbalize/demonstrate understanding of assistive devices/modifications for ADL. 3=Patient will improve strength/tolerance for activity to enable patient to perform ADL's. OT Education/Plan Problem List/Assessment Assessment: Decreased Activ Tolerance, Decreased UE Strength, Dependent Transfers, Impaired Funct Balance, Impaired I ADL's, Impaired Self-Care Skills Discharge Recommendations Plan/Recommendations: Continue POC Therapy Discharge Recommendati: Intermittent Supervision, Home & Family Treatment Plan/Plan of Care Patient would benefit from OT for education, treatment and training to promote independence in ADL's, mobility, safety and/or upper extremity function for ADL's. Plan of Care: ADL Retraining, Caregiver Training, Functional Mobility, Group Exercise/Act as Ind, UE Funct Exercise/Act, W/C Management Training Treatment Duration: Jan 03, 2020 Frequency: At least 5 of 7 days/Wk (IRF) Estimated Hrs Per Day: 1.5 hours per day Agreement: Yes Rehab Potential: Fair Time/GCodes Start Time: 08:00 Stop Time: 09:00 Total Time Billed (hr/min): 60 Billed Treatment Time 1, ADL 3 (45), WC (15)= 60 DEREK SHIPMAN OTR Jan 01, 2020 10:27
--- NOTE | 2020-01-01 10:39 | Physical Therapy Daily Note ---
PT Daily Note-Current Subjective Pt. agrees to Rx, states she has decided to go to [facility] but is still not sure of the particulars ie, how long she has to quarantine etc. Pt. did not retain info and education well this Rx and required much reminding and cues etc Pain Numeric Pain Scale: 7 Location: Right Location Body Site: Hip (buttock/sciatica) Pain Description: Pressure Mental Status Patient Orientation: Person, Place Attachments: Other-See Comments (cast) Transfers SCALE: Activities may be completed with or without assistive devices. 1-Qxjyliotfr-rvooaca completes the activity by him/herself with no assistance from a helper. 5-Set-up or Clean-up Assistance-helper sets up or cleans up; patient completes activity. [place] assists only prior to or following the activity. 4-Supervision or Touching Assistance-helper provides verbal cues and/or touching/steadying and/or contact guard assistance as patient completes activity. Assistance may be provided throughout the activity or intermittently. 3-Partial/Moderate Assistance-helper does LESS THAN HALF the effort. [place] lifts, holds or supports trunk or limbs, but provides less than half the effort. 2-Substantial/Maximal Assistance-helper does MORE THAN HALF the effort. [place] lifts or holds trunk or limbs and provides more than half the effort. 7-Zablywiyf-nizhpr does ALL the effort. Patient does none of the effort to complete the activity. Or, the assistance of 2 or more helpers is required for the patient to complete the activity. If activity was not attempted, code reason: 7-Patient Refused. 9-Not Applicable-not attempted and the patient did not perform the activity before the current illness, exacerbation or injury. 10-Not Attempted due to Environmental Limitations-(lack of equipment, weather restraints, etc.). 88-Not Attempted due to Medical Conditions or Safety Concerns. Roll Left & Right (QC): 6 Sit to Lying (QC): 6 Lying to Sitting/Side of Bed(Q: 6 Sit to Stand (QC): 5 Chair/Var-jc-Okeyn Xfer(QC): 5 TRF w/c to bed and bed to w/c rehearsed multiple trials as pt. still seems unclear about approaching with wt bearing LE for safety and ease of TRF. pt. did TRF 6 times maintaining NWB RLE but required instruction for all. Weight Bearing Right Lower Extremity: Right Non Weight Bearing pt. instructed and was shown demo of heavy wt bearing on UEs during swing phase of left. pt. unable to replicate this Gait Training Does the Patient Walk?: Yes Gait Persons Needed: 1 Gait Assistive Device: FWW 5 ft, pt. putting RLE toe down so this was discontinued Wheelchair Training Does the Pt Use a Wheelchair?: Yes Wheel 50 ft with 2 turns (QC): 5 Wheel 150 ft (QC): 5 Type of Wheelchair: Manual braking, backing, approaches for safe TRF, removing w/c arm, tight turning all taught again, pt. needs many cues and reinstructed and educated as she does not retain info Exercises Supine Ex: Bridging, Quad Set, Lower trunk rotation, Short Arc Quads, Scooting, Straight leg raise, Hip abd/add Supine Reps: 20 piriformis stretches, k to c all x 10 slow, hold 5 sec Treatments ice pack applied right sciatic area/ buttock with pt. stating this gave relief Assessment Current Status: Good Progress safer mobility with w/c , pt. conts unreliable to maintain NWB PT Short Term Goals Short Term Goals Time Frame: Dec 27, 2019 Roll Left & Right: 6 Sit to lyin Lying to sitting on side of be: 6 Sit to stand: 4 Chair/yfh-ej-eaxrr transfer: 4 Walk 10 feet: 4 PT Custodial Goals Philosophy Lecturer Goals PT Custodial Goals Time Frame: Jan 10, 2020 Roll Left & Right (QC): 6 Sit to Lying (QC): 6 Lying-Sitting on Side/Bed(QC): 6 Sit to Stand (QC): 5 Chair/Pjw-mv-Uyntp Xfer(QC): 5 Toilet Transfer (QC): 5 Car Transfer (QC): 5 Does the Patient Walk: Yes Walk 10 feet (QC): 4 Walk 50ft with 2 Turns (QC): 4 Walk 150 ft (QC): 88 Walking 10ft on Uneven Surface: 4 1 Step (curb) (QC): 4 4 Steps (QC): 88 12 Steps (QC): 88 Picking up an Object (QC): 88 Wheel 50 feet with 2 turns (QC: 6 Wheel 150 feet: 6 PT Plan Treatment/Plan Treatment Plan: Continue Plan of Care Treatment Plan: Bed Mobility, Education, Functional Activity Anthony, Functional Strength, Group Therapy, Gait, Safety, Therapeutic Exercise, Transfers Treatment Duration: Jan 10, 2020 Frequency: At least 5 of 7 days/Wk (IRF) Estimated Hrs Per Day: 1.5 hours per day Patient and/or Family Agrees t: Yes Safety Risks/Education Patient Education: Gait Training, Transfer Techniques, Correct Positioning, W/C Management, Disease Process, Safety Issues Teaching Recipient: Patient Teaching Methods: Demonstration, Discussion Response to Teaching: Verbalize Understanding, Unable to Comprehend, Reinforcement Needed Time/GCodes Time In: 930 Time Out: 1030 Total Billed Treatment Time: 60 Total Billed Treatment 1,EPII96w,EX15m,FA20m PIERRE STEWART RISK MANAGEMENT MANAGER Jan 01, 2020 10:39
--- NOTE | 2020-01-01 14:34 | NUR ---
Patient Care Conference Discussed team conference summary with patient and her daughter. Both are in agreement with and verbalize understanding of discharge plan to [facility] tomorrow, 01/02/2020. A copy of rehab team conference summary provided to patient per her request. See rehab team conference summary for additional information.
--- NOTE | 2020-01-01 15:01 | Therapy Group Daily Note ---
Therapy Daily Group Note Patient Education Topic Exercises, Other List Below (ARU orientation, positioning) Exercises LE Seated Exercise, UE Exercise Session Ratio (pt:therapist): 4:1 Goal of Session: Education on ARU Expectations, UE/LE Strengthing Goal Met for this Session: Yes Pt Benefit of Group: Increased Functional Strength, Socialization Other/Notes Pt transported using w/c to OT/PT. Group consisted of introductions (name, place living, biggest challenge), socialization, seated UE/LE exercises (theraband UE) and educational topics of benefits of exercise and positioning. Pt introduced self and participated well.. Pt actively listened to peer introductions. Pt participated in seated group exercises with minimal assistance. Pt attentive to educational . After therapy, pt lying in bed with call light/phone in reach. All needs met in room. Start Time: 13:00 Stop Time: 14:00 Total Billed Treatment Time: 60 Total Billed Treatment 1,GRP 60m PIERRE STEWART FIELD MAP TECHNICIAN Jan 01, 2020 15:01
[2020-01-01] MEDS: ENOXAPARIN 40 MG/0.4 ML (LOVENOX) SYR SC SCH (16:40)
[2020-01-01 17:30] VITALS: BP 129/58
[2020-01-02 05:11] VITALS: BP 156/67
[2020-01-02] MEDS ORDERED: ENOX40DI8 SC (05:57)
[2020-01-02] MEDS ORDERED: CHOL10002 PO (05:57)
[2020-01-02] MEDS ORDERED: OXYC5TAB96 PO (05:57)
[2020-01-02] MEDS ORDERED: ASPI-999 PO (05:57)
[2020-01-02] MEDS ORDERED: MULT1TAB63 PO (05:57)
[2020-01-02] MEDS ORDERED: SENN-20 PO (05:57)
--- NOTE | 2020-01-02 05:58 | Discharge Inst-Skilled Nursing ---
Discharge Inst-Skilled NF Reconcile Patient Problems Problems Reviewed?: Yes Patient Instructions Patient Problems: Right ankle fracture COPD Goal: [place] Consult/Follow Up/Orders Follow Up Appt.: Dr Meeks in 1 week Skilled NF Admit to: [facility] Certification ([facility]) I certify that SNF services are required to be given on an inpatient basis because of the above named patient's need for care home care on a continuing basis for the conditions(s) for which he/she was receiving inpatient hospital services prior to his/her transfer to the [facility]. Senior Care Facility Order: Nursing Services, Ring Facer-Evaluate & Treat, Physical Therapy-Evaluate & Treat Oxygen Delivery Method: Room Air Discharge Diet: No Restrictions Daily Activity as Tolerated: Yes Resuscitation Status: Full Code New & Resume Previous Orders New Medications: Aspirin (Aspirin) 81 Mg Tab.chew 81 MG PO BID WITH MEALS for 30 Days, TAB Cholecalciferol (Vitamin D3) (Vitamin D3) 25 Mcg Tablet 50 MCG PO DAILY for 30 Days, TAB Enoxaparin Sodium (Enoxaparin Sodium) 40 Mg/0.4 Ml Syringe 40 MG SC Q24H for 30 Days, SYRINGE Multivits,Ca,Minerals/Iron/FA (Thera-M Tablet) 1 Each Tablet 1 EA PO DAILY@0700 for 30 Days, TAB Oxycodone HCl (Oxycodone IR) 5 Mg Tablet 5 MG PO Q6H PRN for PAIN-SEVERE (8-10), #30 TAB Sennosides/Docusate Sodium (Senna-Time S Tablet) 1 Each Tablet 1 EA PO BID for 30 Days, TAB Continued Medications: Albuterol Sulfate (Ventolin Hfa) 18 Gm Hfa.aer.ad 2 PUFF PO QID PRN for WHEEZING, EA Atorvastatin Calcium (Atorvastatin Calcium) 20 Mg Tablet 20 MG PO DAILY, TAB Diltiazem HCl (Diltiazem 24Hr ER) 240 Mg Cap.er.24h 240 MG PO DAILY, CAP Duloxetine HCl (Duloxetine HCl) 60 Mg Capsule.dr 60 MG PO DAILY, CAP Duloxetine HCl (Duloxetine HCl) 30 Mg Capsule.dr 30 MG PO HS, CAP Fluticasone/Vilanterol (Breo Ellipta 200-25 Mcg INH) 1 Each Blst.w.dev 1 PUFF PO DAILY, EA LAST FILLED 10-30-2019 #60/30 DAY SUPPLY Gabapentin (Neurontin) 300 Mg Capsule 300 MG PO TID, CAP LAST FILLED 07-16-2019 #270/90 DAY SUPPLY Glucosamine/MSM/Chondroitin A (Glucosamine Chondroit MSM Tab) 1 Each Tablet 1 EACH PO HS, TAB Lisinopril (Lisinopril) 20 Mg Tablet 20 MG PO DAILY, TAB Meloxicam (Meloxicam) 15 Mg Tablet 15 MG PO DAILY, TAB Montelukast Sodium (Montelukast Sodium) 10 Mg Tablet 10 MG PO DAILY, TAB LAST FILLED 03-24-2020 #90/90 DAY SUPPLY Turmeric/Turmeric Root Extract (Turmeric 450-50 mg Capsule) 1 Each Capsule 1 EACH PO DAILY PRN for CONSTIPATION, CAP Ubidecarenone (Co Q-10) 200 Mg Capsule 200 MG PO HS, CAP Discontinued Medications: Hydrocodone/Acetaminophen (Hydrocodone-Acetamin 5-325 mg) 1 Each Tablet 1 EACH PO Q4 -6 H PRN for PAIN-MODERATE (5-7), TAB Mayra Kaye Jan 02, 2020 05:58 MAYRA KAYE DO Jan 02, 2020 05:58
--- NOTE | 2020-01-02 05:59 | Discharge Summary ---
Diagnosis/Chief Complaint Date of Admission Dec 20, 2019 at 13:45 Date of Discharge Discharge Date: Jan 02, 2020 Discharge Diagnosis Assessment: Left ankle fracture STEVEN non-compliant with CPAP Former smoker COPD HTN CAD Plan: Monitor pain IRF protocol IS DVT PPx 12/22/19: Pain control BM regimen Monitor for falls BP management 12/23/19: Continue bowel regimen Continue pain medication Monitor ankle ulcer once cast is removed Labs are stable 12/24/19: Continue bowel regimen Pain control Has an appointment on 12/30/19 for dressing change of right ankle 12/25/19: Monitor pain BM regimen Continue aggressive therapy 12/26/19: Pain management Non-weight bearing 12/27/19: Ortho communication Can't leave due to COVID but remains non-weight bearing whether or not she can see ortho per Dr Zuleta May need nursing facility 12/28/19: Labile emotions common and frequent Pain control Lovenox 12/29/19: Pain control Lovenox Check labs in am 12/30/19: Appreciate Dr. Guerin evaluation Monitor pain Add Lipid panel to am labs 12/31/19: Continue bowel regimen Pain control Non weight bearing 01/01/20: Await disposition Pain control Supportive care Discharge Summary Discharge Physical Examination Allergies: Coded Allergies: Penicillins (Verified Allergy, Unknown, 06/01/19) Vitals & I&Os Vital Signs Date Time Temp Pulse Resp B/P (MAP) Pulse Ox O2 Delivery O2 Flow Rate FiO2 01/02/20 09:00 Room Air 01/02/20 05:11 36.7 71 16 156/67 (96) 93 General Appearance: Alert, Oriented X3, Cooperative Respiratory: Clear to Auscultation Cardiovascular: Regular Rate Hospital Course Was the Problem List Reviewed?: Yes Patient had a lengthy course in IRF but had no decompensation during it. Labs remained stable, CPAP use maintained. PCP assessed patient on regular basis. Patient participated in all therapies but had difficulty with non-weight bearing instructions. Cognitive deficit noted. Pain was controlled. BM regimen was successful. Labile moods were a challenge. Patient intended to return with family but she needed SNF prior to home so she was placed at [facility]. Labs (last 24 hrs) Laboratory Tests 12/21/19 04:51: White Blood Count 5.6, Red Blood Count 3.26L, Hemoglobin 10.9L, Hematocrit 34L, Mean Corpuscular Volume 104H, Mean Corpuscular Hemoglobin 33, Mean Corpuscular Hemoglobin Concent 32, Red Cell Distribution Width 14.2, Platelet Count 189, Mean Platelet Volume 11.0H, Neutrophils (%) (Auto) 62, Lymphocytes (%) (Auto) 26, Monocytes (%) (Auto) 10, Eosinophils (%) (Auto) 2, Basophils (%) (Auto) 0, Neutrophils # (Auto) 3.5, Lymphocytes # (Auto) 1.5, Monocytes # (Auto) 0.6, Eosinophils # (Auto) 0.1, Basophils # (Auto) 0.0, Sodium Level 139, Potassium Level 4.5, Chloride Level 105, Carbon Dioxide Level 27, Anion Gap 7, Blood Urea Nitrogen 16, Creatinine 0.76, Estimat Glomerular Filtration Rate > 60, BUN/Creatinine Ratio 21, Glucose Level 94, Calcium Level 8.6, Corrected Calcium 9.2, Total Bilirubin 0.3, Aspartate Amino Transf (AST/SGOT) 24, Alanine Aminotransferase (ALT/SGPT) 19, Alkaline Phosphatase 47, Total Protein 6.0L, Albumin 3.2 12/23/19 05:38: White Blood Count 5.2, Red Blood Count 3.41L, Hemoglobin 11.3L, Hematocrit 35, Mean Corpuscular Volume 103H, Mean Corpuscular Hemoglobin 33, Mean Corpuscular Hemoglobin Concent 32, Red Cell Distribution Width 13.8, Platelet Count 210, Mean Platelet Volume 10.7H, Neutrophils (%) (Auto) 62, Lymphocytes (%) (Auto) 26, Monocytes (%) (Auto) 12, Eosinophils (%) (Auto) 1, Basophils (%) (Auto) 0, Neutrophils # (Auto) 3.2, Lymphocytes # (Auto) 1.3, Monocytes # (Auto) 0.6, Eosi nophils # (Auto) 0.1, Basophils # (Auto) 0.0, Sodium Level 140, Potassium Level 4.1, Chloride Level 105, Carbon Dioxide Level 28, Anion Gap 7, Blood Urea Nitrogen 14, Creatinine 0.73, Estimat Glomerular Filtration Rate > 60, BUN/Creatinine Ratio 19, Glucose Level 97, Calcium Level 9.0, Corrected Calcium 9.6, Total Bilirubin 0.4, Aspartate Amino Transf (AST/SGOT) 25, Alanine Aminotr ansferase (ALT/SGPT) 23, Alkaline Phosphatase 44, Total Protein 6.1L, Albumin 3.3 12/30/19 05:30: White Blood Count 6.4, Red Blood Count 3.58L, Hemoglobin 12.1, Hematocrit 36, Mean Corpuscular Volume 102H, Mean Corpuscular Hemoglobin 34, Mean Corpuscular Hemoglobin Concent 33, Red Cell Distribution Width 13.6, Platelet Count 193, Mean Platelet Volume 10.4, Neutrophils (%) (Auto) 63, Lymphocytes (%) (Auto) 26, Monocytes (%) (Auto) 10, Eosinophils (%) (Auto) 2, Basophils (%) (Auto) 0, Neutrophils # (Auto) 4.1, Lymphocytes # (Auto) 1.6, Monocytes # (Auto) 0.6, Eosinophils # (Auto) 0.1, Basophils # (Auto) 0.0, Sodium Level 140, Potassium Level 4.2, Chloride Level 107, Carbon Dioxide Level 23, Anion Gap 10, Blood Urea Nitrogen 15, Creatinine 0.72, Estimat Glomerular Filtration Rate > 60, BUN/Creatinine Ratio 21, Glucose Level 95, Calcium Level 9.0, Magnesium Level 1.9, Triglycerides Level 77, Cholesterol Level 148, LDL Cholesterol Direct 98, VLDL Cholesterol 15, HDL Cholesterol 45 Pending Labs Laboratory Tests 12/21/19 04:51: White Blood Count 5.6, Red Blood Count 3.26, Hemoglobin 10.9, Hematocrit 34, Mean Corpuscular Volume 104, Mean Corpuscular Hemoglobin 33, Mean Corpuscular Hemoglobin Concent 32, Red Cell Distribution Width 14.2, Platelet Count 189, Mean Platelet Volume 11.0, Neutrophils (%) (Auto) 62, Lymphocytes (%) (Auto) 26, Monocytes (%) (Auto) 10, Eosinophils (%) (Auto) 2, Basophils (%) (Auto) 0, Neutrophils # (Auto) 3.5, Lymphocytes # (Auto) 1.5, Monocytes # (Auto) 0.6, Eosinophils # (Auto) 0.1, Basophils # (Auto) 0.0, Sodium Level 139, Potassium Level 4.5, Chloride Level 105, Carbon Dioxide Level 27, Anion Gap 7, Blood Urea Nitrogen 16, Creatinine 0.76, Estimat Glomerular Filtration Rate > 60, BUN/Creatinine Ratio 21, Glucose Level 94, Calcium Level 8.6, Corrected Calcium 9.2, Total Bilirubin 0.3, Aspartate Amino Transf (AST/SGOT) 24, Alanine Aminotransferase (ALT/SGPT) 19, Alkaline Phosphatase 47, Total Protein 6.0, Albumin 3.2 12/23/19 05:38: White Blood Count 5.2, Red Blood Count 3.41, Hemoglobin 11.3, Hematocrit 35, Mean Corpuscular Volume 103, Mean Corpuscular Hemoglobin 33, Mean Corpuscular Hemoglobin Concent 32, Red Cell Distribution Width 13.8, Platelet Count 210, Mean Platelet Volume 10.7, Neutrophils (%) (Auto) 62, Lymphocytes (%) (Auto) 26, Monocytes (%) (Auto) 12, Eosinophils (%) (Auto) 1, Basophils (%) (Auto) 0, Neutrophils # (Auto) 3.2, Lymphocytes # (Auto) 1.3, Monocytes # (Auto) 0.6, Eosinophils # (Auto) 0.1, Basophils # (Auto) 0.0, Sodium Level 140, Potassium Level 4.1, Chloride Level 105, Carbon Dioxide Level 28, Anion Gap 7, Blood Urea Nitrogen 14, Creatinine 0.73, Estimat Glomerular Filtration Rate > 60, BUN/Creatinine Ratio 19, Glucose Level 97, Calcium Level 9.0, Corrected Calcium 9.6, Total Bilirubin 0.4, Aspartate Amino Transf (AST/SGOT) 25, Alanine Aminotransferase (ALT/SGPT) 23, Alkaline Phosphatase 44, Total Protein 6.1, Albumin 3.3 12/30/19 05:30: White Blood Count 6.4, Red Blood Count 3.58, Hemoglobin 12.1, Hematocrit 36, Mean Corpuscular Volume 102, Mean Corpuscular Hemoglobin 34, Mean Corpuscular Hemoglobin Concent 33, Red Cell Distribution Width 13.6, Platelet Count 193, Mean Platelet Volume 10.4, Neutrophils (%) (Auto) 63, Lymphocytes (%) (Auto) 26, Monocytes (%) (Auto) 10, Eosinophils (%) (Auto) 2, Basophils (%) (Auto) 0, Neutrophils # (Auto) 4.1, Lymphocytes # (Auto) 1.6, Monocytes # (Auto) 0.6, Eosinophils # (Auto) 0.1, Basophils # (Auto) 0.0, Sodium Level 140, Potassium Level 4.2, Chloride Level 107, Carbon Dioxide Level 23, Anion Gap 10, Blood Urea Nitrogen 15, Creatinine 0.72, Estimat Glomerular Filtration Rate > 60, BUN/Creatinine Ratio 21, Glucose Level 95, Calcium Level 9.0, Magnesium Level 1.9, Triglycerides Level 77, Cholesterol Level 148, LDL Cholesterol Direct 98, VLDL Cholesterol 15, HDL Cholesterol 45 Discharge Home Medications: Active Scripts Active Thera-M Tablet (Multivits,Ca,Minerals/Iron/FA) 1 Each Tablet 1 Ea PO DAILY@0700 30 Days Vitamin D3 (Cholecalciferol (Vitamin D3)) 25 Mcg Tablet 50 Mcg PO DAILY 30 Days Senna-Time S Tablet (Sennosides/Docusate Sodium) 1 Each Tablet 1 Ea PO BID 30 Days Oxycodone IR (Oxycodone HCl) 5 Mg Tablet 5 Mg PO Q6H PRN Aspirin 81 Mg Tab.chew 81 Mg PO BID WITH MEALS 30 Days Enoxaparin Sodium 40 Mg/0.4 Ml Syringe 40 Mg SC Q24H 30 Days Reported Ventolin Hfa (Albuterol Sulfate) 18 Gm Hfa.aer.ad 2 Puff PO QID PRN Breo Ellipta 200-25 Mcg INH (Fluticasone/Vilanterol) 1 Each Blst.w.dev 1 Puff PO DAILY LAST FILLED 10-30-2019 #60/30 DAY SUPPLY Turmeric 450-50 mg Capsule (Turmeric/Turmeric Root Extract) 1 Each Capsule 1 Each PO DAILY PRN Glucosamine Chondroit MSM Tab (Glucosamine/MSM/Chondroitin A) 1 Each Tablet 1 Each PO HS Co Q-10 (Ubidecarenone) 200 Mg Capsule 200 Mg PO HS Montelukast Sodium 10 Mg Tablet 10 Mg PO DAILY LAST FILLED 03-24-2020 #90/90 DAY SUPPLY Duloxetine HCl 30 Mg Capsule.dr 30 Mg PO HS Meloxicam 15 Mg Tablet 15 Mg PO DAILY Neurontin (Gabapentin) 300 Mg Capsule 300 Mg PO TID LAST FILLED 07-16-2019 #270/90 DAY SUPPLY Duloxetine HCl 60 Mg Capsule.dr 60 Mg PO DAILY Diltiazem 24Hr ER (Diltiazem HCl) 240 Mg Cap.er.24h 240 Mg PO DAILY Atorvastatin Calcium 20 Mg Tablet 20 Mg PO DAILY Lisinopril 20 Mg Tablet 20 Mg PO DAILY Instructions to patient/family Please see electronic discharge instructions given to patient. Diagnosis/Problems Diagnosis/Problems (1) Bimalleolar fracture of right ankle Status: Acute Qualifiers: Qualified Codes: S82.841A - Displaced bimalleolar fracture of right lower leg, initial encounter for closed fracture (2) Hypertension Qualifiers: Qualified Codes: I10 - Essential (primary) hypertension (3) Hyperlipidemia Qualifiers: Qualified Codes: E78.2 - Mixed hyperlipidemia (4) Ankle fracture Qualifiers: Qualified Codes: S82.891A - Other fracture of right lower leg, initial encounter for closed fracture Clinical Quality Measures DVT/VTE Risk/Contraindication: Risk Factor Score Per Nursin RFS Level Per Nursing on Admit: 4+=Very High RADHA NEWMAN DO Jan 02, 2020 05:59
[2020-01-02] MEDS: MULTIVIT W/MINERALS TAB (THERAGRAN M) PO SCH (06:16)
[2020-01-02] MEDS: SENNA W/DOCUSATE (SENOKOT S) TABLET PO SCH (08:30)
[2020-01-02] MEDS: GABAPENTIN 300 MG (NEURONTIN) CAP PO SCH ×2 (08:30→13:37)
[2020-01-02] MEDS: VITAMIN D3 25 MCG (1,000 UNITS) TABLET PO SCH (08:30)
[2020-01-02] MEDS: MONTELUKAST 10 MG (SINGULAIR) TAB PO SCH (08:31)
[2020-01-02] MEDS: lisINopril 20 MG (PRINIVIL) TABLET PO SCH (08:31)
[2020-01-02] MEDS: MELOXICAM 7.5 MG (MOBIC) TABLET PO SCH (08:31)
[2020-01-02] MEDS: DOCUSATE SODIUM 100 MG (COLACE) CAP PO SCH (08:32)
[2020-01-02] MEDS: [UNRECOGNIZED DRUG - OTHER] PO SCH (08:34)
[2020-01-02] MEDS: CO Q10 200 MG PO SCH (08:34)
[2020-01-02] MEDS: ASPIRIN 81 MG CHEW (CHILDREN'S ASA) PO SCH (08:36)
[2020-01-02] MEDS: DULoxetine 30 MG (CYMBALTA) CAP PO SCH (08:43)
--- NOTE | 2020-01-02 08:47 | PM&R Progress Note ---
Subjective HPI/CC On Admission Date Seen by Provider: Jan 02, 2020 Time Seen by Provider: 08:00 Subjective/Events-last exam 01/02/20: Pt doing pretty well Set to go to the half-way today but there is someone that they are waiting on the swab for before accepting admissions so that may be delayed No pain is reported today 01/01/20: Patient doing well Pain controlled Daughter will be here to discuss DC plans but appears VC is the plan 12/31/19: Pt doing pretty well today Wgn-xqrvcs-jeyxmbp status is difficult for her Bowels are moving Didnt have a good night last night Uses her CPAP machine most of the nights that she has been hospitalized Bowels are moving 12/30/19: Labs are good Wants a lipid panel added to her labs Dr. Guerin evaluated her today in his clinic and xray was taken because she couldn't leave the hospital due to covid restrictions Overall she is doing very well 12/29/19: Monitor BP Check labs in am No med changes 12/28/19: Patient doing well Less tearful today Can't leave hospital due to COVID for ortho appt Labile emotions 12/27/19: Patient has difficulty with non-weight bearing Ortho communication with Cervantes today BM+ Increased BP and Cards C/S Tearful and frightened about the next step in her care and if she can stay home 12/26/19: No major issues reported Pain is okay Ice pack on the right ankle maintained Bowels last moved yesterday morning Weight-bearing is difficult for her 12/25/19: Ice pack on right ankle is helping Incontinence is much improved Used her CPAP machine last night Bowels are moving well Pain is pretty well controlled Has an appointment on Monday with orthopedic surgeon to remove cast 12/24/19: Bowels moved yesterday Follow-up with Dr. Zuleta on 12/29 at 1 PM Dressing will be changed by the surgeon Overall complains about therapy not working with her but then complains she is too tired to participate in therapy 12/23/19: Bowels last moved yesterday Labs are okay Ankle ulcer before cast was placed so will monitor that when cast is removed Fall risk remains 12/22/19: Patient feels better Less pain meds take Got out of bed on her own last night and nurses counseled her CPAP used last night 12/21/19: Pain 5/10 CPAP at home but does not wear it here Refused O2 last night too BM today Splint will be in place on right ankle for [address] Zuleta Incontinent at night Checked meds and labs Conferred with RN Reviewed therapy notes Review of Systems General: Fatigue, Malaise Neurological: Weakness Objective Exam Vital Signs Vital Signs Date Time Temp Pulse Resp B/P (MAP) Pulse Ox O2 Delivery O2 Flow Rate FiO2 01/02/20 09:00 Room Air 01/02/20 05:11 36.7 71 16 156/67 (96) 93 Capillary Refill : Less Than 3 SecondsLess Than 3 Seconds General Appearance: No Apparent Distress, WD/WN, Chronically ill HEENT: PERRL/EOMI, Normal ENT Inspection, Pharynx Normal Neck: Full Range of Motion, Normal Inspection, Non Tender, Supple, Carotid Bruit Respiratory: Chest Non Tender, Lungs Clear, Normal Breath Sounds, No Accessory Muscle Use, No Respiratory Distress Cardiovascular: Regular Rate, Rhythm, No Edema, No Gallop, No JVD, No Murmur, Normal Peripheral Pulses Gastrointestinal: Normal Bowel Sounds, No Organomegaly, No Pulsatile Mass, Non Tender, Soft Rectal: Deferred Back: Normal Inspection, No CVA Tenderness, No Vertebral Tenderness Extremity: Normal Capillary Refill, Normal Inspection, Normal Range of Motion, Non Tender, No Calf Tenderness, No Pedal Edema, Other (right ankle cast in place) Neurologic/Psychiatric: Alert, Oriented x3, No Motor/Sensory Deficits, Normal 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 FIM Transfers Therapy Code Descriptions/Definitions Functional [place] Measure: 0=Not Assessed/NA 4=Minimal Assistance 1=Total Assistance 5=Supervision or Setup 2=Maximal Assistance 6=Modified [place] 3=Moderate Assistance 7=Complete IndependenceSCALE: Activities may be completed with or without assistive devices. 6-Qbbwchmffx-kopgrhl completes the activity by him/herself with no assistance from a helper. 5-Set-up or Clean-up Assistance-helper sets up or cleans up; patient completes activity. [place] assists only prior to or following the activity. 4-Supervision or Touching Assistance-helper provides verbal cues and/or touching/steadying and/or contact guard assistance as patient completes activity. Assistance may be provided throughout the activity or intermittently. 3-Partial/Moderate Assistance-helper does LESS THAN HALF the effort. [place] lifts, holds or supports trunk or limbs, but provides less than half the effort. 2-Substantial/Maximal Assistance-helper does MORE THAN HALF the effort. [place] lifts or holds trunk or limbs and provides more than half the effort. 6-Uhqpbmmht-kbwidf does ALL the effort. Patient does none of the effort to complete the activity. Or, the assistance of 2 or more helpers is required for the patient to complete the activity. If activity was not attempted, code reason: 7-Patient Refused. 9-Not Applicable-not attempted and the patient did not perform the activity before the current illness, exacerbation or injury. 10-Not Attempted due to Environmental Limitations-(lack of equipment, weather restraints, etc.). 88-Not Attempted due to Medical Conditions or Safety Concerns. Roll Left to Right (QC): 6 Sit to Lying (QC): 6 Sit to Stand (QC): 5 Chair/Cyy-xn-Jenhf Xfer(QC): 5 Car Transfer (QC): 4 Gait Training Does the Patient Walk?: Yes Distance: 150' x2 Walk 10 feet (QC): 4 Walk 50 ft with 2 Turns(QC): 4 Walk 150 ft (QC): 4 Walking 10ft/uneven surface-QC: 88 Gait Persons Needed: 1 Gait Assistive Device: FWW Wheelchair Training Does the Pt Use a Wheelchair?: Yes Distance: 150'x2 Wheel 50 ft with 2 turns (QC): 5 Wheel 150 ft (QC): 5 Type of Wheelchair: Manual Stair Training 1 Step (curb) (QC): 88 4 Steps (QC): 88 12 Steps (QC): 88 Balance Picking up an Object (QC): 88 ADL-Treatment Eating (QC): 6 Oral Hygiene (QC): 6 (IND in w/c.) Bathing Location: L Arm, R Arm, L Upper Leg, R Upper Leg, L Lower Leg (including foot), R Lower Leg (including foot), Chest, Abdomen, Buttocks, Perineal Area Shower/Bathe Self (QC): 4 (SBA during SPT with use of gb with success. Pt stands for bottom hygiene with SBA, requires cues for NWB. Pt unable to maintain, and requires to sit.) Upper Body Dressing (QC): 6 (IND in w/c.) Lower Body Dressing (QC): 4 (CGA and cues for continued WB status/ stance with abdomen to sink during task for increased balance. Able to maintain NWB during this task with consistent cues. Pt states, "Can't I place my toes on the ground." Pt is again educated on NWB rather than TTWB status.) On/Off Footwear (QC): 6 Toileting Hygiene (QC): 4 (SBA during bottom hygiene and cues for NWB on RLE) Toilet Transfer (QC): 4 (SPT with use of w/c and gbs.) Assessment/Plan Assessment and Plan Assess & Plan/Chief Complaint Assessment: Left ankle fracture STEVEN non-compliant with CPAP Former smoker COPD HTN CAD Plan: Monitor pain IRF protocol IS DVT PPx 12/22/19: Pain control BM regimen Monitor for falls BP management 12/23/19: Continue bowel regimen Continue pain medication Monitor ankle ulcer once cast is removed Labs are stable 12/24/19: Continue bowel regimen Pain control Has an appointment on 12/30/19 for dressing change of right ankle 12/25/19: Monitor pain BM regimen Continue aggressive therapy 12/26/19: Pain management Non-weight bearing 12/27/19: Ortho communication Can't leave due to COVID but remains non-weight bearing whether or not she can see ortho per Dr Zuleta May need nursing facility 12/28/19: Labile emotions common and frequent Pain control Lovenox 12/29/19: Pain control Lovenox Check labs in am 12/30/19: Appreciate Dr. 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 THEY ARE IN AGREEMENT AND WILL WORK TOWARD THE PLAN OF JOSE LIVING WITH FAMILY UNTIL SHE IS WEIGHT BEARING ON THAT LEG/FOOT. Qualifiers: Encounter type: initial encounter Fracture type: closed Qualified Codes: S82.841A - Displaced bimalleolar fracture of right lower leg, initial encounter for closed fracture (2) Hypertension Qualifiers: Hypertension type: essential hypertension Qualified Codes: I10 - Essential (primary) hypertension (3) Hyperlipidemia Assessment & Plan: CONTINUE HOME REGIMEN - ATORVASTATIN Qualifiers: Hyperlipidemia type: mixed hyperlipidemia Qualified Codes: E78.2 - Mixed hyperlipidemia (4) Ankle fracture Qualifiers: Encounter type: initial encounter Fracture type: closed Laterality: right Qualified Codes: S82.891A - Other fracture of right lower leg, initial encounter for closed fracture RADHA NEWMAN DO Jan 02, 2020 08:47
[2020-01-02] MEDS: polyethylene glycoL POWDER 17 GM (MIRALAX) PACK PO SCH (09:44)
--- NOTE | 2020-01-02 10:30 | Physical Therapy Daily Note ---
PT Daily Note-Current Subjective Agreeable to PT. Tearful about discharge to NH. Reports, "I feel like a failure." Mental Status Patient Orientation: Person, Confused (slightly), Place, Time, Situation decreased understanding of WB precautions and limitations. Transfers SCALE: Activities may be completed with or without assistive devices. 7-Pvugvxmfti-exytuog completes the activity by him/herself with no assistance from a helper. 5-Set-up or Clean-up Assistance-helper sets up or cleans up; patient completes activity. [place] assists only prior to or following the activity. 4-Supervision or Touching Assistance-helper provides verbal cues and/or touching /steadying and/or contact guard assistance as patient completes activity. Assistance may be provided throughout the activity or intermittently. 3-Partial/Moderate Assistance-helper does LESS THAN HALF the effort. [place] lifts, holds or supports trunk or limbs, but provides less than half the effort. 2-Substantial/Maximal Assistance-helper does MORE THAN HALF the effort. [place] lifts or holds trunk or limbs and provides more than half the effort. 6-Dhujahotp-ybztmt does ALL the effort. Patient does none of the effort to complete the activity. Or, the assistance of 2 or more helpers is required for the patient to complete the activity. If activity was not attempted, code reason: 7-Patient Refused. 9-Not Applicable-not attempted and the patient did not perform the activity before the current illness, exacerbation or injury. 10-Not Attempted due to Environmental Limitations-(lack of equipment, weather restraints, etc.). 88-Not Attempted due to Medical Conditions or Safety Concerns. Roll Left & Right (QC): 6 Sit to Lying (QC): 6 Lying to Sitting/Side of Bed(Q: 6 Sit to Stand (QC): 5 Chair/Dss-bl-Xurzr Xfer(QC): 5 Toilet Transfer (QC): 5 Car Transfer (QC): 5 Supervision for safety and to maintain NWB status. Weight Bearing Right Lower Extremity: Right Non Weight Bearing pt. instructed and was shown demo of heavy wt bearing on UEs during swing phase of left. pt. unable to replicate this Wheelchair Training Wheel 50 ft with 2 turns (QC): 6 Wheel 150 ft (QC): 6 Pt performed wc mob x 30 minutes with intermittent rest breaks which involved turning, obstacles, varied surfaces. Mod indep with all wc mobility. Treatments Functional SPT x 10 reps with FWW, and able to maintain NWB status. Spent much time educating on purpose of NWB and how it affects healing process. Education on safety in the home and with all mobility--thus need for continued assist with all transfers and upright mobility. Assessment Current Status: Good Progress Difficulty processing that her WB restriction is simply for healing, not as a punishment to her. Tearful about NH placment but after discussion, hopefully understands it is temporary. Progressing with transfers and wc mobility; however, unable to safely maintain NWB R with attempts to ambulate more than a few steps. PT Short Term Goals Short Term Goals Time Frame: Dec 27, 2019 Roll Left & Right: 6 Sit to lyin Lying to sitting on side of be: 6 Sit to stand: 4 Chair/fwp-cd-gwzoz transfer: 4 Walk 10 feet: 4 PT Intermediate Goals Lighting Specialist Goals PT Intermediate Goals Time Frame: Jan 10, 2020 Roll Left & Right (QC): 6 (met) Sit to Lying (QC): 6 (met) Lying-Sitting on Side/Bed(QC): 6 (met) Sit to Stand (QC): 5 (met) Chair/Lze-rq-Mbrax Xfer(QC): 5 (met) Toilet Transfer (QC): 5 (met) Car Transfer (QC): 5 (met) Does the Patient Walk: Yes Walk 10 feet (QC): 4 Walk 50ft with 2 Turns (QC): 4 (unmet) Walk 150 ft (QC): 88 Walking 10ft on Uneven Surface: 4 (unmet) 1 Step (curb) (QC): 4 4 Steps (QC): 88 12 Steps (QC): 88 Picking up an Object (QC): 88 Wheel 50 feet with 2 turns (QC: 6 (met) Wheel 150 feet: 6 (met) PT Plan Problem List Problem List: Activity Tolerance, Functional Strength, Safety, Gait, Transfer Treatment/Plan Treatment Plan: Continue Plan of Care Treatment Plan: Bed Mobility, Education, Functional Activity Anthony, Functional Strength, Group Therapy, Gait, Safety, Therapeutic Exercise, Transfers Treatment Duration: Jan 10, 2020 Frequency: At least 5 of 7 days/Wk (IRF) Estimated Hrs Per Day: 1.5 hours per day Patient and/or Family Agrees t: Yes Safety Risks/Education Patient Education: Transfer Techniques, Reviewed Precautions, Safety Issues Teaching Recipient: Patient Teaching Methods: Demonstration, Discussion Response to Teaching: Reinforcement Needed Discharge Recommendations Therapy Discharge Recommendati: Post Acute PT Time/GCodes Time In: 925 Time Out: 1026 Total Billed Treatment Time: 61 Total Billed Treatment visit FA 31 WC 30 FOZIA MCKEON PT Jan 02, 2020 10:30
--- NOTE | 2020-01-02 12:37 | Occupational Ther Daily Note ---
OT Current Status-Daily Note Subjective Pt seated EOB at start of session, reports 10/10 pain in L arm with activity. OT notified nurse who provided pain med and OT provided pt with warm blanket to apply onto arm. Pt tearful throughout session about discharge plans. Mental Status/Objective Patient Orientation: Person ADL-Treatment Therapy Code Descriptions/Definitions Functional [place] Measure: 0=Not Assessed/NA 4=Minimal Assistance 1=Total Assistance 5=Supervision or Setup 2=Maximal Assistance 6=Modified [place] 3=Moderate Assistance 7=Complete IndependenceSCALE: Activities may be completed with or without assistive devices. 6-Hdthrpkdfa-qnaleyz completes the activity by him/herself with no assistance from a helper. 5-Set-up or Clean-up Assistance-helper sets up or cleans up; patient completes activity. [place] assists only prior to or following the activity. 4-Supervision or Touching Assistance-helper provides verbal cues and/or touching/steadying and/or contact guard assistance as patient completes activity. Assistance may be provided throughout the activity or intermittently. 3-Partial/Moderate Assistance-helper does LESS THAN HALF the effort. [place] lifts, holds or supports trunk or limbs, but provides less than half the effort. 2-Substantial/Maximal Assistance-helper does MORE THAN HALF the effort. [place] l ifts or holds trunk or limbs and provides more than half the effort. 9-Fqtyhmwcv-tnuarf does ALL the effort. Patient does none of the effort to complete the activity. Or, the assistance of 2 or more helpers is required for the patient to complete the activity. If activity was not attempted, code reason: 7-Patient Refused. 9-Not Applicable-not attempted and the patient did not perform the activity before the current illness, exacerbation or injury. 10-Not Attempted due to Environmental Limitations-(lack of equipment, weather restraints, etc.). 88-Not Attempted due to Medical Conditions or Safety Concerns. Upper Body Dressing (QC): 5 (Pt doffed shirt, donned bra/shirt with set up.) Other Treatment Pt seated EOB, pain in L arm with activity. Pt tearful about discharging soon, wanting to get her things organized. OT provided pt with clothes from closet, pt clothes into clean vs dirty piles, folding all clothes. Pt put dirty clothes into bag and clean clothes in her suitcase. Pt has pain in L arm she believe this is due to using her L arm more recently, OT provided warm blanket to pt's arm, pt states it feels better, nurse also provided pt with pain meds. Pt continued to gather items from around her room, organizing the items into different bins/bags to prepare for discharge. Pt requested to transfer to recliner for lunch, OT reminded pt about weight bearing status on RLE, pt then stood at FWW, hopping on L leg a few steps before pivoting into chair, pt rep orts difficulty with hopping. Pt's daughter called to update pt on discharge plans. Post OT Tx, pt seated in recliner, call light in reach and all needs met. Education OT Patient Education: Correct positioning, Energy conservation, Modified ADL techniques, Progress toward Goal/Update tx plan, Purpose of tx/functional activities, Safety issues, Transfer techniques, Use of adapted equipment Teaching Recipient: Patient Teaching Methods: Discussion Response to Teaching: Verbalize Understanding OT Air Antisubmarine Officer Goals Air Antisubmarine Officer Goals Time Frame: Jan 03, 2020 Eating (QC): 6 Oral Hygiene (QC): 6 Toileting Hygiene (QC): 6 Shower/Bathe Self (QC): 6 Upper Body Dressing (QC): 6 Lower Body Dressing (QC): 6 On/Off Footwear (QC): 6 Additional Goals: 1-Demonstrate ADL Tasks, 2-Verbalize Understanding, 3- ImproveStrength/Anthony 1=Demonstrate adherence to instructed precautions during ADL tasks. 2=Patient will verbalize/demonstrate understanding of assistive devices/m odifications for ADL. 3=Patient will improve strength/tolerance for activity to enable patient to perform ADL's. OT Education/Plan Problem List/Assessment Assessment: Decreased Activ Tolerance, Decreased UE Strength, Impaired Funct Balance, Impaired I ADL's, Impaired Self-Care Skills Discharge Recommendations Plan/Recommendations: Continue POC Treatment Plan/Plan of Care Patient would benefit from OT for education, treatment and training to promote independence in ADL's, mobility, safety and/or upper extremity function for ADL's. Plan of Care: ADL Retraining, Caregiver Training, Functional Mobility, Group Exercise/Act as Ind, UE Funct Exercise/Act, W/C Management Training Treatment Duration: Jan 03, 2020 Frequency: At least 5 of 7 days/Wk (IRF) Estimated Hrs Per Day: 1.5 hours per day Agreement: Yes Rehab Potential: Fair Time/GCodes Start Time: 11:00 Stop Time: 12:00 Total Time Billed (hr/min): 60 Billed Treatment Time 1, FA 4 (60') YAMILE CHEN OT Jan 02, 2020 12:37
--- NOTE | 2020-01-02 13:37 | Occupational Ther Daily Note ---
OT Current Status-Daily Note Subjective Pt alert, sitting in recliner. Pt stated that she was told that she was not going home today. Pt appears somewhat upset at this, encouraged pt with positive words. Pt smiling, singing and making jokes by end of session. Pain Numeric Pain Scale: 4 Location: Medial (ulnar), Soft Tissue Location Body Site: Elbow Pain Description: Ache, Stabbing (with movment) Mental Status/Objective Patient Orientation: Person, Place, Time, Situation ADL-Treatment Therapy Code Descriptions/Definitions Functional [place] Measure: 0=Not Assessed/NA 4=Minimal Assistance 1=Total Assistance 5=Supervision or Setup 2=Maximal Assistance 6=Modified [place] 3=Moderate Assistance 7=Complete IndependenceSCALE: Activities may be completed with or without assistive devices. 9-Oxykfmjqup-odjubuk completes the activity by him/herself with no assistance from a helper. 5-Set-up or Clean-up Assistance-helper sets up or cleans up; patient completes activity. [place] assists only prior to or following the activity. 4-Supervision or Touching Assistance-helper provides verbal cues and/or touching/steadying and/or contact guard assistance as patient completes activity. Assistance may be provided throughout the activity or intermittently. 3-Partial/Moderate Assistance-helper does LESS THAN HALF the effort. [place] lifts, holds or supports trunk or limbs, but provides less than half the effort. 2-Substantial/Maximal Assistance-helper does MORE THAN HALF the effort. [place] lifts or holds trunk or limbs and provides more than half the effort. 8-Zzwqyekmh-omgcpy does ALL the effort. Patient does none of the effort to complete the activity. Or, the assistance of 2 or more helpers is required for the patient to complete the activity. If activity was not attempted, code reason: 7-Patient Refused. 9-Not Applicable-not attempted and the patient did not perform the activity before the current illness, exacerbation or injury. 10-Not Attempted due to Environmental Limitations-(lack of equipment, weather restraints, etc.). 88-Not Attempted due to Medical Conditions or Safety Concerns. Other Treatment Pt given HEP for B UE strengthening and stretching to increase strength for daily functional task. Pt educated on exercises and was able to demonstrate understanding of exercises though due to increased pain of the elbow at ulnar/radial sides, pt only able to demonstrate with R hand. Increased swelling at both areas, ice pack applied to decrease swelling. Ulnar and Radial nerve glides introduced to decrease pain in affected areas. After session, pt left in care of PT. All needs met in room. Education OT Patient Education: Exercise program Teaching Recipient: Patient Teaching Methods: Demonstration, Handout, Discussion Response to Teaching: Verbalize Understanding, Return Demonstration, Reinforcement Needed OT Peg Driver Goals Alf Goals Time Frame: Jan 03, 2020 Eating (QC): 6 Oral Hygiene (QC): 6 Toileting Hygiene (QC): 6 Shower/Bathe Self (QC): 6 Upper Body Dressing (QC): 6 Lower Body Dressing (QC): 6 On/Off Footwear (QC): 6 Additional Goals: 1-Demonstrate ADL Tasks, 2-Verbalize Understanding, 3- ImproveStrength/Nathony 1=Demonstrate adherence to instructed precautions during ADL tasks. 2=Patient will verbalize/demonstrate understanding of assistive devices/modifications for ADL. 3=Patient will improve strength/tolerance for activity to enable patient to perform ADL's. OT Education/Plan Problem List/Assessment Assessment: Decreased UE Strength Discharge Recommendations Plan/Recommendations: Continue POC Treatment Plan/Plan of Care Patient would benefit from OT for education, treatment and training to promote independence in ADL's, mobility, safety and/or upper extremity function for ADL's. Plan of Care: ADL Retraining, Caregiver Training, Functional Mobility, Group Exercise/Act as Ind, UE Funct Exercise/Act, W/C Management Training Treatment Duration: Jan 03, 2020 Frequency: At least 5 of 7 days/Wk (IRF) Estimated Hrs Per Day: 1.5 hours per day Agreement: Yes Rehab Potential: Fair Time/GCodes Start Time: 12:45 Stop Time: 13:15 Total Time Billed (hr/min): 30 Billed Treatment Time 1 visit-EX 1 (15 min) FA 1 (15 min) FOZIA TAFOYA Jan 02, 2020 13:37
--- NOTE | 2020-01-02 14:03 | Physical Therapy Daily Note ---
PT Daily Note-Current Subjective Agrees to PT. Unsure if she is going to [facility] Mental Status Patient Orientation: Person, Place, Time, Situation impaired problem solving in some situations. Transfers SCALE: Activities may be completed with or without assistive devices. 8-Mnennumlba-yfpzrrp completes the activity by him/herself with no assistance from a helper. 5-Set-up or Clean-up Assistance-helper sets up or cleans up; patient completes activity. [place] assists only prior to or following the activity. 4-Supervision or Touching Assistance-helper provides verbal cues and/or touching/steadying and/or contact guard assistance as patient completes activity. Assistance may be provided throughout the activity or intermittently. 3-Partial/Moderate Assistance-helper does LESS THAN HALF the effort. [place] lifts, holds or supports trunk or limbs, but provides less than half the effort. 2-Substantial/Maximal Assistance-helper does MORE THAN HALF the effort. [place] lifts or holds trunk or limbs and provides more than half the effort. 3-Qafpzosrp-rzpyih does ALL the effort. Patient does none of the effort to complete the activity. Or, the assistance of 2 or more helpers is required for the patient to complete the activity. If activity was not attempted, code reason: 7-Patient Refused. 9-Not Applicable-not attempted and the patient did not perform the activity before the current illness, exacerbation or injury. 10-Not Attempted due to Environmental Limitations-(lack of equipment, weather restraints, etc.). 88-Not Attempted due to Medical Conditions or Safety Concerns. Weight Bearing Right Lower Extremity: Right Non Weight Bearing pt. instructed and was shown demo of heavy wt bearing on UEs during swing phase of left. pt. unable to replicate this Exercises Seated Therapy Exercises: Ankle pumps, Long arc quads, Hip flexion, Pulleys, Glut set Seated Reps: 15 (Facilitate LE strength for transfers and gait progression. ) Assessment Current Status: Good Progress PT Short Term Goals Short Term Goals Time Frame: Dec 27, 2019 Roll Left & Right: 6 Sit to lyin Lying to sitting on side of be: 6 Sit to stand: 4 Chair/viu-ep-yigiz transfer: 4 Walk 10 feet: 4 PT Residential Goals Residential Goals PT Residential Goals Time Frame: Jan 10, 2020 Roll Left & Right (QC): 6 (met) Sit to Lying (QC): 6 (met) Lying-Sitting on Side/Bed(QC): 6 (met) Sit to Stand (QC): 5 (met) Chair/Hhc-ea-Jdjzz Xfer(QC): 5 (met) Toilet Transfer (QC): 5 (met) Car Transfer (QC): 5 (met) Does the Patient Walk: Yes Walk 10 feet (QC): 4 Walk 50ft with 2 Turns (QC): 4 (unmet) Walk 150 ft (QC): 88 Walking 10ft on Uneven Surface: 4 (unmet) 1 Step (curb) (QC): 4 4 Steps (QC): 88 12 Steps (QC): 88 Picking up an Object (QC): 88 Wheel 50 feet with 2 turns (QC: 6 (met) Wheel 150 feet: 6 (met) PT Plan Problem List Problem List: Activity Tolerance, Functional Strength, Safety Treatment/Plan Treatment Plan: Continue Plan of Care Treatment Plan: Bed Mobility, Education, Functional Activity Anthony, Functional Strength, Group Therapy, Gait, Safety, Therapeutic Exercise, Transfers Treatment Duration: Jan 10, 2020 Frequency: At least 5 of 7 days/Wk (IRF) Estimated Hrs Per Day: 1.5 hours per day Patient and/or Family Agrees t: Yes Time/GCodes Time In: 1315 Time Out: 1345 Total Billed Treatment Time: 30 Total Billed Treatment visit EX 30 FOZIA MCKEON PT Jan 02, 2020 14:03
[2020-01-02] MEDS: HYDROcodone/APAP 5 MG/325 MG (LORTAB) TAB PO PRN (14:58)
[2020-01-02] MEDS: ENOXAPARIN 40 MG/0.4 ML (LOVENOX) SYR SC SCH (14:58)
--- NOTE | 2020-01-02 15:00 | Cardiology Progress Note ---
Cardiology SOAP Progress Note Subjective: No cardiac complaints. Objective: I&O/Vital Signs 01/02/20 01/02/20 05:11 09:00 Temp 36.7 Pulse 71 Resp 16 B/P (MAP) 156/67 (96) Pulse Ox 93 O2 Delivery Room Air Room Air 01/02/20 00:00 Intake Total 950 ml Balance 950 ml Constitutional: appears stated age, AAO x 3, well-developed, well-nourished Respiratory: chest is bilaterally symmetric, lungs clear to auscultation Cardiovascular: regular rate-rhythm Gastrointestional: soft, audible bowel sounds Extremities: other (dressing in place to right leg from toes to knee) Neurologic/Psychiatric: grossly intact (moves extremities) Skin: normal color; No rash on exposed areas, No ulcerations on exposed areas A/P: Assessment/Dx: Mechanical fall, Right ankle fracture, orthopedic procedure for inpatient rehabilitation, Hypertension, Hyperlipidemia, Mild diastolic dysfunction, Mild valvular heart disease, Obstructive sleep apnea Plan: Mechanical fall, Right ankle fracture, orthopedic procedure for inpatient rehabilitation, Hypertension, on diltiazem and lisinopril as an outpatient. Hyperlipidemia, atorvastatin. Mild diastolic dysfunction, not in florid congestive heart failure. Mild valvular heart disease, mild mitral regurgitation and tricuspid regurgitation. No clinical concerns at this point in time. Obstructive sleep apnea echocardiogram on 11/10/2017 which showed an LVEF of 70 percent with mild diastolic dysfunction. Mild LVH. Mild mitral regurgitation/mild tricuspid regurgitation. EKG done in November 2018 which showed normal sinus rhythm. MPI done on 08/31/2015 which was negative. blood work done on 04/26/2018 which showed total cholesterol of 280, LDL 143, HDL 62, triglyceride 124. Thank you for your consultation. Please call me if you have any questions. Lida Gaffney MD, FACP, FACC, FSCAI, FHRS, CCDS Interventional Cardiology Cardiac Electrophysiology Vascular Medicine and Endovascular Interventions Casey GAFFNEY MD Jan 02, 2020 15:00
--- NOTE | 2020-01-02 15:23 | Therapy Team Discharge Summary ---
Therapy Discharge Summary Discharge Recommendations Date of Discharge Physical Therapy Patient came to rehab post R Bimalleolar fx. Upon evaluation patient performed bed mobility and supine <-> sit with independence, sit <-> stand and transfers with CGA, car transfer CGA, ambulated 5' with a rolling walker with CGA, and could propel a manual WC 150' with SBA. Patient has been performing bed mobility and transfer training, balance and endurance training, functional strengthening, stair training, gait training, and education. 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 Now, patient performs bed mobility and supine <-> sit with independence, sit <-> stand and transfers with setup, car transfer with setup, ambulates 5-10' with a rolling walker with CGA, and can propel a manual WC 150' with setup. Patient was discharged from this facility today and will be discharged from PT at this time. Occupational Therapy Decreased UE Strength PT Toy Trains And Accessories Salesperson Goals Alf Goals PT Toy Trains And Accessories Salesperson Goals Time Frame: Jan 10, 2020 Roll Left to Right (QC): 6 (met) Sit to Lying (QC): 6 (met) Lying-Sitting on Side/Bed(QC): 6 (met) Sit to Stand (QC): 5 (met) Chair/Ojb-sy-Zzlqi Xfer(QC): 5 (met) Car Transfer (QC): 5 (met) Does the Patient Walk: Yes Walk 10 feet (QC): 4 Walk 10ft-Uneven Surface(QC): 4 (unmet) Walk 50ft with 2 Turns (QC): 4 (unmet) Walk 150 ft (QC): 88 Wheel 50 feet with 2 turns (QC: 6 (met) 1 Step (curb) (QC): 4 4 Steps (QC): 88 12 Steps (QC): 88 Picking up an Object (QC): 88 OT Alf Goals Alf Goals Time Frame: Jan 03, 2020 Eating (QC): 6 Oral Hygiene (QC): 6 Shower/Bathe Self (QC): 6 Upper Body Dressing (QC): 6 Lower Body Dressing (QC): 6 On/Off Footwear (QC): 6 Toileting Hygiene (QC): 6 Toilet/Commode Transfer (QC): 5 (met) Additional Goals: 1-Demonstrate ADL Tasks, 2-Verbalize Understanding, 3- ImproveStrength/Anthony 1=Demonstrate adherence to instructed precautions during ADL tasks. 2=Patient will verbalize/demonstrate understanding of assistive devices/modifications for ADL. 3=Patient will improve strength/tolerance for activity to enable patient to perform ADL's. ARNAV MELVIN PT Jan 02, 2020 15:23
--- NOTE | 2020-01-02 15:46 | NUR ---
CM/SS DISCHARGE Patient discharged to new Medicare skilled placement with [facility], transported via facility van. CARE Assessment process remains suspended at [facility] in [place], waived. Faxed orders and instructions to [facility], prepared continuum of care packet to accompany patient. SUMMARY: [facility] [place] had to go on a no admit status until further notice. Distillery Manager again discussed the alternative of assisted living with patient, patient's daughter Pooja Rogers in [place], and they discussed with granddaughter Shayy Styles. Pooja is a supervisor film processing in [place] and has a network there, she found an assisted living that would take patient on a temporary basis during which time she would be able to get therapies. Patient however would not agree to the private pay for this level of care and again we returned to the senior living focus. They asked that publicity writer inquire with [facility], referral completed and she eventually was accepted for discharge same day. Patient and family understand patient will be under a no visitor status at SNF. Unit RN updated intermittently regarding timelines.
--- NOTE | 2020-01-03 12:52 | Therapy Team Discharge Summary ---
Therapy Discharge Summary Discharge Recommendations Date of Discharge Jan 02, 2020 at 15:30 Occupational Therapy Pt admits with R bimalleolar fx. Pt admits with shower at [facility]/ UB dressing s/u/ LB dressing CGA/ toileting with CGA. Through tx, pt and OT work toward higher fx IND through LE NWB training and adaptive techniques during ADL tasks to maintain NWB status, fx activity tolerance and functional balance during tasks and safety. Pt increases on functional activity tolerance, maintenance of RLE NWB status and safety. Pt increases QC score of UB dressing from s/u to IND, all other goals remain same upon d/c due to pt's difficulty maintaining NWB and requiring CGA-SBA for all ADL tasks for safety and success. Pt d/c's to [facility] with OT recommendations of standard w/c and continuation of OT. D/c OT at this time. Decreased UE Strength PT [facility] Goals [employer] Goals PT [employer] Goals Time Frame: Jan 10, 2020 Roll Left to Right (QC): 6 (met) Sit to Lying (QC): 6 (met) Lying-Sitting on Side/Bed(QC): 6 (met) Sit to Stand (QC): 5 (met) Chair/Ojw-am-Zwbex Xfer(QC): 5 (met) Car Transfer (QC): 5 (met) Does the Patient Walk: Yes Walk 10 feet (QC): 4 Walk 10ft-Uneven Surface(QC): 4 (unmet) Walk 50ft with 2 Turns (QC): 4 (unmet) Walk 150 ft (QC): 88 Wheel 50 feet with 2 turns (QC: 6 (met) 1 Step (curb) (QC): 4 4 Steps (QC): 88 12 Steps (QC): 88 Picking up an Object (QC): 88 OT [facility] 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 2=Patient will verbalize/demonstrate understanding of assistive devices/modifications for ADL. 3=Patient will improve strength/tolerance for activity to enable patient to perform ADL's. DEREK SHIPMAN OTR Jan 03, 2020 12:52
== END 2020-01-02 15:30 | DRG 561 ==
PROVIDERS: ADMIT Internal Medicine; ATTEND Internal Medicine
DX: S82.841D Displaced bimalleolar fracture of right lower leg, subsequent encounter for closed fracture with routine healing (principal); I10 Essential (primary) hypertension; E78.5 Hyperlipidemia, unspecified; F41.9 Anxiety disorder, unspecified; F32.9 Major depressive disorder, single episode, unspecified; G47.33 Obstructive sleep apnea (adult) (pediatric); J44.9 Chronic obstructive pulmonary disease, unspecified; I25.10 Atherosclerotic heart disease of native coronary artery without angina pectoris; I08.1 Rheumatic disorders of both mitral and tricuspid valves; R32 Unspecified urinary incontinence; R41.89 Other symptoms and signs involving cognitive functions and awareness; Z87.891 Personal history of nicotine dependence; Z90.49 Acquired absence of other specified parts of digestive tract; Z90.89 Acquired absence of other organs; Z90.710 Acquired absence of both cervix and uterus; W18.30XD Fall on same level, unspecified, subsequent encounter
CPT/HCPCS: 36415; 73610; 80048; 80053; 80061; 83735; 85025

== ENCOUNTER → 2020-03-18 | Outpatient (CLI) | payer MEDICARE ==
[~2020-03-18] MED LIST changes: +ACET-2267 PO; +ALBU18HF2 PO; +ASPI-999 PO; +CHOL10002 PO; +CHOL200074 PO; +DILT240C91 PO; +DIPH25TA65 PO; +DOCU100T2 PO; +DULO30CA49 PO; +DULO60CA59 PO; +ENOX40DI8 SC; +FLUT1BLS PO; +GABA300C PO; +GLUC-173 PO; +GLUC-235 PO; -HYDR-3812 PO; +MELO15TA39 PO; +MONT10TA97 PO; +MULT-968 PO; +MULT1TAB63 PO; +OXC5T PO; +SENN-20 PO; +TURM500C7 PO; +TURM538C PO; +UBID200C16 PO; +UBID300C PO
== END ==
LOC: ORTHO 10:02
PROVIDERS: ATTEND Orthopaedic Surgery
DX: M67.813 Other specified disorders of tendon, right shoulder (principal); J44.9 Chronic obstructive pulmonary disease, unspecified

== ENCOUNTER → 2020-05-13 | Outpatient (CLI) | payer MEDICARE | LOC: ORTHO 10:56 | PROVIDERS: ATTEND Orthopaedic Surgery | DX: M17.0 Bilateral primary osteoarthritis of knee (principal) | CPT/HCPCS: 20610; G0463 ==

== ENCOUNTER → 2020-07-01 | Outpatient (CLI) | payer MEDICARE ==
[~2020-07-01] MED LIST changes: +CHOL-34 PO; -CHOL10002 PO; -LISI-552 PO; +LISI20TA26 PO; +MONT10TA32 PO; -MONT10TA97 PO
== END ==
LOC: ORTHO 09:43
PROVIDERS: ATTEND Orthopaedic Surgery
DX: M75.21 Bicipital tendinitis, right shoulder (principal); J44.9 Chronic obstructive pulmonary disease, unspecified
CPT/HCPCS: 20610; G0463

== ENCOUNTER → 2020-07-23 | Outpatient (CLI) | payer MEDICARE ==
[~2020-07-23] MED LIST changes: +CATHETER FLUSH 10 ML SYR IV PRN; +HOLD METFORMIN - RECEIVED CONTRAST 20 ML VIAL IV SCH; +IOHEXOL 350 MG/ML 100 ML (OMNIPAQUE 350) VIAL IV ONE; +NS 100 ML (IVPB) BAG IV ONE
[2020-07-23 11:23] LABS: BUN/CREATININE RATIO 17; CREATININE SERUM 0.77 MG/DL (0.60-1.30); GFR ESTIMATED > 60
--- NOTE | 2020-07-23 13:23 | Diagnostic Imaging Report ---
PROCEDURE: CT chest with contrast only. TECHNIQUE: Multiple contiguous axial images were obtained through the chest after administration of intravenous contrast. Auto Exposure Controls were utilized during the CT exam to meet ALARA standards for radiation dose reduction. INDICATION: Lung nodule, follow-up. CORRELATION: 07/25/2019. FINDINGS: There is no significant mediastinal, axillary and/or hilar lymphadenopathy. The heart size is unremarkable. Mild coronary artery calcification. No pericardial effusion. Thoracic aorta normal in contour. The lung beckman are clear of infiltrate. No significant pleural effusion. Approximately 5 mm nodule in the superior segment of the right lower lobe appears unchanged (image 60 series 3). Additional smaller adjacent nodules also appear stable. The visualized portions of the upper abdomen are unremarkable. The visualized osseous structures demonstrate no acute findings. IMPRESSION: Generally stable appearance about small right lower lobe pulmonary nodules. Dictated by: Dictated on workstation # [id number]
== END ==
LOC: RAD 10:50
PROVIDERS: ATTEND Nurse Practitioner Family
DX: R91.8 Other nonspecific abnormal finding of lung field (principal)
CPT/HCPCS: 36415; 71260; 82565; 84520

== ENCOUNTER → 2020-12-09 | Outpatient (CLI) | payer MEDICARE ==
[~2020-12-09] MED LIST changes: -CATHETER FLUSH 10 ML SYR IV PRN; -HOLD METFORMIN - RECEIVED CONTRAST 20 ML VIAL IV SCH; -IOHEXOL 350 MG/ML 100 ML (OMNIPAQUE 350) VIAL IV ONE; -NS 100 ML (IVPB) BAG IV ONE
== END ==
LOC: LAB 14:52
PROVIDERS: ATTEND Specialist
DX: M48.02 Spinal stenosis, cervical region (principal)

== ENCOUNTER → 2020-12-10 | Outpatient (CLI) | payer MEDICARE | LOC: LABNPT 06:31 | PROVIDERS: ATTEND Specialist | DX: M48.02 Spinal stenosis, cervical region (principal); Z20.822 Contact with and (suspected) exposure to COVID-19 | CPT/HCPCS: 87081; 87636 ==

== ENCOUNTER 2021-02-11 11:42 | Emergency (ER) | payer MEDICARE ==
[~2021-02-11] VITALS: Ht 160 cm; Wt 64.0 kg
--- OUTSIDE RECORDS SUMMARY | 2021-02-11 11:47 | XMS REPORT | Clinical Summary ---
Demographics Home Phone Preferred Language Malay Marital Status Zoroastrianism Affiliation [id number] Race White Ethnic Group Not or Author Author 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
--- OUTSIDE RECORDS SUMMARY | 2021-02-11 11:47 | XMS REPORT | CCD ---
Author Author Marla Villarreal Organization Elaine Meeks MD, [facility] Address [address] [place] [address] Phone Care Team Providers Care Group Insurance Special Agent Name Role Phone Elaine Meeks PP Unavailable CCM Unavailable Summary Purpose Interface Exchange Insurance Providers Payer name Policy type / Coverage type Covered democrat ID Effective Begin Date Effective End Date WPS Medicare Part B Medicare Part B [id number] Unkno wn [facility] Medicare Part B [id number] Unknown Family history Father Diagnosis Age At Onset Hypercholesterolemia Unknown Stroke Unknown Hypertension Unknown Arthritis Unknown Alcoholism Unknown Sister Diagnosis Age At Onset Hypercholesterolemia Unknown Mother Diagnosis Age At Onset Alcoholism Unknown Hypercholesterolemia Unknown Hypertension Unknown Arthritis Unknown Myocardial infarction Unknown bleeding problem Unknown Social History Social History Element Codes Description Effective Dates Marital status Unknown Mike Llamas 05/21/2019 Number of children Unknown 2 05/21/2019 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/[address]: 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 Former smoker 05/21/[address]: 352509 Currently drinks alcohol 05/21 Frequency of drinks SNOMED CT: 072314847 14 drinks per week 2 per day 05/21/2019 Allergies, Adverse Reactions, Alerts Substance Reaction Codes Entered Date Inactivated Date Status Penicillin hives, Unknown 05/21/2019 No Inactive Date Active Problems Condition Codes Effective Dates Condition Status Chronic pain ICD-10: G89.29 ICD-9: 338.29 08/14/2020 Active Depression, major, recurrent, mild ICD-10: F33.0 ICD-9: 296.31 01/05/2021 Active Essential (primary) hypertension ICD-10: I10 ICD-9: 401.9 05/21/2019 Active Abnormal weight loss ICD-10: R63.4 ICD-9: 783.21 09/25/2020 Active Low back pain ICD-10: M54.5 ICD-9: 724.2 11/13/2019 Active Mixed hyperlipidemia ICD-10: E78.2 ICD-9: 272.2 05/21/2019 Active URI (upper respiratory infection) ICD-10: J06.9 ICD-9: 465.9 04/23/2020 Active Ankle fracture, left ICD-10: S82.892A ICD-9: 824.8 01/20/2020 Active Left ankle pain ICD-10: M25.572 ICD-9: 719.47 06/04/2019 Active Fracture of right lower leg ICD-10: S82.91XA ICD-9: 823.80 12/05/2019 Active Right leg pain ICD-10: M79.604 ICD-9: 729.5 12/05/2019 Active Chronic obstructive pulmonary disease with acute exace rbation ICD-10: J44.1 ICD-9: 491.21 11/20/2019 Active Other allergic rhinitis ICD-10: J30.89 ICD-9: 477.8 11/20/2019 Active COPD (chronic obstructive pulmonary disease) ICD-10: J 44.9 ICD-9: 496 05/21/2019 Active Closed avulsion fracture of distal end of left fibula, initial encounter ICD-10: S82.832A ICD-9: 824.8 06/04/2019 Active Closed avulsion fracture of medial malleolus of left t ibia, initial encounter ICD-10: S82.52XA ICD-9: 824.0 06/04/2019 Active Gait instability ICD-10: R26.81 ICD-9: 781.2 06/04/2019 Active Hypertension Unknown 05/21/2019 Active Obstructive sleep apnea ICD-10: G47.33 ICD-9: 327.23 05/21/2019 Active Medications Medication Codes Instructions Start Date Stop Date Status Fill Instructions montelukast 10 mg tablet RxNorm: 247218 Take 1 Tablet(s) Oral e very evening 02/04/2021 03/05/2021 Active lisinopril 20 mg tablet RxNorm: 570272 TAKE 1 TABLET BY MOUTH E VERY DAY 02/01/2021 05/01/2021 Active atorvastatin 20 mg tablet RxNorm: 311595 TAKE 1 TABLET BY MOUTH EVERY DAY 01/27/2021 04/26/2021 Active hydrocodone 7.5 mg-acetaminophen 325 mg tablet RxNorm: 80130 5 1 Tablet(s) Oral BID PRN as needed 11/19/2020 11/19/2020 Inactive chronic back a nd neck pain duloxetine 30 mg capsule,delayed release RxNorm: 966939 Take 1 Capsule(s) Oral every night at bedtime 11/17/2020 02/14/2021 Active hydrocodone 7.5 mg-acetaminophen 325 mg tablet RxNorm: 74440 5 1 Tablet(s) Oral BID PRN as needed 10/16/2020 10/16/2020 Inactive chronic back a nd neck pain hydrocodone 7.5 mg-acetaminophen 325 mg tablet RxNorm: 35095 5 1 Tablet(s) Oral BID PRN as needed 08/14/2020 08/14/2020 Inactive chronic back a nd neck pain atorvastatin 20 mg tablet RxNorm: 213242 TAKE 1 TABLET BY MOUTH EVERY DAY 08/10/2020 08/10/2020 Inactive tramadol 50 mg tablet RxNorm: 701978 TAKE 1 TABLET BY M OUT THREE TIMES DAILY NEEDED FOR PAIN 08/10/2020 08/13/2020 Inactive Pepcid 20 mg tablet RxNorm: 816391 1 Tablet(s) Oral every day 08/03 No Stop Date Active duloxetine 60 mg capsule,delayed release RxNorm: 652698 TAKE 1 CAPSULE BY MOUTH EVERY DAY 07/30/2020 01/25/2021 Inactive tramadol 50 mg tablet RxNorm: 395995 1 Tablet(s) Oral t hree times a day as needed for pain 07/01/2020 07/01/2020 Inactive montelukast 10 mg tablet RxNorm: 156060 1 Tablet(s) Oral every evening 06/23/2020 06/23/2020 Inactive diltiazem ER (XR/XT) 240 mg capsule,extended release 2 4 hr, controlled RxNorm: 463293 TAKE 1 CAPSULE BY MOUTH EVERY DAY 06/22/2020 03/18/2021 Active meloxicam 15 mg tablet RxNorm: 803842 TAKE 1 TABLET BY MOUTH 06/22/2020 03/18/2021 Active lisinopril 20 mg tablet RxNorm: 282967 TAKE 1 TABLET BY MOUTH E VERY DAY 06/10/2020 06/10/2020 Inactive tramadol 50 mg tablet RxNorm: 365691 1 Tablet(s) Oral t hree times a day as needed for pain 06/01/2020 08/09/2020 Inactive Zithromax Z-Owen 250 mg tablet RxNorm: 913850 Tablet(s) Oral as directed 04/23/2020 No Stop Date Active prednisone 10 mg tablet RxNorm: 942414 Tablet(s) Oral 6,5,4,3,2,1 1 06/24/2019 No Stop Date Active oxycodone 5 mg tablet RxNorm: 4532824 1 Tablet(s) Oral Q6 as nee ded pain 01/15/2020 08/13/2020 Inactive Keflex 500 mg capsule RxNorm: 802934 1 Capsule(s) Oral three ti mes a day 11/20/2019 11/30/2019 Inactive prednisone 20 mg tablet RxNorm: 659778 Tablet(s) Oral a s directed 40,40,20,20,10,10 11/20/2019 11/25/2019 Inactive azithromycin 250 mg tablet RxNorm: 493651 1 Tablet(s) O ral as directed 2 tabs on first day then 1 pill daily x 4 11/14/2019 11/14/2019 Inactive duloxetine 30 mg capsule,delayed release RxNorm: 210008 1 Capsule(s) Oral every evening take at HS and the 60mg AM 11/13/2019 11/07/2020 Inactive Kenalog 40 mg/mL suspension for injection RxNorm: 9944278 Milliliter(s) Injection 11/13/2019 11/13/2019 Inactive azithromycin 250 mg tablet RxNorm: 838122 1 Tablet(s) O ral as directed 2 tabs on first day then 1 pill daily x 4 11/13/2019 11/13/2019 Inactive prednisone 20 mg tablet RxNorm: 122920 2 Tablet(s) Oral every day 0 11/13/2019 11/18/2019 Inactive duloxetine 60 mg capsule,delayed release RxNorm: 135831 1 Capsule(s) Oral every day 11/13/2019 07/29/2020 Inactive atorvastatin 20 mg tablet RxNorm: 867099 1 Tablet(s) Oral every day 09/11/2019 06/07/2020 Inactive lisinopril 20 mg tablet RxNorm: 318318 1 Tablet(s) Oral every day 0 09/11/2019 06/07/2020 Inactive duloxetine 60 mg capsule,delayed release RxNorm: 179057 1 Capsule(s) Oral every day 08/26/2019 11/12/2019 Inactive gabapentin 300 mg capsule RxNorm: 898088 1 Capsule(s) Oral thre e times a day 07/16/2019 04/11/2020 Inactive diltiazem ER (XR/XT) 240 mg capsule,extended release 2 4 hr, controlled RxNorm: 747209 1 Capsule(s) Oral every day 07/16/2019 04/11/2020 Inactive meloxicam 15 mg tablet RxNorm: 101539 1 Tablet(s) Oral every day 03/21/2020 Inactive Co Q-10 300 mg capsule RxNorm: 445848 1 Capsule(s) Oral every day 0 05/21/2019 No Stop Date Active lisinopril 20 mg tablet RxNorm: 798159 1 Tablet(s) Oral every day 0 05/21/2019 05/21/2019 Inactive hydrocodone 7.5 mg-acetaminophen 325 mg tablet RxNorm: 43156 5 1 Tablet(s) Oral Q8 as needed 05/21/2019 08/13/2020 Inactive atorvastatin 20 mg tablet RxNorm: 971855 1 Tablet(s) Oral every day 05/21/2019 09/10/2019 Inactive diltiazem ER (XR/XT) 240 mg capsule,extended release 2 4 hr, controlled RxNorm: 479913 1 Capsule(s) Oral every day 05/21/2019 07/15/2019 Inactive meloxicam 15 mg tablet RxNorm: 381758 1 Tablet(s) Oral every day 06/24/2019 Inactive gabapentin 300 mg capsule RxNorm: 255705 1 Capsule(s) Oral thre e times a day 05/21/2019 07/15/2019 Inactive montelukast 10 mg tablet RxNorm: 663997 1 Tablet(s) Oral every evening 05/21/2019 06/22/2020 Inactive lisinopril 20 mg tablet RxNorm: 371435 1 Tablet(s) Oral every day 0 05/21/2019 05/20/2019 Inactive atorvastatin 20 mg tablet RxNorm: 151914 1 Tablet(s) Oral every day 05/21/2019 05/20/2019 Inactive duloxetine 60 mg capsule,delayed release RxNorm: 883692 1 Capsule(s) Oral every day 05/21/2019 08/25/2019 Inactive Glucosamine Chondroitin oral RxNorm: oral 05/21/2019 Active turmeric oral RxNorm: 1133454 oral 05/21/2019 Active Medication Administered Medication Codes Instructions Start Date Status Kenalog 40 mg/mL suspension for injection RxNorm: 8539538 Millilite r 11/13/2019 No longer Active Immunizations Vaccine Codes Date Status Influenza CVX: 135 03/04/2020 Results Observation Observation Code Item Item Code Result Date S ervice Location COVID19 SARS-COV-2 by RT-PCR U696 COVID19 (SARS-CoV-2) Negative 09/14/2020 Unknown COVID19 SARS-COV-2 by RT-PCR U696 Source Unknown 0 09/14/2020 Unknown COVID19 SARS-COV-2 by RT-PCR U696 Continued Results 09/14/2020 Unknown MRSA SCREEN M575 MRSA SCREEN See Note 09/14/2020 Unkno wn Comp Metabolic Ncb629 NA 141 mEq/L 08/14/2020 Unkn own Comp Metabolic Pwz519 K 4.5 mEq/L 08/14/2020 Unkn own Comp Metabolic Deb511 CL 103 mEq/L 08/14/2020 Unkn own Comp Metabolic Wfm846 CO2 30.0 mEq/L 08/14/2020 Unk nown Comp Metabolic Fpe274 ANION GAP 13 08/14/2020 Unkn own Comp Metabolic Brr723 GLUCOSE 94 mg/dL 08/14/2020 Unkn own Comp Metabolic Xxw908 Creat 0.8 mg/dL 08/14/2020 Unkn own Comp Metabolic Stc473 eGFR 74 ml/min/1.73m2 08/15/19 21 Unknown Comp Metabolic Hsv189 BUN 14 mg/dL 08/14/2020 Unkn own Comp Metabolic Dzk837 B/C Ratio 17.5 Ratio 08/14/2020 Unk nown Comp Metabolic Txw503 CALCIUM 9.5 mg/dL 08/14/2020 Unkn own Comp Metabolic Leq234 ALK PHOS 55 U/L 08/14/2020 Unkn own Comp Metabolic Rlj867 AST(SGOT) 17 U/L 08/14/2020 Unkn own Comp Metabolic Ohz545 ALT(SGPT) 14 U/L 08/14/2020 Unkn own Comp Metabolic Yns735 BILI T 0.5 mg/dL 08/14/2020 Unkn own Comp Metabolic Bds363 ALBUMIN 4.2 g/dL 08/14/2020 Unkn own Comp Metabolic Ujc864 TPRO 6.9 g/dL 08/14/2020 Unkn own Comp Metabolic Iiz762 GLOB 2.7 g/dL 08/14/2020 Unkn own Comp Metabolic Jrd030 A/G Ratio 1.6 Ratio 08/14/2020 Unkn own Comp Metabolic Tfk467 Osmo 281 mOsmo 08/14/2020 Unkn own Cbc With Differential Ord2 WBC 6.54 K/ul 08/15/19 21 Unknown Cbc With Differential Ord2 RBC 4.22 M/ul 08/15/19 21 Unknown Cbc With Differential Ord2 HGB 13.4 g/dl 08/15/19 21 Unknown Cbc With Differential Ord2 Neut% 54.7 % 08/15/19 21 Unknown Cbc With Differential Ord2 HCT 41.4 % 08/15/19 21 Unknown Cbc With Differential Ord2 MCV 98.1 fl 08/15/19 21 Unknown Cbc With Differential Ord2 Lymph% 29.2 % 08/15/19 21 Unknown Cbc With Differential Ord2 Young% 10.6 % 08/15/19 21 Unknown Cbc With Differential Ord2 MCH 31.8 pg 08/15/19 21 Unknown Cbc With Differential Ord2 MCHC 32.4 pg 08/15/19 21 Unknown Cbc With Differential Ord2 Eos% 5.2 % 08/15/19 21 Unknown Cbc With Differential Ord2 PLT 188 K/ul 08/15/19 21 Unknown Cbc With Differential Ord2 Baso% 0.3 % 08/15/19 21 Unknown Cbc With Differential Ord2 RDW 13.2 % 08/15/19 21 Unknown Cbc With Differential Ord2 Neut ABS# 3.58 K/ul 08/15/19 21 Unknown Cbc With Differential Ord2 Lymph ABS# 1.91 K/ul 021 Unknown Cbc With Differential Ord2 Young ABS# 0.7 K/ul 08/15/19 21 Unknown Cbc With Differential Ord2 Eos ABS# 0.3 K/ul 08/15/19 21 Unknown Cbc With Differential Ord2 Baso ABS# 0.0 K/ul 08/15/19 21 Unknown Tsh Ord6 TSH (3rd IS) 0.97 uIU/mL 08/14/2020 Unkn own Procedures Procedure Codes Date THER/PROPH/DIAG INJ SC/IM CPT-4: 07282 11/13/2019 TRIAMCINOLONE ACET INJ NOS 10 mg CPT-4: J3301 020 Vital Signs Date Vital 01/05/2021 Blood Pressure 1: 136/70 Code: 8480-6 BMI: 26.7 Code: 94658-1 Height: 5'3" Code: 8302-2 Weight: 151 lbs Code: 61210-9 09/25/2020 Blood Pressure 1: 110/80 Code: 8480-6 BMI: 27.8 Code: 21191-9 Heart Rate 1: 65 bpm Height: 5'3" Code: 8302-2 SpO2: 96% Temperature: 3 6.7 (C) / 98.0 (F) Weight: 157 lbs Code: 49015-0 08/28/2020 Blood Pressure 1: 136/74 Code: 8480-6 Heart Rate 1: 75 bpm Height: 5'3" Code: 8302-2 SpO2: 97% Temperature: 36.3 (C) / 97.3 (F) Weight: Code: 58174-5 08/14/2020 Blood Pressure 1: 110/66 Code: 8480-6 Heart Rate 1: 91 bpm Height: 5'3" Code: 8302-2 SpO2: 96% Temperature: 36.3 (C) / 97.3 (F) Weight: Code: 17642-9 01/20/2020 Height: Code: 8302-2 Weight: Code: 294 63-12/05/2019 Blood Pressure 1: 122/74 Code: 8480-6 Heart Rate 1: 84 bpm Height: 5'3" Code: 8302-2 SpO2: 97% Temperature: 36.6 (C) / 97.8 (F) Weight: Code: 49491-1 11/20/2019 Blood Pressure 1: 120/62 Code: 8480-6 BMI: 30.8 Code: 52059-8 Heart Rate 1: 104 bpm Height: 5'3" Code: 8302-2 SpO2: 97% Temperature: 3 6.5 (C) / 97.7 (F) Weight: 174 lbs Code: 13997-2 11/13/2019 Blood Pressure 1: 112/60 Code: 8480-6 BMI: 30.8 Code: 83268-2 Heart Rate 1: 103 bpm Height: 5'3" Code: 8302-2 Respiratory Rate: 16 bpm SpO2: 96% Temperature: 36.9 (C) / 98.4 (F) Weight: 174 lbs Code: 73583-5 06/04/2019 Blood Pressure 1: 140/66 Code: 8480-6 Heart Rate 1: 80 bpm Height: 5'3" Code: 8302-2 SpO2: 96% Weight: Code: 47884-5 05/21/2019 Blood Pressure 1: 142/70 Code: 8480-6 BMI: 32.1 Code: 79310-9 Heart Rate 1: 70 bpm Height: 5'3" Code: 8302-2 SpO2: 97% Weight: 181 lb s Code: 03889-7 Functional Status No Functional Status data Reason For Visit Reason For Visit Effective Dates Notes Hospital Follow Up 01/05/2021 hypertension 09/25/2020 medication follow up 08/28/2020 medication follow up 08/14/2020 sinus congestion 04/23/2020 medication follow up 01/20/2020 Hospital Follow Up 12/05/2019 cerumen 11/20/2019 hypertension 11/13/2019 Hospital Follow Up 06/04/2019 hypertension 05/21/2019 Encounters Encounter Performer Location Codes Date ([id number]) 34252 EST. PATIENT, LEVEL IV Diagnosis: Essential (primary) hypertension[ICD10: I10] Diagnosis: Chronic pain[ICD10: G89.29] Diagnosis: Depression, major, recurrent, mild[ICD10: F33.0] Sharmin Meeks MD, [facility] CPT-4: 79546 01/05/2021 ([id number]) 85025 EST. PATIENT, LEVEL III Diagnosis: Abnormal weight loss[ICD10: R63.4] Diagnosis: Chronic pain[ICD10: G89.29] Sharmin Meeks MD, C CPT-4: 11216 09/25/2020 ([id number]) 80972 EST. PATIENT, LEVEL III Diagnosis: Low back pain[ICD10: M54.5] Diagnosis: Chronic pain[ICD10: G89.29] Sharmin Meeks MD, C CPT-4: 24107 08/28/2020 ([id number]) 81114 EST. PATIENT, LEVEL IV Diagnosis: Essential (primary) hypertension[ICD10: I10] Diagnosis: Low back pain[ICD10: M54.5] Diagnosis: Chronic pain[ICD10: G89.29] Diagnosis: Mixed hyperlipidemia[ICD10: E78.2] Sharmin raman MD, [facility] CPT-4: 58662 08/14/2020 27300 EST. PATIENT, LEVEL III Diagnosis: URI (upper respiratory infection)[ICD10: J06.9] Adilene [facility] CPT-4: 42864 04/23/2020 20548 EST. PATIENT, LEVEL III Diagnosis: Left ankle pain[ICD10: M25.572] Diagnosis: Ankle fracture, left[ICD10: S82.892A] Adilene [facility] CPT-4: 42989 01/20/2020 45493 EST. PATIENT, LEVEL III Diagnosis: Right leg pain[ICD10: M79.604] Diagnosis: Fracture of right lower leg[ICD10: S82.91XA] Elaine Meeks MD, [facility] CPT-4: 99267 12/05/2019 58213 EST. PATIENT, LEVEL IV Diagnosis: Other allergic rhinitis[ICD10: J30.89] Diagnosis: Chronic obstructive pulmonary disease with acute exacerbation[ICD10: J44.1] Adilene Meeks MD, [facility] CPT-4: 79568 0 ([id number]) 36119 EST. PATIENT, LEVEL IV Diagnosis: Chronic obstructive pulmonary disease with acute exacerbation[ICD10: J44.1] Diagnosis: Essential (primary) hypertension[ICD10: I10] Diagnosis: Low back pain[ICD10: M54.5] Elaine Meeks MD, [facility] CPT-4: 81264 11/13/2019 95379 EST. PATIENT, LEVEL III Diagnosis: Ankle pain, left[ICD10: M25.572] Diagnosis: Closed avulsion fracture of distal end of left fibula, initial encounter[ICD10: S82.832A] Diagnosis: Closed avulsion fracture of medial malleolus of left tibia, initial encounter[ICD10: S82.52XA] Diagnosis: Gait instability[ICD10: R26.81] [facility] CPT-4: 23997 06/04/2019 OFFICE VISIT, NEW - LEVEL 4 Diagnosis: Essential (primary) hypertension[ICD10: I10] Diagnosis: COPD (chronic obstructive pulmonary disease)[ICD10: J44.9] Diagnosis: Mixed hyperlipidemia[ICD10: E78.2] Diagnosis: Obstructive sleep apnea[ICD10: G47.33] [facility] CPT-4: 79638 05/21/2019 Plan of Care Planned Activity Notes Codes Status Date Visit Plan: Hypertension - well controll ed - continue with current medications, continue with no added salt diet. Pt has been encouraged to exercise daily. The pt has been advised to call the office if there are any acute concerns about change in blood pressure readings at home. Chronic pain with acute pain from recent spinal fusion - patient is taking hydrocodone as directed - monitor and call if pain uncontrolled -continue with home health -recommend patient not to drive at this time Depression - improved since restarting cymbalta - continue to monitor and call if not controlled 01/05/2021 Appointment: Sharmin Villarreal WPtel: [phone] (15 min) Moderate 01/05/2021 Patient Education: Patient Medication Summary Completed 01/05/2021 Patient Education: Hypertension Completed 01/05/2021 Patient Education: Depression Completed 01/05/2021 Appointment: Sharmin Villarreal WPtel: [address] [place], [place] [phone] (30 min) Complex 01/01/2021 Visit Plan: Abnormal weight loss- due to decreased intake- recommend patient increase snacks- add protein -monitor weight and call if continues to lose - follow up in 6 months, sooner if needed. Chronic Pain Syndrome - pt has chronic pain - has been maintained on current medications, has not sought out other medications, only uses PRN pain medications as directed, and understands the consequences of over-medication. 09/25/2020 Appointment: Sharmin Villarreal WPtel: [phone] [place] (30 min) Complex 09/25/2020 Patient Education: Patient Medication Summary Completed 09/25/2020 Appointment: Nurse Visit 09/11/2020 Visit Plan: Chronic pain -low back - seng n - patient to continue with medications as directed -let us know what pain management says and we can make any needed adjustments at that time -call if pain uncontrolled -patient verbalized understanding of plan. 08/28/2020 Appointment: Sharmin Villarreal WPtel: [phone] [place] (30 min) Complex 08/28/2020 Patient Education: Patient Medication Summary Completed 08/28/2020 Patient Education: Back Pain Completed 08/28/2020 Visit Plan: Hypertension - well controll ed - continue with current medications, continue with no added salt diet. Pt has been encouraged to exercise daily. The pt has been advised to call the office if there are any acute concerns about change in blood pressure readings at home. Chronic Pain Syndrome - pt has chronic pain - has been maintained on current medications, has not sought out other medications, only uses PRN pain medications as directed, and understands the consequences of over-medication. Hyperlipidemia- recommend fasting labs 08/14/2020 Appointment: Sharmin Villarreal WPtel: [phone] [place] (30 min) Complex 08/14/2020 Patient Education: Patient Medication Summary Completed 08/14/2020 Patient Education: Hypertension Completed 08/14/2020 Patient Education: Cholesterol Management Completed 08/14/2020 Patient Education: Back Pain Completed 08/14/2020 Patient Education: hydrocodone 7.5 mg-acetaminophen 325 mg table t Monograph Completed 08/14/2020 Care Plan: Cbc With Differential Pending 08/14/2020 Care Plan: Comp Metabolic Pending Care Plan: Tsh Pending 08/14/2020 Visit Plan: URI - Pt advised to increase fluids, vitamin C. Discussed natural and expected course of this diagnosis and need to alert me if symptoms do not follow expected course, or if any worse. RX sent to patient's pharmacy. 04/23/2020 Appointment: Adilene Walker WPtel: [phone] [facility] TeleHealth 04/23/2020 Patient Education: Patient Medication Summary Completed 04/23/2020 Visit Plan: Hospital follow up - This wa s a follow up appointment from the patient's hospitalization during which time Dr. Meeks formulated the assessment and plan for the follow up on this patient's medical condition. Ankle fracture, ankle pain - defer to ortho - pt is to notify clinic with any changes in the current treatment plan 01/20/2020 Appointment: Adilene Walker WPtel: [facility]5 [facility] TeleHealth 01/20/2020 Patient Education: Patient Medication Summary Completed 01/20/2020 Appointment: Elaine Meeks WPtel: [address] [place], [place] [phone] (30 min) Complex 12/24/2019 Visit Plan: Right leg fracture, pain - w ill order home health to assist pt with mobility, medication management, pain management and symptom monitoring. Will order bedside commode for pt to utilize over the weekend. Pt is to keep appointment with Dr. Amador on Monday. Pt is to notify clinic of any updates in the current treatment plan. 12/05/2019 Appointment: Adilene Walker WPtel: [facility]5 [facility] (30 min) Complex 12/05/2019 Patient Education: Patient Medication Summary Completed 12/05/2019 Visit Plan: Allergies - chronic - recomm ended pt to use allergy medication as prescribed. Pt has been counseled as to the appropriate use of the medication. Pt to call if allergy symptoms are not controlled with the medication. If using nasal spray, instructions as follows: Nasal spray- use twice daily, one spray per nostril twice daily, after 30 minutes, rinse out nose with saline spray.. Use opposite hand per nostril to spray in the nasal steroid allergy spray. COPD EXACERBATION - COPD is a chronic problem for this patient, however, the pt is experiencing an acute exacerbation of the COPD. Pt is to receive appropriate treatment as an out patient, but the pt is aware that if symptoms worsen or do not improve, to call [facility] for instructions, or go to the EMERGENCY ROOM if the symptoms are beyond acute control with rescue medications. We have reviewed chronic treatment strategy, symptom control, and plans for acute exacerbations. No changes today to the current treatment plan as the patient is stable, monitor for acute changes. 11/20/2019 Appointment: Nurse Visit 11/20/2019 Appointment: Adilene Walker [facility]el[facility] [phone] [facility] [place] (30 min) Complex 11/20/2019 Patient Education: Patient Medication Summary Completed 11/20/2019 Appointment: Shar[facility] Vill[facility]real [facility]el[facility] [phone] [phone] [place] (30 min) Complex 11/19/2019 Visit Plan: Back pain - referral to dr cheryl jacob for injections in low back Hypertension - well controlled - continue with current medications, continue with no added salt diet. Pt has been encouraged to exercise daily. The pt has been advised to call the office if there are any acute concerns about change in blood pressure readings at home. Hyperlipidemia - pt has been counseled about appropriate diet, exercise, and need for low fat food choices. I have discussed the need for the patient to take medications as prescribed. If the patient has negative side effects from the medication, they are to CALL the office and not abruptly discontinue the medication without discussion with a practitioner in the office. We will check labs in 3-6 months for follow up on the patient's chronic medical problem and to assure normal liver response to medications. COPD EXACERBATION - COPD is a chronic problem for this patient, however, the pt is experiencing an acute exacerbation of the COPD. Pt is to receive appropriate treatment as an out patient, but the pt is aware that if symptoms worsen or do not improve, to call [facility] for instructions, or go to the EMERGENCY ROOM if the symptoms are beyond acute control with rescue medications. We have reviewed chronic treatment strategy, symptom control, and plans for acute exacerbations. No changes today to the current treatment plan as the patient is stable, monitor for acute changes. 11/13/2019 Appointment: [facility] [address] [id number] [place] ([facility] 11/13/2019 Patient Education: Patient Medication Summary Completed 11/13/2019 Patient Education: Hypertension Completed 11/13/2019 Patient Education: Back Pain Completed 11/13/2019 Visit Plan: Left ankle fracture, gait in stability - pt is to continue use of walking boot and keep her follow up appointment with ortho - will order Home health to help with medication management, monitoring her condition, and vitals monitoring - pt is to notify clinic if symptoms do not improve, if they worsen, or with any changes, questions, or concerns. 06/04/2019 Appointment: Adilene Walker WPtel: [id number] ([facility] 06/04/2019 Patient Education: Patient Medication Summary Completed 06/04/2019 Visit Plan: Hypertension - well controll ed - continue with current medications, continue with no added salt diet. Pt has been encouraged to exercise daily. The pt has been advised to call the office if there are any acute concerns about change in blood pressure readings at home. Hyperlipidemia - pt has been counseled about appropriate diet, exercise, and need for low fat food choices. I have discussed the need for the patient to take medications as prescribed. If the patient has negative side effects from the medication, they are to CALL the office and not abruptly discontinue the medication without discussion with a practitioner in the office. We will check labs in 3-6 months for follow up on the patient's chronic medical problem and to assure normal liver response to medications. COPD - chronic problem for this patient. We have reviewed chronic treatment strategy, symptom control, and plans for acute exacerbations. No changes today to the current treatment plan as the patient is stable, monitor for acute changes. Sleep apnea -continue with CPAP and supplemental oxygen at night 05/21/2019 Patient Education: Patient Medication Summary Completed 05/21/2019 Patient Education: Hypertension Completed 05/21/2019 Patient Education: Cholesterol Management Completed 05/21/2019 Instructions Comment . Hypertension - well controlled - jolanta nue with current medications, continue with no added salt diet. Pt has been encouraged to exercise daily. The pt has been advised to call the office if there are any acute concerns about change in blood pressure readings at home. Chronic pain with acute pain from recent spinal fusion - patient is taking hydrocodone as directed - monitor and call if pain uncontrolled -continue with home health -recommend patient not to drive at this time Depression - improved since restarting cymbalta - continue to monitor and call if not controlled . Abnormal weight loss- due to decreased intake- recommend patient increase snacks- add protein -monitor weight and call if continues to lose -follow up in 6 months, sooner if needed. Chronic Pain Syndrome - pt has chronic pain - has been maintained on current medications, has not sought out other medications, only uses PRN pain medications as directed, and understands the consequences of over-medication. call and let me know what you hear back today . Chronic pain -low back - pain - patien t to continue with medications as directed -let us know what pain management says and we can make any needed adjustments at that time -call if pain uncontrolled -patient verbalized understanding of plan. . Hypertension - well controlled - jolanta nue with current medications, continue with no added salt diet. Pt has been encouraged to exercise daily. The pt has been advised to call the office if there are any acute concerns about change in blood pressure readings at home. Chronic Pain Syndrome - pt has chronic pain - has been maintained on current medications, has not sought out other medications, only uses PRN pain medications as directed, and understands the consequences of over-medication. Hyperlipidemia- recommend fasting labs Get COVID-19 test. URI - Pt advised to i ncrease fluids, vitamin C. Discussed natural and expected course of this diagnosis and need to alert me if symptoms do not follow expected course, or if any worse. RX sent to patient's pharmacy. . Hospital follow up - This was a follow up appointment from the patient's hospitalization during which time Dr. Meeks formulated the assessment and plan for the follow up on this patient's medical condition. Ankle fracture, ankle pain - defer to ortho - pt is to notify clinic with any changes in the current treatment plan Assisted living to look into: [facility], [facility], [facility], [facility], [facility] assisted living another option to look into is [facility] will consult home health will write orders for bedside commode. Right leg fracture, pain - will order home health to assist pt with mobility, medication management, pain management and symptom monitoring. Will order bedside commode for pt to utilize over the weekend. Pt is to keep appointment with Dr. Amador on Monday. Pt is to notify clinic of any updates in the current treatment plan. . Allergies - chronic - recommended pt to use allergy medication as prescribed. Pt has been counseled as to the appropriate use of the medication. Pt to call if allergy symptoms are not controlled with the medication. If using nasal spray, instructions as follows: Nasal spray- use twice daily, one spray per nostril twice daily, after 30 minutes, rinse out nose with saline spray.. Use opposite hand per nostril to spray in the nasal steroid allergy spray. COPD EXACERBATION - COPD is a chronic problem for this patient, however, the pt is experiencing an acute exacerbation of the COPD. Pt is to receive appropriate treatment as an out patient, but the pt is aware that if symptoms worsen or do not improve, to call [facility] for instructions, or go to the EMERGENCY ROOM if the symptoms are beyond acute control with rescue medications. We have reviewed chronic treatment strategy, symptom control, and plans for acute exacerbations. No changes today to the current treatment plan as the patient is stable, monitor for acute changes. . Back pain - referral to dr wong for injections in low back Hypertension - well controlled - continue with current medications, continue with no added salt diet. Pt has been encouraged to exercise daily. The pt has been advised to call the office if there are any acute concerns about change in blood pressure readings at home. Hyperlipidemia - pt has been counseled about appropriate diet, exercise, and need for low fat food choices. I have discussed the need for the patient to take medications as prescribed. If the patient has negative side effects from the medication, they are to CALL the office and not abruptly discontinue the medication without discussion with a practitioner in the office. We will check labs in 3-6 months for follow up on the patient's chronic medical problem and to assure normal liver response to medications. COPD EXACERBATION - COPD is a chronic problem for this patient, however, the pt is experiencing an acute exacerbation of the COPD. Pt is to receive appropriate treatment as an out patient, but the pt is aware that if symptoms worsen or do not improve, to call [facility] for instructions, or go to the EMERGENCY ROOM if the symptoms are beyond acute control with rescue medications. We have reviewed chronic treatment strategy, symptom control, and plans for acute exacerbations. No changes today to the current treatment plan as the patient is stable, monitor for acute changes. . Left ankle fracture, gait instability - pt is to continue use of walking boot and keep her follow up appointment with ortho - will order Home health to help with medication management, monitoring her condition, and vitals monitoring - pt is to notify clinic if symptoms do not improve, if they worsen, or with any changes, questions, or concerns. . Hypertension - well controlled - jolanta nue with current medications, continue with no added salt diet. Pt has been encouraged to exercise daily. The pt has been advised to call the office if there are any acute concerns about change in blood pressure readings at home. Hyperlipidemia - pt has been counseled about appropriate diet, exercise, and need for low fat food choices. I have discussed the need for the patient to take medications as prescribed. If the patient has negative side effects from the medication, they are to CALL the office and not abruptly discontinue the medication without discussion with a practitioner in the office. We will check labs in 3-6 months for follow up on the patient's chronic medical problem and to assure normal liver response to medications. COPD - chronic problem for this patient. We have reviewed chronic treatment strategy, symptom control, and plans for acute exacerbations. No changes today to the current treatment plan as the patient is stable, monitor for acute changes. Sleep apnea -continue with CPAP and supplemental oxygen at night Medical Equipment No Medical Equipment data Health Concerns Section Health Concerns data not found Goals Section Goals data not found Interventions Section Interventions data not found Health Status Evaluations/Outcomes Section Health Status Evaluations/Outcomes data not found Advance Directives No Advance Directive data
--- OUTSIDE RECORDS SUMMARY | 2021-02-11 11:47 | XMS REPORT | CCD ---
Author Author Marla Villarreal Organization Elaine Meeks MD, [facility] Address [address] [place] [address] Phone Care Team Providers Care Insurance Attorney Name Role Phone Elaine Meeks PP Unavailable CCM Unavailable Summary Purpose Interface Exchange Insurance Providers Payer name Policy type / Coverage type Covered green party ID Effective Begin Date Effective End Date WPS Medicare Part B Medicare Part B [id number] Unkno wn [facility] Medicare Part B [id number] Unknown Family history Father Diagnosis Age [...] children Unknown 2 05/21/2019 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/[address]: 6420384 Former smoker 05/21/[address]: 356873 Currently drinks alcohol 05/21 Frequency of drinks SNOMED CT: 467184743 14 drinks per week 2 per day [...] Start Date Stop Date Status Fill Instructions atorvastatin 20 mg tablet RxNorm: 887883 TAKE 1 TABLET BY MOUTH EVERY DAY 01/27/2021 04/26/2021 Active hydrocodone 7.5 mg-acetaminophen 325 mg tablet RxNorm: 14999 5 1 Tablet(s) Oral BID PRN as needed 11/19/2020 11/19/2020 Inactive chronic back a nd neck pain duloxetine 30 mg capsule,delayed release RxNorm: 505887 Take 1 Capsule(s) Oral every night at bedtime 11/17/2020 02/14/2021 Active hydrocodone 7.5 mg-acetaminophen 325 mg tablet RxNorm: 74633 5 1 Tablet(s) Oral BID PRN as needed 10/16/2020 10/16/2020 Inactive chronic back a nd neck pain hydrocodone 7.5 mg-acetaminophen 325 mg tablet RxNorm: 37569 5 1 Tablet(s) Oral BID PRN as needed 08/14/2020 08/14/2020 Inactive chronic back a nd neck pain atorvastatin 20 mg tablet RxNorm: 077292 TAKE 1 TABLET BY MOUTH EVERY DAY 08/10/2020 08/10/2020 Inactive tramadol 50 mg tablet RxNorm: 550716 TAKE 1 TABLET BY M OUTH THREE TIMES DAILY NEEDED FOR PAIN 08/10/2020 08/13/2020 Inactive Pepcid 20 mg tablet RxNorm: 850298 1 Tablet(s) Oral every day 08/03 No Stop Date Active duloxetine 60 mg capsule,delayed release RxNorm: 804622 TAKE 1 CAPSULE BY MOUTH EVERY DAY 07/30/2020 01/25/2021 Inactive tramadol 50 mg tablet RxNorm: 958928 1 Tablet(s) Oral t hree times a day as needed for pain 07/01/2020 07/01/2020 Inactive montelukast 10 mg tablet RxNorm: 683485 1 Tablet(s) Oral every evening 06/23/2020 12/20/2020 Inactive diltiazem ER (XR/XT) 240 mg capsule,extended release 2 4 hr, controlled RxNorm: 549895 TAKE 1 CAPSULE BY MOUTH EVERY DAY 06/22/2020 03/18/2021 Active meloxicam 15 mg tablet RxNorm: 080699 TAKE 1 TABLET BY MOUTH EV KARLA DAY 06/22/2020 03/18/2021 Active lisinopril 20 mg tablet RxNorm: 634862 TAKE 1 TABLET BY MOUTH E VERY DAY 06/10/2020 12/06/2020 Inactive tramadol 50 mg tablet RxNorm: 597003 1 Tablet(s) Oral t hree times a day as needed for pain 06/01/2020 08/09/2020 Inactive Zithromax Z-Owen 250 mg tablet RxNorm: 440960 Tablet(s) Oral as directed 04/23/2020 No Stop Date Active prednisone 10 mg tablet RxNorm: 099012 Tablet(s) Oral 6,5,4,3,2,1 1 06/24/2019 No Stop Date Active oxycodone 5 mg tablet RxNorm: 4957806 1 Tablet(s) Oral Q6 as nee ded pain 01/15/2020 08/13/2020 Inactive Keflex 500 mg capsule RxNorm: 444017 1 Capsule(s) Oral three ti mes a day 11/20/2019 11/30/2019 Inactive prednisone 20 mg tablet RxNorm: 823593 Tablet(s) Oral a s directed 40,40,20,20,10,10 11/20/2019 11/25/2019 Inactive azithromycin 250 mg tablet RxNorm: 156611 1 Tablet(s) O ral as directed 2 tabs on first day then 1 pill daily x 4 11/14/2019 11/14/2019 Inactive duloxetine 30 mg capsule,delayed release RxNorm: 041552 1 Capsule(s) Oral every evening take at HS and the 60mg AM 11/13/2019 11/07/2020 Inactive Kenalog 40 mg/mL suspension for injection RxNorm: 0211968 Milliliter(s) Injection 11/13/2019 11/13/2019 Inactive azithromycin 250 mg tablet RxNorm: 363844 1 Tablet(s) O ral as directed 2 tabs on first day then 1 pill daily x 4 11/13/2019 11/13/2019 Inactive prednisone 20 mg tablet RxNorm: 268776 2 Tablet(s) Oral every day 0 11/13/2019 11/18/2019 Inactive duloxetine 60 mg capsule,delayed release RxNorm: 112213 1 Capsule(s) Oral every day 11/13/2019 07/29/2020 Inactive atorvastatin 20 mg tablet RxNorm: 133965 1 Tablet(s) Oral every day 09/11/2019 06/07/2020 Inactive lisinopril 20 mg tablet RxNorm: 925393 1 Tablet(s) Oral every day 0 09/11/2019 06/07/2020 Inactive duloxetine 60 mg capsule,delayed release RxNorm: 029665 1 Capsule(s) Oral every day 08/26/2019 11/12/2019 Inactive gabapentin 300 mg capsule RxNorm: 007000 1 Capsule(s) Oral thre e times a day 07/16/2019 04/11/2020 Inactive diltiazem ER (XR/XT) 240 mg capsule,extended release 2 4 hr, controlled RxNorm: 727419 1 Capsule(s) Oral every day 07/16/2019 04/11/2020 Inactive meloxicam 15 mg tablet RxNorm: 448245 1 Tablet(s) Oral every day 03/21/2020 Inactive Co Q-10 300 mg capsule RxNorm: 706190 1 Capsule(s) Oral every day 0 05/21/2019 No Stop Date Active lisinopril 20 mg tablet RxNorm: 072612 1 Tablet(s) Oral every day 0 05/21/2019 05/21/2019 Inactive hydrocodone 7.5 mg-acetaminophen 325 mg tablet RxNorm: 47368 5 1 Tablet(s) Oral Q8 as needed 05/21/2019 08/13/2020 Inactive atorvastatin 20 mg tablet RxNorm: 951665 1 Tablet(s) Oral every day 05/21/2019 09/10/2019 Inactive diltiazem ER (XR/XT) 240 mg capsule,extended release 2 4 hr, controlled RxNorm: 630942 1 Capsule(s) Oral every day 05/21/2019 07/15/2019 Inactive meloxicam 15 mg tablet RxNorm: 316050 1 Tablet(s) Oral every day 06/24/2019 Inactive gabapentin 300 mg capsule RxNorm: 052670 1 Capsule(s) Oral thre e times a day 05/21/2019 07/15/2019 Inactive montelukast 10 mg tablet RxNorm: 301812 1 Tablet(s) Oral every evening 05/21/2019 06/22/2020 Inactive lisinopril 20 mg tablet RxNorm: 242587 1 Tablet(s) Oral every day 0 05/21/2019 05/20/2019 Inactive atorvastatin 20 mg tablet RxNorm: 937960 1 Tablet(s) Oral every day 05/21/2019 05/20/2019 Inactive duloxetine 60 mg capsule,delayed release RxNorm: 387862 1 Capsule(s) Oral every day 05/21/2019 08/25/2019 Inactive Glucosamine Chondroitin oral RxNorm: oral 05/21/2019 Active turmeric oral RxNorm: 8976837 oral 05/21/2019 Active Medication Administered Medication Codes Instructions Start Date Status Kenalog 40 mg/mL suspension for injection RxNorm: 1336626 Millilite r 11/13/2019 No longer Active Immunizations [...] See Note 09/14/2020 Unkno wn Comp Metabolic Zvy379 NA 141 mEq/L 08/14/2020 Unkn own Comp Metabolic Zbd876 K 4.5 mEq/L 08/14/2020 Unkn own Comp Metabolic Eux951 CL 103 mEq/L 08/14/2020 Unkn own Comp Metabolic Pbq900 CO2 30.0 mEq/L 08/14/2020 Unk nown Comp Metabolic Cqx192 ANION GAP 13 08/14/2020 Unkn own Comp Metabolic Kdj718 GLUCOSE 94 mg/dL 08/14/2020 Unkn own Comp Metabolic Qzk448 Creat 0.8 mg/dL 08/14/2020 Unkn own Comp Metabolic Dzw189 eGFR 74 ml/min/1.73m2 08/15/19 21 Unknown Comp Metabolic Uyk872 BUN 14 mg/dL 08/14/2020 Unkn own Comp Metabolic Kuw871 B/C Ratio 17.5 Ratio 08/14/2020 Unk nown Comp Metabolic Fvy052 CALCIUM 9.5 mg/dL 08/14/2020 Unkn own Comp Metabolic Gks417 ALK PHOS 55 U/L 08/14/2020 Unkn own Comp Metabolic Hjp160 AST(SGOT) 17 U/L 08/14/2020 Unkn own Comp Metabolic Uka622 ALT(SGPT) 14 U/L 08/14/2020 Unkn own Comp Metabolic Guj062 BILI T 0.5 mg/dL 08/14/2020 Unkn own Comp Metabolic Qmv065 ALBUMIN 4.2 g/dL 08/14/2020 Unkn own Comp Metabolic Voa577 TPRO 6.9 g/dL 08/14/2020 Unkn own Comp Metabolic Poj760 GLOB 2.7 g/dL 08/14/2020 Unkn own Comp Metabolic Orf509 A/G Ratio 1.6 Ratio 08/14/2020 Unkn own Comp Metabolic Lgv922 Osmo 281 mOsmo 08/14/2020 Unkn own Cbc [...] 08/15/19 21 Unknown Cbc With Differential Ord2 [place]% 10.6 % 08/15/19 21 Unknown Cbc With [...] K/ul 021 Unknown Cbc With Differential Ord2 [place] ABS# 0.7 K/ul 08/15/19 21 Unknown Cbc With Differential Ord2 Eos ABS# 0.3 K/ul 08/15/19 21 Unknown Cbc With Differential Ord2 Baso ABS# 0.0 K/ul 08/15/19 21 Unknown Tsh Ord6 TSH (3rd IS) 0.97 uIU/mL 08/14/2020 Unkn own Procedures Procedure Codes Date THER/PROPH/DIAG INJ SC/IM CPT-4: 39228 11/13/2019 TRIAMCINOLONE ACET INJ NOS 10 mg CPT-4: J3301 07/08/2 020 Vital Signs Date Vital 01/05/2021 Blood Pressure 1: 136/70 Code: 8480-6 BMI: 26.7 Code: 17644-5 Height: 5'3" Code: 8302-2 Weight: 151 lbs Code: 47402-3 09/25/2020 Blood Pressure 1: 110/80 Code: 8480-6 BMI: 27.8 Code: 65973-0 Heart Rate 1: 65 bpm Height: 5'3" Code: 8302-2 SpO2: 96% Temperature: 3 6.7 (C) / 98.0 (F) Weight: 157 lbs Code: 68643-0 08/28/2020 Blood Pressure 1: 136/74 Code: 8480-6 Heart Rate 1: 75 bpm Height: 5'3" Code: 8302-2 SpO2: 97% Temperature: 36.3 (C) / 97.3 (F) Weight: Code: 19148-6 08/14/2020 Blood Pressure 1: 110/66 Code: 8480-6 Heart Rate 1: 91 bpm Height: 5'3" Code: 8302-2 SpO2: 96% Temperature: 36.3 (C) / 97.3 (F) Weight: Code: 68633-4 01/20/2020 Height: Code: 8302-2 Weight: Code: 294 63-7 12/05/2019 Blood Pressure 1: 122/74 Code: 8480-6 Heart Rate 1: 84 bpm Height: 5'3" Code: 8302-2 SpO2: 97% Temperature: 36.6 (C) / 97.8 (F) Weight: Code: 53068-8 11/20/2019 Blood Pressure 1: 120/62 Code: 8480-6 BMI: 30.8 Code: 69024-5 Heart Rate 1: 104 bpm Height: 5'3" Code: 8302-2 SpO2: 97% Temperature: 3 6.5 (C) / 97.7 (F) Weight: 174 lbs Code: 93559-2 11/13/2019 Blood Pressure 1: 112/60 Code: 8480-6 BMI: 30.8 Code: 32157-9 Heart Rate 1: 103 bpm Height: 5'3" Code: 8302-2 Respiratory Rate: 16 bpm SpO2: 96% Temperature: 36.9 (C) / 98.4 (F) Weight: 174 lbs Code: 50255-6 06/04/2019 Blood Pressure 1: 140/66 Code: 8480-6 Heart Rate 1: 80 bpm Height: 5'3" Code: 8302-2 SpO2: 96% Weight: Code: 84945-2 05/21/2019 Blood Pressure 1: 142/70 Code: 8480-6 BMI: 32.1 Code: 58213-1 Heart Rate 1: 70 bpm Height: 5'3" Code: 8302-2 SpO2: 97% Weight: 181 lb s Code: 65529-2 Functional Status No Functional Status data Reason For Visit Reason For Visit Effective Dates Notes Hospital Follow Up 01/05/2021 hypertension 09/25/2020 medication follow up 08/28/2020 medication follow up 08/14/2020 sinus congestion 04/23/2020 medication follow up 01/20/2020 Hospital Follow Up 12/05/2019 cerumen 11/20/2019 hypertension 11/13/2019 Hospital Follow Up 06/04/2019 hypertension 05/21/2019 Encounters Encounter Performer Location Codes Date 63535 EST. PATIENT, LEVEL IV Diagnosis: Essential (primary) hypertension[ICD10: I10] Diagnosis: Chronic pain[ICD10: G89.29] Diagnosis: Depression, major, recurrent, mild[ICD10: F33.0] Sharmin Meeks MD, [facility] CPT-4: 23317 01/05/2021 ([id number]) 02655 EST. PATIENT, LEVEL III Diagnosis: Abnormal weight loss[ICD10: R63.4] Diagnosis: Chronic pain[ICD10: G89.29] Sharmin Meeks MD, [facility] CPT-4: 75615 09/25/2020 ([id number]) 35248 EST. PATIENT, LEVEL III Diagnosis: Low back pain[ICD10: M54.5] Diagnosis: Chronic pain[ICD10: G89.29] Sharmin Meeks MD, C CPT-4: 70521 08/28/2020 [id number]) 97738 EST. PATIENT, LEVEL IV Diagnosis: Essential (primary) hypertension[ICD10: I10] Diagnosis: Low back pain[ICD10: M54.5] Diagnosis: Chronic pain[ICD10: G89.29] Diagnosis: Mixed hyperlipidemia[ICD10: E78.2] Sharmin raman MD, [facility] CPT-4: 29199 08/14/2020 64149 EST. PATIENT, LEVEL III Diagnosis: URI (upper respiratory infection)[ICD10: J06.9] Adilene Walker [facility] CPT-4: 70011 04/23/2020 65538 EST. PATIENT, LEVEL III Diagnosis: Left ankle pain[ICD10: M25.572] Diagnosis: Ankle fracture, left[ICD10: S82.892A] Adilene Walker [facility] CPT-4: 44035 01/20/2020 08953 EST. PATIENT, LEVEL III Diagnosis: Right leg pain[ICD10: M79.604] Diagnosis: Fracture of right lower leg[ICD10: S82.91XA] Elaine Meeks MD, [facility] CPT-4: 37386 12/05/2019 87371 EST. PATIENT, LEVEL IV Diagnosis: Other allergic rhinitis[ICD10: J30.89] Diagnosis: Chronic obstructive pulmonary disease with acute exacerbation[ICD10: J44.1] Adilene Meeks MD, [facility] CPT-4: 47131 0 ([id number]) 90230 EST. PATIENT, LEVEL IV Diagnosis: Chronic obstructive pulmonary disease with acute exacerbation[ICD10: J44.1] Diagnosis: Essential (primary) hypertension[ICD10: I10] Diagnosis: Low back pain[ICD10: M54.5] Elaine Meeks MD, [facility] CPT-4: 69373 11/13/2019 05802 EST. PATIENT, LEVEL III Diagnosis: Ankle pain, left[ICD10: M25.572] Diagnosis: Closed avulsion fracture of distal end of left fibula, initial encounter[ICD10: S82.832A] Diagnosis: Closed avulsion fracture of medial malleolus of left tibia, initial encounter[ICD10: S82.52XA] Diagnosis: Gait instability[ICD10: R26.81] Adilene Meeks MD , [facility] CPT-4: 70909 06/04/2019 OFFICE VISIT, NEW - LEVEL 4 Diagnosis: Essential (primary) hypertension[ICD10: I10] Diagnosis: COPD (chronic obstructive pulmonary disease)[ICD10: J44.9] Diagnosis: Mixed hyperlipidemia[ICD10: E78.2] Diagnosis: Obstructive sleep apnea[ICD10: G47.33] [facility] CPT-4: 71409 05/21/2019 Plan of Care Planned Activity Notes [...] not controlled 01/05/2021 Appointment: Sharmin Villarreal WPtel: [phone] [phone] (15 min) Moderate 01/05/2021 Patient Education: Patient Medication Summary Completed 01/05/2021 Patient Education: Hypertension Completed 01/05/2021 Patient Education: Depression Completed 01/05/2021 Appointment: Sharmin Villarreal WPtel: [facility] [phone] (30 min) Complex 01/01/2021 Visit Plan: Abnormal [...] of over-medication. 09/25/2020 Appointment: [phone] [facility] Complex 09/25/2020 Patient Education: Patient Medication Summary Completed 09/25/2020 Appointment: Nurse Visit 09/11/2020 Visit Plan: Chronic pain -low back - seng n - patient to continue with medications as directed -let us know what pain management says and we can make any needed adjustments at that time -call if pain uncontrolled -patient verbalized understanding of plan. 08/28/2020 Appointment: Sharmin Villarreal WPtel: [facility] [phone] (30 min) Complex 08/28/2020 Patient Education: Patient [...] fasting labs 08/14/2020 App[facility]ment[facility] [phone] [phone] ([facility] min) Complex 08/14/2020 Patient Education: Patient [...] patient's pharmacy. 04/23/2020 Appointment: Adilene Walker [facility]Ptel[facility] [place] [facility] 04/23/2020 Patient Education: Patient Medication Summary [...] treatment plan 01/20/2020 Appointment: Adilene Walker WPtel: [phone] [facility] [facility] 01/20/2020 Patient Education: Patient Medication Summary Completed 01/20/2020 Appointment: Elaine Meeks WPtel: [facility] [place] (30 min) Complex 12/24/2019 Visit Plan: Right [...] treatment plan. 12/05/2019 Appointment: Adilene Walker WPtel: [phone] [facility] (30 min) Complex 12/05/2019 Patient Education: Patient [...] Nurse Visit 11/20/2019 Appointment: Adilene Walker WPtel: [facility] [place] (30 min) Complex 11/20/2019 Patient Education: Patient Medication Summary Completed 11/20/2019 Appointment: [facility] [phone] [phone] (30 min) Complex 11/19/2019 Visit Plan: Back [...] acute changes. 11/13/2019 [phone] ([facility] 11/13/2019 Patient Education: Patient [...] or concerns. 06/04/2019 Appointment: Adilene Walker [facility]Ptel[facility] (30 min) Complex 06/04/2019 Patient Education: Patient [...] treatment plan Assisted living to look into: [place], [facility], [facility], [facility], [facility] assisted [facility] another option to look into is [facility] will consult home health will write orders [...]
--- OUTSIDE RECORDS SUMMARY | 2021-02-11 11:47 | XMS REPORT | Clinical Summary ---
Author Author [facility] Organization [facility] Address Unknown Phone Unavailable Care Team Providers Care Director Of Marketing Name Role Phone Josefa Wynn MD PCP Source Comments Some departments are not documenting in the electronic medical record. If you d o not see the information that you expected, contact Release of Information in [facility] dot429 Information Management department at [phone] for further assistan ce in locating additional records.[facility] Allergies Comments Active Allergy Reactions Severity Noted Date Penicillins HIVES 05/09/2012 Medications End Date Status Medication Sig Dispensed Refills Start Date Active furosemide (LASIX) 40 mg Take 40 mg by 0 tablet mouth daily. Active fluticasone-salmeterol Inhale 1 Puff 0 (ADVAIR DISKUS) 250-50 by mouth mcg inhalation disk every 12 hours. Active meloxicam(+) (MOBIC) 15 Take 15 mg by 0 mg tablet mouth daily. Active citalopram (CELEXA) 40 mg Take 60 mg by 0 tablet mouth daily. Active simvastatin (ZOCOR) 20 mg Take 40 mg by 0 tablet mouth at bedtime daily. Active propranolol LA (INDERAL Take 120 mg 0 LA) 120 mg Cp24 by mouth daily. Active glucosamine(+) 500 mg Tab Take 500 mg 0 by mouth three times daily with meals. Active HYDROcodone-acetaminophen Take 1 Tab by 0 (+) (LORTAB) 7.5-500 mg mouth every 4 tablet hours as needed. Active cyclobenzaprine Take 10 mg by 0 (FLEXERIL) 10 mg tablet mouth three times daily as needed. Active potassium chloride SR Take 20 mEq 0 (K-DUR) 20 mEq tablet by mouth daily. Active felodipine(+) (PLENDIL) 5 Take 5 mg by 0 mg tabletIndications: mouth daily. Hypertension Active Problems Problem Noted Date S/P cardiac catheterization 05/16/2012 Overview: Formatting of this note might be differ ent from the original. 05/16/12: Normal coronary arteries and LV per cath by Dr. Abner kirby Assessment & Plan: Formatting of this note might be differ ent from the original. She has not had any return of her chest pain. I do not think further testing or thera py is needed. I would be happy to see her again zoëul d the need arise. Abnormal cardiovascular stress test 05/14/2012 Overview: Formatting of this note might be differ ent from the original. 04/27/2012 Stress Test: EF 80% This noemy dy is mildly abnormal. There is a small area of qualitative reversible is chemia in the distal anteroapex. There were minor borderline ST segment changes with regadenoson stress. All segments are definitely viable. Global ejection fraction is within normal limits. Other high risk indicators are not noted. Miguel kirby Assessment & Plan: Formatting of this note might be differ ent from the original. Her ECG shows sinus rhythm with anterol ateral t wave inversion, as well as non-specific st-t wave changes. She also has symptoms of dyspnea with m inimal exertion. I would like for her to have a cardiac catheterization for further evaluation. We will get that done on Monday of t his week (May 16). Depression 05/09/2012 Hyperlipidemia 05/09/2012 Last Assessment & Plan: Formatting of this note might be differ ent from the original. Will measure FLP on admission for allen terization. Obesity (BMI 30-39.9) 05/09/2012 Hypertension 05/09/2012 Last Assessment & Plan: Formatting of this note might be differ ent from the original. Controlled on current regimen. No changes. COPD (chronic obstructive pulmonary disease) 013 Last Assessment & Plan: Formatting of this note might be differ ent from the original. If her catheterization is normal, will plan to get a pulmonary consult for evaluation of dyspnea. Will likely need PFTs. Surgical History Surgery Date Site/Laterality Comments CARDIOVASCULAR STRESS TEST MYOCARDIAL PERFUSION IMG STUDY ELECTROCARDIOGRAM Medical History Medical History Date Comments HTN (hypertension) Depression (disease) Hyperlipemia Edema Obesity Postmenopausal Hyperlipidemia 05/09/2012 Hypertension 05/09/2012 COPD (chronic obstructive pulmonary 05/09/2012 disease) (HCC) Depression 05/09/2012 Obesity (BMI 30-39.9) 05/09/2012 Family History Medical History Relation Name Comments Coronary Artery Disease Mother Relation Name Status Comments Father dementia Mother Social History Date Tobacco Use Types Packs/Day Years Used Quit: 05/08/1994 Former Smoker Cigarettes 1.5 35 Comments Alcohol Use Standard Drinks/Week Yes 0 (1 standard drink = 0.6 o z pure alcohol) Sex Assigned at Date Recorded Not on file Last Filed Vital Signs Reading Time Taken Comments Vital Sign 120/70 08/09/2012 12:00 PM CDT Blood Pressure 59 08/09/2012 11:59 AM CDT Pulse 37 C (98.6 F) 05/16/2012 10:38 AM [employer] Temperature - - Respiratory Rate 97% 05/16/2012 2:00 PM [employer] WORKER Oxygen Saturation - - Inhaled Oxygen Concentration 81 kg (178 lb 8 oz) 08/09/2012 11:59 AM CDT Weight 160 cm (5' 3") 08/09/2012 11:59 AM CDT Height 31.62 08/09/2012 11:59 AM CDT Body Mass Index Plan of Treatment Health Maintenance Due Date Last Done Comments DTAP/TDAP VACCINES (1 - 1961 Tdap) PHYSICAL (COMPREHENSIVE) 1961 EXAM SHINGLES RECOMBINANT 1993 VACCINE (1 of 2) OSTEOPOROSIS 2008 SCREENING/MONITORING PNEUMONIA (PPSV23) 2008 VACCINE (1 of 1 - PPSV23) INFLUENZA VACCINE 12/06/2020 HEPATITIS C SCREENING Completed 10/04/2006 Results Not on filefrom Last 3 Months Advance Directives Patient Weatherization Installer Explanation Type Date Recorded Advance Directives 07/02/2012 9:06 AM and Living Will Advance Directives 05/09/2012 11:36 AM and Living Will Advance Directives 04/27/2012 2:52 PM and Living Will Date Inactivated Comments Code Status Date Activated 05/17/2012 5:03 AM Full Code 05/16/2012 9:18 AM Provider has discussed Code Status No, more discussi on w/Patient or Family? needed
--- OUTSIDE RECORDS SUMMARY | 2021-02-11 11:47 | XMS REPORT | Clinical Summary ---
Author Author [facility] Organization [facility] Address Unknown Phone Unavailable Care Team Providers Care Fresh Foods Technician Name Role Phone Unassigned, None PCP Unavailable Allergies Comments Active Allergy Reactions Severity Noted Date Penicillins Hives 10/05/2018 Medications End Date Status Medication Sig Dispensed Refills Start Date Active atorvastatin (LIPITOR) 20 Take 20 mg by 2 04/ MG tablet mouth daily. 9 Active DULoxetine (CYMBALTA) 60 Take by mouth 0 06/[address] capsule daily. 9 Active gabapentin (NEURONTIN) 1 300 MG capsule 9 Active lisinopril Take 40 mg by 0 (PRINIVIL,ZESTRIL) 40 MG mouth daily. 9 tablet Active meloxicam (MOBIC) 15 MG Take 15 mg by 0 tablet mouth daily. 9 Active montelukast (SINGULAIR) Take 10 mg by 1 10 MG tablet mouth every 9 evening. Active doxycycline (VIBRA-TABS) Take 1 tablet 20 tablet 0 100 MG tabletIndications: (100 mg 9 Chronic obstructive total) by pulmonary disease with mouth 2 (two) acute exacerbation (HCC) times daily. Active predniSONE (DELTASONE) 10 Take 4 tabs 33 tablet 0 MG tabletIndications: daily X3 9 Chronic obstructive days, 3 tabs pulmonary disease with daily X3 , 2 acute exacerbation (HCC) tabs daily X3 , 1 tab daily X 3 , 1/2 tab daily X 3 , 1/2 tab every other day then stop. Active albuterol-ipratropium Take 1/2 vial 360 mL 0 (DUONEB) 0.5-2.5 (3) by 9 MG/3ML SOLN nebulizer nebulization solutionIndications: 4 times daily Chronic obstructive as needed pulmonary disease with acute exacerbation (HCC) Active sodium chloride 0.9 % Take 3 mLs by 300 mL 2 nebulizer nebulization 9 solutionIndications: as needed for Chronic obstructive Wheezing (up pulmonary disease with to 4 times acute exacerbation (HCC) daily). Active Problems Problem Noted Date Chronic obstructive pulmonary disease with acute exac erbation 10/05/2018 Last Assessment & Plan: Formatting of this note might be differ ent from the original. Will give patient steroid shot in the o ffice, 40mg kenalog and 80mg depo-medrol, will start on doxycycline, will give her a longer steroid taper, and will order a portable nebuli zer with duonebs at half strength with saline. 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 10/05/2018 Essential hypertension 10/05/2018 Hyperlipidemia LDL goal <100 10/05/2018 Environmental and seasonal allergies 10/05/2018 Lumbar back pain with radiculopathy affecting right l ower extremity 10/05/2018 STEVEN on CPAP 10/05/2018 Social History Date Tobacco Use Types Packs/Day Years Used Never Assessed Sex Assigned at Date Recorded Not on file Industry Job Start Date Occupation Not on file Not on file Not on file Last Filed Vital Signs Reading Time Taken Comments Vital Sign 120/82 10/05/2018 9:37 AM CDT Blood Pressure 80 10/05/2018 9:37 AM CDT Pulse - - Temperature - - Respiratory Rate 94% 10/05/2018 9:37 AM CDT Oxygen Saturation - - Inhaled Oxygen Concentration 79.4 kg (175 lb 1.6 oz) 10/05/2018 9:37 AM CDT Weight - - Height - - Body Mass Index Plan of Treatment Health Maintenance Due Date Last Done Comments Pneumo-Vaccine: 65+Yrs (1 1949 of 2 - PPSV23) Pneumo-Vaccine: Peds (0-5 1949 Yrs) & At-Risk Patients (6-64 Yrs) (1 of 2 - PPSV23) Annual Wellness Visit 1961 Hepatitis C Screening 1961 DTaP,Tdap,and Td Vaccines 1962 (1 - Tdap) Zoster Vaccine (1 of 2) 1993 Influenza Vaccine (#1) 2021 COVID-19 Vaccine Completed 07/02/2020, 06/04/2020 HIB Vaccines Aged Out No longer eligible based on patient's age to complete this topic IPV Vaccines Aged Out No longer eligible based on patient's age to complete this topic Meningococcal Vaccine Aged Out No longer eligib le based on patient's age to complete this topic Rotavirus Vaccines Aged Out No longer eligible based on patient's age to complete this topic Results Not on filefrom Last 3 Months Insurance Type Payer Benefit Subscriber ID Effective Phone Address Plan / Dates Group Medicare MEDICARE MEDICARE [id number] 2008- [address] Present [address] [place] [address] [facility] PLAN 65 [id number] 2018-P [phone] [address] (NEVER resent [facility]) [id number] Advance Directives For more information, please contact: [phone] Patient Business Practices Officer Explanation Type Date Recorded Advance Directives and Living Will Power of Configuration Management Advisor Care Teams Start Date End Date Fresh Foods Technician Relationship Specialty 08/05/20 Unassigned, None PCP - General JOHN
--- OUTSIDE RECORDS SUMMARY | 2021-02-11 11:47 | XMS REPORT | CCD ---
Author Author Marla Villarreal Organization Elaine Meeks MD, [facility] Address [address] [place] [address] Phone Care Team Providers Care Criminal Justice Teacher Name Role Phone Elaine Meeks PP Unavailable CCM Unavailable Summary Purpose Interface Exchange Insurance Providers Payer name Policy type / Coverage type Covered constitution party ID Effective Begin Date Effective End Date WPS Medicare Part B Medicare Part B [id number] Unkno wn [facility] Medicare Part B [id number] Unknown Family history Father Diagnosis Age [...] children Unknown 2 05/21/2019 Employment Unknown Retired [employer] 05/21/[address]: 0488061 Former smoker 05/21/[address]: 857417 Currently drinks alcohol 05/21 Frequency of drinks SNOMED CT: 271310687 14 drinks per week 2 per day [...] Start Date Stop Date Status Fill Instructions lisinopril 20 mg tablet RxNorm: 125996 TAKE 1 TABLET BY MOUTH E 02/01/2021 05/01/2021 Active atorvastatin 20 mg tablet RxNorm: 602093 TAKE 1 TABLET BY MOUTH EVERY DAY 01/27/2021 04/26/2021 Active hydrocodone 7.5 mg-acetaminophen 325 mg tablet RxNorm: 22219 5 1 Tablet(s) Oral BID PRN as needed 11/19/2020 11/19/2020 Inactive chronic back a nd neck pain duloxetine 30 mg capsule,delayed release RxNorm: 552283 Take 1 Capsule(s) Oral every night at bedtime 11/17/2020 02/14/2021 Active hydrocodone 7.5 mg-acetaminophen 325 mg tablet RxNorm: 57758 5 1 Tablet(s) Oral BID PRN as needed 10/16/2020 10/16/2020 Inactive chronic back a nd neck pain hydrocodone 7.5 mg-acetaminophen 325 mg tablet RxNorm: 75867 5 1 Tablet(s) Oral BID PRN as needed 08/14/2020 08/14/2020 Inactive chronic back a nd neck pain atorvastatin 20 mg tablet RxNorm: 360960 TAKE 1 TABLET BY MOUTH EVERY DAY 08/10/2020 08/10/2020 Inactive tramadol 50 mg tablet RxNorm: 832175 TAKE 1 TABLET BY M OUTH THREE TIMES DAILY NEEDED FOR PAIN 08/10/2020 08/13/2020 Inactive Pepcid 20 mg tablet RxNorm: 641029 1 Tablet(s) Oral every day 08/03 No Stop Date Active duloxetine 60 mg capsule,delayed release RxNorm: 193583 TAKE 1 CAPSULE BY MOUTH EVERY DAY 07/30/2020 01/25/2021 Inactive tramadol 50 mg tablet RxNorm: 915528 1 Tablet(s) Oral t hree times a day as needed for pain 07/01/2020 07/01/2020 Inactive montelukast 10 mg tablet RxNorm: 581275 1 Tablet(s) Oral every evening 06/23/2020 12/20/2020 Inactive diltiazem ER (XR/XT) 240 mg capsule,extended release 2 4 hr, controlled RxNorm: 090005 TAKE 1 CAPSULE BY MOUTH EVERY DAY 06/22/2020 03/18/2021 Active meloxicam 15 mg tablet RxNorm: 651746 TAKE 1 TABLET BY MOUTH EV KARLA DAY 06/22/2020 03/18/2021 Active lisinopril 20 mg tablet RxNorm: 381416 TAKE 1 TABLET BY MOUTH E VERY DAY 06/10/2020 06/10/2020 Inactive tramadol 50 mg tablet RxNorm: 144838 1 Tablet(s) Oral t hree times a day as needed for pain 06/01/2020 08/09/2020 Inactive Zithromax Z-Owen 250 mg tablet RxNorm: 579440 Tablet(s) Oral as directed 04/23/2020 No Stop Date Active prednisone 10 mg tablet RxNorm: 346800 Tablet(s) Oral 6,5,4,3,2,1 1 06/24/2019 No Stop Date Active oxycodone 5 mg tablet RxNorm: 6856323 1 Tablet(s) Oral Q6 as nee ded pain 01/15/2020 08/13/2020 Inactive Keflex 500 mg capsule RxNorm: 507216 1 Capsule(s) Oral three ti mes a day 11/20/2019 11/30/2019 Inactive prednisone 20 mg tablet RxNorm: 273177 Tablet(s) Oral a s directed 40,40,20,20,10,10 11/20/2019 11/25/2019 Inactive azithromycin 250 mg tablet RxNorm: 502281 1 Tablet(s) O ral as directed 2 tabs on first day then 1 pill daily x 4 11/14/2019 11/14/2019 Inactive duloxetine 30 mg capsule,delayed release RxNorm: 186888 1 Capsule(s) Oral every evening take at HS and the 60mg AM 11/13/2019 11/07/2020 Inactive Kenalog 40 mg/mL suspension for injection RxNorm: 7725891 Milliliter(s) Injection 11/13/2019 11/13/2019 Inactive azithromycin 250 mg tablet RxNorm: 624858 1 Tablet(s) O ral as directed 2 tabs on first day then 1 pill daily x 4 11/13/2019 11/13/2019 Inactive prednisone 20 mg tablet RxNorm: 233836 2 Tablet(s) Oral every day 0 11/13/2019 11/18/2019 Inactive duloxetine 60 mg capsule,delayed release RxNorm: 140000 1 Capsule(s) Oral every day 11/13/2019 07/29/2020 Inactive atorvastatin 20 mg tablet RxNorm: 283263 1 Tablet(s) Oral every day 09/11/2019 06/07/2020 Inactive lisinopril 20 mg tablet RxNorm: 613643 1 Tablet(s) Oral every day 0 09/11/2019 06/07/2020 Inactive duloxetine 60 mg capsule,delayed release RxNorm: 328877 1 Capsule(s) Oral every day 08/26/2019 11/12/2019 Inactive gabapentin 300 mg capsule RxNorm: 359928 1 Capsule(s) Oral thre e times a day 07/16/2019 04/11/2020 Inactive diltiazem ER (XR/XT) 240 mg capsule,extended release 2 4 hr, controlled RxNorm: 551299 1 Capsule(s) Oral every day 07/16/2019 04/11/2020 Inactive meloxicam 15 mg tablet RxNorm: 424976 1 Tablet(s) Oral every day 03/21/2020 Inactive Co Q-10 300 mg capsule RxNorm: 473660 1 Capsule(s) Oral every day 0 05/21/2019 No Stop Date Active lisinopril 20 mg tablet RxNorm: 948928 1 Tablet(s) Oral every day 0 05/21/2019 05/21/2019 Inactive hydrocodone 7.5 mg-acetaminophen 325 mg tablet RxNorm: 85865 5 1 Tablet(s) Oral Q8 as needed 05/21/2019 08/13/2020 Inactive atorvastatin 20 mg tablet RxNorm: 933041 1 Tablet(s) Oral every day 05/21/2019 09/10/2019 Inactive diltiazem ER (XR/XT) 240 mg capsule,extended release 2 4 hr, controlled RxNorm: 440583 1 Capsule(s) Oral every day 05/21/2019 07/15/2019 Inactive meloxicam 15 mg tablet RxNorm: 881247 1 Tablet(s) Oral every day 06/24/2019 Inactive gabapentin 300 mg capsule RxNorm: 020115 1 Capsule(s) Oral thre e times a day 05/21/2019 07/15/2019 Inactive montelukast 10 mg tablet RxNorm: 462620 1 Tablet(s) Oral every evening 05/21/2019 06/22/2020 Inactive lisinopril 20 mg tablet RxNorm: 485098 1 Tablet(s) Oral every day 0 05/21/2019 05/20/2019 Inactive atorvastatin 20 mg tablet RxNorm: 979787 1 Tablet(s) Oral every day 05/21/2019 05/20/2019 Inactive duloxetine 60 mg capsule,delayed release RxNorm: 665291 1 Capsule(s) Oral every day 05/21/2019 08/25/2019 Inactive Glucosamine Chondroitin oral RxNorm: oral 05/21/2019 Active turmeric oral RxNorm: 5761059 oral 05/21/2019 Active Medication Administered Medication Codes Instructions Start Date Status Kenalog 40 mg/mL suspension for injection RxNorm: 5374108 Millilite r 11/13/2019 No longer Active Immunizations [...] See Note 09/14/2020 Unkno wn Comp Metabolic Epn108 NA 141 mEq/L 08/14/2020 Unkn own Comp Metabolic Haa326 K 4.5 mEq/L 08/14/2020 Unkn own Comp Metabolic Cpu966 CL 103 mEq/L 08/14/2020 Unkn own Comp Metabolic Iwx444 CO2 30.0 mEq/L 08/14/2020 Unk nown Comp Metabolic Pga083 ANION GAP 13 08/14/2020 Unkn own Comp Metabolic Ldl689 GLUCOSE 94 mg/dL 08/14/2020 Unkn own Comp Metabolic Wqr093 Creat 0.8 mg/dL 08/14/2020 Unkn own Comp Metabolic Cpx425 eGFR 74 ml/min/1.73m2 08/15/19 21 Unknown Comp Metabolic Hlv486 BUN 14 mg/dL 08/14/2020 Unkn own Comp Metabolic Tfv831 B/C Ratio 17.5 Ratio 08/14/2020 Unk nown Comp Metabolic Plo024 CALCIUM 9.5 mg/dL 08/14/2020 Unkn own Comp Metabolic Yel906 ALK PHOS 55 U/L 08/14/2020 Unkn own Comp Metabolic Hvd146 AST(SGOT) 17 U/L 08/14/2020 Unkn own Comp Metabolic Ynu578 ALT(SGPT) 14 U/L 08/14/2020 Unkn own Comp Metabolic Uqu545 BILI T 0.5 mg/dL 08/14/2020 Unkn own Comp Metabolic Ykv518 ALBUMIN 4.2 g/dL 08/14/2020 Unkn own Comp Metabolic Cvd402 TPRO 6.9 g/dL 08/14/2020 Unkn own Comp Metabolic Vqx001 GLOB 2.7 g/dL 08/14/2020 Unkn own Comp Metabolic Kwi499 A/G Ratio 1.6 Ratio 08/14/2020 Unkn own Comp Metabolic Pob730 Osmo 281 mOsmo 08/14/2020 Unkn own Cbc [...] 08/15/19 21 Unknown Cbc With Differential Ord2 [place]% 10.6 % 08/15/19 21 Unknown Cbc With [...] K/ul 021 Unknown Cbc With Differential Ord2 [place] ABS# 0.7 K/ul 08/15/19 21 Unknown Cbc With Differential Ord2 Eos ABS# 0.3 K/ul 08/15/19 21 Unknown Cbc With Differential Ord2 Baso ABS# 0.0 K/ul 08/15/19 21 Unknown Tsh Ord6 TSH (3rd IS) 0.97 uIU/mL 08/14/2020 Unkn own Procedures Procedure Codes Date THER/PROPH/DIAG INJ SC/IM CPT-4: 24295 11/13/2019 TRIAMCINOLONE ACET INJ NOS 10 mg CPT-4: J3301 020 Vital Signs Date Vital 01/05/2021 Blood Pressure 1: 136/70 Code: 8480-6 BMI: 26.7 Code: 48769-5 Height: 5'3" Code: 8302-2 Weight: 151 lbs Code: 65393-6 09/25/2020 Blood Pressure 1: 110/80 Code: 8480-6 BMI: 27.8 Code: 70850-5 Heart Rate 1: 65 bpm Height: 5'3" Code: 8302-2 SpO2: 96% Temperature: 3 6.7 (C) / 98.0 (F) Weight: 157 lbs Code: 44638-3 08/28/2020 Blood Pressure 1: 136/74 Code: 8480-6 Heart Rate 1: 75 bpm Height: 5'3" Code: 8302-2 SpO2: 97% Temperature: 36.3 (C) / 97.3 (F) Weight: Code: 79302-2 08/14/2020 Blood Pressure 1: 110/66 Code: 8480-6 Heart Rate 1: 91 bpm Height: 5'3" Code: 8302-2 SpO2: 96% Temperature: 36.3 (C) / 97.3 (F) Weight: Code: 44167-1 01/20/2020 Height: Code: 8302-2 Weight: Code: 294 63-7 12/05/2019 Blood Pressure 1: 122/74 Code: 8480-6 Heart Rate 1: 84 bpm Height: 5'3" Code: 8302-2 SpO2: 97% Temperature: 36.6 (C) / 97.8 (F) Weight: Code: 49701-6 11/20/2019 Blood Pressure 1: 120/62 Code: 8480-6 BMI: 30.8 Code: 64634-3 Heart Rate 1: 104 bpm Height: 5'3" Code: 8302-2 SpO2: 97% Temperature: 3 6.5 (C) / 97.7 (F) Weight: 174 lbs Code: 63848-2 11/13/2019 Blood Pressure 1: 112/60 Code: 8480-6 BMI: 30.8 Code: 08809-0 Heart Rate 1: 103 bpm Height: 5'3" Code: 8302-2 Respiratory Rate: 16 bpm SpO2: 96% Temperature: 36.9 (C) / 98.4 (F) Weight: 174 lbs Code: 07914-5 06/04/2019 Blood Pressure 1: 140/66 Code: 8480-6 Heart Rate 1: 80 bpm Height: 5'3" Code: 8302-2 SpO2: 96% Weight: Code: 41618-8 05/21/2019 Blood Pressure 1: 142/70 Code: 8480-6 BMI: 32.1 Code: 92468-3 Heart Rate 1: 70 bpm Height: 5'3" Code: 8302-2 SpO2: 97% Weight: 181 lb s Code: 06785-4 Functional Status No Functional Status data Reason For Visit Reason For Visit Effective Dates Notes Hospital Follow Up 01/05/2021 hypertension 09/25/2020 medication follow up 08/28/2020 medication follow up 08/14/2020 sinus congestion 04/23/2020 medication follow up 01/20/2020 Hospital Follow Up 12/05/2019 cerumen 11/20/2019 hypertension 11/13/2019 Hospital Follow Up 06/04/2019 hypertension 05/21/2019 Encounters Encounter Performer Location Codes Date ([id number]) 70726 EST. PATIENT, LEVEL IV Diagnosis: Essential (primary) hypertension[ICD10: I10] Diagnosis: Chronic pain[ICD10: G89.29] Diagnosis: Depression, major, recurrent, mild[ICD10: F33.0] Sharmin Meeks MD, [facility] CPT-4: 19793 01/05/2021 ([id number]) 54773 EST. PATIENT, LEVEL III Diagnosis: Abnormal weight loss[ICD10: R63.4] Diagnosis: Chronic pain[ICD10: G89.29] Sharmin Meeks MD, [facility] CPT-4: 21105 09/25/2020 ([id number]) 50911 EST. PATIENT, LEVEL III Diagnosis: Low back pain[ICD10: M54.5] Diagnosis: Chronic pain[ICD10: G89.29] Sharmin Meeks MD, [facility] CPT-4: 55493 08/28/2020 ([id number]) 91810 EST. PATIENT, LEVEL IV Diagnosis: Essential (primary) hypertension[ICD10: I10] Diagnosis: Low back pain[ICD10: M54.5] Diagnosis: Chronic pain[ICD10: G89.29] Diagnosis: Mixed hyperlipidemia[ICD10: E78.2] Sharmin raman MD, [facility] CPT-4: 56329 08/14/2020 85056 EST. PATIENT, LEVEL III Diagnosis: URI (upper respiratory infection)[ICD10: J06.9] Adilene Walker [facility] CPT-4: 92886 04/23/2020 12905 EST. PATIENT, LEVEL III Diagnosis: Left ankle pain[ICD10: M25.572] Diagnosis: Ankle fracture, left[ICD10: S82.892A] Adilene Walker [facility] CPT-4: 58184 01/20/2020 35150 EST. PATIENT, LEVEL III Diagnosis: Right leg pain[ICD10: M79.604] Diagnosis: Fracture of right lower leg[ICD10: S82.91XA] Elaine Meeks MD, [facility] CPT-4: 74021 12/05/2019 44593 EST. PATIENT, LEVEL IV Diagnosis: Other allergic rhinitis[ICD10: J30.89] Diagnosis: Chronic obstructive pulmonary disease with acute exacerbation[ICD10: J44.1] Adilene Meeks MD, [facility] CPT-4: 67710 0 ([id number]) 02164 EST. PATIENT, LEVEL IV Diagnosis: Chronic obstructive pulmonary disease with acute exacerbation[ICD10: J44.1] Diagnosis: Essential (primary) hypertension[ICD10: I10] Diagnosis: Low back pain[ICD10: M54.5] Elaine Meeks MD, [facility] CPT-4: 34898 11/13/2019 34677 EST. PATIENT, LEVEL III Diagnosis: Ankle pain, left[ICD10: M25.572] Diagnosis: Closed avulsion fracture of distal end of left fibula, initial encounter[ICD10: S82.832A] Diagnosis: Closed avulsion fracture of medial malleolus of left tibia, initial encounter[ICD10: S82.52XA] Diagnosis: Gait instability[ICD10: R26.81] Adilene Meeks MD , [facility] CPT-4: 71482 06/04/2019 OFFICE VISIT, NEW - LEVEL 4 Diagnosis: Essential (primary) hypertension[ICD10: I10] Diagnosis: COPD (chronic obstructive pulmonary disease)[ICD10: J44.9] Diagnosis: Mixed hyperlipidemia[ICD10: E78.2] Diagnosis: Obstructive sleep apnea[ICD10: G47.33] [facility] CPT-4: 45140 05/21/2019 Plan of Care Planned Activity Notes [...] not controlled 01/05/2021 Appointment: Sharmin Villarreal WPtel: [address] [place], [place] [phone] (15 min) Moderate 01/05/2021 Patient Education: Patient Medication Summary Completed 01/05/2021 Patient Education: Hypertension Completed 01/05/2021 Patient Education: Depression Completed 01/05/2021 Appointment: Sharmin Villarreal WPtel: [address] [place], [place] [phone] (30 min) Complex 01/01/2021 Visit Plan: Abnormal [...] understands the consequences of over-medication. 09/25/2020 Appointment: Sharmni Villarreal WPtel: [address] [place], [place] [phone] (30 min) Complex 09/25/2020 Patient Education: Patient Medication Summary Completed 09/25/2020 Appointment: Nurse Visit 09/11/2020 Visit Plan: Chronic pain -low back - seng n - patient to continue with medications as directed -let us know what pain management says and we can make any needed adjustments at that time -call if pain uncontrolled -patient verbalized understanding of plan. 08/28/2020 [facility]ment[facility] [phone] [phone] (30 min) Complex 08/28/2020 Patient Education: Patient [...] fasting labs 08/14/2020 Appointment: Sharmin Villarreal [facility]Ptel[phone] (30 min) Complex 08/14/2020 Patient Education: [...] patient's pharmacy. 04/23/2020 Appointment: [facility] [phone] [phone] [facility] 04/23/2020 Patient Education: Patient Medication [...] plan 01/20/2020 Appointment: [facility] [phone] [phone] [facility] 01/20/2020 Patient Education: Patient Medication Summary Completed 01/20/2020 Appointment: Elaine Meeks WPtel: [phone] [facility] (30 min) Complex 12/24/2019 Visit Plan: Right [...] treatment plan. 12/05/2019 Appointment: [facility] [phone] [facility] ([facility] min) Complex 12/05/2019 Patient Education: Patient [...] Visit 11/20/2019 Appointment: Adilene Walker WPtel: [phone] [facility] (30 min) Complex 11/20/2019 Patient Education: Patient Medication Summary Completed 11/20/2019 Appointment: Villarreal Sharmin [facility] [phone] [phone] [place] (30 min) Complex 11/19/2019 Visit Plan: [...] acute changes. 11/13/2019 [facility]ment[phone] [place] ([facility] min) Complex 11/13/2019 Patient Education: [...] or concerns. 06/04/2019 Appointment: [facility] [phone] [facility] (30 min) Complex 06/04/2019 Patient Education: [...] treatment plan Assisted living to look into: [place], [facility], [facility] [place] [facility], [facility], [facility] [place] assisted living another option to look into is [place] will consult home health will write orders [...]
--- OUTSIDE RECORDS SUMMARY | 2021-02-11 11:48 | XMS REPORT | CCD ---
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 Former smoker 05/21/[address]: 882397 Currently drinks alcohol 05/21 Frequency of drinks SNOMED CT: 559224422 14 drinks per week 2 per day [...] Start Date Stop Date Status Fill Instructions hydrocodone 7.5 mg-acetaminophen 325 mg tablet RxNorm: 90161 5 1 Tablet(s) Oral BID PRN as needed 11/19/2020 11/19/2020 Inactive chronic back a nd neck pain duloxetine 30 mg capsule,delayed release RxNorm: 835226 Take 1 Capsule(s) Oral every night at bedtime 11/17/2020 02/14/2021 Active hydrocodone 7.5 mg-acetaminophen 325 mg tablet RxNorm: 43380 5 1 Tablet(s) Oral BID PRN as needed 10/16/2020 10/16/2020 Inactive chronic back a nd neck pain hydrocodone 7.5 mg-acetaminophen 325 mg tablet RxNorm: 43626 5 1 Tablet(s) Oral BID PRN as needed 08/14/2020 08/14/2020 Inactive chronic back a nd neck pain atorvastatin 20 mg tablet RxNorm: 672137 TAKE 1 TABLET BY MOUTH EVERY DAY 08/10/2020 02/05/2021 Active tramadol 50 mg tablet RxNorm: 678648 TAKE 1 TABLET BY M OUTH THREE TIMES DAILY NEEDED FOR PAIN 08/10/2020 08/13/2020 Inactive Pepcid 20 mg tablet RxNorm: 832967 1 Tablet(s) Oral every day 08/03 No Stop Date Active duloxetine 60 mg capsule,delayed release RxNorm: 812043 TAKE 1 CAPSULE BY MOUTH EVERY DAY 07/30/2020 01/25/2021 Active tramadol 50 mg tablet RxNorm: 355952 1 Tablet(s) Oral t hree times a day as needed for pain 07/01/2020 07/01/2020 Inactive montelukast 10 mg tablet RxNorm: 576267 1 Tablet(s) Oral every evening 06/23/2020 12/20/2020 Inactive diltiazem ER (XR/XT) 240 mg capsule,extended release 2 4 hr, controlled RxNorm: 748981 TAKE 1 CAPSULE BY MOUTH EVERY DAY 06/22/2020 03/18/2021 Active meloxicam 15 mg tablet RxNorm: 787559 TAKE 1 TABLET BY MOUTH EV KARLA DAY 06/22/2020 03/18/2021 Active lisinopril 20 mg tablet RxNorm: 631504 TAKE 1 TABLET BY MOUTH E VERY DAY 06/10/2020 12/06/2020 Inactive tramadol 50 mg tablet RxNorm: 962826 1 Tablet(s) Oral t hree times a day as needed for pain 06/01/2020 08/09/2020 Inactive Zithromax Z-Owen 250 mg tablet RxNorm: 316547 Tablet(s) Oral as directed 04/23/2020 No Stop Date Active prednisone 10 mg tablet RxNorm: 510837 Tablet(s) Oral 6,5,4,3,2,1 1 06/24/2019 No Stop Date Active oxycodone 5 mg tablet RxNorm: 1526039 1 Tablet(s) Oral Q6 as nee ded pain 01/15/2020 08/13/2020 Inactive Keflex 500 mg capsule RxNorm: 309041 1 Capsule(s) Oral three ti mes a day 11/20/2019 11/30/2019 Inactive prednisone 20 mg tablet RxNorm: 025098 Tablet(s) Oral a s directed 40,40,20,20,10,10 11/20/2019 11/25/2019 Inactive azithromycin 250 mg tablet RxNorm: 445208 1 Tablet(s) O ral as directed 2 tabs on first day then 1 pill daily x 4 11/14/2019 11/14/2019 Inactive duloxetine 30 mg capsule,delayed release RxNorm: 128878 1 Capsule(s) Oral every evening take at HS and the 60mg AM 11/13/2019 11/07/2020 Inactive Kenalog 40 mg/mL suspension for injection RxNorm: 2001040 Milliliter(s) Injection 11/13/2019 11/13/2019 Inactive azithromycin 250 mg tablet RxNorm: 506908 1 Tablet(s) O ral as directed 2 tabs on first day then 1 pill daily x 4 11/13/2019 11/13/2019 Inactive prednisone 20 mg tablet RxNorm: 385719 2 Tablet(s) Oral every day 0 11/13/2019 11/18/2019 Inactive duloxetine 60 mg capsule,delayed release RxNorm: 737947 1 Capsule(s) Oral every day 11/13/2019 07/29/2020 Inactive atorvastatin 20 mg tablet RxNorm: 541264 1 Tablet(s) Oral every day 09/11/2019 06/07/2020 Inactive lisinopril 20 mg tablet RxNorm: 817432 1 Tablet(s) Oral every day 0 09/11/2019 06/07/2020 Inactive duloxetine 60 mg capsule,delayed release RxNorm: 996310 1 Capsule(s) Oral every day 08/26/2019 11/12/2019 Inactive gabapentin 300 mg capsule RxNorm: 760480 1 Capsule(s) Oral thre e times a day 07/16/2019 04/11/2020 Inactive diltiazem ER (XR/XT) 240 mg capsule,extended release 2 4 hr, controlled RxNorm: 592196 1 Capsule(s) Oral every day 07/16/2019 04/11/2020 Inactive meloxicam 15 mg tablet RxNorm: 685460 1 Tablet(s) Oral every day 03/21/2020 Inactive Co Q-10 300 mg capsule RxNorm: 434881 1 Capsule(s) Oral every day 0 05/21/2019 No Stop Date Active lisinopril 20 mg tablet RxNorm: 383645 1 Tablet(s) Oral every day 0 05/21/2019 05/21/2019 Inactive hydrocodone 7.5 mg-acetaminophen 325 mg tablet RxNorm: 13211 5 1 Tablet(s) Oral Q8 as needed 05/21/2019 08/13/2020 Inactive atorvastatin 20 mg tablet RxNorm: 501637 1 Tablet(s) Oral every day 05/21/2019 09/10/2019 Inactive diltiazem ER (XR/XT) 240 mg capsule,extended release 2 4 hr, controlled RxNorm: 703272 1 Capsule(s) Oral every day 05/21/2019 07/15/2019 Inactive meloxicam 15 mg tablet RxNorm: 940138 1 Tablet(s) Oral every day 06/24/2019 Inactive gabapentin 300 mg capsule RxNorm: 715604 1 Capsule(s) Oral thre e times a day 05/21/2019 07/15/2019 Inactive montelukast 10 mg tablet RxNorm: 753344 1 Tablet(s) Oral every evening 05/21/2019 06/22/2020 Inactive lisinopril 20 mg tablet RxNorm: 777163 1 Tablet(s) Oral every day 0 05/21/2019 05/20/2019 Inactive atorvastatin 20 mg tablet RxNorm: 003404 1 Tablet(s) Oral every day 05/21/2019 05/20/2019 Inactive duloxetine 60 mg capsule,delayed release RxNorm: 802096 1 Capsule(s) Oral every day 05/21/2019 08/25/2019 Inactive Glucosamine Chondroitin oral RxNorm: oral 05/21/2019 Active turmeric oral RxNorm: 1283236 oral 05/21/2019 Active Medication Administered Medication Codes Instructions Start Date Status Kenalog 40 mg/mL suspension for injection RxNorm: 3238171 Millilite r 11/13/2019 No longer Active Immunizations [...] See Note 09/14/2020 Unkno wn Comp Metabolic Kfd581 NA 141 mEq/L 08/14/2020 Unkn own Comp Metabolic Hjr886 K 4.5 mEq/L 08/14/2020 Unkn own Comp Metabolic Ydo838 CL 103 mEq/L 08/14/2020 Unkn own Comp Metabolic Vsf184 CO2 30.0 mEq/L 08/14/2020 Unk nown Comp Metabolic Dnf789 ANION GAP 13 08/14/2020 Unkn own Comp Metabolic Ysd085 GLUCOSE 94 mg/dL 08/14/2020 Unkn own Comp Metabolic Orq258 Creat 0.8 mg/dL 08/14/2020 Unkn own Comp Metabolic Mby266 eGFR 74 ml/min/1.73m2 08/15/19 21 Unknown Comp Metabolic Exo854 BUN 14 mg/dL 08/14/2020 Unkn own Comp Metabolic Zpg154 B/C Ratio 17.5 Ratio 08/14/2020 Unk nown Comp Metabolic Jrk105 CALCIUM 9.5 mg/dL 08/14/2020 Unkn own Comp Metabolic Zdr356 ALK PHOS 55 U/L 08/14/2020 Unkn own Comp Metabolic Obm474 AST(SGOT) 17 U/L 08/14/2020 Unkn own Comp Metabolic Uaa594 ALT(SGPT) 14 U/L 08/14/2020 Unkn own Comp Metabolic Trm650 BILI T 0.5 mg/dL 08/14/2020 Unkn own Comp Metabolic Cjc906 ALBUMIN 4.2 g/dL 08/14/2020 Unkn own Comp Metabolic Ljo258 TPRO 6.9 g/dL 08/14/2020 Unkn own Comp Metabolic Hnk864 GLOB 2.7 g/dL 08/14/2020 Unkn own Comp Metabolic Yju117 A/G Ratio 1.6 Ratio 08/14/2020 Unkn own Comp Metabolic Nuo238 Osmo 281 mOsmo 08/14/2020 Unkn own Cbc [...] 08/15/19 21 Unknown Cbc With Differential Ord2 [place]% 10.6 % 08/15/19 21 Unknown Cbc With [...] K/ul 021 Unknown Cbc With Differential Ord2 [place] ABS# 0.7 K/ul 08/15/19 21 Unknown Cbc With Differential Ord2 Eos ABS# 0.3 K/ul 08/15/19 21 Unknown Cbc With Differential Ord2 Baso ABS# 0.0 K/ul 08/15/19 21 Unknown Tsh Ord6 TSH (3rd IS) 0.97 uIU/mL 08/14/2020 Unkn own Procedures Procedure Codes Date THER/PROPH/DIAG INJ SC/IM CPT-4: 25014 11/13/2019 TRIAMCINOLONE ACET INJ NOS 10 mg CPT-4: J3301 020 Vital Signs Date Vital 01/05/2021 Blood Pressure 1: 136/70 Code: 8480-6 BMI: 26.7 Code: 84322-8 Height: 5'3" Code: 8302-2 Weight: 151 lbs Code: 89486-4 09/25/2020 Blood Pressure 1: 110/80 Code: 8480-6 BMI: 27.8 Code: 64759-2 Heart Rate 1: 65 bpm Height: 5'3" Code: 8302-2 SpO2: 96% Temperature: 3 6.7 (C) / 98.0 (F) Weight: 157 lbs Code: 70120-9 08/28/2020 Blood Pressure 1: 136/74 Code: 8480-6 Heart Rate 1: 75 bpm Height: 5'3" Code: 8302-2 SpO2: 97% Temperature: 36.3 (C) / 97.3 (F) Weight: Code: 11134-5 08/14/2020 Blood Pressure 1: 110/66 Code: 8480-6 Heart Rate 1: 91 bpm Height: 5'3" Code: 8302-2 SpO2: 96% Temperature: 36.3 (C) / 97.3 (F) Weight: Code: 31066-2 01/20/2020 Height: Code: 8302-2 Weight: Code: 294 63-7 12/05/2019 Blood Pressure 1: 122/74 Code: 8480-6 Heart Rate 1: 84 bpm Height: 5'3" Code: 8302-2 SpO2: 97% Temperature: 36.6 (C) / 97.8 (F) Weight: Code: 42533-6 11/20/2019 Blood Pressure 1: 120/62 Code: 8480-6 BMI: 30.8 Code: 31096-3 Heart Rate 1: 104 bpm Height: 5'3" Code: 8302-2 SpO2: 97% Temperature: 3 6.5 (C) / 97.7 (F) Weight: 174 lbs Code: 65636-9 11/13/2019 Blood Pressure 1: 112/60 Code: 8480-6 BMI: 30.8 Code: 27981-6 Heart Rate 1: 103 bpm Height: 5'3" Code: 8302-2 Respiratory Rate: 16 bpm SpO2: 96% Temperature: 36.9 (C) / 98.4 (F) Weight: 174 lbs Code: 07898-5 06/04/2019 Blood Pressure 1: 140/66 Code: 8480-6 Heart Rate 1: 80 bpm Height: 5'3" Code: 8302-2 SpO2: 96% Weight: Code: 36265-3 05/21/2019 Blood Pressure 1: 142/70 Code: 8480-6 BMI: 32.1 Code: 68453-3 Heart Rate 1: 70 bpm Height: 5'3" Code: 8302-2 SpO2: 97% Weight: 181 lb s Code: 57345-4 Functional Status No Functional Status data Reason For Visit Reason For Visit Effective Dates Notes Hospital Follow Up 01/05/2021 hypertension 09/25/2020 medication follow up 08/28/2020 medication follow up 08/14/2020 sinus congestion 04/23/2020 medication follow up 01/20/2020 Hospital Follow Up 12/05/2019 cerumen 11/20/2019 hypertension 11/13/2019 Hospital Follow Up 06/04/2019 hypertension 05/21/2019 Encounters Encounter Performer Location Codes Date ([id number]) 73244 EST. PATIENT, LEVEL IV Diagnosis: Essential (primary) hypertension[ICD10: I10] Diagnosis: Chronic pain[ICD10: G89.29] Diagnosis: Depression, major, recurrent, mild[ICD10: F33.0] Sharmin Meeks MD, [facility] CPT-4: 29373 01/05/2021 ([id number]) 67993 EST. PATIENT, LEVEL III Diagnosis: Abnormal weight loss[ICD10: R63.4] Diagnosis: Chronic pain[ICD10: G89.29] Sharmin Meeks MD, [facility] CPT-4: 78445 09/25/2020 ([id number]) 28708 EST. PATIENT, LEVEL III Diagnosis: Low back pain[ICD10: M54.5] Diagnosis: Chronic pain[ICD10: G89.29] Sharmin Meeks MD, [facility] CPT-4: 51242 08/28/2020 ([id number]) 03973 EST. PATIENT, LEVEL IV Diagnosis: Essential (primary) hypertension[ICD10: I10] Diagnosis: Low back pain[ICD10: M54.5] Diagnosis: Chronic pain[ICD10: G89.29] Diagnosis: Mixed hyperlipidemia[ICD10: E78.2] Sharmin raman MD, [facility] CPT-4: 36414 08/14/2020 37083 EST. PATIENT, LEVEL III Diagnosis: URI (upper respiratory infection)[ICD10: J06.9] Adilenedale Walker [facility] CPT-4: 02824 04/23/2020 [id number] EST. PATIENT, LEVEL III Diagnosis: Left ankle pain[ICD10: M25.572] Diagnosis: Ankle fracture, left[ICD10: S82.892A] Adilene Walker [facility] CPT-4: 53862 01/20/2020 80343 EST. PATIENT, LEVEL III Diagnosis: Right leg pain[ICD10: M79.604] Diagnosis: Fracture of right lower leg[ICD10: S82.91XA] Elaine Meeks MD, [facility] CPT-4: 32968 12/05/2019 15327 EST. PATIENT, LEVEL IV Diagnosis: Other allergic rhinitis[ICD10: J30.89] Diagnosis: Chronic obstructive pulmonary disease with acute exacerbation[ICD10: J44.1] Adilene Meeks MD, [facility] CPT-4: 95081 0 ([id number]) 71851 EST. PATIENT, LEVEL IV Diagnosis: Chronic obstructive pulmonary disease with acute exacerbation[ICD10: J44.1] Diagnosis: Essential (primary) hypertension[ICD10: I10] Diagnosis: Low back pain[ICD10: M54.5] Elaine Meeks MD, [facility] CPT-4: 04227 11/13/2019 80932 EST. PATIENT, LEVEL III Diagnosis: Ankle pain, left[ICD10: M25.572] Diagnosis: Closed avulsion fracture of distal end of left fibula, initial encounter[ICD10: S82.832A] Diagnosis: Closed avulsion fracture of medial malleolus of left tibia, initial encounter[ICD10: S82.52XA] Diagnosis: Gait instability[ICD10: R26.81] Adilene Meeks MD , [facility] CPT-4: 18497 06/04/2019 OFFICE VISIT, NEW - LEVEL 4 Diagnosis: Essential (primary) hypertension[ICD10: I10] Diagnosis: COPD (chronic obstructive pulmonary disease)[ICD10: J44.9] Diagnosis: Mixed hyperlipidemia[ICD10: E78.2] Diagnosis: Obstructive sleep apnea[ICD10: G47.33] [facility] CPT-4: 84283 05/21/2019 Plan of Care Planned Activity Notes [...] monitor and call if not controlled 01/05/2021 Patient Education: Patient Medication Summary Completed 01/05/2021 Patient Education: Hypertension Completed 01/05/2021 Patient Education: Depression Completed 01/05/2021 Appointment: Sharmin Villarreal WPtel: [phone] [phone] (30 min) Complex 01/01/2021 Visit Plan: Abnormal [...] of over-medication. 09/25/2020 Appointment: Sharmin Villarreal WPtel: [phone] [phone] (30 min) Complex 09/25/2020 Patient Education: Patient Medication Summary Completed 09/25/2020 Appointment: Nurse Visit 09/11/2020 Visit Plan: Chronic pain -low back - seng n - patient to continue with medications as directed -let us know what pain management says and we can make any needed adjustments at that time -call if pain uncontrolled -patient verbalized understanding of plan. 08/28/2020 Appointment: Sharmin Villarreal WPtel: [phone] [phone] (30 min) Complex 08/28/2020 Patient Education: Patient [...] labs 08/14/2020 Appointment: Sharmin Villarreal WPtel: [phone] [phone] (30 min) Complex 08/14/2020 Patient Education: Patient [...] patient's pharmacy. 04/23/2020 Appointment: Adilene Walker WPtel: [facility][note 3][address] [facility] [facility] 04/23/2020 Patient Education: Patient Medication Summary Completed [...] plan 01/20/2020 Appointment: Adilene Walker WPtel: [phone] [facility] [facility] [facility] 01/20/2020 Patient Education: Patient Medication Summary Completed 01/20/2020 [phone] [facility] [place] ([facility] min[facility] Complex 12/24/2019 Visit Plan: Right [...] plan. 12/05/2019 [phone] [facility] ([facility] 12/05/2019 Patient Education: [...] Nurse Visit 11/20/2019 [facility] [phone] [facility] [place] ([facility] min) Complex 11/20/2019 Patient Education: Patient Medication Summary Completed 11/20/2019 [facility]ment[facility] [phone] [phone] [place] (30 min) Complex 11/19/2019 Visit [...] acute changes. 11/13/2019 [phone] ([facility] 11/13/2019 Patient Education: Patient [...] or concerns. 06/04/2019 App[facility]ment: [facility] [phone] [facility] ([facility] min[facility] Complex 06/04/2019 Patient Education: [...] treatment plan Assisted living to look into: [place], [facility], [facility], [facility], [facility] assisted living another option to look into is [place] will consult home health will write orders [...]
--- OUTSIDE RECORDS SUMMARY | 2021-02-11 11:48 | XMS REPORT | CCD ---
Author Author Marla Villarreal Organization Elaine Meeks MD, [facility] Address [address] [place] [address] Phone Care Team Providers Care Track Hoe Operator Name Role Phone Elaine Meeks PP Unavailable CCM Unavailable Summary Purpose Interface Exchange Insurance Providers Payer name Policy type / Coverage type Covered republican ID Effective Begin Date Effective End Date WPS Medicare Part B Medicare Part B [id number] Unkno wn [facility] Medicare Part B [id number] Unknown Family history Father Diagnosis Age [...] children Unknown 2 05/21/2019 Employment Unknown Retired [employer] 05/21/[address]: 2154227 Former smoker 05/21/[address]: 186929 Currently drinks alcohol 05/21 Frequency of drinks SNOMED CT: 697881641 14 drinks per week 2 per day [...] hydrocodone 7.5 mg-acetaminophen 325 mg tablet RxNorm: 37770 5 1 Tablet(s) Oral BID PRN as needed 11/19/2020 11/19/2020 Inactive chronic back a nd neck pain duloxetine 30 mg capsule,delayed release RxNorm: 750771 Take 1 Capsule(s) Oral every night at bedtime 11/17/2020 02/14/2021 Active hydrocodone 7.5 mg-acetaminophen 325 mg tablet RxNorm: 12644 5 1 Tablet(s) Oral BID PRN as needed 10/16/2020 10/16/2020 Inactive chronic back a nd neck pain hydrocodone 7.5 mg-acetaminophen 325 mg tablet RxNorm: 50758 5 1 Tablet(s) Oral BID PRN as needed 08/14/2020 08/14/2020 Inactive chronic back a nd neck pain atorvastatin 20 mg tablet RxNorm: 489139 TAKE 1 TABLET BY MOUTH EVERY DAY 08/10/2020 02/05/2021 Active tramadol 50 mg tablet RxNorm: 129563 TAKE 1 TABLET BY M OUTH THREE TIMES DAILY NEEDED FOR PAIN 08/10/2020 08/13/2020 Inactive Pepcid 20 mg tablet RxNorm: 827985 1 Tablet(s) Oral every day 08/03 No Stop Date Active duloxetine 60 mg capsule,delayed release RxNorm: 239293 TAKE 1 CAPSULE BY MOUTH EVERY DAY 07/30/2020 01/25/2021 Active tramadol 50 mg tablet RxNorm: 828857 1 Tablet(s) Oral t hree times a day as needed for pain 07/01/2020 07/01/2020 Inactive montelukast 10 mg tablet RxNorm: 796005 1 Tablet(s) Oral every evening 06/23/2020 12/20/2020 Inactive diltiazem ER (XR/XT) 240 mg capsule,extended release 2 4 hr, controlled RxNorm: 171380 TAKE 1 CAPSULE BY MOUTH EVERY DAY 06/22/2020 03/18/2021 Active meloxicam 15 mg tablet RxNorm: 188933 TAKE 1 TABLET BY MOUTH EV KARLA DAY 06/22/2020 03/18/2021 Active lisinopril 20 mg tablet RxNorm: 096352 TAKE 1 TABLET BY MOUTH E VERY DAY 06/10/2020 12/06/2020 Inactive tramadol 50 mg tablet RxNorm: 001124 1 Tablet(s) Oral t hree times a day as needed for pain 06/01/2020 08/09/2020 Inactive Zithromax Z-Owen 250 mg tablet RxNorm: 638545 Tablet(s) Oral as directed 04/23/2020 No Stop Date Active prednisone 10 mg tablet RxNorm: 469468 Tablet(s) Oral 6,5,4,3,2,1 1 06/24/2019 No Stop Date Active oxycodone 5 mg tablet RxNorm: 7883813 1 Tablet(s) Oral Q6 as nee ded pain 01/15/2020 08/13/2020 Inactive Keflex 500 mg capsule RxNorm: 043809 1 Capsule(s) Oral three ti mes a day 11/20/2019 11/30/2019 Inactive prednisone 20 mg tablet RxNorm: 302565 Tablet(s) Oral a s directed 40,40,20,20,10,10 11/20/2019 11/25/2019 Inactive azithromycin 250 mg tablet RxNorm: 337573 1 Tablet(s) O ral as directed 2 tabs on first day then 1 pill daily x 4 11/14/2019 11/14/2019 Inactive duloxetine 30 mg capsule,delayed release RxNorm: 886575 1 Capsule(s) Oral every evening take at HS and the 60mg AM 11/13/2019 11/07/2020 Inactive Kenalog 40 mg/mL suspension for injection RxNorm: 6737512 Milliliter(s) Injection 11/13/2019 11/13/2019 Inactive azithromycin 250 mg tablet RxNorm: 768904 1 Tablet(s) O ral as directed 2 tabs on first day then 1 pill daily x 4 11/13/2019 11/13/2019 Inactive prednisone 20 mg tablet RxNorm: 743294 2 Tablet(s) Oral every day 0 11/13/2019 11/18/2019 Inactive duloxetine 60 mg capsule,delayed release RxNorm: 039310 1 Capsule(s) Oral every day 11/13/2019 07/29/2020 Inactive atorvastatin 20 mg tablet RxNorm: 782800 1 Tablet(s) Oral every day 09/11/2019 06/07/2020 Inactive lisinopril 20 mg tablet RxNorm: 220084 1 Tablet(s) Oral every day 0 09/11/2019 06/07/2020 Inactive duloxetine 60 mg capsule,delayed release RxNorm: 151292 1 Capsule(s) Oral every day 08/26/2019 11/12/2019 Inactive gabapentin 300 mg capsule RxNorm: 703770 1 Capsule(s) Oral thre e times a day 07/16/2019 04/11/2020 Inactive diltiazem ER (XR/XT) 240 mg capsule,extended release 2 4 hr, controlled RxNorm: 242994 1 Capsule(s) Oral every day 07/16/2019 04/11/2020 Inactive meloxicam 15 mg tablet RxNorm: 711267 1 Tablet(s) Oral every day 03/21/2020 Inactive Co Q-10 300 mg capsule RxNorm: 500627 1 Capsule(s) Oral every day 0 05/21/2019 No Stop Date Active lisinopril 20 mg tablet RxNorm: 432425 1 Tablet(s) Oral every day 0 05/21/2019 05/21/2019 Inactive hydrocodone 7.5 mg-acetaminophen 325 mg tablet RxNorm: 59989 5 1 Tablet(s) Oral Q8 as needed 05/21/2019 08/13/2020 Inactive atorvastatin 20 mg tablet RxNorm: 701323 1 Tablet(s) Oral every day 05/21/2019 09/10/2019 Inactive diltiazem ER (XR/XT) 240 mg capsule,extended release 2 4 hr, controlled RxNorm: 562854 1 Capsule(s) Oral every day 05/21/2019 07/15/2019 Inactive meloxicam 15 mg tablet RxNorm: 156786 1 Tablet(s) Oral every day 06/24/2019 Inactive gabapentin 300 mg capsule RxNorm: 926196 1 Capsule(s) Oral thre e times a day 05/21/2019 07/15/2019 Inactive montelukast 10 mg tablet RxNorm: 769849 1 Tablet(s) Oral every evening 05/21/2019 06/22/2020 Inactive lisinopril 20 mg tablet RxNorm: 880596 1 Tablet(s) Oral every day 0 05/21/2019 05/20/2019 Inactive atorvastatin 20 mg tablet RxNorm: 827477 1 Tablet(s) Oral every day 05/21/2019 05/20/2019 Inactive duloxetine 60 mg capsule,delayed release RxNorm: 488966 1 Capsule(s) Oral every day 05/21/2019 08/25/2019 Inactive Glucosamine Chondroitin oral RxNorm: oral 05/21/2019 Active turmeric oral RxNorm: 5971582 oral 05/21/2019 Active Medication Administered Medication Codes Instructions Start Date Status Kenalog 40 mg/mL suspension for injection RxNorm: 3373214 Millilite r 11/13/2019 No longer Active Immunizations [...] See Note 09/14/2020 Unkno wn Comp Metabolic Hls870 NA 141 mEq/L 08/14/2020 Unkn own Comp Metabolic Rzw319 K 4.5 mEq/L 08/14/2020 Unkn own Comp Metabolic Avn588 CL 103 mEq/L 08/14/2020 Unkn own Comp Metabolic Bcj420 CO2 30.0 mEq/L 08/14/2020 Unk nown Comp Metabolic Cjq020 ANION GAP 13 08/14/2020 Unkn own Comp Metabolic Nsl521 GLUCOSE 94 mg/dL 08/14/2020 Unkn own Comp Metabolic Lwi128 Creat 0.8 mg/dL 08/14/2020 Unkn own Comp Metabolic Wzs575 eGFR 74 ml/min/1.73m2 08/15/19 21 Unknown Comp Metabolic Gmq129 BUN 14 mg/dL 08/14/2020 Unkn own Comp Metabolic Ibg016 B/C Ratio 17.5 Ratio 08/14/2020 Unk nown Comp Metabolic Nhl142 CALCIUM 9.5 mg/dL 08/14/2020 Unkn own Comp Metabolic Qpg757 ALK PHOS 55 U/L 08/14/2020 Unkn own Comp Metabolic Fty220 AST(SGOT) 17 U/L 08/14/2020 Unkn own Comp Metabolic Uvi783 ALT(SGPT) 14 U/L 08/14/2020 Unkn own Comp Metabolic Tnt672 BILI T 0.5 mg/dL 08/14/2020 Unkn own Comp Metabolic Lxe463 ALBUMIN 4.2 g/dL 08/14/2020 Unkn own Comp Metabolic Urk887 TPRO 6.9 g/dL 08/14/2020 Unkn own Comp Metabolic Tup792 GLOB 2.7 g/dL 08/14/2020 Unkn own Comp Metabolic Ywl146 A/G Ratio 1.6 Ratio 08/14/2020 Unkn own Comp Metabolic Exv763 Osmo 281 mOsmo 08/14/2020 Unkn own Cbc [...] 08/15/19 21 Unknown Cbc With Differential Ord2 [place]% 10.6 % 08/15/19 21 Unknown Cbc With [...] K/ul 021 Unknown Cbc With Differential Ord2 [place] ABS# 0.7 K/ul 08/15/19 21 Unknown Cbc With Differential Ord2 Eos ABS# 0.3 K/ul 08/15/19 21 Unknown Cbc With Differential Ord2 Baso ABS# 0.0 K/ul 08/15/19 21 Unknown Tsh Ord6 TSH (3rd IS) 0.97 uIU/mL 08/14/2020 Unkn own Procedures Procedure Codes Date THER/PROPH/DIAG INJ SC/IM CPT-4: 51100 11/13/2019 TRIAMCINOLONE ACET INJ NOS 10 mg CPT-4: J3301 020 Vital Signs Date Vital 01/05/2021 Blood Pressure 1: 136/70 Code: 8480-6 BMI: 26.7 Code: 09097-0 Height: 5'3" Code: 8302-2 Weight: 151 lbs Code: 50967-8 09/25/2020 Blood Pressure 1: 110/80 Code: 8480-6 BMI: 27.8 Code: 12716-0 Heart Rate 1: 65 bpm Height: 5'3" Code: 8302-2 SpO2: 96% Temperature: 3 6.7 (C) / 98.0 (F) Weight: 157 lbs Code: 05203-2 08/28/2020 Blood Pressure 1: 136/74 Code: 8480-6 Heart Rate 1: 75 bpm Height: 5'3" Code: 8302-2 SpO2: 97% Temperature: 36.3 (C) / 97.3 (F) Weight: Code: 53656-0 08/14/2020 Blood Pressure 1: 110/66 Code: 8480-6 Heart Rate 1: 91 bpm Height: 5'3" Code: 8302-2 SpO2: 96% Temperature: 36.3 (C) / 97.3 (F) Weight: Code: 09858-4 01/20/2020 Height: Code: 8302-2 Weight: Code: 294 63-7 12/05/2019 Blood Pressure 1: 122/74 Code: 8480-6 Heart Rate 1: 84 bpm Height: 5'3" Code: 8302-2 SpO2: 97% Temperature: 36.6 (C) / 97.8 (F) Weight: Code: 85592-9 11/20/2019 Blood Pressure 1: 120/62 Code: 8480-6 BMI: 30.8 Code: 97115-8 Heart Rate 1: 104 bpm Height: 5'3" Code: 8302-2 SpO2: 97% Temperature: 3 6.5 (C) / 97.7 (F) Weight: 174 lbs Code: 23713-6 11/13/2019 Blood Pressure 1: 112/60 Code: 8480-6 BMI: 30.8 Code: 51802-9 Heart Rate 1: 103 bpm Height: 5'3" Code: 8302-2 Respiratory Rate: 16 bpm SpO2: 96% Temperature: 36.9 (C) / 98.4 (F) Weight: 174 lbs Code: 44255-8 06/04/2019 Blood Pressure 1: 140/66 Code: 8480-6 Heart Rate 1: 80 bpm Height: 5'3" Code: 8302-2 SpO2: 96% Weight: Code: 09791-8 05/21/2019 Blood Pressure 1: 142/70 Code: 8480-6 BMI: 32.1 Code: 33131-5 Heart Rate 1: 70 bpm Height: 5'3" Code: 8302-2 SpO2: 97% Weight: 181 lb s Code: 85601-4 Functional Status No Functional Status data Reason For Visit Reason For Visit Effective Dates Notes Hospital Follow Up 01/05/2021 hypertension 09/25/2020 medication follow up 08/28/2020 medication follow up 08/14/2020 sinus congestion 04/23/2020 medication follow up 01/20/2020 Hospital Follow Up 12/05/2019 cerumen 11/20/2019 hypertension 11/13/2019 Hospital Follow Up 06/04/2019 hypertension 05/21/2019 Encounters Encounter Performer Location Codes Date ([id number]) [id number] EST. PATIENT, LEVEL IV Diagnosis: Essential (primary) hypertension[ICD10: I10] Diagnosis: Chronic pain[ICD10: G89.29] Diagnosis: Depression, major, recurrent, mild[ICD10: F33.0] Sharmin Meeks MD, [facility] CPT-4: 06193 01/05/2021 ([id number]) 95062 EST. PATIENT, LEVEL III Diagnosis: Abnormal weight loss[ICD10: R63.4] Diagnosis: Chronic pain[ICD10: G89.29] Sharmin Meeks MD, [facility] CPT-4: 24608 09/25/2020 ([id number]) 27646 EST. PATIENT, LEVEL III Diagnosis: Low back pain[ICD10: M54.5] Diagnosis: Chronic pain[ICD10: G89.29] Sharmin Meeks MD, [facility] CPT-4: 53252 08/28/2020 ([id number]) 84369 EST. PATIENT, LEVEL IV Diagnosis: Essential (primary) hypertension[ICD10: I10] Diagnosis: Low back pain[ICD10: M54.5] Diagnosis: Chronic pain[ICD10: G89.29] Diagnosis: Mixed hyperlipidemia[ICD10: E78.2] Sharmin raman MD, [facility] CPT-4: 49102 08/14/2020 22397 EST. PATIENT, LEVEL III Diagnosis: URI (upper respiratory infection)[ICD10: J06.9] [facility] CPT-4: 23971 04/23/2020 61152 EST. PATIENT, LEVEL III Diagnosis: Left ankle pain[ICD10: M25.572] Diagnosis: Ankle fracture, left[ICD10: S82.892A] [facility] CPT-4: 08183 01/20/2020 57899 EST. PATIENT, LEVEL III Diagnosis: Right leg pain[ICD10: M79.604] Diagnosis: Fracture of right lower leg[ICD10: S82.91XA] Elaine Meeks MD, [facility] CPT-4: 49260 12/05/2019 74834 EST. PATIENT, LEVEL IV Diagnosis: Other allergic rhinitis[ICD10: J30.89] Diagnosis: Chronic obstructive pulmonary disease with acute exacerbation[ICD10: J44.1] Adilene Meeks MD, [facility] CPT-4: 85752 0 ([id number]) 52545 EST. PATIENT, LEVEL IV Diagnosis: Chronic obstructive pulmonary disease with acute exacerbation[ICD10: J44.1] Diagnosis: Essential (primary) hypertension[ICD10: I10] Diagnosis: Low back pain[ICD10: M54.5] Elaine Meeks MD, [facility] CPT-4: 99945 11/13/2019 04508 EST. PATIENT, LEVEL III Diagnosis: Ankle pain, left[ICD10: M25.572] Diagnosis: Closed avulsion fracture of distal end of left fibula, initial encounter[ICD10: S82.832A] Diagnosis: Closed avulsion fracture of medial malleolus of left tibia, initial encounter[ICD10: S82.52XA] Diagnosis: Gait instability[ICD10: R26.81] Adilene Meeks MD , [facility] CPT-4: 61256 06/04/2019 OFFICE VISIT, NEW - LEVEL 4 Diagnosis: Essential (primary) hypertension[ICD10: I10] Diagnosis: COPD (chronic obstructive pulmonary disease)[ICD10: J44.9] Diagnosis: Mixed hyperlipidemia[ICD10: E78.2] Diagnosis: Obstructive sleep apnea[ICD10: G47.33] [facility] CPT-4: 28755 05/21/2019 Plan of Care Planned Activity Notes [...] not controlled 01/05/2021 Appointment: Sharmin Villarreal WPtel: [phone] (15 min) Moderate 01/05/2021 Patient Education: Patient Medication Summary Completed 01/05/2021 Patient Education: Hypertension Completed 01/05/2021 Patient Education: Depression Completed 01/05/2021 Appointment: Sharmin Villarreal WPtel: [address] [place], [place] [phone] (30 min) Complex 01/01/2021 Visit Plan: Abnormal [...] of over-medication. 09/25/2020 Appointment: Sharmin Villarreal WPtel: [facility]3 [phone] (30 min) Complex 09/25/2020 Patient Education: Patient Medication Summary Completed 09/25/2020 Appointment: Nurse Visit 09/11/2020 Visit Plan: Chronic pain -low back - seng n - patient to continue with medications as directed -let us know what pain management says and we can make any needed adjustments at that time -call if pain uncontrolled -patient verbalized understanding of plan. 08/28/2020 Appointment: Sharmin Villarreal WPtel: [phone] [phone] (30 min) Complex 08/28/2020 Patient Education: Patient [...] fasting labs 08/14/2020 Appointment: Sharmin Villarreal WPtel: [facility]4 [phone] (30 min) Complex 08/14/2020 Patient Education: Patient [...] patient's pharmacy. 04/23/2020 Appointment: Adilene Walker WPtel: [facility] [facility] 04/23/2020 Patient Education: Patient Medication [...] plan 01/20/2020 Appointment: [facility]el[facility] [phone] [facility] [facility] 01/20/2020 Patient Education: Patient Medication Summary Completed 01/20/2020 [facility]ment[phone] (30 min) Complex 12/24/2019 Visit Plan: Right [...] plan. 12/05/2019 Appointment: Adilene Walker WPtel: [phone] [facility] (30 min) Complex 12/05/2019 Patient Education: Patient [...] Visit 11/20/2019 Appointment: [facility]el[facility] [phone] [facility] (30 min) Complex 11/20/2019 Patient Education: Patient Medication Summary Completed 11/20/2019 Appointment: Shar[facility] Villarreal [facility]Ptel[facility] [phone] [phone] (30 min) Complex 11/19/2019 Visit Plan: [...] changes. 11/13/2019 Appointment: [phone] [facility] (30 min) Complex 11/13/2019 Patient Education: Patient [...] or concerns. 06/04/2019 Appointment: [facility]Ptel[facility] [phone] [facility] [place] (30 min) Complex 06/04/2019 Patient Education: Patient [...] treatment plan Assisted living to look into: [facility], [facility], [facility], [facility], [facility] assisted living another option to look into is [facility] will consult home health will write orders [...]
[2021-02-11] MEDS ORDERED: NS IV 500 ML 500 ML IV ONE ×2 (12:15→13:45)
[2021-02-11 12:16] LABS: BASOPHILS % (AUTO) 0 % (0-10); EOSINOPHILS % (AUTO) 0 % (0-10); HEMATOCRIT 34 % (35-52); HEMOGLOBIN 11.6 g/dL (11.5-16.0); LYMPHOCYTES # (AUTO) 1.2 10^3/uL (1.0-4.0); LYMPHOCYTES % (AUTO) 15 % (12-44); MEAN CORPUSCULAR HEMOGLOBIN 31 pg (25-34); MEAN CORPUSCULAR HGB CONC 34 g/dL (32-36); MEAN CORPUSCULAR VOLUME 92 fL (80-99); MEAN PLATELET VOLUME 10.1 fL (9.0-12.2); MONOCYTES # (AUTO) 0.6 10^3/uL (0.0-1.0); MONOCYTES % (AUTO) 8 % (0-12); NEUTROPHILS # (AUTO) 6.2 10^3/uL (1.8-7.8); NEUTROPHILS % (AUTO) 77 % (42-75); PLATELET COUNT 131 10^3/uL (130-400)
[2021-02-11 12:24] LABS: ALBUMIN 3.7 GM/DL (3.2-4.5); POTASSIUM 3.5 MMOL/L (3.6-5.0)
[2021-02-11 12:25] LABS: CALCIUM 9.5 MG/DL (8.5-10.1)
[2021-02-11 12:27] LABS: TOTAL PROTEIN 6.9 GM/DL (6.4-8.2)
[2021-02-11 12:28] LABS: BILIRUBIN,TOTAL 0.8 MG/DL (0.1-1.0)
[2021-02-11 12:30] LABS: CREATININE SERUM 0.66 MG/DL (0.60-1.30)
--- NOTE | 2021-02-11 12:49 | Diagnostic Imaging Report ---
PROCEDURE: CT head and CT cervical spine without contrast. TECHNIQUE: Multiple contiguous axial images were obtained through the brain and cervical spine without the use of intravenous contrast. Sagittal and coronal reformations through the cervical spine were then performed. Auto Exposure Controls were utilized during the CT exam to meet ALARA standards for radiation dose reduction. INDICATION: Fall with head and neck injury. COMPARISON: No prior studies are available for comparison. CT HEAD: Ventricles and sulci are consistent with the patient's age. No sulcal effacement or midline shift is identified. No acute intra-axial or extra-axial hemorrhage is detected. Cisterns are patent. Visualized paranasal sinuses are clear. IMPRESSION: No acute intracranial process is detected. CT CERVICAL SPINE: Postoperative changes of ACDF with anterior plate and screws transfixing C4-C5 level is noted. There is minimal anterolisthesis of C4 on C5. There is degenerative disc disease at the C5-C6 and C6-C7 levels with disc space narrowing and marginal spurring. There is upper thoracic spondylosis as well. There is multilevel facet arthropathy. No fractures are seen. Odontoid is intact. IMPRESSION: Cervical spondylosis and postsurgical changes. No acute bony abnormality is detected. Dictated by: Dictated on workstation # [id number]
--- NOTE | 2021-02-11 12:58 | Diagnostic Imaging Report ---
HISTORY: Fall with right shoulder pain and injury. TECHNIQUE: Three views of the right shoulder. COMPARISON: 10/29/2019. FINDINGS: There are moderate degenerative changes in the right acromioclavicular joint. No acute fracture is seen in the right shoulder. Alignment is normal. Cyst-like changes are seen at the greater tuberosity, may be from chronic rotator cuff injury. IMPRESSION: 1. Degenerative changes in the right shoulder with no acute fracture seen. Dictated by: Dictated on workstation # [id number]
--- NOTE | 2021-02-11 13:06 | ED Fall/Injury ---
General Chief Complaint: Trauma-Non Activation Stated Complaint: FELL Nursing Triage Note: ARRIVED VIA AMB TO ROOM 09. STATES SHE FELL LAST NIGHT AROUND 9PM HITTING HER HEAD ON THE GROUND. DENIES LOC ALTHOUGH DOESNT RECALL THE FALL. STATES SHE HAS HAD V/D SINCE. Source: patient Exam Limitations: no limitations History of Present Illness Date Seen by Provider: Feb 11, 2021 Time Seen by Provider: 11:55 Initial Comments Here with report of fall at about 9 PM last night and was apparently on the ground for 3 hours before neighbors found her. He did assist her back to the house. Today she has had vomiting and diarrhea. Apparently she had this yesterday as well and has had some confusion yesterday. Family noted that and it would not be typical for her to try to get out at 9:00 at night. Overall she is doing better today except for the diarrhea. Admits that she may be dehydrated. She did eat a whole bag of black licorice a few days ago and this may have been the precipitating cause of some of this. Has had some nausea and vomiting but that is improved. Denies headache. Does admit to global weakness. Has complained of neck pain and right shoulder pain after the fall. She fell on the dirt. She does believe that she hit her head. She is not on blood thinners. Occurred: yesterday Severity: moderate Injuries/Pain Location: head, neck, upper extremity Context: unknown Loss of Consciousness: no loss of consciousness Associated Symptoms (Fall): No Abdominal Pain, No Chest Pain; Confusion, Headache; No Muscle Spasms; Nausea/Vomiting, Neck Pain; No Shortness of Air, No Vision Changes Allergies and Home Medications Allergies Coded Allergies: Penicillins (Verified Allergy, Unknown, 06/01/19) Patient Home Medication List Home Medication List Reviewed: Yes Albuterol Sulfate (Ventolin Hfa) 18 Gm Hfa.aer.ad, 2 PUFF PO QID PRN for WHEEZING, (Reported) Entered as Reported by: THERESE GOLDBERG on 12/24/19 1309 Aspirin (Aspirin) 81 Mg Tab.chew, 81 MG PO BID WITH MEALS Prescribed by: RADHA NEWMAN on 01/02/20 0557 Atorvastatin Calcium (Atorvastatin Calcium) 20 Mg Tablet, 20 MG PO DAILY, (Reported) Entered as Reported by: SAMANTHA KATZ on 06/01/19 1036 Cholecalciferol (Vitamin D3) (Vitamin D3) 25 Mcg Tablet, 50 MCG PO DAILY Prescribed by: RADHA NEWMAN on 01/02/20 05 Diltiazem HCl (Diltiazem 24Hr ER) 240 Mg Cap.er.24h, 240 MG PO DAILY, (Reported) Entered as Reported by: THERESE GOLDBERG on 12/20/19 120 Duloxetine HCl (Duloxetine HCl) 60 Mg Capsule.dr, 60 MG PO DAILY, (Reported) Entered as Reported by: THERESE GOLDBERG on 12/20/19 120 Duloxetine HCl (Duloxetine HCl) 30 Mg Capsule.dr, 30 MG PO HS, (Reported) Entered as Reported by: THERESE GOLDBERG on 12/20/19 141 Enoxaparin Sodium (Enoxaparin Sodium) 40 Mg/0.4 Ml Syringe, 40 MG SC Q24H Prescribed by: RADHA NEWMAN on 01/02/20556 Fluticasone/Vilanterol (Breo Ellipta 200-25 Mcg INH) 1 Each Blst.w.dev, 1 PUFF PO DAILY, (Reported) Entered as Reported by: THERESE GOLDBERG on 12/24/19 130 Gabapentin (Neurontin) 300 Mg Capsule, 300 MG PO TID, (Reported) Entered as Reported by: THERESE GOLDBERG on 12/20/19 120 Glucosamine/MSM/Chondroitin A (Glucosamine Chondroit MSM Tab) 1 Each Tablet, 1 EACH PO HS, (Reported) Entered as Reported by: THERESE GOLDBERG on 12/24/19 1309 Lisinopril (Lisinopril) 20 Mg Tablet, 20 MG PO DAILY, (Reported) Entered as Reported by: SAMANTHA KATZ on 06/01/19 1036 Meloxicam (Meloxicam) 15 Mg Tablet, 15 MG PO DAILY, (Reported) Entered as Reported by: THERESE GOLDBERG on 12/20/19 120 Montelukast Sodium (Montelukast Sodium) 10 Mg Tablet, 10 MG PO DAILY, (Reported) Entered as Reported by: THERESE GOLDBERG on 12/20/19 141 Multivits,Ca,Minerals/Iron/FA (Thera-M Tablet) 1 Each Tablet, 1 EA PO DAILY@0700 Prescribed by: RADHA NEWMAN on 01/02/20556 Oxycodone Hcl (Oxyir Tablet) 5 Mg Tablet, 5 MG PO Q6H PRN for PAIN-SEVERE (8-10) Prescribed by: RADHA NEWMAN on 01/02/20 0557 Sennosides/Docusate Sodium (Senna-Time S Tablet) 1 Each Tablet, 1 EA PO BID Prescribed by: RADHA NEWMAN on 01/02/20 0557 Turmeric/Turmeric Root Extract (Turmeric 450-50 mg Capsule) 1 Each Capsule, 1 EACH PO DAILY PRN for CONSTIPATION, (Reported) Entered as Reported by: THERESE GOLDBERG on 12/24/19 1309 Ubidecarenone (Co Q-10) 200 Mg Capsule, 200 MG PO HS, (Reported) Entered as Reported by: THERESE GOLDBERG on 12/24/19 1309 Review of Systems Review of Systems Constitutional: see HPI; No chills, No fever Eyes: No Symptoms Reported Ears, Nose, Mouth, Throat: no symptoms reported Respiratory: No cough, No short of breath Cardiovascular: No chest pain, No edema Gastrointestinal: diarrhea, nausea, vomiting Genitourinary: no symptoms reported Musculoskeletal: see HPI, joint pain, muscle pain Past Sxtyaix-Nphqci-Tnqmox Hx Patient Social History Tobacco Use?: No Smoking Status: Former Smoker Substance use?: No Alcohol Use?: No Immunizations Up To Date Tetanus Booster (TDap): Unknown PED Vaccines UTD: Yes Second COVID19 Vaccination Cliff: 06/28 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: [employer] Seasonal Allergies Seasonal Allergies: No Past Medical History Surgeries: Yes (RIGHT KNEE, LEFT SHOULDER) Adenoidectomy, Appendectomy, Hysterectomy, Orthopedic, Tonsillectomy, Tubal Ligation Respiratory: Yes Asthma, COPD Currently Using CPAP: No Currently Using BIPAP: No Cardiac: Yes High Cholesterol, Hypertension 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 oz. kg; 25.00 BMI Method: General Appearance: WD/WN, no apparent distress HEENT: PERRL/EOMI, TMs normal, pharynx normal Neck: non-tender, full range of motion, supple, normal inspection Cardiovascular: regular rate, rhythm, no murmur Respiratory: lungs clear, normal breath sounds Gastrointestinal: soft, tenderness (Mild diffuse) Back: normal inspection, no CVA tenderness, no vertebral tenderness Extremities: other (Mild tenderness to right shoulder with full range of motion) Neurologic/Psychiatric: alert, oriented x 3 Skin: normal color, warm/dry [place] Coma Score Best Eye Response: (4) Open Spontaneously Best Verbal Response: (5) Oriented Best Motor Response: (6) Obeys Commands Progress/Results/Core Measures Results/Orders Lab Results Laboratory Tests Test 02/11/21 12:00 02/11/21 13:00 Range/Units White Blood Count 8.0 4.3-11.0 10^3/uL Red Blood Count 3.75 L 3.80-5.11 10^6/uL Hemoglobin 11.6 11.5-16.0 g/dL Hematocrit 34 L 35-52 % Mean Corpuscular Volume 92 80-99 fL Mean Corpuscular Hemoglobin 31 25-34 pg Mean Corpuscular Hemoglobin Concent 34 32-36 g/dL Red Cell Distribution Width 13.2 10.0-14.5 % Platelet Count 131 130-400 10^3/uL Mean Platelet Volume 10.1 9.0-12.2 fL Immature Granulocyte % (Auto) 0 % Neutrophils (%) (Auto) 77 H 42-75 % Lymphocytes (%) (Auto) 15 12-44 % Monocytes (%) (Auto) 8 0-12 % Eosinophils (%) (Auto) 0 0-10 % Basophils (%) (Auto) 0 0-10 % Neutrophils # (Auto) 6.2 1.8-7.8 10^3/uL Lymphocytes # (Auto) 1.2 1.0-4.0 10^3/uL Monocytes # (Auto) 0.6 0.0-1.0 10^3/uL Eosinophils # (Auto) 0.0 0.0-0.3 10^3/uL Basophils # (Auto) 0.0 0.0-0.1 10^3/uL Immature Granulocyte # (Auto) 0.0 0.0-0.1 10^3/uL Sodium Level 136 135-145 MMOL/L Potassium Level 3.5 L 3.6-5.0 MMOL/L Chloride Level 103 98-107 MMOL/L Carbon Dioxide Level 22 21-32 MMOL/L Anion Gap 11 5-14 MMOL/L Blood Urea Nitrogen 9 7-18 MG/DL Creatinine 0.66 0.60-1.30 MG/DL Estimat Glomerular Filtration Rate 87 BUN/Creatinine Ratio 14 Glucose Level 105 70-105 MG/DL Calcium Level 9.5 8.5-10.1 MG/DL Corrected Calcium 9.7 8.5-10.1 MG/DL Total Bilirubin 0.8 0.1-1.0 MG/DL Aspartate Amino Transf (AST/SGOT) 38 H 5-34 U/L Alanine Aminotransferase (ALT/SGPT) 16 0-55 U/L Alkaline Phosphatase 53 40-136 U/L Total Creatine Kinase 1422 H 29-168 U/L C-Reactive Protein High Sensitivity 6.55 H 0.00-0.50 MG/DL Total Protein 6.9 6.4-8.2 GM/DL Albumin 3.7 3.2-4.5 GM/DL Urine Color YELLOW Urine Clarity SL CLOUDY Urine pH 6.0 5-9 Urine Specific [place] 1.020 1.016-1.022 Urine Protein TRACE H NEGATIVE Urine Glucose (UA) NEGATIVE NEGATIVE Urine Ketones TRACE H NEGATIVE Urine Nitrite NEGATIVE NEGATIVE Urine Bilirubin 1+ H NEGATIVE Urine Urobilinogen >=8.0 < = 1.0 MG/DL Urine Leukocyte Esterase 3+ H NEGATIVE Urine RBC (Auto) 2+ H NEGATIVE Urine RBC 10-25 H /HPF Urine WBC 10-25 H /HPF Urine Crystals PRESENT H /LPF Urine Amorphous Sediment LARGE CORTES URATES H /LPF Urine Bacteria LARGE H /HPF Urine Casts NONE /LPF Urine Mucus NEGATIVE /LPF Urine Culture Indicated YES My Orders Orders - RADHA POWELL MD Ct Head/Cervical Spine Wo (02/11/21 12:08) Shoulder, Right, 3 Views (02/11/21 12:08) Cbc With Automated Diff (02/11/21 12:08) Comprehensive Metabolic Panel (02/11/21 12:08) Hs C Reactive Protein (02/11/21 12:08) Ua Culture If Indicated (02/11/21 12:08) Ed Iv/Invasive Line Start (02/11/21 12:08) Ns Iv 500 Ml (Sodium Chloride 0.9%) (02/11/21 12:15) Creatine Kinase (02/11/21 12:54) Urine Culture (02/11/21 13:00) Ceftriaxone (Rocephin) (02/11/21 13:45) Ns Iv 500 Ml (Sodium Chloride 0.9%) (02/11/21 13:45) Medications Given in ED Current Medications Medications Dose Ordered Sig/Perla Route Start Time Stop Time Status Last Admin Dose Admin Sodium Chloride 500 ml @ 0 mls/hr Q0M ONCE IV 02/11/21 12:15 02/11/21 12:16 DC 02/11/21 12:18 500 MLS/HR Sodium Chloride 500 ml @ 0 mls/hr Q0M ONCE IV 02/11/21 13:45 02/11/21 13:47 DC 02/11/21 13:57 1,000 MLS/HR Vital Signs/I&O 02/11/21 11:45 Temp 36.3 Pulse 93 Resp 16 B/P (MAP) 131/66 (87) Pulse Ox 97 O2 Delivery Room Air Blood Pressure Mean: 87 Progress Progress Note : Progress Note Seen and evaluated. IV, labs, UA, CT head neck, x-ray right shoulder and normal saline 500 mL bolus ordered. Monitor patient. 1347: Improved overall. She does show ketones in her urine and I suspect she is still a bit dry. We will repeat normal saline 500 mL bolus. Rocephin 1 g IV. We will continue outpatient treatment with antibiotics for the urinary tract infection. Monitor patient. 1440: Overall doing much better. There is a question of contamination of the urine with stool now. I do still think it would be appropriate to continue antibiotic treatment outpatient for a few days. Discharged home with return precautions. Patient verbalized understanding of instructions and agreement with plan. Diagnostic Imaging Diagonstic Imaging: Xray Plain Films/CT/US/NM/MRI: other Comments [facility]. [place], [place] NAME: JOSE SILVA [facility] REC#: [id number] PT STATUS: REG ER : 1945 PHYSICIAN: RADHA POWELL MD ADMIT DATE: 02/11/21/ER Draft Date of Exam:02/11/21 SHOULDER, RIGHT, 3 VIEWS HISTORY: Fall with right shoulder pain and injury. TECHNIQUE: Three views of the right shoulder. COMPARISON: 10/29/2019. FINDINGS: There are moderate degenerative changes in the right acromioclavicular joint. No acute fracture is seen in the right shoulder. Alignment is normal. Cyst-like changes are seen at the greater tuberosity, may be from chronic rotator cuff injury. IMPRESSION: 1. Degenerative changes in the right shoulder with no acute fracture seen. Dictated on workstation # [id number] Dict: 02/11/21 1255 Trans: 02/11/21 1258 [id number] Interpreted by: SOFYA THOMPSON MD Electronically signed by: Yareligonssherice Imaging: CT Plain Films/CT/US/NM/MRI: c-spine, head Comments [facility], [place] NAME: JOSE SILVA [facility] REC#: [id number] PT STATUS: REG ER : 1945 PHYSICIAN: RADHA POWLEL MD ADMIT DATE: 02/11/21/ER Draft Date of Exam:02/11/21 CT HEAD/CERVICAL SPINE WO PROCEDURE: CT head and CT cervical spine without contrast. TECHNIQUE: Multiple contiguous axial images were obtained through the brain and cervical spine without the use of intravenous contrast. Sagittal and coronal reformations through the cervical spine were then performed. Auto Exposure Controls were utilized during the CT exam to meet ALARA standards for radiation dose reduction. INDICATION: Fall with head and neck injury. COMPARISON: No prior studies are available for comparison. CT HEAD: Ventricles and sulci are consistent with the patient's age. No sulcal effacement or midline shift is identified. No acute intra-axial or extra-axial hemorrhage is detected. Cisterns are patent. Visualized paranasal sinuses are clear. IMPRESSION: No acute intracranial process is detected. CT CERVICAL SPINE: Postoperative changes of ACDF with anterior plate and screws transfixing C4-C5 level is noted. There is minimal anterolisthesis of C4 on C5. There is degenerative disc disease at the C5-C6 and C6-C7 levels with disc space narrowing and marginal spurring. There is upper thoracic spondylosis as well. There is multilevel facet arthropathy. No fractures are seen. Odontoid is intact. IMPRESSION: Cervical spondylosis and postsurgical changes. No acute bony abnormality is detected. Dictated on workstation # [id number] Dict: 02/11/21 1243 Trans: 02/11/21 1248 [id number] Interpreted by: NICK MARRUFO MD Electronically signed by: Departure Impression Primary Impression: Urinary tract infection Qualified Codes: N30.00 - Acute cystitis without hematuria Additional Impressions: Fall Qualified Codes: W19.XXXA - Unspecified fall, initial encounter Contusion of right shoulder Qualified Codes: S40.011A - Contusion of right shoulder, initial encounter Diarrhea Qualified Codes: R19.7 - Diarrhea, unspecified Disposition: ADMITTED INPATIENT Condition: Stable Departure-Patient Inst. Decision time for Depature: 14:17 Referrals: ASHLEY MEEKS MD (PCP/Family) Primary Care Physician Patient Instructions: Urinary Tract Infection, Adult ED, Preventing Falls ED, Minor Contusion ED, Diarrhea, Adult ED Add. Discharge Instructions: All discharge instructions reviewed with patient and/or family. Voiced understanding. You may initiate probiotic [id number] and take per package directions. Clear or light diet for the next 24 to 48 hours and then advance as tolerated. Drink plenty of fluids. Call Dr. Meeks's office for appointment for early next week for recheck and further evaluation. Take medications as directed. Return for worse pain, fever, vomiting, weakness, breathing problems or other concerns as needed. Scripts Nitrofurantoin Macrocrystal (Nitrofurantoin) 100 Mg Capsule 100 MG PO BID, #6 CAP 0 Refills Prov: RADHA POWELL MD 02/11/21 Copy Copies To 1: ASHLEY MEEKS MD, TIMOTHY D MD Feb 11, 2021 13:06
[2021-02-11 13:08] LABS: CLARITY,URINE SL CLOUDY; COLOR,URINE YELLOW; GLUCOSE, URINE (UA) NEGATIVE (NEGATIVE); KETONES,URINE TRACE (NEGATIVE); LEUKOCYTE ESTERASE ,URINE 3+ (NEGATIVE); NITRITE,URINE NEGATIVE (NEGATIVE); PROTEIN,URINE TRACE (NEGATIVE)
[2021-02-11 13:18] LABS: BILIRUBIN,URINE 1+ (NEGATIVE)
[2021-02-11 13:19] LABS: BACTERIA,URINE LARGE /HPF
[2021-02-11 13:20] LABS: AMORPHOUS SEDIMENT,UR LARGE AMOR URATES /LPF
[2021-02-11] MEDS ORDERED: cefTRIAXone 1,000 MG in WATER (STERILE) FOR INJECTION 10 ML IV STA (13:45)
[2021-02-11] MEDS ORDERED: NITR100C PO (14:43)
[2021-02-11 14:52] VITALS: BP 134/71
== END 2021-02-11 14:52 | disposition other institution (70) ==
LOC: EDUNIT# 11:42 → ER 11:43
DX: S40.011A Contusion of right shoulder, initial encounter (principal); N39.0 Urinary tract infection, site not specified; R19.7 Diarrhea, unspecified; J44.9 Chronic obstructive pulmonary disease, unspecified; I10 Essential (primary) hypertension; F41.9 Anxiety disorder, unspecified; F32.9 Major depressive disorder, single episode, unspecified; E78.00 Pure hypercholesterolemia, unspecified; Z87.891 Personal history of nicotine dependence; Z79.01 Long term (current) use of anticoagulants; Z79.899 Other long term (current) drug therapy; Z79.82 Long term (current) use of aspirin; W18.30XA Fall on same level, unspecified, initial encounter
CPT/HCPCS: 36415; 70450; 72125; 73030; 80053; 81000; 82550; 85025; 86141; 87088

== ENCOUNTER → 2021-02-18 | Outpatient (CLI) | payer MEDICARE ==
[~2021-02-18] MED LIST changes: +NITR100C PO
--- NOTE | 2021-02-18 17:59 | Diagnostic Imaging Report ---
EXAM: ABDOMEN/KUB 1VIEW INDICATION: Constipation. COMPARISON: None. FINDINGS: Large amount of stool throughout the rectum compatible with constipation. Nonspecific small bowel gas pattern. Postoperative changes in the lower lumbar spine. IMPRESSION: Large amount of stool throughout the colon compatible with constipation. Dictated by: Dictated on workstation # [id number]
== END ==
PROVIDERS: ATTEND Family Medicine
DX: K59.00 Constipation, unspecified (principal)
CPT/HCPCS: 74018

== ENCOUNTER → 2021-03-01 | Outpatient (CLI) | payer MEDICARE | LOC: ORTHO 12:40 | PROVIDERS: ATTEND Orthopaedic Surgery | DX: M75.102 Unspecified rotator cuff tear or rupture of left shoulder, not specified as traumatic (principal) | CPT/HCPCS: 20610; G0463 ==

== ENCOUNTER → 2021-08-24 | Outpatient (CLI) | payer MEDICARE ==
[~2021-08-24] MED LIST changes: +CATHETER FLUSH 10 ML SYR IVP PRN; +MONT-40 PO; -MONT10TA32 PO; +REGADENOSON 0.4 MG/5 ML SYR (LEXISCAN) IV ONE
[2021-08-24 13:37] VITALS: BP 150/71
--- NOTE | 2021-08-24 15:51 | STRESS TEST ---
DATE OF SERVICE: RESTING AND POST REGADENOSON TECHNETIUM-99M TETROFOSMIN SPECT CT IMAGING CLINICAL DIAGNOSIS: Coronary artery disease. ORDERING PHYSICIAN: Dr. Pozo. PRIMARY PHYSICIAN: Dr. Meeks. Baseline images were carried out after injection of 9.86 mCi of technetium-99m Tetrofosmin. This was followed by 0.4 mg regadenoson and 28.6 mCi of technetium-99m Tetrofosmin for stress imaging. The electrocardiogram showed sinus rhythm at baseline. It did not change significantly with regadenoson infusion. Review of images at rest and following stress does not indicate any significant perfusion defects consistent with myocardial ischemia or infarction. Gated images show normal global left ventricular systolic function with normal regional wall motion. Left ventricular ejection fraction is calculated to be 75%. CONCLUSIONS: 1. No evidence of any significant myocardial ischemia or infarction on this study. 2. Normal regional wall motion. 3. Normal global left ventricular systolic function with a calculated ejection fraction of 75%. Job ID: [id number] DocumentID: [id number] Dictated Date: 08/24/2021 15:37:53 Business Analyst Intern Date: 08/24/2021 15:49:58 Dictated By: SELAM POZO MD, MA, FACP, FACC,
== END ==
LOC: CARD 11:32
PROVIDERS: ATTEND Internal Medicine Cardiovascular Disease
DX: I25.10 Atherosclerotic heart disease of native coronary artery without angina pectoris (principal)
CPT/HCPCS: 78452; 93017; A9502

== ENCOUNTER → 2021-11-29 | Outpatient (CLI) | payer MEDICARE ==
[~2021-11-29] MED LIST changes: -CATHETER FLUSH 10 ML SYR IVP PRN; -REGADENOSON 0.4 MG/5 ML SYR (LEXISCAN) IV ONE
== END ==
LOC: ORTHO 09:45
PROVIDERS: ATTEND Orthopaedic Surgery
DX: G56.02 Carpal tunnel syndrome, left upper limb (principal); G56.01 Carpal tunnel syndrome, right upper limb; M75.102 Unspecified rotator cuff tear or rupture of left shoulder, not specified as traumatic; M75.101 Unspecified rotator cuff tear or rupture of right shoulder, not specified as traumatic

== ENCOUNTER → 2022-01-17 | Outpatient (CLI) | payer MEDICARE ==
--- NOTE | 2022-01-17 17:28 | Diagnostic Imaging Report ---
EXAMINATION: Right hand radiographs, 3 views. Left hand radiographs, 3 views. COMPARISON: None. HISTORY: 76-year-old female, bilateral hand pain. FINDINGS: There is moderate to severe osteoarthritis of the left first carpometacarpal joint. There is moderate to severe joint space loss at the third distal interphalangeal joint. There is mild osteoarthritis of the second distal interphalangeal joint. There is moderate osteoarthritis of the right first carpometacarpal joint. There is moderate joint space loss at the second and third metacarpophalangeal joints on the right. There is mild right second distal interphalangeal joint arthritis. There is no identified bone erosion. There is no chondrocalcinosis. There is no identified acute fracture. IMPRESSION: 1. No identified acute fracture of either hand. 2. Multifocal arthritis as described above, most likely reflecting multifocal osteoarthritis. Dictated by: Dictated on workstation # [id number]
--- NOTE | 2022-01-17 17:30 | Diagnostic Imaging Report ---
EXAMINATION: Left wrist radiographs, 3 views. Right wrist radiographs, 3 views. COMPARISON: None. HISTORY: 76-year-old female, fall 2 weeks ago. Bilateral hand and wrist pain. FINDINGS: There is bilateral advanced first carpometacarpal osteoarthritis. The additional joint spaces specifically at the level of the right and left wrists are unremarkable. There is no identified acute fracture. There is no abnormal bone alignment. There is no radiopaque foreign body. IMPRESSION: 1. No identified acute bony abnormality of the right or left wrist. 2. Advanced bilateral first carpometacarpal osteoarthritis. Dictated by: Dictated on workstation # [id number]
== END ==
LOC: RAD 11:02
PROVIDERS: ATTEND Nurse Practitioner Family
DX: M18.0 Bilateral primary osteoarthritis of first carpometacarpal joints (principal)

== ENCOUNTER → 2022-04-13 | Outpatient (CLI) | payer MEDICARE | LOC: CARD 13:34 | PROVIDERS: ATTEND Nurse Practitioner Family | DX: R06.09 Other forms of dyspnea (principal) | CPT/HCPCS: 93306 ==

== ENCOUNTER → 2022-11-23 | Outpatient (CLI) | payer MEDICARE ==
[~2022-11-23] MED LIST changes: -UBID300C PO; +UBID300C2 PO
--- NOTE | 2022-11-23 19:06 | Diagnostic Imaging Report ---
EXAMINATION: Right hip radiographs, 2 views. COMPARISON: None. HISTORY: 77-year-old female, right hip pain. FINDINGS: The right hip is not dislocated. There is no joint space loss of the right hip. There is no osteophyte formation or subchondral cystic change. There is no identified acute fracture. There is degenerative type enthesopathy at the right iliac crest. IMPRESSION: Unremarkable radiographs of the right hip. Dictated by: Dictated on workstation # [id number]
== END ==
LOC: RAD 13:02
PROVIDERS: ATTEND Pain Medicine Interventional Pain Medicine
DX: M25.551 Pain in right hip (principal)
CPT/HCPCS: 73502

== ENCOUNTER 2023-02-17 15:09 | Emergency (ER) | payer MEDICARE ==
[~2023-02-17] VITALS: Ht 157.2 cm; Wt 72.5 kg
[2023-02-17] MEDS ORDERED: NS IV 500 ML 500 ML IV ONE (16:30)
--- NOTE | 2023-02-17 16:32 | ED Neurological Problem ---
General Chief Complaint: Neurological Problems Stated Complaint: SEIZURE EARLIER TODAY Nursing Triage Note: PT AMB TO [facility] 6 WITH CC OF OF A SEIZURE AT 1PM TODAY. PT STATES THAT SHE WAS SITTING AT [employer] AND STARTED SHAKING WHEN SHE BENT OVER. PT REPORTS THAT SHE REMEMBERS THE EVENT. PT RECENTLY STARTED NEW MEDICATION FOR INCONTIENCE 2 WEEKS AGO. Source: patient, family Exam Limitations: no limitations History of Present Illness Date Seen by Provider: Feb 17, 2023 Time Seen by Provider: 14:15 Initial Comments Here with episode of syncope while at problems today eating lunch. Apparently she had gone to see her grandson play today and afterwards went to [employer] for lunch. She was feeling all right but then had episode where she nearly passed out and was shaking. Her daughter noticed her and sat her upright and asked her if she was okay and the patient reported that she was shaking and asked what happened. She returned to normal rapidly afterwards. She apparently went to her doctor's office who instructed her to come here. No recent injury, chest pain, breathing problems, fever, chills or other concerns. She does occasionally get urinary tract infections which causes balance issues with her. She does have history of hypertension. No history of significant head injury or intracranial concerns and she has never had seizures before and does not remember significant syncopal episode. She does have chronic neck pain and that has been evaluated with Dr. COMBS. She will get further work-up on that later. That is unchanged overall currently. Timing/Duration: 1-3 hours (Ago), episodic Severity: moderate Associated Symptoms: No confusion, No fever/chills, No nausea/vomiting, No slurred speech, No tingling in legs/feet, No trouble walking, No vision changes; other (Syncope) Allergies and Home Medications Allergies Coded Allergies: Penicillins (Verified Allergy, Unknown, 06/01/19) Patient Home Medication List Home Medication List Reviewed: Yes Albuterol Sulfate (Ventolin Hfa) 18 Gm Hfa.aer.ad, 2 PUFF PO QID PRN for WHEEZING, (Reported) Entered as Reported by: THERESE GOLDBERG on 12/24/19 1309 Aspirin (Aspirin) 81 Mg Tab.chew, 81 MG PO BID WITH MEALS Prescribed by: RADHA NEWMAN on 01/02/20 0557 Atorvastatin Calcium (Atorvastatin Calcium) 20 Mg Tablet, 20 MG PO DAILY, (Reported) Entered as Reported by: SAMANTHA KATZ on 06/01/19 1036 Cholecalciferol (Vitamin D3) (Vitamin D3) 25 Mcg Tablet, 50 MCG PO DAILY Prescribed by: RADHA NEWMAN on 01/02/20 0557 Diltiazem HCl (Diltiazem 24Hr ER) 240 Mg Cap.er.24h, 240 MG PO DAILY, (Reported) Entered as Reported by: THERESE GOLDBERG on 12/20/19 120 Duloxetine HCl (Duloxetine HCl) 60 Mg Capsule.dr, 60 MG PO DAILY, (Reported) Entered as Reported by: THERESE GOLDBERG on 12/20/19 120 Duloxetine HCl (Duloxetine HCl) 30 Mg Capsule.dr, 30 MG PO HS, (Reported) Entered as Reported by: THERESE GOLDBERG on 12/20/19 1411 Enoxaparin Sodium (Enoxaparin Sodium) 40 Mg/0.4 Ml Syringe, 40 MG SC Q24H Prescribed by: RADHA NEWMAN on 01/02/20 05 Fluticasone/Vilanterol (Breo Ellipta 200-25 Mcg INH) 1 Each Blst.w.dev, 1 PUFF PO DAILY, (Reported) Entered as Reported by: THERESE GOLDBERG on 12/24/19 1309 Gabapentin (Neurontin) 300 Mg Capsule, 300 MG PO TID, (Reported) Entered as Reported by: THERESE GOLDBERG on 12/20/19 120 Glucosamine/MSM/Chondroitin A (Glucosamine Chondroit MSM Tab) 1 Each Tablet, 1 EACH PO HS, (Reported) Entered as Reported by: THERESE GOLDBERG on 12/24/19 1309 Lisinopril (Lisinopril) 20 Mg Tablet, 20 MG PO DAILY, (Reported) Entered as Reported by: SAMANTHA KATZ on 06/01/19 1036 Meloxicam (Meloxicam) 15 Mg Tablet, 15 MG PO DAILY, (Reported) Entered as Reported by: THERESE GOLDBERG on 12/20/19 120 Montelukast Sodium (Montelukast Sodium) 10 Mg Tablet, 10 MG PO DAILY, (Reported) Entered as Reported by: THERESE GOLDBERG on 12/20/19 1411 Multivits,Ca,Minerals/Iron/FA (Thera-M Tablet) 1 Each Tablet, 1 EA PO DAILY@0700 Prescribed by: RADHA NEWMAN on 01/02/20 0557 Nitrofurantoin Macrocrystal (Nitrofurantoin) 100 Mg Capsule, 100 MG PO BID Prescribed by: RADHA POWELL on 02/11/21 1443 Oxycodone Hcl (Oxyir Tablet) 5 Mg Tablet, 5 MG PO Q6H PRN for PAIN-SEVERE (8-10) Prescribed by: RADHA NEWMAN on 01/02/20 0557 Sennosides/Docusate Sodium (Senna-Time S Tablet) 1 Each Tablet, 1 EA PO BID Prescribed by: RADHA NEWMAN on 01/02/20 0557 Turmeric/Turmeric Root Extract (Turmeric 450-50 mg Capsule) 1 Each Capsule, 1 EACH PO DAILY PRN for CONSTIPATION, (Reported) Entered as Reported by: THERESE GOLDBERG on 12/24/19 1309 Ubidecarenone (Co Q-10) 200 Mg Capsule, 200 MG PO HS, (Reported) Entered as Reported by: THERESE GOLDBERG on 12/24/19 1309 Review of Systems Review of Systems Constitutional: see HPI; No chills, No fever Eyes: No Symptoms Reported Ears, Nose, Mouth, Throat: no symptoms reported Respiratory: see HPI Cardiovascular: No chest pain, No edema; syncope Gastrointestinal: No abdominal pain, No nausea, No vomiting Genitourinary: no symptoms reported Musculoskeletal: No back pain; neck pain Psychiatric/Neurological: See HPI Past Nnltyyq-Hboryt-Rrrnmv Hx Patient Social History Tobacco Use?: No Smoking Status: Former Smoker Substance use?: No Alcohol Use?: No Immunizations Up To Date Tetanus Booster (TDap): Unknown PED Vaccines UTD: Yes First/Initial COVID19 Vaccinat: 06/28 Second COVID19 Vaccination Cliff: 06/28 Third COVID19 Vaccination Date: 06/28 Seasonal Allergies Seasonal Allergies: No Past Medical History Surgery/Hospitalization HX: tonsilectomy, hysterectomy Surgeries: Yes (RIGHT KNEE, LEFT SHOULDER) Adenoidectomy, Appendectomy, Hysterectomy, Orthopedic, Tonsillectomy, Tubal Ligation Respiratory: Yes Asthma, COPD Currently Using CPAP: No Currently Using BIPAP: No Cardiac: Yes High Cholesterol, Hypertension 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 oz. kg; 29.00 BMI Method: General Appearance: WD/WN, no apparent distress Neck: full range of motion, supple Respiratory: lungs clear, normal breath sounds Cardiovascular: regular rate, rhythm, no murmur Gastrointestinal: non tender, soft Back: normal inspection, no CVA tenderness, no vertebral tenderness Neurologic/Psychiatric: alert, oriented x 3 Crainal Nerves: normal hearing, normal speech, PERRL Motor/Sensory: no motor deficit, no sensory deficit Skin: normal color, warm/dry Progress/Results/Core Measures Results/Orders Lab Results Laboratory Tests Test 02/17/23 15:19 02/17/23 16:35 Range/Units White Blood Count 7.5 4.3-11.0 10^3/uL Red Blood Count 4.34 3.80-5.11 10^6/uL Hemoglobin 13.9 11.5-16.0 g/dL Hematocrit 43 35-52 % Mean Corpuscular Volume 100 H 80-99 fL Mean Corpuscular Hemoglobin 32 25-34 pg Mean Corpuscular Hemoglobin Concent 32 32-36 g/dL Red Cell Distribution Width 13.9 10.0-14.5 % Platelet Count 176 130-400 10^3/uL Mean Platelet Volume 11.0 9.0-12.2 fL Immature Granulocyte % (Auto) 0 % Neutrophils (%) (Auto) 64 42-75 % Lymphocytes (%) (Auto) 26 12-44 % Monocytes (%) (Auto) 8 0-12 % Eosinophils (%) (Auto) 3 0-10 % Basophils (%) (Auto) 1 0-10 % Neutrophils # (Auto) 4.8 1.8-7.8 10^3/uL Lymphocytes # (Auto) 1.9 1.0-4.0 10^3/uL Monocytes # (Auto) 0.6 0.0-1.0 10^3/uL Eosinophils # (Auto) 0.2 0.0-0.3 10^3/uL Basophils # (Auto) 0.0 0.0-0.1 10^3/uL Immature Granulocyte # (Auto) 0.0 0.0-0.1 10^3/uL Sodium Level 142 135-145 MMOL/L Potassium Level 4.1 3.6-5.0 MMOL/L Chloride Level 105 98-107 MMOL/L Carbon Dioxide Level 27 21-32 MMOL/L Anion Gap 10 5-14 MMOL/L Blood Urea Nitrogen 15 7-18 MG/DL Creatinine 0.99 0.60-1.30 MG/DL Estimat Glomerular Filtration Rate 58 BUN/Creatinine Ratio 15 Glucose Level 104 70-105 MG/DL Calcium Level 9.1 8.5-10.1 MG/DL Corrected Calcium 9.3 8.5-10.1 MG/DL Magnesium Level 2.2 1.6-2.4 MG/DL Total Bilirubin 0.4 0.1-1.0 MG/DL Aspartate Amino Transf (AST/SGOT) 15 5-34 U/L Alanine Aminotransferase (ALT/SGPT) 10 0-55 U/L Alkaline Phosphatase 56 40-136 U/L Troponin I < 0.028 <0.028 NG/ML Total Protein 7.2 6.4-8.2 GM/DL Albumin 3.7 3.2-4.5 GM/DL Urine Color YELLOW Urine Clarity CLEAR Urine pH 5.5 5-9 Urine Specific [place] 1.025 H 1.016-1.022 Urine Protein TRACE H NEGATIVE Urine Glucose (UA) NEGATIVE NEGATIVE Urine Ketones TRACE H NEGATIVE Urine Nitrite POSITIVE H NEGATIVE Urine Bilirubin 1+ H NEGATIVE Urine Urobilinogen 2.0 < = 1.0 MG/DL Urine Leukocyte Esterase TRACE H NEGATIVE Urine RBC (Auto) NEGATIVE NEGATIVE Urine RBC NONE /HPF Urine WBC 10-25 H /HPF Urine Squamous Epithelial Cells RARE /HPF Urine Crystals NONE /LPF Urine Bacteria LARGE H /HPF Urine Casts NONE /LPF Urine Mucus NEGATIVE /LPF Urine Culture Indicated YES My Orders Orders - RADHA POWELL MD Ed Iv/Invasive Line Start (02/17/23 16:28) Ekg Tracing (02/17/23 16:28) Ct Head Wo (02/17/23 16:28) Cbc And Automated Diff (02/17/23 16:28) Comprehensive Metabolic Panel (02/17/23 16:28) Magnesium (02/17/23 16:28) Troponin I [place] (02/17/23 16:28) Ua Culture If Indicated (02/17/23 16:28) Ed Iv/Invasive Line Start (02/17/23 16:28) Ns Iv 500 Ml (Ns Iv 500 Ml) (02/17/23 16:30) Urine Culture (02/17/23 16:35) Medications Given in ED Current Medications Medications Dose Ordered Sig/Perla Route Start Time Stop Time Status Last Admin Dose Admin Sodium Chloride 500 ml @ 0 mls/hr Q0M ONCE IV 02/17/23 16:30 02/17/23 16:31 DC 02/17/23 16:39 0 MLS/HR Vital Signs/I&O 02/17/23 15:15 Temp 37.0 Pulse 96 B/P (MAP) 112/86 (95) Pulse Ox 95 O2 Delivery Room Air Blood Pressure Mean: 95 Progress Progress Note : Progress Note Seen and evaluated. IV, labs including CBC, CMP, magnesium and troponin, UA, EKG and CT head ordered. Normal saline 500 mL bolus. Monitor patient. Differential diagnosis includes syncope, electrolyte abnormality, dehydration, UTI, intracranial abnormality, cardiac dysrhythmia 1655: CBC grossly normal. CMP is grossly normal with normal magnesium and normal troponin. EKG is normal sinus rhythm. Pending UA. Monitor patient. CT head reviewed and shows no obvious intracranial hemorrhage or mass on my interpretation. Report reviewed and agrees. UA is nitrite positive suggesting urinary tract infection. She did have E. coli previously and I have seen her before with similar and she tolerated nitrofurantoin well. We will go ahead and do this and give it to her for 5 days. First dose now. She is overall feeling much better and is very jovial and interactive. Discharged home with return precautions. Patient and family verbalized understanding of instructions and agreement with plan. Initial ECG Impression Date: Feb 17, 2023 Initial ECG Impression Time: 16:50 Initial ECG Rate: 75 Initial ECG Rhythm: Normal Sinus Initial ECG Impression: Normal Comment Sinus rhythm with normal axis. No evidence of ST elevation SD. Interpreted by me. Diagnostic Imaging Diagonstic Imaging: CT Plain Films/CT/US/NM/MRI: head Comments [facility]. [place], [place] NAME: JOSE SILVA [facility] REC#: [id number] PT STATUS: REG ER : 1945 PHYSICIAN: RADHA POWELL MD ADMIT DATE: 02/17/23/ER Draft Date of Exam:02/17/23 CT HEAD WO INDICATION: Seizure. TECHNIQUE: Multiple contiguous axial images were obtained through the brain without the use of intravenous contrast. Auto Exposure Controls were utilized during the CT exam to meet ALARA standards for radiation dose reduction. COMPARISON: Comparison made with 02/11/2021. FINDINGS: There are mild diffuse atrophic changes. There are patchy low-density changes in the deep white matter, compatible with chronic ischemic change. There is no acute hemorrhage or subdural or epidural collection. There is no acute territorial ischemia. The ventricles appear normal in size. Orbital contents appear unremarkable. Calvarial windows show no acute bony abnormality. IMPRESSION: Mild chronic changes with no acute intracranial abnormality. Dictated on workstation # [id number] Dict: 02/17/231712 Trans: 02/17/23 1719 [id number] [id number] Interpreted by: VAZQUEZ GUADALUPE MD Electronically signed by: Departure Impression Primary Impression: Urinary tract infection Qualified Codes: N30.00 - Acute cystitis without hematuria Additional Impression: Syncope Qualified Codes: R55 - Syncope and collapse Disposition: 01 HOME, SELF-CARE Condition: Improved Departure-Patient Inst. Decision time for Depature: 17:34 Referrals: ASHLEY STALLINGS MD (PCP/Family) Primary Care Physician Patient Instructions: Fainting, Adult ED, Urinary Tract Infection, Adult (DC) Add. Discharge Instructions: All discharge instructions reviewed with patient and/or family. Voiced understanding. Drink plenty of fluids and take medications as directed. Follow-up with your doctor for recheck and further evaluation next week. A copy of the chart was sent to your doctor. Return for worse pain, fever, vomiting, weakness, breathing problems or other concerns as needed. Scripts Nitrofurantoin Macrocrystal (Nitrofurantoin) 100 Mg Capsule 100 MG PO BID for 5 Days, #10 CAP 0 Refills Prov: RADHA POWELL MD 02/17/23 Copy Copies To 1: ASHLEY STALLINGS MD, TIMOTHY D MD Feb 17, 2023 16:32
[2023-02-17 16:35] LABS: BASOPHILS % (AUTO) 1 % (0-10); EOSINOPHILS # (AUTO) 0.2 10^3/uL (0.0-0.3); EOSINOPHILS % (AUTO) 3 % (0-10); HEMATOCRIT 43 % (35-52); HEMOGLOBIN 13.9 g/dL (11.5-16.0); LYMPHOCYTES # (AUTO) 1.9 10^3/uL (1.0-4.0); LYMPHOCYTES % (AUTO) 26 % (12-44); MEAN CORPUSCULAR HEMOGLOBIN 32 pg (25-34); MEAN CORPUSCULAR HGB CONC 32 g/dL (32-36); MEAN CORPUSCULAR VOLUME 100 fL (80-99); MONOCYTES # (AUTO) 0.6 10^3/uL (0.0-1.0); MONOCYTES % (AUTO) 8 % (0-12); NEUTROPHILS # (AUTO) 4.8 10^3/uL (1.8-7.8); NEUTROPHILS % (AUTO) 64 % (42-75); PLATELET COUNT 176 10^3/uL (130-400); WHITE BLOOD COUNT 7.5 10^3/uL (4.3-11.0)
[2023-02-17 16:37] LABS: ALBUMIN 3.7 GM/DL (3.2-4.5); CHLORIDE 105 MMOL/L (98-107); POTASSIUM 4.1 MMOL/L (3.6-5.0); SODIUM 142 MMOL/L (135-145)
[2023-02-17 16:38] LABS: CALCIUM 9.1 MG/DL (8.5-10.1)
[2023-02-17 16:39] LABS: GLUCOSE 104 MG/DL (70-105); TOTAL PROTEIN 7.2 GM/DL (6.4-8.2)
[2023-02-17 16:41] LABS: BILIRUBIN,TOTAL 0.4 MG/DL (0.1-1.0); CARBON DIOXIDE 27 MMOL/L (21-32)
[2023-02-17 16:43] LABS: ALKALINE PHOSPHATASE 56 U/L (40-136); CREATININE SERUM 0.99 MG/DL (0.60-1.30); GFR ESTIMATED 58
[2023-02-17 16:44] LABS: BUN/CREATININE RATIO 15
[2023-02-17 16:46] LABS: ALANINE AMINOTRANSFERASE 10 U/L (0-55); MAGNESIUM 2.2 MG/DL (1.6-2.4)
[2023-02-17 17:01] LABS: BACTERIA,URINE LARGE /HPF; BILIRUBIN,URINE 1+ (NEGATIVE); CLARITY,URINE CLEAR; COLOR,URINE YELLOW; GLUCOSE, URINE (UA) NEGATIVE (NEGATIVE); KETONES,URINE TRACE (NEGATIVE); LEUKOCYTE ESTERASE ,URINE TRACE (NEGATIVE); NITRITE,URINE POSITIVE (NEGATIVE); PH,URINE 5.5 (5-9); PROTEIN,URINE TRACE (NEGATIVE); SQUAMOUS EPITHELIAL CELL,UR RARE /HPF
--- NOTE | 2023-02-17 17:20 | Diagnostic Imaging Report ---
INDICATION: Seizure. TECHNIQUE: Multiple contiguous axial images were obtained through the brain without the use of intravenous contrast. Auto Exposure Controls were utilized during the CT exam to meet ALARA standards for radiation dose reduction. COMPARISON: Comparison made with 02/11/2021. FINDINGS: There are mild diffuse atrophic changes. There are patchy low-density changes in the deep white matter, compatible with chronic ischemic change. There is no acute hemorrhage or subdural or epidural collection. There is no acute territorial ischemia. The ventricles appear normal in size. Orbital contents appear unremarkable. Calvarial windows show no acute bony abnormality. IMPRESSION: Mild chronic changes with no acute intracranial abnormality. Dictated by: Dictated on workstation # [id number]
[2023-02-17] MEDS ORDERED: NITR100C PO (17:35)
[2023-02-17] MEDS ORDERED: NITROFURANTOIN Monohydrate/Macro 100 MG CAPSULE PO ONE (17:45)
[2023-02-17 18:01] VITALS: BP 166/73
== END 2023-02-17 18:08 | disposition home or self-care (01) ==
LOC: EDUNIT# 15:09 → ER 15:14
DX: R55 Syncope and collapse (principal); N39.0 Urinary tract infection, site not specified; Z87.891 Personal history of nicotine dependence; Z88.0 Allergy status to penicillin
CPT/HCPCS: 36415; 70450; 80053; 81000; 83735; 84484; 85025; 87077; 87088; 87186; 93005